=== PATIENT | female | born 1970 | race Caucasian/White ===

== ENCOUNTER 2017-02-07 06:46 | Inpatient (IN) | payer OTHER ==
[2017-02-07] MEDS ORDERED: DEXTROSE IV ONE (07:05)
[2017-02-07] MEDS ORDERED: WATER IV ONE (07:05)
[2017-02-07] MEDS ORDERED: NITROGLYCERIN IV ONE (07:05)
--- NOTE | 2017-02-07 07:10 | ED ---
SOB HPI - General Source: patient Mode of arrival: EMS Limitations: physical limitation (Severe dyspnea) - History of Present Illness MD Complaint: shortness of breath -: hour(s) Consistency: constant Improves With: nothing Worsens With: nothing Known History Of: congestive heart failure <Vinny Guy - Last Filed: 02/07/17 07:06> <Carrillo Bello - Last Filed: 02/07/17 09:51> - General Chief Complaint: Shortness of Breath Stated Complaint: ramila Time Seen by Provider: 02/07/17 07:04 - History of Present Illness Initial Comments: This patient is a 46-year-old woman brought in in severe dyspnea area history is a little bit limited as she is only able to get out one to 2 words at a time. She woke this morning short of breath and rapidly worsened. EMS was called and they brought her here. She has received oxygen and nebulized treatment en route. (Vinny Guy) - Related Data Home Medications Medication Instructions Recorded Confirmed Aspirin EC [Ecotrin] 81 mg PO DAILY 09/30/15 02/07/17 Atorvastatin [Lipitor] 40 mg PO HS 09/30/15 02/07/17 Insulin Glargine [Lantus] 72 unit SQ HS 09/30/15 02/07/17 Insulin Lispro [humaLOG Kwikpen] See Protocol SQ AC-TID 09/30/15 02/07/17 LORazepam [Ativan] 1 mg PO BID PRN 09/30/15 02/07/17 Lisinopril [Prinivil] 10 mg PO DAILY 09/30/15 02/07/17 Methimazole [Tapazole] 5 mg PO DAILY 09/30/15 02/07/17 Metoprolol Succinate [Toprol XL] 50 mg PO BID 09/30/15 02/07/17 Sertraline [Zoloft] 50 mg PO DAILY 09/30/15 02/07/17 Spironolactone [Aldactone] 25 mg PO DAILY 09/30/15 02/07/17 buPROPion HCL [Wellbutrin SR] 150 mg PO BID 09/30/15 02/07/17 Cholecalciferol [Vitamin D3] 2,000 unit PO DAILY 02/07/17 02/07/17 Escitalopram Oxalate [Lexapro] 10 mg PO DAILY 02/07/17 02/07/17 Gabapentin [Neurontin] 1,600 mg PO BID 02/07/17 02/07/17 Loperamide [Imodium] 2 - 4 mg PO DAILY PRN 02/07/17 02/07/17 Niacin 100 mg PO DAILY 02/07/17 02/07/17 QUEtiapine [SEROquel] 50 mg PO HS 02/07/17 02/07/17 metFORMIN HCL [metFORMIN HCL ER] 1,000 mg PO BID 02/07/17 02/07/17 Allergies Allergy/AdvReac Type Severity Reaction Status Date / Time bee pollen Allergy Unknown Verified 02/07/17 08:08 shellfish derived [Shellfish] Allergy Swelling Verified 02/07/17 07:58 erythromycin base AdvReac Nausea & Verified 02/07/17 07:58 Vomiting Review of Systems ROS Other: All systems not noted in ROS Statement are negative. Limitations: ROS unobtainable due to patients medical condition Respiratory: Reports: dyspnea. Denies: hemoptysis Cardiovascular: Denies: chest pain, syncope Gastrointestinal: Denies: abdominal pain, vomiting Musculoskeletal: Denies: back pain Neurological: Denies: headache <Vinny Guy - Last Filed: 02/07/17 07:06> ROS Other: All systems not noted in ROS Statement are negative. <Carrillo Bello - Last Filed: 02/07/17 09:51> ROS Statement: Those systems with pertinent positive or pertinent negative responses have been documented in the HPI. Past Medical History Past Medical History: Coronary Artery Disease (CAD), Diabetes Mellitus, Hyperlipidemia Additional Past Medical History / Comment(s): graves, fatty liver, tachycardia, chronic back pain, polycystic ovaries, rt ear deaf, left hear [place] History of Any Multi-Drug Resistant Organisms: None Reported Past Surgical History: Adenoidectomy, Section, Cholecystectomy, Orthopedic Surgery, Tonsillectomy Additional Past Surgical History / Comment(s): arterial clot removal Past Psychological History: Anxiety, Depression Smoking Status: Current every day smoker Past Alcohol Use History: None Reported Past Drug Use History: None Reported <Vinny Guy - Last Filed: 02/07/17 07:06> General Exam Limitations: no limitations General appearance: alert, in distress Head exam: Present: atraumatic, normocephalic Eye exam: Present: normal appearance. Absent: scleral icterus, conjunctival injection Neck exam: Present: normal inspection Respiratory exam: Present: respiratory distress (Tachypnea), wheezes (Bilateral) , rales (Bilateral), accessory muscle use. Absent: rhonchi, stridor, decreased breath sounds, prolonged expiratory Cardiovascular Exam: Present: tachycardia, systolic murmur, gallop. Absent: diastolic murmur, rubs GI/Abdominal exam: Present: soft. Absent: distended, tenderness, guarding, rebound, mass Extremities exam: Present: normal inspection, normal capillary refill. Absent: pedal edema, calf tenderness Back exam: Present: normal inspection. Absent: CVA tenderness (R), CVA tenderness (L) Neurological exam: Present: alert Psychiatric exam: Present: anxious Skin exam: Present: warm, intact, diaphoretic, mottled. Absent: rash <Vinny Guy - Last Filed: 02/07/17 07:06> Medical Decision Making - EKG Data -: EKG Interpreted by Me EKG shows normal: sinus rhythm, axis (Normal), intervals (Normal), QRS complexes (LDH), ST-T waves (There are lateral T inversions concerning for possible ischemia.) Rate: tachycardia (Rate 103 bpm) Interpretation: LVH <Vinny Guy - Last Filed: 02/07/17 07:06> - Lab Data Result diagrams: 02/07/17 06:57 02/07/17 06:57 <Carrillo Bello - Last Filed: 02/07/17 09:51> - Medical Decision Making CT of the chest shows no pulmonary embolism. Patient has congestive heart failure. I spoke with Dr. Tripathi he agreed to admit the patient. I started the patient on heparin. I consult cardiology I wrote admitting orders. Continue the heparin on the floor as well as the nitroglycerin and aspirin. (Carrillo Bello) - Lab Data Lab Results 02/07/17 02/07/17 02/07/17 Range/Units 06:57 06:57 06:57 WBC 17.8 H (3.8-10.6) k/uL RBC 4.69 (3.80-5.40) m/uL Hgb 15.1 (11.4-16.0) gm/dL Hct 45.5 (34.0-46.0) % MCV 97.0 (80.0-100.0) fL MCH 32.2 (25.0-35.0) pg MCHC 33.2 (31.0-37.0) g/dL RDW 12.3 (11.5-15.5) % Plt Count 355 (150-450) k/uL Neutrophils % (Manual) 58.0 % Lymphocytes % (Manual) 33.0 % Monocytes % (Manual) 7.0 % Eosinophils % (Manual) 2.0 % Neutrophils # (Manual) 10.3 H (1.3-7.7) k/uL Lymphocytes # (Manual) 5.9 H (1.0-4.8) k/uL Monocytes # (Manual) 1.2 H (0-1.0) k/uL Eosinophils # (Manual) 0.4 (0-0.7) k/uL Nucleated RBCs 0 (0-0) /100 WBC Manual Slide Review Performed PT (9.0-12.0) sec INR (<1.1) APTT (22.0-30.0) sec D-Dimer (<0.60) mg/L FEU Sodium 139 (137-145) mmol/L Potassium 4.8 (3.5-5.1) mmol/L Chloride 104 (98-107) mmol/L Carbon Dioxide 21 L (22-30) mmol/L Anion Gap 14 mmol/L BUN 16 (7-17) mg/dL Creatinine 0.71 (0.52-1.04) mg/dL Est GFR (MDRD) Af Amer >60 (>60 ml/min/1.73 sqM) Est GFR (MDRD) Non-Af >60 (>60 ml/min/1.73 sqM) Glucose 268 H (74-99) mg/dL Calcium 9.0 (8.4-10.2) mg/dL Magnesium 1.1 L (1.6-2.3) mg/dL Total Bilirubin 0.6 (0.2-1.3) mg/dL AST 53 H (14-36) U/L ALT 40 (9-52) U/L Alkaline Phosphatase 61 (38-126) U/L Total Creatine Kinase 90 (30-135) U/L CK-MB (CK-2) 1.6 (0.0-2.4) ng/mL CK-MB (CK-2) Rel Index 1.8 Troponin I 0.108 H* (0.000-0.034) ng/mL NT-Pro-B Natriuret Pep pg/mL Total Protein 7.9 (6.3-8.2) g/dL Albumin 4.3 (3.5-5.0) g/dL 02/07/17 02/07/17 Range/Units 06:57 06:57 WBC (3.8-10.6) k/uL RBC (3.80-5.40) m/uL Hgb (11.4-16.0) gm/dL Hct (34.0-46.0) % MCV (80.0-100.0) fL MCH (25.0-35.0) pg MCHC (31.0-37.0) g/dL RDW (11.5-15.5) % Plt Count (150-450) k/uL Neutrophils % (Manual) % Lymphocytes % (Manual) % Monocytes % (Manual) % Eosinophils % (Manual) % Neutrophils # (Manual) (1.3-7.7) k/uL Lymphocytes # (Manual) (1.0-4.8) k/uL Monocytes # (Manual) (0-1.0) k/uL Eosinophils # (Manual) (0-0.7) k/uL Nucleated RBCs (0-0) /100 WBC Manual Slide Review PT 10.2 (9.0-12.0) sec INR 1.0 (<1.1) APTT 22.3 (22.0-30.0) sec D-Dimer 1.08 H (<0.60) mg/L FEU Sodium (137-145) mmol/L Potassium (3.5-5.1) mmol/L Chloride (98-107) mmol/L Carbon Dioxide (22-30) mmol/L Anion Gap mmol/L BUN (7-17) mg/dL Creatinine (0.52-1.04) mg/dL Est GFR (MDRD) Af Amer (>60 ml/min/1.73 sqM) Est GFR (MDRD) Non-Af (>60 ml/min/1.73 sqM) Glucose (74-99) mg/dL Calcium (8.4-10.2) mg/dL Magnesium (1.6-2.3) mg/dL Total Bilirubin (0.2-1.3) mg/dL AST (14-36) U/L ALT (9-52) U/L Alkaline Phosphatase (38-126) U/L Total Creatine Kinase (30-135) U/L CK-MB (CK-2) (0.0-2.4) ng/mL CK-MB (CK-2) Rel Index Troponin I (0.000-0.034) ng/mL NT-Pro-B Natriuret Pep 834 pg/mL Total Protein (6.3-8.2) g/dL Albumin (3.5-5.0) g/dL Critical Care Time Critical Care Time: Yes Total Critical Care Time: 35 <Carrillo Bello - Last Filed: 02/07/17 09:51> Disposition <Vinny Gyu - Last Filed: 02/07/17 07:06> Time of Disposition: 09:44 <Carrillo Bello - Last Filed: 02/07/17 09:51> Clinical Impression: Congestive heart failure, Elevated troponin Disposition: ADMITTED IP TO THIS HOSP
[2017-02-07 07:25] LABS: ALT 40 U/L (9-52); AST 53 U/L (14-36); Alkaline Phosphatase 61 U/L (38-126); Anion Gap 14 mmol/L; Blood Urea Nitrogen 16 mg/dL (7-17); Carbon Dioxide 21 mmol/L (22-30); Chloride 104 mmol/L (98-107); Glucose 268 mg/dL (74-99); Magnesium 1.1 mg/dL (1.6-2.3); Non-African American GFR(MDRD) >60 (>60 ml/min/1.73 sqM); Potassium 4.8 mmol/L (3.5-5.1); Sodium 139 mmol/L (137-145); Total Bilirubin 0.6 mg/dL (0.2-1.3); Total Protein 7.9 g/dL (6.3-8.2)
--- NOTE | 2017-02-07 07:29 | XR ---
EXAMINATION TYPE: XR chest 1V portable DATE OF EXAM: 02/07/2017 7:20 AM COMPARISON: NONE HISTORY: Chest pain TECHNIQUE: Single frontal view of the chest is obtained. FINDINGS: There is patchy basilar infiltrate. Correlate for underlying pneumonia. The cardiac silhouette size is within normal limits. The osseous structures are intact. IMPRESSION: 1. There is patchy basilar infiltrate. Correlate for underlying pneumonia.
[2017-02-07 07:33] LABS: CH 32.3; CHCM 33.4; HCT 45.5 % (34.0-46.0); HDW 2.44; HGB 15.1 gm/dL (11.4-16.0); MCH 32.2 pg (25.0-35.0); MCHC 33.2 g/dL (31.0-37.0); Mean Platelet Volume 7.2; RBC 4.69 m/uL (3.80-5.40); RDW 12.3 % (11.5-15.5); WBC 17.8 k/uL (3.8-10.6)
[2017-02-07 07:47] LABS: Partial Thromboplastin Time 22.3 sec (22.0-30.0); Prothrombin Time 10.2 sec (9.0-12.0)
[2017-02-07 07:55] LABS: Add Differential Manual Differential
[2017-02-07 07:57] LABS: Manual Review Performed; Nucleated Red Blood Cells 0 /100 WBC (0-0); Total Cells Counted 100
[2017-02-07 08:12] LABS: Creatine Kinase MB 1.6 ng/mL (0.0-2.4)
[2017-02-07 08:13] LABS: Troponin I 0.108 ng/mL (0.000-0.034)
[2017-02-07] MEDS ORDERED: RX INFO: IV CONTRAST WAS GIVEN 1 EACH MISC MISCELLANE PRN (08:21)
[2017-02-07] MEDS ORDERED: ASPIRIN 81 MG CHEW PO STA (08:22)
[2017-02-07] MEDS ORDERED: HEPARIN SODIUM,PORCINE 5,000 UNIT/ML 1 ML VIAL IV ONE (08:22)
[2017-02-07] MEDS ORDERED: NITROGLYCERIN OINT 1 INCH/GM PACKET TOPICAL STA (08:22)
[2017-02-07] MEDS: HEPARIN SODIUM,PORCINE/D5W PMX 25,000 UNIT in DEXTROSE/WATER 1 500ML.BAG IV SCH (08:52)
--- NOTE | 2017-02-07 09:09 | CT ---
EXAMINATION TYPE: CT chest angio for PE DATE OF EXAM: 02/07/2017 8:49 AM COMPARISON: Chest x-ray same date HISTORY: Difficulty breathing CT DLP: 476.9 mGycm Automated exposure control for dose reduction was used. CONTRAST: CT Chest for pulmonary embolism performed with with IV Contrast, patient injected with 100 mL of Omni paque 350. FINDINGS: LUNGS: There are bilateral small pleural effusions. Interstitium is increased. Heart is enlarged. Mul tiple pulmonary nodules are present, subcentimeter nodule in the left upper lobe image 44 measures 3 to 4 mm. Right lower lobe nodule image 88 measures 14 mm medially. Subpleural nodule at the costophre kira angle on the right measures 19 mm image 94. Some additional scattered nodular opacities which are subcentimeter in size are noted. There is some basilar atelectasis. MEDIASTINUM: There is satisfactory enhancement of the pulmonary artery and its branches, there is no CT evidence for pulmonary embolism. There are no greater than 1 cm hilar or mediastinal lymph nodes. No pericardial effusion is seen. AORTA: No additional significant abnormality is seen. OTHER: Nodular density associated with the left adrenal gland measures approximately 17 mm and is in determinate. Patient is post cholecystectomy. The liver shows low attenuation possibly due to fatty i nfiltration. Small hiatal hernia may be present. IMPRESSION: Findings compatible with chest x-ray showing possible congestive heart failure. Small bibasilar effus ions. Indeterminate pulmonary nodules, correlate for possible metastatic disease, granulomatous disea se but infectious and noninfectious. Follow-up is recommended. Indeterminate left adrenal mass statis tically is likely to represent adenoma, MRI may be of benefit.
[2017-02-07] MEDS: FUROSEMIDE 10 MG/ML 4 ML VIAL IV SCH ×2 (10:28→20:26)
[2017-02-07 12:26] LABS: Glucose,Whole Blood 250 mg/dL (75-99)
[2017-02-07] MEDS: MAGNESIUM SULFATE-D5W PMX 1 GM in DEXTROSE/WATER 1 100ML.BAG IVPB SCH ×4 (13:37→17:52)
[2017-02-07] MEDS: ACETAMINOPHEN TAB 325 MG TAB PO PRN ×2 (14:48→20:37)
[2017-02-07 16:46] LABS: Glucose,Whole Blood 271 mg/dL (75-99)
[2017-02-07] MEDS ORDERED: INSULIN LISPRO (humaLOG) 300 UNIT/3 ML VIAL SQ SCH (17:30)
[2017-02-07] MEDS: INSULIN LISPRO (humaLOG) 300 UNIT/3 ML VIAL SQ SCH ×2 (17:53→20:40)
[2017-02-07] MEDS: ATORVASTATIN 40 MG TAB PO SCH (20:25)
[2017-02-07] MEDS: GABAPENTIN 400 MG CAP PO SCH (20:26)
[2017-02-07] MEDS: buPROPion SR 150 MG TABLET.ER PO SCH (20:26)
[2017-02-07] MEDS: METOPROLOL SUCCINATE (ER) 50 MG TAB.ER.24H PO SCH (20:26)
[2017-02-07] MEDS: QUEtiapine 50 MG TAB PO SCH (20:27)
[2017-02-07] MEDS: INSULIN GLARGINE 100 UNIT/ML 10 ML VIAL SQ SCH (20:37)
[2017-02-07 20:42] LABS: Glucose,Whole Blood 267 mg/dL (75-99)
[2017-02-08] MEDS: ACETAMINOPHEN TAB 325 MG TAB PO PRN ×4 (04:31→17:30)
[2017-02-08] MEDS: HEPARIN SODIUM,PORCINE/D5W PMX 25,000 UNIT in DEXTROSE/WATER 1 500ML.BAG IV SCH (04:36)
[2017-02-08 04:45] LABS: Basophils # (A) 0.1 k/uL (0-0.2); Basophils % (A) 1 %; CH 32.5; Eosinophils # (A) 0.2 k/uL (0-0.7); Eosinophils % (A) 2 %; HCT 36.7 % (34.0-46.0); HDW 2.36; HGB 12.5 gm/dL (11.4-16.0); Luc # (Auto) 0.28; Luc % (Auto) 3; Lymphocytes # (A) 2.4 k/uL (1.0-4.8); Lymphocytes % (A) 25 %; MCH 32.6 pg (25.0-35.0); Mean Platelet Volume 6.7; Monocytes # (A) 0.6 k/uL (0-1.0); Monocytes % (A) 6 %; Neutrophils # (A) 6.2 k/uL (1.3-7.7); Neutrophils % (A) 64 %; RBC 3.82 m/uL (3.80-5.40); RDW 12.7 % (11.5-15.5); WBC 9.7 k/uL (3.8-10.6); WBC (Perox) 9.61
[2017-02-08 04:54] LABS: ALT 41 U/L (9-52); AST 40 U/L (14-36); Alkaline Phosphatase 47 U/L (38-126); Anion Gap 10 mmol/L; Blood Urea Nitrogen 18 mg/dL (7-17); Calcium 8.9 mg/dL (8.4-10.2); Carbon Dioxide 24 mmol/L (22-30); Chloride 101 mmol/L (98-107); Glucose 143 mg/dL (74-99); Magnesium 1.9 mg/dL (1.6-2.3); Non-African American GFR(MDRD) >60 (>60 ml/min/1.73 sqM); Phosphorous 4.8 mg/dL (2.5-4.5); Potassium 4.1 mmol/L (3.5-5.1); Sodium 135 mmol/L (137-145); Total Bilirubin 0.6 mg/dL (0.2-1.3); Total Protein 6.5 g/dL (6.3-8.2)
[2017-02-08 06:16] LABS: Glucose,Whole Blood 145 mg/dL (75-99)
[2017-02-08] MEDS: FUROSEMIDE 10 MG/ML 4 ML VIAL IV SCH ×2 (08:40→20:29)
[2017-02-08] MEDS ORDERED: SERTRALINE 50 MG TAB PO SCH (09:00)
[2017-02-08] MEDS ORDERED: ESCITALOPRAM 10 MG TAB PO SCH ×2 (09:00)
[2017-02-08] MEDS ORDERED: NIACIN TR 500 MG CAPSULE.ER PO SCH (09:00)
[2017-02-08] MEDS ORDERED: ASPIRIN 325 MG TAB PO SCH (09:00)
[2017-02-08] MEDS: GABAPENTIN 400 MG CAP PO SCH ×2 (09:44→20:33)
[2017-02-08] MEDS: buPROPion SR 150 MG TABLET.ER PO SCH ×2 (09:45→20:29)
[2017-02-08] MEDS: METOPROLOL SUCCINATE (ER) 50 MG TAB.ER.24H PO SCH ×2 (09:45→20:34)
[2017-02-08] MEDS: METHIMAZOLE 5 MG TAB PO SCH (09:46)
[2017-02-08] MEDS: SERTRALINE 50 MG TAB PO SCH (09:47)
[2017-02-08] MEDS: SPIRONOLACTONE 25 MG TAB PO SCH (09:47)
[2017-02-08 09:57] LABS: Glucose,Whole Blood 161 mg/dL (75-99)
--- NOTE | 2017-02-08 10:03 | P.CRDCN ---
History of Present Illness Consult date: 02/08/17 Requesting physician: Gorge Tripathi Consult reason: shortness of breath Chief complaint: Shortness of breath History of present illness: This is a 46-year-old female with history of hypertension, hyperlipidemia, diabetes, fatty liver, nicotine dependence, family history of premature coronary artery disease, she presents to the hospital with symptoms of progressively worsening shortness of breath. According to the patient, over this past one week she has been noticing herself to be short of breath, increasing in severity, last evening she states that she woke up around 1 AM and could hardly catch her breath at all. At that time EMS was called and patient was brought in for further evaluation. Patient states she has been told by Dr. Tripathi recently to have mild COPD but no other history of any lung problems that she is aware of. She also states that she has had 2 cardiac catheterizations in the past and was not found to have any obstructive coronary artery disease but was told to have a weak heart muscle. These procedures were done in [place]. The pressure on arrival here to 26/119, heart rate 110 , 88% on room air, respirations 32. Chest x-ray revealed patchy basilar infiltrate and possible pneumonia. CTA of the chest revealed findings compatible with possible congestive heart failure. Small bibasilar effusions were noted. Intermediate pulmonary nodules also noted correlation for possible metastatic disease recommended. Indeterminate left adrenal mass is likely to represent adenoma. MRI recommended. Negative for pulmonary embolism. Pulmonary consultation has been requested. EKG on arrival showed a sinus tachycardia with an incomplete left bundle branch block pattern and lateral ST depression evidence of LVH. White blood cell count 17,000 on admission, 9.7 this morning. Hemoglobin 15.1 on admission, 12.5 this morning. Odium 135, potassium 4.1, BUN 18, creatinine 0.8. Blood sugar on arrival to 68. Hemoglobin A1c 8.0. Magnesium level I.1 on admission, 1.[address] 40 ALT 41, alk phos 47. BNP [id number]. Troponin 0.10, 0.09. At the time of my examination this morning, patient states that her breathing is significantly improved, still has mild shortness of breath. She this morning 127/80 with a heart rate of 78, 98% on 2 L. Patient was initiated on IV Lasix in the emergency room. She has been diuresing well overall. Past Medical History Past Medical History: Coronary Artery Disease (CAD), Diabetes Mellitus, Hearing Disorder / Deafness, Hyperlipidemia, Myocardial Infarction (MN) Additional Past Medical History / Comment(s): IDDM type II, neuropathy bilateral feet/lower legs, MN unknown age but before 2006, nausea and occasional vomiting, balance issues, graves, fatty liver, tachycardia, chronic back pain, polycystic ovaries, rt ear deaf, left hear [place] Last Myocardial Infarction Date:: unkn History of Any Multi-Drug Resistant Organisms: None Reported Past Surgical History: Adenoidectomy, Section, Cholecystectomy, Heart Catheterization, Orthopedic Surgery, Tonsillectomy Additional Past Surgical History / Comment(s): R groin arterial clot removal after cardiac cath, 2 cardiac caths, titanium bones in R ear. Past Anesthesia/Blood Transfusion Reactions: Postoperative Nausea & Vomiting ( PONV) Past Psychological History: Anxiety, Depression Additional Psychological History / Comment(s): Pt has an adult son who lives with her. She is independent. She does not drive very ofter-her son takes her places. She works at [employer] from 2-10:00 pm. Smoking Status: Current every day smoker Past Alcohol Use History: None Reported Additional Past Alcohol Use History / Comment(s): Pt started smoking in 1997. Past Drug Use History: None Reported - Past Family History Father Family Medical History: Myocardial Infarction (MN) Additional Family Medical History / Comment(s): Father of a MN at the age of 67 or 68yrs. Mother Family Medical History: Myocardial Infarction (MN) Additional Family Medical History / Comment(s): Mother of a MN at the age of either 61 or 62yrs. Medications and Allergies Home Medications Medication Instructions Recorded Confirmed Type Aspirin EC [Ecotrin] 81 mg PO DAILY 09/30/15 02/07/17 History Atorvastatin [Lipitor] 40 mg PO HS 09/30/15 02/07/17 History Insulin Glargine [Lantus] 72 unit SQ HS 09/30/15 02/07/17 History Insulin Lispro [humaLOG Kwikpen] See Protocol SQ AC-TID 09/30/15 02/07/17 History LORazepam [Ativan] 1 mg PO BID PRN 09/30/15 02/07/17 History Lisinopril [Prinivil] 10 mg PO DAILY 09/30/15 02/07/17 History Methimazole [Tapazole] 5 mg PO DAILY 09/30/15 02/07/17 History Metoprolol Succinate [Toprol XL] 50 mg PO BID 09/30/15 02/07/17 History Sertraline [Zoloft] 50 mg PO DAILY 09/30/15 02/07/17 History Spironolactone [Aldactone] 25 mg PO DAILY 09/30/15 02/07/17 History buPROPion HCL [Wellbutrin SR] 150 mg PO BID 09/30/15 02/07/17 History Cholecalciferol [Vitamin D3] 2,000 unit PO DAILY 02/07/17 02/07/17 History Gabapentin [Neurontin] 1,600 mg PO BID 02/07/17 02/07/17 History Loperamide [Imodium] 2 - 4 mg PO DAILY PRN 02/07/17 02/07/17 History Niacin 100 mg PO DAILY 02/07/17 02/07/17 History QUEtiapine [SEROquel] 50 mg PO HS 02/07/17 02/07/17 History metFORMIN HCL [metFORMIN HCL ER] 1,000 mg PO BID 02/07/17 02/07/17 History Allergies Allergy/AdvReac Type Severity Reaction Status Date / Time bee pollen Allergy Unknown Verified 02/07/17 08:08 shellfish derived [Shellfish] Allergy Swelling Verified 02/07/17 07:58 erythromycin base AdvReac Nausea & Verified 02/07/17 07:58 Vomiting Physical Exam Vitals: Vital Signs Temp Pulse Pulse Resp BP BP Pulse Ox 02/08/17 09:03 98 02/08/17 08:36 97 F L 79 16 127/80 98 02/08/17 04:00 97.6 F 83 17 135/73 96 02/08/17 00:00 97.9 F 88 17 111/58 94 L 02/07/17 20:00 98.4 F 98 18 170/80 98 02/07/17 16:00 97.2 F L 91 18 144/71 96 02/07/17 13:43 97 F L 90 19 145/68 96 02/07/17 12:04 98.3 F 89 18 117/69 97 02/07/17 10:03 88 18 143/72 97 Intake and Output 02/07/17 02/08/17 02/08/17 22:59 06:59 14:59 Intake Total 888.355 233.798 Output Total 2100 400 400 Balance -1211.645 -166.202 -400 Intake: IV 200 0.9 ns 100 Heparin Sodium,Porcine/ 100 D5w Pmx 25,000 unit In Dextrose/Water 1 500ml. bag @ 12 UNITS/KG/HR 19. 05 mls/hr IV .Q24H [facility] Rx #:[id number] Intake, IV Titration 688.355 233.798 Amount Heparin Sodium,Porcine/ 288.355 233.798 D5w Pmx 25,000 unit In Dextrose/Water 1 500ml. bag @ 12 UNITS/KG/HR 19. 05 mls/hr IV .Q24H [facility] Rx #:[id number] Magnesium Sulfate-D5w Pmx 400 1 gm In Dextrose/Water 1 100ml.bag @ 100 mls/hr IVPB Q1H [facility] Rx#: [id number] Output: Urine 2100 400 400 Other: # Voids 1 1 PHYSICAL EXAMINATION: HEENT: Head is atraumatic, normocephalic. Pupils equal, round. Neck is supple. There is elevated jugular venous pressure. HEART EXAMINATION: S1 and S2 systolic murmur is heard. CHEST EXAMINATION: Lungs reveal crackles bilaterally with diminished air entry to the bases. ABDOMEN: Soft, nontender. Bowel sounds are heard. positive hepatomegaly. . EXTREMITIES: 2+ peripheral pulses with no evidence of peripheral edema and no calf tenderness noted. NEUROLOGIC patient is awake, alert and oriented -3. . Results 02/08/17 04:16 02/08/17 04:16 Cardiac Enzymes 02/07/17 02/08/17 Range/Units 20:43 04:16 AST 40 H (14-36) U/L Troponin I 0.098 H* (0.000-0.034) ng/mL Coagulation 02/07/17 02/07/17 02/08/17 Range/Units 15:14 20:43 04:16 APTT 25.1 26.3 36.4 H (22.0-30.0) sec CBC 02/08/17 Range/Units 04:16 WBC 9.7 (3.8-10.6) k/uL RBC 3.82 (3.80-5.40) m/uL Hgb 12.5 (11.4-16.0) gm/dL Hct 36.7 (34.0-46.0) % Plt Count 211 (150-450) k/uL Comprehensive Metabolic Panel 02/08/17 Range/Units 04:16 Sodium 135 L (137-145) mmol/L Potassium 4.1 (3.5-5.1) mmol/L Chloride 101 (98-107) mmol/L Carbon Dioxide 24 (22-30) mmol/L BUN 18 H (7-17) mg/dL Creatinine 0.80 (0.52-1.04) mg/dL Glucose 143 H (74-99) mg/dL Calcium 8.9 (8.4-10.2) mg/dL AST 40 H (14-36) U/L ALT 41 (9-52) U/L Alkaline Phosphatase 47 (38-126) U/L Total Protein 6.5 (6.3-8.2) g/dL Albumin 3.7 (3.5-5.0) g/dL Current Medications Generic Name Dose Route Start Last Admin Trade Name Freq PRN Reason Stop Dose Admin Acetaminophen 650 mg 02/07/17 13:41 02/08/17 08:39 Tylenol Tab PO 650 mg Q4HR PRN Administration Fever and/ or MILD Pain Aspirin 325 mg 02/08/17 09:00 Aspirin PO DAILY [facility] Atorvastatin Calcium 40 mg 02/07/17 21:00 02/07/17 20:25 Lipitor PO 40 mg HS [facility] Administration Bupropion HCl 150 mg 02/07/17 21:00 02/07/17 20:26 Wellbutrin Sr PO 150 mg BID [facility] Administration Furosemide 40 mg 02/07/17 10:30 02/08/17 08:40 Lasix IV 40 mg Q12HR [facility] Administration Gabapentin 1,600 mg 02/07/17 21:00 02/07/17 20:26 Neurontin PO 1,600 mg BID [facility] Administration Heparin Sodium/Dextrose 25,000 500 mls @ 19.05 mls/hr 02/07/17 08:30 06:42 unit/ IV Solution IV 21 units/kg/hr .Q24H [facility] 33.33 mls/hr Protocol Titration 12 UNITS/KG/HR Insulin Glargine 72 unit 02/07/17 21:00 02/07/17 20:37 Lantus SQ 72 unit HS [facility] Administration Insulin Human Lispro 0 unit 02/07/17 17:30 02/07/17 20:40 Humalog SQ 4 unit ACHS [facility] Administration Protocol Insulin Human Lispro 8 unit 02/08/17 08:15 Humalog SQ AC-TID [facility] Lisinopril 10 mg 02/08/17 09:00 Zestril PO DAILY [facility] Lorazepam 1 mg 02/07/17 13:22 Ativan PO BID PRN Anxiety Methimazole 5 mg 02/08/17 09:00 Tapazole PO DAILY [facility] Metoprolol Succinate 50 mg 02/07/17 21:00 02/07/17 20:26 Toprol Xl PO 50 mg BID [facility] Administration Miscellaneous Information 1 each 02/07/17 08:21 02/07/17 08:49 Rx Info: Iv Contrast Was Given MISCELLANE 02/09/17 08:21 1 each DAILY PRN Administration Per Protocol Niacin 100 mg 02/08/17 09:00 Niacin Tr PO DAILY [facility] Quetiapine Fumarate 50 mg 02/07/17 21:00 02/07/17 20:27 Seroquel PO 50 mg HS [facility] Administration Sertraline HCl 50 mg 02/08/17 09:00 Zoloft PO DAILY [facility] Spironolactone 25 mg 02/08/17 09:00 Aldactone PO DAILY [facility] Intake and Output 02/07/17 02/08/17 02/08/17 22:59 06:59 14:59 Intake Total 888.355 233.798 Output Total 2100 400 400 Balance -1211.645 -166.202 -400 Intake: IV 200 0.9 ns 100 Heparin Sodium,Porcine/ 100 D5w Pmx 25,000 unit In Dextrose/Water 1 500ml. bag @ 12 UNITS/KG/HR 19. 05 mls/hr IV .Q24H [facility] Rx #:[id number] Intake, IV Titration 688.355 233.798 Amount Heparin Sodium,Porcine/ 288.355 233.798 D5w Pmx 25,000 unit In Dextrose/Water 1 500ml. bag @ 12 UNITS/KG/HR 19. 05 mls/hr IV .Q24H [facility] Rx #:[id number] Magnesium Sulfate-D5w Pmx 400 1 gm In Dextrose/Water 1 100ml.bag @ 100 mls/hr IVPB Q1H [facility] Rx#: [id number] Output: Urine 2100 400 400 Other: # Voids 1 1 02/08/17 04:16 02/08/17 04:16 EKG Interpretations (text) EKG shows a sinus tachycardia with incomplete left bundle branch block pattern and lateral ST depression Assessment and Plan Plan: Assessment and Plan #1 symptoms of severe, sudden onset of shortness of breath. Evidence of mild congestive cardiac failure. Unsure of LV function. BNP level 834. Patient is currently on IV Lasix. PE ruled out on CAT scan #2 accelerated hypertension #3 history of hypertension #4 diabetes #5 hyperlipidemia #6 mild COPD #7 nicotine dependence #8 family history of premature coronary artery disease #9 abnormal troponins, not consistent with acute coronary syndrome, could be secondary to oxygen supply and demand mismatch. Patient states she has had 2 cardiac catheterizations in the past both of which were reported to her to be normal. We'll attempt to obtain records of prior cardiac catheterization. EKG shows a normal sinus rhythm with incomplete left bundle branch block pattern and lateral ST depression evidence of LVH strain pattern. #10 CTA of the chest revealed indeterminate pulmonary nodules as well as left adrenal mass. Rule out CA. Plan Continue current dose of IV Lasix. We will also obtain an echocardiogram with Doppler study and repeat EKG. We will obtain records of prior cardiac catheterization as well as old EKG for comparison. Agree with a pulmonary consultation. Further recommendations to follow. DNP note has been reviewed, I agree with a documented findings and plan of care. Patient was seen and examined.
[2017-02-08] MEDS: INSULIN LISPRO (humaLOG) 300 UNIT/3 ML VIAL SQ SCH ×6 (10:33→21:23)
--- NOTE | 2017-02-08 11:27 | ECHOF ---
Referral Reason:abn trop MEASUREMENTS -------- HEIGHT: 167.6 cm WEIGHT: 79.4 kg BP: 120/80 IVSd: 1.3 cm (0.6 - 1.1) LVIDd: 4.6 cm (3.9 - 5.3) LVPWd: 1.5 cm (0.6 - 1.1) IVSs: 1.3 cm LVIDs: 4.4 cm LVPWs: 1.7 cm Ao Diam: 2.9 cm (2.0 - 3.7) AV Cusp: 1.3 cm (1.5 - 2.6) LA Diam: 3.4 cm (2.7 - 3.8) MV EXCURSION: 15.271 mm (> 18.000) MV EF SLOPE: 98 mm/s (70 - 150) EPSS: 1.7 cm MV E Lucien: 0.70 m/s MV DecT: 219 ms MV A Lucien: 0.64 m/s MV E/A Ratio: 1.09 RAP: 5.00 mmHg RVSP: 7.51 mmHg FINDINGS -------- Sinus rhythm. This was a technically difficult study with suboptimal views. There is mild concentric left ventricular hypertrophy. Overall left ventricular systolic function is mild-moderately impaired with, an EF between 40 - 45 %. Septal Hypokinesis The right ventricle is normal in size and function. The left atrium is normal in size. The right atrium is normal in size. 1.5mg of Definity was utilized for enhancement of images The aortic valve is trileaflet, and appears structurally normal. No aortic stenosis or regurgitation. The mitral valve leaflets are mildly thickened. There is trace mitral regurgitation. Trace tricuspid regurgitation present. The right ventricular systolic pressure, as measured by Doppler, is 7.51mmHg. Pulmonic valve appears structurally normal. The aortic root size is normal. The pericardium is normal. CONCLUSIONS -------- 1. Sinus rhythm. 2. The aortic valve is trileaflet, and appears structurally normal. No aortic stenosis or regurgitation. 3. The mitral valve leaflets are mildly thickened. 4. There is trace mitral regurgitation. 5. Trace tricuspid regurgitation present. 6. The right ventricular systolic pressure, as measured by Doppler, is 7.51mmHg. 7. Pulmonic valve appears structurally normal. 8. The aortic root size is normal. 9. The pericardium is normal. 10. This was a technically difficult study with suboptimal views. 11. There is mild concentric left ventricular hypertrophy. 12. Overall left ventricular systolic function is mild-moderately impaired with, an EF between 40 - 45 %. 13. Septal Hypokinesis 14. The right ventricle is normal in size and function. 15. The left atrium is normal in size. 16. The right atrium is normal in size. 17. 1.5mg of Definity was utilized for enhancement of images KETTLE WORKER: Jessica Ross RDCS
[2017-02-08 11:40] LABS: Glucose,Whole Blood 212 mg/dL (75-99)
--- NOTE | 2017-02-08 11:52 | CONS ---
DATE OF CONSULTATION: This is a 46-year-old female who I am asked to see because of an abnormal CAT scan showing pulmonary nodules. This is a very pleasant 46-year-old female who comes to the emergency room with complaints of increasing shortness of breath. She had severe conversational dyspnea. She was seen in the emergency room and admitted with a diagnosis of CHF with elevated troponins. In addition, she had chest x-ray and CAT scan, which showed pulmonary [place]. [place] a previous history of fungal infection maybe histoplasmosis or Blastomyces infection. She states that she did see a metal cut off saw tender down there and she had CAT scans every 3 or 4 months for a period of at least a couple years and was told that there was nothing more to be done that these nodules were chronic in nature and had unchanged. These probably represent fungal granulomas. She is really not having any chronic respiratory complaints other than the shortness of breath blamed on the CHF. No cough, no wheezing. No coughing up phlegm or blood. No weight loss. Reasonably good appetite. Anyway, the patient's home medications included aspirin, atorvastatin, insulin, Ativan, Prinivil, Tapazole, metoprolol, Zoloft, Aldactone, Wellbutrin, vitamin D3, Lexapro, Neurontin, Imodium, nystatin, Seroquel and metformin. Allergies are BEE POLLEN, SHELLFISH and ERYTHROMYCIN or MACROLIDE ANTIBIOTICS. Medical history includes CAD, diabetes, hyperlipidemia, Graves' disease, nonalcoholic steatohepatitis, tachycardia, chronic back pain, polycystic ovaries, deafness. Surgical history includes adenoidectomy, section, cholecystectomy, tonsillectomy and various orthopedic procedures. Social history is positive for ongoing tobacco use. Family history is noncontributory. Occupational history is noncontributory. No illicit drug use. No significant alcohol use. REVIEW OF SYSTEMS: CONSTITUTIONAL: Negative. NEUROLOGICAL: Negative. HEENT: Negative. CARDIOVASCULAR: Negative. PULMONARY: Shortness of breath. GI/: Negative. RHEUMATOLOGICAL/IMMUNOLOGIC: Negative. ENDOCRINOLOGIC: Negative. DERMATOLOGIC: Negative. Current vital signs include a temperature of 97, heart rate 79, respiratory 16, blood pressure 127/80, two liter saturation 98%. Appears in no acute distress. HEENT examination is grossly unremarkable. Mucous membranes are moist. NECK: Supple. Full range of motion. No adenopathy or thyromegaly. Cardiovascular examination reveals regular rhythm and rate. Heart sounds are distant. Lungs reveal a few scattered bibasilar crackles. No wheezes or rhonchi. ABDOMEN: Soft. Bowel sounds are heard. Extremities are intact. There is no cyanosis, clubbing or edema. Skin without rash. X-rays and CAT scans are reviewed. ASSESSMENT: 1. Abnormal CAT scan showing multiple pulmonary nodules, likely representing an old fungal infection. These nodules likely representing granulomas [place] prior exposure to either Histoplasma capsulatum or Blastomyces dermatitidis. She apparently was followed for a period of at least 2 years by metal cut off saw tender in that area and had CAT scans every 3 or 4 months x6. 2. History of congestive heart failure. 3. Multiple other medical problems and comorbidities listed above. PLAN: I am happy to see this patient in the outpatient setting. I do not believe anything more needs to be done. Her story is quite convincing. She remembers being seen by metal cut off saw tender over a course of many many months and years. She was told that no biopsies were necessary. [place] of [place] and [facility], it is likely representing a fungal infection likely Histoplasma capsulatum or Blastomyces dermatitides infections. These likely representing granulomas are likely benign. I do behavioral school counselors her about the importance of smoking cessation. Again if you would like for me to see her in the office, I would be happy to.
[2017-02-08] MEDS: LISINOPRIL 10 MG TAB PO SCH (13:27)
[2017-02-08] MEDS ORDERED: HEPARIN SODIUM,PORCINE 5,000 UNIT/ML 1 ML VIAL IV PRN (13:28)
[2017-02-08 15:28] VITALS: BMI 30.2
--- NOTE | 2017-02-08 16:05 | P.HPIM ---
History of Present Illness H&P Date: 02/08/17 Chief Complaint: Shortness of breath Patient is a 46-year-old female, patient of Dr. Gorge Tripathi in the outpatient setting, with medical history significant for asthma, coronary artery disease, silent myocardial infarction, diabetes mellitus type 2, hyperlipidemia, peripheral neuropathy, Graves' disease, chronic back pain, polycystic ovaries, right ear deafness, hard of hearing left ear, fatty liver, and pulmonary nodules. Patient presented to the emergency department with complaints of severe dyspnea fairly acute onset 1 day. Chest x-ray with evidence of patchy basilar infiltrate. CT chest angiogram with evidence of bilateral small pleural effusions and multiple pulmonary nodules with some basilar atelectasis without evidence of pulmonary embolism. In addition patient had indeterminate left adrenal mass likely to represent adenoma. Patient with evidence of leukocytosis with WBC 17.8, increased random blood sugars with glucose of 268, hypomagnesemia with magnesium of 1.1, BNP 834, and elevated troponin of 0.108, 0.098. Blood pressure on admission 226/119 with oxygen saturation of 88%. Patient was placed on BiPAP, started on IV nitroglycerin, IV heparin, and IV Lasix for elevated troponin and acute congestive heart failure. Patient was also given 1 dose of IV ceftriaxone. Patient was admitted to the selective care unit on continuous cardiac monitoring with consult to cardiology and Dr. Castellanos for pulmonology service. Upon examination, patient is feeling better. Patient complains of mild shortness of breath with exertion. Patient reports sweats but contributes that to hot flashes. Patient reports a 30 pound weight gain over the last 3 months. Denies chills, fevers, nausea, vomiting, chest pain, abdominal pain, constipation, diarrhea, urinary frequency, dysuria, or hematuria. Patient reports occasional leg swelling but states it improves with elevation. Denies current rashes or lesions. Patient is currently on 2 L nasal cannula with oxygen saturation of 98%. Blood pressure 145/70. WBC 9.7. Past Medical History Past Medical History: Coronary Artery Disease (CAD), Diabetes Mellitus, Hearing Disorder / Deafness, Hyperlipidemia, Myocardial Infarction ([place]) Additional Past Medical History / Comment(s): IDDM type II, neuropathy bilateral feet/lower legs, [place] unknown age but before 2006, nausea and occasional vomiting, balance issues, graves, fatty liver, tachycardia, chronic back pain, polycystic ovaries, rt ear deaf, left hear hoopa Last Myocardial Infarction Date:: unkn History of Any Multi-Drug Resistant Organisms: None Reported Past Surgical History: Adenoidectomy, Section, Cholecystectomy, Heart Catheterization, Orthopedic Surgery, Tonsillectomy Additional Past Surgical History / Comment(s): R groin arterial clot removal after cardiac cath, 2 cardiac caths, titanium bones in R ear. Past Anesthesia/Blood Transfusion Reactions: Postoperative Nausea & Vomiting ( PONV) Past Psychological History: Anxiety, Depression Additional Psychological History / Comment(s): Pt has an adult son who lives with her. She is independent. She does not drive very ofter-her son takes her places. She works at [employer] from 2-10:00 pm. Smoking Status: Current every day smoker Past Alcohol Use History: None Reported Additional Past Alcohol Use History / Comment(s): Pt started smoking in 1997. Past Drug Use History: None Reported - Past Family History Father Family Medical History: Myocardial Infarction ([place]) Additional Family Medical History / Comment(s): Father of a [place] at the age of 67 or 68yrs. Mother Family Medical History: Myocardial Infarction ([place]) Additional Family Medical History / Comment(s): Mother of a [place] at the age of either 61 or 62yrs. Medications and Allergies Home Medications Medication Instructions Recorded Confirmed Type Aspirin EC [Ecotrin] 81 mg PO DAILY 09/30/15 02/07/17 History Atorvastatin [Lipitor] 40 mg PO HS 09/30/15 02/07/17 History Insulin Glargine [Lantus] 72 unit SQ HS 09/30/15 02/07/17 History Insulin Lispro [humaLOG Kwikpen] See Protocol SQ AC-TID 09/30/15 02/07/17 History LORazepam [Ativan] 1 mg PO BID PRN 09/30/15 02/07/17 History Lisinopril [Prinivil] 10 mg PO DAILY 09/30/15 02/07/17 History Methimazole [Tapazole] 5 mg PO DAILY 09/30/15 02/07/17 History Metoprolol Succinate [Toprol XL] 50 mg PO BID 09/30/15 02/07/17 History Sertraline [Zoloft] 50 mg PO DAILY 09/30/15 02/07/17 History Spironolactone [Aldactone] 25 mg PO DAILY 09/30/15 02/07/17 History buPROPion HCL [Wellbutrin SR] 150 mg PO BID 09/30/15 02/07/17 History Cholecalciferol [Vitamin D3] 2,000 unit PO DAILY 02/07/17 02/07/17 History Gabapentin [Neurontin] 1,600 mg PO BID 02/07/17 02/07/17 History Loperamide [Imodium] 2 - 4 mg PO DAILY PRN 02/07/17 02/07/17 History Niacin 100 mg PO DAILY 02/07/17 02/07/17 History QUEtiapine [SEROquel] 50 mg PO HS 02/07/17 02/07/17 History metFORMIN HCL [metFORMIN HCL ER] 1,000 mg PO BID 02/07/17 02/07/17 History Allergies Allergy/AdvReac Type Severity Reaction Status Date / Time bee pollen Allergy Unknown Verified 02/07/17 08:08 shellfish derived [Shellfish] Allergy Swelling Verified 02/07/17 07:58 erythromycin base AdvReac Nausea & Verified 02/07/17 07:58 Vomiting Physical Exam Vitals: Vital Signs Temp Pulse Resp BP Pulse Ox 02/08/17 11:44 98.1 F 83 16 145/70 96 02/08/17 09:03 98 02/08/17 08:36 97 F L 79 16 127/80 98 02/08/17 04:00 97.6 F 83 17 135/73 96 02/08/17 00:00 97.9 F 88 17 111/58 94 L 02/07/17 20:00 98.4 F 98 18 170/80 98 02/07/17 16:00 97.2 F L 91 18 144/71 96 Intake and Output 02/08/17 02/08/17 02/08/17 06:59 14:59 22:59 Intake Total 233.798 197.203 Output Total 400 400 Balance -166.202 -202.797 Intake: Intake, IV Titration 233.798 197.203 Amount Heparin Sodium,Porcine/ 233.798 197.203 D5w Pmx 25,000 unit In Dextrose/Water 1 500ml. bag @ 12 UNITS/KG/HR 19. 05 mls/hr IV .Q24H [facility] Rx #:[id number] Output: Urine 400 400 Other: Voiding Method Toilet # Voids 1 Weight 84.9 kg Patient Weight 02/09/17 06:59 Weight 84.9 kg GENERAL: Pt awake and alert, well-appearing, well-nourished, and in no acute distress. HEAD: Atraumatic, normocephalic. EYES: Pupils equal, round, and reactive to light, extraocular movements intact, sclera anicteric, conjunctiva are normal. ENT: Oropharynx clear without exudates. Moist mucous membranes. Tongue smooth, pink, no lesions, protrudes in midline. NECK: Supple without lymphadenopathy or JVD. LUNGS: Breath sounds diminished to auscultation bilaterally. No wheezes, rales , or rhonchi. HEART: Heart S1, S2, no S3 or S4. Regular rate and rhythm. No murmurs, rubs or gallops. ABDOMEN: Soft, obese, nontender, nondistended, normoactive bowel sounds. No guarding, no rebound. EXTREMITIES: 2+ peripheral pulses. No edema. No calf tenderness. NEUROLOGICAL: Pt oriented x 3. No focal deficits noted. Strength and sensation grossly intact. PSYCH: Normal mood, normal affect. SKIN: Warm, dry, intact. No rashes or lesions. Results CBC & Chem 7: 02/08/17 04:16 02/08/17 04:16 Labs: Abnormal Lab Results - Last 24 Hours (Table) 02/07/17 02/07/17 02/07/17 Range/Units 15:14 16:44 20:41 APTT (22.0-30.0) sec Sodium (137-145) mmol/L BUN (7-17) mg/dL Glucose (74-99) mg/dL POC Glucose (mg/dL) 271 H 267 H (75-99) mg/dL Hemoglobin A1c 8.0 H (4.2-6.1) % Phosphorus (2.5-4.5) mg/dL AST (14-36) U/L Troponin I (0.000-0.034) ng/mL 02/07/17 02/08/17 02/08/17 Range/Units 20:43 04:16 04:16 APTT 36.4 H (22.0-30.0) sec Sodium 135 L (137-145) mmol/L BUN 18 H (7-17) mg/dL Glucose 143 H (74-99) mg/dL POC Glucose (mg/dL) (75-99) mg/dL Hemoglobin A1c (4.2-6.1) % Phosphorus 4.8 H (2.5-4.5) mg/dL AST 40 H (14-36) U/L Troponin I 0.098 H* (0.000-0.034) ng/mL 02/08/17 02/08/17 02/08/17 Range/Units 06:15 09:54 11:39 APTT (22.0-30.0) sec Sodium (137-145) mmol/L BUN (7-17) mg/dL Glucose (74-99) mg/dL POC Glucose (mg/dL) 145 H 161 H 212 H (75-99) mg/dL Hemoglobin A1c (4.2-6.1) % Phosphorus (2.5-4.5) mg/dL AST (14-36) U/L Troponin I (0.000-0.034) ng/mL 02/08/17 Range/Units 11:41 APTT 37.9 H (22.0-30.0) sec Sodium (137-145) mmol/L BUN (7-17) mg/dL Glucose (74-99) mg/dL POC Glucose (mg/dL) (75-99) mg/dL Hemoglobin A1c (4.2-6.1) % Phosphorus (2.5-4.5) mg/dL AST (14-36) U/L Troponin I (0.000-0.034) ng/mL Comments: Echocardiogram with Doppler with overall left ventricular systolic function mild to moderately impaired with an EF between 40-45%; septal hypokinesis. Chest x-ray: report reviewed CT scan - chest: report reviewed Thrombosis Risk Factor Assmnt - DVT/VTE Prophylaxis DVT/VTE Prophylaxis: Pharmacologic Prophylaxis ordered - Choose All That Apply Any of the Below Risk Factors Present?: Yes Each Factor Represents 1 point: Age 41-60 years, Heart failure (<1month), Obesity (BMI >25) Other Risk Factors: No Other congenital or acquired thrombophilia - If yes, enter type in comment: No Thrombosis Risk Factor Assessment Total Risk Factor Score: 3 Thrombosis Risk Factor Assessment Level: Moderate Risk Assessment and Plan Plan: Impression and plan: 1. Acute hypoxic respiratory failure suspect secondary to acute on chronic systolic heart failure. Cardiology consult in place, recommendations noted. Continue Lasix 40 mg twice daily twice a day. Continue supplemental oxygen to keep oxygen saturations greater than 92%. 2. Leukocytosis, present on admission, resolved. 3. Hypomagnesemia, present on admission, improved. Magnesium 1.9 from 1.1 after replacement. 4. Elevated AST, present on admission, with history of fatty liver. 5. Elevated troponins, present on admission, not consistent with acute coronary syndrome possibly secondary to oxygen supply and demand mismatch. Cardiology consult in place, recommendations noted. 5. Hypertensive urgency, present on admission, with history of hypertension, suspect secondary to acute congestive heart failure. Continue metoprolol 50 mg by mouth twice a day, lisinopril 10 mg by mouth daily, 6. Diabetes mellitus, type II, uncontrolled, with elevated random blood sugars on admission. Hemoglobin A1c 8.0. Continue Lantus 72 units at bedtime, Humalog 8 units before meals 3 times a day, and Humalog sliding scale before meals at bedtime. Continue consistent carbohydrate diet. 7. Coronary artery disease with history of silent myocardial infarction and previous heart catheterizations with no stent placements. Continue aspirin. 8. Peripheral neuropathy suspect secondary to diabetes mellitus. Continue Neurontin. 9. Graves' disease. Continue Tapazole. Will check TSH. 10. Hyperlipidemia. Continue Lipitor. 11. Depression and anxiety, continue Seroquel, Zoloft, and Wellbutrin. 12. Nicotine dependence. Smoking cessation encouraged. 13. 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 Continue to monitor patient. Home medications have been reviewed and resumed as appropriate. Continue DVT prophylaxis. Continue to follow with pulmonary and cardiology service. Repeat CBC, BMP, magnesium, phosphorus, TSH, in a.m. The above impression and plan have been discussed and directed by Dr. Tripathi. Damien BARTLETT acting as scribe for Dr. Tripathi.
[2017-02-08 16:29] LABS: Glucose,Whole Blood 235 mg/dL (75-99)
[2017-02-08] MEDS: ATORVASTATIN 40 MG TAB PO SCH (20:29)
[2017-02-08] MEDS: QUEtiapine 50 MG TAB PO SCH (20:34)
[2017-02-08] MEDS: INSULIN GLARGINE 100 UNIT/ML 10 ML VIAL SQ SCH (20:40)
[2017-02-08] MEDS: HYDROcodone/APAP 5-325MG 1 EACH TAB PO PRN (20:40)
[2017-02-08 20:50] LABS: Glucose,Whole Blood 231 mg/dL (75-99)
[2017-02-09] MEDS: HYDROcodone/APAP 5-325MG 1 EACH TAB PO PRN ×3 (04:10→21:03)
[2017-02-09] MEDS: HEPARIN SODIUM,PORCINE/D5W PMX 25,000 UNIT in DEXTROSE/WATER 1 500ML.BAG IV SCH (04:11)
[2017-02-09 06:25] LABS: Glucose,Whole Blood 169 mg/dL (75-99)
[2017-02-09 06:45] LABS: Basophils % (A) 1 %; CH 32.4; CHCM 33.3; Eosinophils # (A) 0.1 k/uL (0-0.7); Eosinophils % (A) 2 %; HCT 36.8 % (34.0-46.0); HDW 2.29; HGB 11.9 gm/dL (11.4-16.0); Luc # (Auto) 0.19; Luc % (Auto) 3; Lymphocytes # (A) 2.1 k/uL (1.0-4.8); Lymphocytes % (A) 30 %; MCH 31.6 pg (25.0-35.0); MCHC 32.4 g/dL (31.0-37.0); MCV 97.6 fL (80.0-100.0); Mean Platelet Volume 6.7; Monocytes # (A) 0.4 k/uL (0-1.0); Monocytes % (A) 5 %; Neutrophils # (A) 4.3 k/uL (1.3-7.7); Neutrophils % (A) 60 %; RBC 3.77 m/uL (3.80-5.40); RDW 12.8 % (11.5-15.5); WBC 7.2 k/uL (3.8-10.6); WBC (Perox) 7.49
[2017-02-09 07:08] LABS: Anion Gap 9 mmol/L; Blood Urea Nitrogen 22 mg/dL (7-17); Calcium 8.7 mg/dL (8.4-10.2); Carbon Dioxide 25 mmol/L (22-30); Chloride 102 mmol/L (98-107); Glucose 166 mg/dL (74-99); Magnesium 1.4 mg/dL (1.6-2.3); Non-African American GFR(MDRD) >60 (>60 ml/min/1.73 sqM); Phosphorous 4.1 mg/dL (2.5-4.5); Sodium 136 mmol/L (137-145)
[2017-02-09] MEDS: INSULIN LISPRO (humaLOG) 300 UNIT/3 ML VIAL SQ SCH ×7 (07:18→20:49)
[2017-02-09] MEDS ORDERED: Magnesium Replacement Protocol 1 EACH MISC MISCELLANE PRN (08:30)
[2017-02-09] MEDS: GABAPENTIN 400 MG CAP PO SCH ×2 (09:12→20:49)
[2017-02-09] MEDS: buPROPion SR 150 MG TABLET.ER PO SCH ×2 (09:12→20:49)
[2017-02-09] MEDS: SPIRONOLACTONE 25 MG TAB PO SCH (09:13)
[2017-02-09] MEDS: METHIMAZOLE 5 MG TAB PO SCH (09:13)
[2017-02-09] MEDS: SERTRALINE 50 MG TAB PO SCH (09:13)
[2017-02-09] MEDS: METOPROLOL SUCCINATE (ER) 50 MG TAB.ER.24H PO SCH ×2 (09:13→20:49)
[2017-02-09] MEDS: ASPIRIN 81 MG CHEW PO SCH (09:13)
[2017-02-09] MEDS: FUROSEMIDE 10 MG/ML 4 ML VIAL IV SCH (09:13)
[2017-02-09] MEDS: MAGNESIUM SULFATE-D5W PMX 1 GM in DEXTROSE/WATER 1 100ML.BAG IVPB SCH ×3 (09:31→14:35)
[2017-02-09] MEDS: ACETAMINOPHEN TAB 325 MG TAB PO PRN (10:15)
[2017-02-09 11:44] LABS: Glucose,Whole Blood 205 mg/dL (75-99)
[2017-02-09] MEDS: LISINOPRIL 10 MG TAB PO SCH (12:14)
--- NOTE | 2017-02-09 12:46 | P.PN ---
Subjective Principal diagnosis: Acute congestive heart failure Patient is a 46-year-old female, patient of Dr. Gorge Tripathi in the outpatient setting, with medical history significant for asthma, coronary artery disease, silent myocardial infarction, diabetes mellitus type 2, hyperlipidemia, peripheral neuropathy, Graves' disease, chronic back pain, polycystic ovaries, right ear deafness, hard of hearing left ear, fatty liver, and pulmonary nodules. Patient presented to the emergency department with complaints of severe dyspnea fairly acute onset 1 day. Chest x-ray with evidence of patchy basilar infiltrate. CT chest angiogram with evidence of bilateral small pleural effusions and multiple pulmonary nodules with some basilar atelectasis without evidence of pulmonary embolism. In addition patient had indeterminate left adrenal mass likely to represent adenoma. Patient with evidence of leukocytosis with WBC 17.8, increased random blood sugars with glucose of 268, hypomagnesemia with magnesium of 1.1, BNP 834, and elevated troponin of 0.108, 0.098. Blood pressure on admission 226/119 with oxygen saturation of 88%. Patient was placed on BiPAP, started on IV nitroglycerin, IV heparin, and IV Lasix for elevated troponin and acute congestive heart failure. Patient was also given 1 dose of IV ceftriaxone. Patient was admitted to the selective care unit on continuous cardiac monitoring with consult to cardiology and Dr. Castellanos for pulmonology service. Patient has been evaluated by cardiology who recommended continuing IV Lasix. Echocardiogram with Doppler was ordered showing overall mild to moderately impaired left ventricular systolic function with with an EF between 40-45% and septal hypokinesis. Patient was also evaluated by Dr. Castellanos from pulmonary service who is contributing pulmonary nodules to a possible old fungal infection with possible prior exposure to either histoplasma capsulatum or blastomycosis dermatitdis. 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 Castellanos, pulmonary nodules are likely representing benign granulomas. Patient to follow-up in outpatient setting with Dr. Castellanos. Upon exam, patient is feeling better. Patient continues to complain of mild shortness of breath with exertion but is currently on room air. Denies nausea, vomiting, chest pain, abdominal pain, constipation or diarrhea. Patient remains afebrile. Blood pressure 136/76. Morning labs with evidence of hypomagnesemia with magnesium of 1.4. BUN increased to 22 from 18 yesterday. TSH 2.920. Objective - Vital Signs Vital signs: Vital Signs Temp 97.4 F L 02/09/17 11:44 Pulse 79 02/09/17 11:44 Resp 16 02/09/17 11:44 BP 130/73 02/09/17 11:44 Pulse Ox 96 02/09/17 11:44 Intake & Output 02/08/17 02/09/17 02/09/17 18:59 06:59 18:59 Intake Total 963.203 342.8 180 Output Total 019 416 3949 Balance 563.203 42.8 -1520 Weight 84.9 kg 84.6 kg Intake: IV 424 100 0.9 ns 160 Heparin Sodium,Porcine/ 264 100 D5w Pmx 25,000 unit In Dextrose/Water 1 500ml. bag @ 12 UNITS/KG/HR 19. 05 mls/hr IV .Q24H [facility] Rx #:[id number] Intake, IV Titration 197.203 242.8 Amount Heparin Sodium,Porcine/ 197.203 242.8 D5w Pmx 25,000 unit In Dextrose/Water 1 500ml. bag @ 12 UNITS/KG/HR 19. 05 mls/hr IV .Q24H [facility] Rx #:[id number] Oral 342 180 Output: Urine 619 420 0311 Other: Voiding Method Toilet Toilet Toilet # Voids 1 # Bowel Movements 1 - Exam GENERAL: Pt awake and alert, well-appearing, well-nourished, and in no acute distress. HEAD: Atraumatic, normocephalic. EYES: Pupils equal, round, and reactive to light, sclera anicteric, conjunctiva are normal. ENT: Moist mucous membranes. NECK: Supple without lymphadenopathy or JVD. LUNGS: Breath sounds diminished to auscultation bilaterally. No wheezes, rales , or rhonchi. HEART: Heart S1, S2, no S3 or S4. Regular rate and rhythm. No murmurs, rubs or gallops. ABDOMEN: Soft, obese, nontender, nondistended, normoactive bowel sounds. No guarding, no rebound. EXTREMITIES: 2+ peripheral pulses. No edema. No calf tenderness. NEUROLOGICAL: Pt oriented x 3. No focal deficits noted. Strength and sensation grossly intact. PSYCH: Normal mood, normal affect. SKIN: Warm, dry, intact. No rashes or lesions. - Labs CBC & Chem 7: 02/09/17 06:03 02/09/17 06:03 Labs: Abnormal Lab Results - Last 24 Hours (Table) 02/08/17 02/08/17 02/08/17 Range/Units 16:27 18:15 20:46 RBC (3.80-5.40) m/uL APTT 74.1 H (22.0-30.0) sec Sodium (137-145) mmol/L BUN (7-17) mg/dL Glucose (74-99) mg/dL POC Glucose (mg/dL) 235 H 231 H (75-99) mg/dL Magnesium (1.6-2.3) mg/dL 02/09/17 02/09/17 02/09/17 Range/Units 06:03 06:03 06:23 RBC 3.77 L (3.80-5.40) m/uL APTT (22.0-30.0) sec Sodium 136 L (137-145) mmol/L BUN 22 H (7-17) mg/dL Glucose 166 H (74-99) mg/dL POC Glucose (mg/dL) 169 H (75-99) mg/dL Magnesium 1.4 L (1.6-2.3) mg/dL 02/09/17 02/09/17 Range/Units 09:19 11:43 RBC (3.80-5.40) m/uL APTT 48.3 H (22.0-30.0) sec Sodium (137-145) mmol/L BUN (7-17) mg/dL Glucose (74-99) mg/dL POC Glucose (mg/dL) 205 H (75-99) mg/dL Magnesium (1.6-2.3) mg/dL Assessment and Plan Plan: Impression and plan: 1. Acute hypoxic respiratory failure suspect secondary to acute on chronic systolic heart failure, resolved. Cardiology consult in place, recommendations noted. Continue Lasix 40 mg twice daily twice a day. Continue supplemental oxygen to keep oxygen saturations greater than 92%. 2. Leukocytosis, present on admission, resolved. 3. Hypomagnesemia. Magnesium 1.4. Replace per protocol. 4. Elevated AST, present on admission, with history of fatty liver. 5. Elevated troponins, present on admission, not consistent with acute coronary syndrome possibly secondary to oxygen supply and demand mismatch. 5. Hypertensive urgency, present on admission, with history of hypertension, suspect secondary to acute congestive heart failure, improved. Continue metoprolol 50 mg by mouth twice a day, lisinopril 10 mg by mouth daily, Aldactone 25 mg by mouth daily. 6. Diabetes mellitus, type II, uncontrolled, with elevated random blood sugars on admission. Hemoglobin A1c 8.0. Increase Lantus 75 units at bedtime, increase Humalog 11 units before meals 3 times a day, add Humalog sliding scale before meals at bedtime. Continue consistent carbohydrate diet. 7. Coronary artery disease with history of silent myocardial infarction and previous heart catheterizations with no stent placements. Continue aspirin. 8. Peripheral neuropathy suspect secondary to diabetes mellitus. Continue Neurontin. 9. Graves' disease. Continue Tapazole. TSH 2.920. 10. Hyperlipidemia. Continue Lipitor. 11. Depression and anxiety, continue Seroquel, Zoloft, and Wellbutrin. 12. Nicotine dependence. Smoking cessation encouraged. 13. Pulmonary nodules, chronic, suspect benign granulomas fungal in origin. Continue to monitor patient. Continue current medications. Continue DVT prophylaxis. Continue to follow with pulmonary and cardiology service. Repeat CBC, BMP, magnesium, a.m. The above impression and plan have been discussed and directed by Dr. Tripathi. Damien BARTLETT acting as scribe for Dr. Tripathi.
--- NOTE | 2017-02-09 15:24 | P.PN ---
Subjective This is a 46-year-old female with history of hypertension, hyperlipidemia, diabetes, fatty liver, nicotine dependence, family history of premature coronary artery disease, she presents to the hospital with symptoms of progressively worsening shortness of breath. According to the patient, over this past one week she has been noticing herself to be short of breath, increasing in severity, last evening she states that she woke up around 1 AM and could hardly catch her breath at all. At that time EMS was called and patient was brought in for further evaluation. Patient states she has been told by Dr. Tripathi recently to have mild COPD but no other history of any lung problems that she is aware of. She also states that she has had 2 cardiac catheterizations in the past and was not found to have any obstructive coronary artery disease but was told to have a weak heart muscle. These procedures were done in [place]. The pressure on arrival here to 26/119, heart rate 110 , 88% on room air, respirations 32. Chest x-ray revealed patchy basilar infiltrate and possible pneumonia. CTA of the chest revealed findings compatible with possible congestive heart failure. Small bibasilar effusions were noted. Intermediate pulmonary nodules also noted correlation for possible metastatic disease recommended. Indeterminate left adrenal mass is likely to represent adenoma. MRI recommended. Negative for pulmonary embolism. Pulmonary consultation has been requested. EKG on arrival showed a sinus tachycardia with an incomplete left bundle branch block pattern and lateral ST depression evidence of LVH. 02/09/17 Cardiac exam with Doppler study was performed which revealed an ejection fraction of 40-45%. Septal hypokinesia. All the patient is feeling significantly better today. Continues to be on IV Lasix. Order a repeat chest x-ray tomorrow. Continue IV Lasix for 24 hours. Objective - Vital Signs Vital signs: Vital Signs Temp 97.4 F L 02/09/17 11:44 Pulse 79 02/09/17 11:44 Resp 16 02/09/17 11:44 BP 130/73 02/09/17 11:44 Pulse Ox 96 02/09/17 11:44 Intake & Output 02/08/17 02/09/17 02/09/17 18:59 06:59 18:59 Intake Total 963.203 342.8 680 Output Total 806 124 9638 Balance 563.203 42.8 -1420 Weight 84.9 kg 84.6 kg Intake: IV 424 100 300 0.9 ns 160 Heparin Sodium,Porcine/ 264 100 D5w Pmx 25,000 unit In Dextrose/Water 1 500ml. bag @ 12 UNITS/KG/HR 19. 05 mls/hr IV .Q24H [facility] Rx #:[id number] Magnesium Sulfate-D5w Pmx 300 1 gm In Dextrose/Water 1 100ml.bag @ 100 mls/hr IVPB Q1H [facility] Rx#: [id number] Intake, IV Titration 197.203 242.8 Amount Heparin Sodium,Porcine/ 197.203 242.8 D5w Pmx 25,000 unit In Dextrose/Water 1 500ml. bag @ 12 UNITS/KG/HR 19. 05 mls/hr IV .Q24H [facility] Rx #:[id number] Oral 342 380 Output: Urine 645 537 9249 Other: Voiding Method Toilet Toilet Toilet # Voids 1 # Bowel Movements 1 - Exam PHYSICAL EXAMINATION: HEENT: Head is atraumatic, normocephalic. Pupils equal, round. Neck is supple. There is elevated jugular venous pressure. HEART EXAMINATION: S1 and S2 systolic murmur is heard. CHEST EXAMINATION: Lungs reveal imporvement in air entry bilaterally ABDOMEN: Soft, nontender. Bowel sounds are heard. positive hepatomegaly. . EXTREMITIES: 2+ peripheral pulses with no evidence of peripheral edema and no calf tenderness noted. NEUROLOGIC patient is awake, alert and oriented -3. . - Labs CBC & Chem 7: 02/09/17 06:03 02/09/17 06:03 Labs: Abnormal Lab Results - Last 24 Hours (Table) 02/08/17 02/08/17 02/08/17 Range/Units 16:27 18:15 20:46 RBC (3.80-5.40) m/uL APTT 74.1 H (22.0-30.0) sec Sodium (137-145) mmol/L BUN (7-17) mg/dL Glucose (74-99) mg/dL POC Glucose (mg/dL) 235 H 231 H (75-99) mg/dL Magnesium (1.6-2.3) mg/dL 02/09/17 02/09/17 02/09/17 Range/Units 06:03 06:03 06:23 RBC 3.77 L (3.80-5.40) m/uL APTT (22.0-30.0) sec Sodium 136 L (137-145) mmol/L BUN 22 H (7-17) mg/dL Glucose 166 H (74-99) mg/dL POC Glucose (mg/dL) 169 H (75-99) mg/dL Magnesium 1.4 L (1.6-2.3) mg/dL 02/09/17 02/09/17 Range/Units 09:19 11:43 RBC (3.80-5.40) m/uL APTT 48.3 H (22.0-30.0) sec Sodium (137-145) mmol/L BUN (7-17) mg/dL Glucose (74-99) mg/dL POC Glucose (mg/dL) 205 H (75-99) mg/dL Magnesium (1.6-2.3) mg/dL Assessment and Plan Plan: Assessment and Plan #1 symptoms of severe, sudden onset of shortness of breath. Evidence of mild systolic congestive cardiac failure. Patient is currently on IV Lasix. PE ruled out on CAT scan #2 accelerated hypertension #3 history of hypertension #4 diabetes #5 hyperlipidemia #6 mild COPD #7 nicotine dependence #8 family history of premature coronary artery disease #9 abnormal troponins, not consistent with acute coronary syndrome, could be secondary to oxygen supply and demand mismatch. Patient states she has had 2 cardiac catheterizations in the past both of which were reported to her to be normal. We'll attempt to obtain records of prior cardiac catheterization. EKG shows a normal sinus rhythm with incomplete left bundle branch block pattern and lateral ST depression evidence of LVH strain pattern. #10 CTA of the chest revealed indeterminate pulmonary nodules as well as left adrenal mass. This is something to the patient has been noted in the past, she has followed with pulmonology downstep Plan Continue current dose of IV Lasix. Did get the results of the patient's cardiac catheterization which was performed actually in March 2013. 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 Mild coronary artery disease without any critical stenosis. Dilated hypokinetic left ventricle compatible with nonischemic cardiomyopathy with reduced left ventricular systolic function of 30%. Continue RAGHU inhibitor, beta obed, Aldactone. Check lytes BUN and creatinine in the morning. DNP note has been reviewed, I agree with a documented findings and plan of care. Patient was seen and examined.
[2017-02-09 16:38] LABS: Glucose,Whole Blood 192 mg/dL (75-99)
--- NOTE | 2017-02-09 18:09 | PN ---
This is a 46-year-old female with a history of multiple pulmonary nodules on CAT scan. These nodules apparently had [place] had CAT scans every 3 to 4 months times 6 over at least a 2-year period of time. She was told that nodules were unchanged and were likely benign. They probably represent fungal granulomas either from a Blastomyces dermatitides infection or histoplasma capsulatum infection. Anyway she appears to be asymptomatic from that standpoint. She was actually admitted with a diagnosis of heart failure. She also has a number of other medical problems. Doing well today. Current vital signs temperature 97.4, heart rate 79, respiratory 16, blood pressure 130/73, mean 92, room air saturation 96%. Appears in no acute distress. HEENT examination is grossly unremarkable. Mucous membranes are moist. No oral lesions. Neck is supple. Full range of motion. No adenopathy or thyromegaly. Cardiovascular examination reveals regular rhythm rate. S1, S2 normal. Soft systolic murmur noted. No S3, S4. Lungs reveal some bibasilar crackles. Breath sounds are diminished. No wheezes or rhonchi. Abdomen is soft. Bowel sounds are heard. Extremities are intact. No cyanosis, clubbing or edema. Skin is without rash. Neurologic examination is nonfocal. ASSESSMENT: 1. History of congestive heart failure. 2. Multiple pulmonary nodules, likely representing old fungal granulomas from either Histoplasma capsulatum infection or Blastomyces dermatitides infection. They had been followed by an outside lead c developer over a period of 2 years and had not changed. 3. History of coronary artery disease, diabetes, hyperlipidemia, Graves' disease, nonalcoholic steatohepatitis, tachycardia, chronic back pain, polycystic ovaries and deafness. PLAN: Will continue to follow. No additional recommendations are made. Prognosis is good.
[2017-02-09 20:21] LABS: Glucose,Whole Blood 233 mg/dL (75-99)
[2017-02-09] MEDS: ATORVASTATIN 40 MG TAB PO SCH (20:49)
[2017-02-09] MEDS: QUEtiapine 50 MG TAB PO SCH (20:49)
[2017-02-09] MEDS ORDERED: INSULIN GLARGINE 100 UNIT/ML 10 ML VIAL SQ SCH (21:00)
[2017-02-09] MEDS: LORazepam 1 MG TAB PO PRN (21:03)
[2017-02-09 23:32] VITALS: RESP 18
[2017-02-10] MEDS: FUROSEMIDE 10 MG/ML 4 ML VIAL IV SCH ×2 (00:32→09:11)
[2017-02-10 05:55] LABS: Glucose,Whole Blood 166 mg/dL (75-99)
[2017-02-10 06:41] LABS: Basophils % (A) 1 %; CH 32.5; Eosinophils # (A) 0.2 k/uL (0-0.7); Eosinophils % (A) 2 %; HCT 37.8 % (34.0-46.0); HDW 2.43; HGB 12.9 gm/dL (11.4-16.0); Luc # (Auto) 0.25; Luc % (Auto) 3; Lymphocytes # (A) 1.8 k/uL (1.0-4.8); Lymphocytes % (A) 24 %; MCH 32.7 pg (25.0-35.0); MCHC 34.1 g/dL (31.0-37.0); MCV 96.1 fL (80.0-100.0); Mean Platelet Volume 6.7; Monocytes # (A) 0.5 k/uL (0-1.0); Monocytes % (A) 7 %; Neutrophils # (A) 4.6 k/uL (1.3-7.7); Neutrophils % (A) 63 %; RBC 3.94 m/uL (3.80-5.40); RDW 12.6 % (11.5-15.5); WBC 7.3 k/uL (3.8-10.6)
[2017-02-10 06:51] LABS: Anion Gap 12 mmol/L; Blood Urea Nitrogen 20 mg/dL (7-17); Calcium 9.4 mg/dL (8.4-10.2); Carbon Dioxide 22 mmol/L (22-30); Chloride 104 mmol/L (98-107); Glucose 164 mg/dL (74-99); Magnesium 1.7 mg/dL (1.6-2.3); Non-African American GFR(MDRD) >60 (>60 ml/min/1.73 sqM); Potassium 4.3 mmol/L (3.5-5.1); Sodium 138 mmol/L (137-145)
[2017-02-10] MEDS: HYDROcodone/APAP 5-325MG 1 EACH TAB PO PRN ×2 (07:04→12:38)
[2017-02-10] MEDS: INSULIN LISPRO (humaLOG) 300 UNIT/3 ML VIAL SQ SCH ×6 (07:05→16:52)
[2017-02-10] MEDS ORDERED: Magnesium Replacement Protocol 1 EACH MISC MISCELLANE PRN (08:41)
[2017-02-10] MEDS: buPROPion SR 150 MG TABLET.ER PO SCH (09:11)
[2017-02-10] MEDS: ASPIRIN 81 MG CHEW PO SCH (09:11)
[2017-02-10] MEDS: GABAPENTIN 400 MG CAP PO SCH (09:12)
[2017-02-10] MEDS: METHIMAZOLE 5 MG TAB PO SCH (09:12)
[2017-02-10] MEDS: LISINOPRIL 10 MG TAB PO SCH (09:12)
[2017-02-10] MEDS: METOPROLOL SUCCINATE (ER) 50 MG TAB.ER.24H PO SCH (09:13)
[2017-02-10] MEDS: SPIRONOLACTONE 25 MG TAB PO SCH (09:13)
[2017-02-10] MEDS: SERTRALINE 50 MG TAB PO SCH (09:13)
[2017-02-10] MEDS: MAGNESIUM SULFATE-D5W PMX 1 GM in DEXTROSE/WATER 1 100ML.BAG IVPB SCH ×2 (09:14→11:20)
[2017-02-10] MEDS: LORazepam 1 MG TAB PO PRN (09:20)
[2017-02-10 09:43] VITALS: PULSE 75
[2017-02-10 11:57] LABS: Glucose,Whole Blood 251 mg/dL (75-99)
--- NOTE | 2017-02-10 12:06 | P.DS ---
Providers Date of admission: 02/07/17 09:51 Expected date of discharge: 02/10/17 Attending physician: Gorge Tripathi Consults: 02/07/17 09:57 Consult Physician Routine Consulting Provider: [facility] Consult Reason/Comments: Elevated troponin, congestive heart failure Do you want consulting provider notified?: Yes 02/07/17 14:14 Consult Physician Urgent Consulting Provider: Arash Perez Consult Reason/Comments: pulmonary nodules Do you want consulting provider notified?: Yes Primary care physician: Gorge Tripathi Hospital Course: Patient is a 46-year-old female, patient of Dr. Gorge Tripathi in the outpatient setting, with medical history significant for asthma, coronary artery disease, silent myocardial infarction, diabetes mellitus type 2, hyperlipidemia, peripheral neuropathy, Graves' disease, chronic back pain, polycystic ovaries, right ear deafness, hard of hearing left ear, fatty liver, and pulmonary nodules. Patient presented to the emergency department with complaints of severe dyspnea fairly acute onset 1 day. Chest x-ray with evidence of patchy basilar infiltrate. CT chest angiogram with evidence of bilateral small pleural effusions and multiple pulmonary nodules with some basilar atelectasis without evidence of pulmonary embolism. In addition patient had indeterminate left adrenal mass likely to represent adenoma. Patient with evidence of leukocytosis with WBC 17.8, increased random blood sugars with glucose of 268, hypomagnesemia with magnesium of 1.1, BNP 834, and elevated troponin of 0.108, 0.098. Blood pressure on admission 226/119 with oxygen saturation of 88%. Patient was placed on BiPAP, started on IV nitroglycerin, IV heparin, and IV Lasix for elevated troponin and acute congestive heart failure. Patient was also given 1 dose of IV ceftriaxone. Patient was admitted to the selective care unit on continuous cardiac monitoring with consult to cardiology and Dr. Castellanos for pulmonology service. Patient was evaluated by cardiology service, who recommended diuresis with IV Lasix for two days and converting to oral Lasix upon discharge. Echocardiogram with Doppler was ordered showing overall mild to moderately impaired left ventricular systolic function with with an EF between 40-45% and septal hypokinesis. Patient was also evaluated by Dr. Castellanos from pulmonary service who contributed pulmonary nodules to a possible old fungal infection with possible prior exposure to either histoplasma capsulatum or blastomycosis dermatitdis. 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 Castellanos, pulmonary nodules are likely representing benign granulomas. Patient to follow-up in outpatient setting with Dr. Castellanos. Patient improved significantly during her hospital stay and was deemed stable for discharge to home with close follow-up with cardiology service, pulmonary service, and primary service. Discharge diagnoses: 1. Acute hypoxic respiratory failure suspect secondary to acute on chronic systolic heart failure, resolved. 2. Leukocytosis, present on admission, resolved. 3. Elevated AST, present on admission, suspect secondary to nonalcoholic steatohepatitis. 4. Elevated troponins, present on admission, not consistent with acute coronary syndrome possibly secondary to oxygen supply and demand mismatch. 5. Hypertensive urgency, present on admission, with history of hypertension, suspect secondary to acute congestive heart failure, resolved. 6. Diabetes mellitus, type II, uncontrolled, with elevated random blood sugars on admission. 7. Coronary artery disease with history of silent myocardial infarction and previous heart catheterizations with no stent placements. 8. Peripheral neuropathy suspect secondary to diabetes mellitus. 9. Graves' disease. 10. Hyperlipidemia. 11. Depression and anxiety, stable. 12. Nicotine dependence. 13. Pulmonary nodules, chronic, suspect benign granulomas fungal in origin. 14. Chronic back pain. 15. Deafness to left ear and hard of hearing to right ear. The above impression and plan have been discussed and directed by Dr. Tripathi. Damien BARTLETT acting as scribe for Dr. Tripathi. Pertinent Studies: Chest x-ray; EKG; chest CTA; echocardiogram with Doppler Patient Condition at Discharge: Good Plan - Discharge Summary New Discharge Prescriptions: Furosemide [Lasix] 40 mg PO BID #60 tablet Discharge Medication List Aspirin EC [Ecotrin Low Dose] 81 mg PO DAILY 09/30/15 [History] Atorvastatin [Lipitor] 40 mg PO HS 09/30/15 [History] Insulin Glargine [Lantus] 72 unit SQ HS 09/30/15 [History] Insulin Lispro [humaLOG Kwikpen] See Protocol SQ AC-TID 09/30/15 [History] LORazepam [Ativan] 1 mg PO BID PRN 09/30/15 [History] Lisinopril [Prinivil] 10 mg PO DAILY 09/30/15 [History] Methimazole [Tapazole] 5 mg PO DAILY 09/30/15 [History] Metoprolol Succinate [Toprol XL] 50 mg PO BID 09/30/15 [History] Sertraline [Zoloft] 50 mg PO DAILY 09/30/15 [History] Spironolactone [Aldactone] 25 mg PO DAILY 09/30/15 [History] buPROPion HCL [Wellbutrin SR] 150 mg PO BID 09/30/15 [History] Cholecalciferol [Vitamin D3] 2,000 unit PO DAILY 02/07/17 [History] Gabapentin [Neurontin] 1,600 mg PO BID 02/07/17 [History] Loperamide [Imodium] 2 - 4 mg PO DAILY PRN 02/07/17 [History] Niacin 100 mg PO DAILY 02/07/17 [History] QUEtiapine [SEROquel] 50 mg PO HS 02/07/17 [History] metFORMIN HCL [metFORMIN HCL ER] 1,000 mg PO BID 02/07/17 [History] Furosemide [Lasix] 40 mg PO BID #60 tablet 02/10/17 [Rx] Follow up Appointment(s)/Referral(s): Gorge Tripathi DO [Primary Care Provider] - 1-2 days Enrique Gillespie MD [STAFF PHYSICIAN] - 1 Week Patient Instructions/Handouts: How to Stop Smoking (DC), Heart Failure (DC) Discharge Disposition: HOME WITH HOME HEALTH SERVICES
--- NOTE | 2017-02-10 15:18 | P.PN ---
Subjective This is a 46-year-old female with history of hypertension, hyperlipidemia, diabetes, fatty liver, nicotine dependence, family history of premature coronary artery disease, she presents to the hospital with symptoms of progressively worsening shortness of breath. According to the patient, over this past one week she has been noticing herself to be short of breath, increasing in severity, last evening she states that she woke up around 1 AM and could hardly catch her breath at all. At that time EMS was called and patient was brought in for further evaluation. Patient states she has been told by Dr. Tripathi recently to have mild COPD but no other history of any lung problems that she is aware of. She also states that she has had 2 cardiac catheterizations in the past and was not found to have any obstructive coronary artery disease but was told to have a weak heart muscle. These procedures were done in [place]. The pressure on arrival here to 26/119, heart rate 110 , 88% on room air, respirations 32. Chest x-ray revealed patchy basilar infiltrate and possible pneumonia. CTA of the chest revealed findings compatible with possible congestive heart failure. Small bibasilar effusions were noted. Intermediate pulmonary nodules also noted correlation for possible metastatic disease recommended. Indeterminate left adrenal mass is likely to represent adenoma. MRI recommended. Negative for pulmonary embolism. Pulmonary consultation has been requested. EKG on arrival showed a sinus tachycardia with an incomplete left bundle branch block pattern and lateral ST depression evidence of LVH. 02/09/17, 02/10/2017 Cardiac exam with Doppler study was performed which revealed an ejection fraction of 40-45%. Septal hypokinesia. All the patient is feeling significantly better today. Continues to be on IV Lasix. His continue the IV Lasix today and change the patient over to oral diuretics. She may be able to be discharged from cardiology's perspective to follow-up with Dr. Thakur in the office. DNP note has been reviewed, I agree with a documented findings and plan of care. Patient was seen and examined. Objective - Vital Signs Vital signs: Vital Signs Temp 97.3 F L 02/10/17 08:00 Pulse 75 02/10/17 08:00 Resp 18 02/10/17 08:00 BP 108/53 02/10/17 08:00 Pulse Ox 93 L 02/10/17 08:00 Intake & Output 02/09/17 02/10/17 02/10/17 18:59 06:59 18:59 Intake Total 880 618 240 Output Total 2800 800 300 Balance -1920 -182 -60 Weight 84.4 kg Intake: IV 300 Magnesium Sulfate-D5w Pmx 300 1 gm In Dextrose/Water 1 100ml.bag @ 100 mls/hr IVPB Q1H CORI Rx#: [id number] Oral 580 618 240 Output: Urine 2800 800 300 Other: Voiding Method Toilet Toilet Toilet # Voids 1 # Bowel Movements 1 - Exam PHYSICAL EXAMINATION: HEENT: Head is atraumatic, normocephalic. Pupils equal, round. Neck is supple. There is elevated jugular venous pressure. HEART EXAMINATION: S1 and S2 systolic murmur is heard. CHEST EXAMINATION: Lungs reveal imporvement in air entry bilaterally ABDOMEN: Soft, nontender. Bowel sounds are heard. positive hepatomegaly. . EXTREMITIES: 2+ peripheral pulses with no evidence of peripheral edema and no calf tenderness noted. NEUROLOGIC patient is awake, alert and oriented -3. . - Labs CBC & Chem 7: 02/10/17 06:08 02/10/17 06:08 Labs: Abnormal Lab Results - Last 24 Hours (Table) 02/09/17 02/09/17 02/10/17 Range/Units 16:34 20:20 05:54 BUN (7-17) mg/dL Glucose (74-99) mg/dL POC Glucose (mg/dL) 192 H 233 H 166 H (75-99) mg/dL 02/10/17 02/10/17 Range/Units 06:08 11:53 BUN 20 H (7-17) mg/dL Glucose 164 H (74-99) mg/dL POC Glucose (mg/dL) 251 H (75-99) mg/dL Assessment and Plan Plan: Assessment and Plan #1 symptoms of severe, sudden onset of shortness of breath. Evidence of mild systolic congestive cardiac failure. Patient is currently on IV Lasix. PE ruled out on CAT scan #2 accelerated hypertension #3 history of hypertension #4 diabetes #5 hyperlipidemia #6 mild COPD #7 nicotine dependence #8 family history of premature coronary artery disease #9 abnormal troponins, not consistent with acute coronary syndrome, could be secondary to oxygen supply and demand mismatch. Patient states she has had 2 cardiac catheterizations in the past both of which were reported to her to be normal. We'll attempt to obtain records of prior cardiac catheterization. EKG shows a normal sinus rhythm with incomplete left bundle branch block pattern and lateral ST depression evidence of LVH strain pattern. #10 CTA of the chest revealed indeterminate pulmonary nodules as well as left adrenal mass. This is something to the patient has been noted in the past, she has followed with pulmonology downstep Plan Discontinue IV Lasix and change patient over to oral diuretics today. She may be able to discharge home from cardiology's perspective to follow-up in the office Dr. Thakur post discharge. DNP note has been reviewed, I agree with a documented findings and plan of care. Patient was seen and examined.
[2017-02-10] MEDS ORDERED: FUROSEMIDE 40 MG TAB PO SCH (16:00)
[2017-02-10 16:52] LABS: Glucose,Whole Blood 161 mg/dL (75-99)
[2017-02-10 17:44] VITALS: BP 113/60; TEMP 97.6
== END 2017-02-10 18:35 | disposition home health service (06) | DRG 291 ==
LOC: EC 06:46 → 6SEL 09:51
PROVIDERS: ADMIT Family Medicine; ATTEND Family Medicine
DX: I11.0 Hypertensive heart disease with heart failure (principal); J96.01 Acute respiratory failure with hypoxia; E11.65 Type 2 diabetes mellitus with hyperglycemia; I50.23 Acute on chronic systolic (congestive) heart failure; E83.42 Hypomagnesemia; J84.10 Pulmonary fibrosis, unspecified; I42.9 Cardiomyopathy, unspecified; E11.42 Type 2 diabetes mellitus with diabetic polyneuropathy; E78.5 Hyperlipidemia, unspecified; I25.10 Atherosclerotic heart disease of native coronary artery without angina pectoris; I25.2 Old myocardial infarction; I16.0 Hypertensive urgency; K75.81 Nonalcoholic steatohepatitis (NASH); E28.2 Polycystic ovarian syndrome; J45.909 Unspecified asthma, uncomplicated; I44.7 Left bundle-branch block, unspecified; J44.9 Chronic obstructive pulmonary disease, unspecified; G89.29 Other chronic pain; M54.9 Dorsalgia, unspecified; N95.1 Menopausal and female climacteric states; F41.9 Anxiety disorder, unspecified; F32.9 Major depressive disorder, single episode, unspecified; R01.1 Cardiac murmur, unspecified; R00.0 Tachycardia, unspecified; R74.8 Abnormal levels of other serum enzymes; E27.9 Disorder of adrenal gland, unspecified; R63.5 Abnormal weight gain; E05.00 Thyrotoxicosis with diffuse goiter without thyrotoxic crisis or storm; F17.200 Nicotine dependence, unspecified, uncomplicated; H91.91 Unspecified hearing loss, right ear; H91.92 Unspecified hearing loss, left ear; D72.829 Elevated white blood cell count, unspecified; Z71.3 Dietary counseling and surveillance; Z71.6 Tobacco abuse counseling; Z79.82 Long term (current) use of aspirin; Z79.4 Long term (current) use of insulin; Z79.899 Other long term (current) drug therapy; Z82.49 Family history of ischemic heart disease and other diseases of the circulatory system; Z88.1 Allergy status to other antibiotic agents; Z91.030 Bee allergy status; Z91.013 Allergy to seafood; Z90.49 Acquired absence of other specified parts of digestive tract; Z86.69 Personal history of other diseases of the nervous system and sense organs; Z86.19 Personal history of other infectious and parasitic diseases
CPT/HCPCS: 36415; 71010; 71275; 80048; 80053; 82550; 82553; 83036; 83735; 83880; 84100; 84443; 84484; 85025; 85379; 85610; 85730; 87040; 93005; 93306; 94760; 96365; 96366; 96367; 96376; 99291

== ENCOUNTER 2017-03-11 10:18 | Day surgery (SDC) | payer OTHER ==
[2017-03-10 09:58] VITALS: BMI 30.7
[~2017-03-11 10:18] MED LIST: ALPRAZolam 0.25 MG TAB PO PRN; ALPRAZolam 0.5 MG TAB PO PRN; ASPIRIN 325 MG TAB PO STA; ATORVASTATIN 80 MG TAB PO STA; NITROGLYCERIN SL TABS 0.4 MG TAB SUBLINGUAL PRN; SODIUM CHLORIDE 0.9% 1,000 ML in EMPTY BAG 1 BAG IV ONE
[2017-03-11] MEDS ORDERED: INSULIN LISPRO (humaLOG) 300 UNIT/3 ML VIAL SQ ONE (10:54)
[2017-03-11 11:03] LABS: Glucose,Whole Blood 292 mg/dL (75-99)
[2017-03-11] MEDS ORDERED: VERAPAMIL 2.5 MG/ML 2 ML AMP ONE (11:14)
[2017-03-11] MEDS ORDERED: LIDOCAINE 2% INJ 20 MG/ML (20 ML MDV) ONE (11:14)
[2017-03-11] MEDS ORDERED: HEPARIN SODIUM 1,000 UNIT/ML VIAL ONE (11:23)
[2017-03-11] MEDS ORDERED: MIDAZOLAM 2 MG/2 ML VIAL ONE ×2 (11:23→11:54)
[2017-03-11] MEDS ORDERED: MIDAZOLAM 2 MG/2 ML VIAL IVP ONE ×2 (11:40→11:53)
[2017-03-11] MEDS ORDERED: LIDOCAINE 2% INJ 20 MG/ML SQ ONE ×4 (11:46→11:52)
[2017-03-11] MEDS ORDERED: HYDROmorphone 2 MG/ML 1 ML SYRINGE ONE (12:03)
[2017-03-11] MEDS ORDERED: HYDROmorphone 2 MG/ML 1 ML SYRINGE IVP ONE (12:05)
[2017-03-11] MEDS ORDERED: NITROGLYCERIN 1000MCG/10ML SYRINGE INTRACORON ONE (12:10)
[2017-03-11] MEDS ORDERED: IOHEXOL 350 MG/ML 125ML BOTTLE INJ ONE (12:21)
[2017-03-11] MEDS ORDERED: RX INFO: IV CONTRAST WAS GIVEN 1 EACH MISC MISCELLANE PRN ×2 (12:23→12:57)
[2017-03-11] MEDS ORDERED: SODIUM CHLORIDE 0.9% 1,000 ML IV SCH ×2 (12:30→13:00)
[2017-03-11 13:00] VITALS: RESP 16
[2017-03-11] MEDS ORDERED: ACETAMINOPHEN TAB 325 MG TAB PO PRN (13:24)
[2017-03-11] MEDS ORDERED: GABAPENTIN 400 MG CAP PO SCH (13:30)
[2017-03-11 13:44] LABS: Glucose,Whole Blood 188 mg/dL (75-99)
[2017-03-11 16:25] VITALS: PULSE 80
[2017-03-11 16:26] VITALS: BP 113/60; TEMP 97.7
[2017-03-11 17:06] LABS: Glucose,Whole Blood 271 mg/dL (75-99)
--- NOTE | 2017-03-11 22:49 | CC ---
DATE OF SERVICE: 03/11/2017 PERFORMING PHYSICIAN: Enrique Gillespie M.D., ethnographer. PROCEDURES PERFORMED: 1. Selective right and left coronary angiogram. 2. Left heart catheterization. 3. Left ventriculography. INDICATION: This is a pleasant 46-year-old female patient who was admitted to the hospital recently with congestive heart failure and was diagnosed with cardiomyopathy. Heart catheterization is to rule out any severe underlying CAD. APPROACH: Right common femoral artery. COMPLICATIONS: None. LEVEL OF SEDATION: Moderate; 40 minutes. PROCEDURE DESCRIPTION: After obtaining informed consent, the patient was brought to the cardiac medical laboratory technician. Initially I tried to access the right radial artery and I placed the sheath in the right radial artery, but the patient started experiencing discomfort in the arm, and I had to pull the sheath out. After that I accessed the left common femoral artery and, using ultrasound guidance, I placed a 6 Russian sheath in the left common femoral artery. After that I did selective right and left coronary angiogram using JR4 and JL4 catheters. After that I did left heart catheterization and LV gram using a 6 Russian pigtail catheter. The procedure was completed without any complication. SELECTIVE CORONARY ANGIOGRAM: 1. Right coronary artery is a large-caliber vessel. It is a dominant vessel. It is angiographically normal. 2. The left circumflex is a large-caliber vessel. It comes from the right coronary cusp. The left circumflex is angiographically normal. 3. Left anterior descending artery. The LAD had some mild ostial disease, but there was a spasm in the ostial LAD which was resolved after injection of the nitroglycerin. The mid and distal LAD appeared to have mild disease only. The LAD gives rise to 2 small diagonal branches. The first ostial diagonal branch appeared to have a lesion in the range of 70% to 80%, but this is a small-caliber vessel only. CONCLUSION: 1. Mild non-obstructive coronary artery disease. 2. Left circumflex has an origin from the right coronary cusp. 3. Coronary vasospasm in the ostial LAD responded nicely to nitroglycerin. 4. Mildly elevated left ventricular end-diastolic pressure. 5. Overall normal left ventricular systolic function.
== END 2017-03-11 19:45 | disposition home or self-care (01) ==
LOC: CATHCVL 10:18 → 3OBS 12:30 → CATHCVL 19:45
PROVIDERS: ATTEND Internal Medicine Interventional Cardiology
DX: I25.111 Atherosclerotic heart disease of native coronary artery with angina pectoris with documented spasm (principal); E11.9 Type 2 diabetes mellitus without complications; I10 Essential (primary) hypertension; I42.9 Cardiomyopathy, unspecified; E78.5 Hyperlipidemia, unspecified; Z79.82 Long term (current) use of aspirin; Z79.899 Other long term (current) drug therapy; Z79.84 Long term (current) use of oral hypoglycemic drugs; Z79.4 Long term (current) use of insulin; Z88.1 Allergy status to other antibiotic agents; Z87.891 Personal history of nicotine dependence
CPT/HCPCS: 93458; 81025; 99152; 99153 ×2; C1894 ×2; C1769 ×2; J2001; J2250; J1170; Q9967

== ENCOUNTER 2017-06-03 13:33 | Inpatient (IN) | payer OTHER ==
[2017-06-03] MEDS ORDERED: RX INFO: IV CONTRAST WAS GIVEN 1 EACH MISC MISCELLANE PRN (13:53)
[2017-06-03] MEDS ORDERED: SODIUM CHLORIDE 0.9% 1,000 ML IV STA ×3 (13:54→15:08)
[2017-06-03] MEDS ORDERED: ACETAMINOPHEN IV (For NPO) 1,000 MG in SALINE 100 100ML.BAG IVPB STA (13:54)
[2017-06-03] MEDS ORDERED: HYDROmorphone 1 MG/ML 1 ML SYRINGE IVP STA (13:54)
[2017-06-03] MEDS ORDERED: ONDANSETRON 4 MG/2 ML VIAL IVP STA (13:54)
--- NOTE | 2017-06-03 13:58 | ED ---
General Adult HPI - General Chief complaint: Abdominal Pain Stated complaint: Abd Pain Time Seen by Provider: 06/03/17 13:48 Source: patient, RN notes reviewed Mode of arrival: ambulatory Limitations: no limitations - History of Present Illness Initial comments: Patient 47-year-old female who presents emergency room today with a chief complaint of increased abdominal pain. She states it's located in the middle of the lower abdomen and radiates to the right. Patient states that she does have a constant pain but sharp at times. Patient admits to feeling nauseated states she always has some degree of nausea. She denies associated symptoms. Patient denies any recent fever, chills, shortness of breath, chest pain, back pain, vomiting, numbness or tingling, dysuria or hematuria, constipation or diarrhea, headaches or visual changes, or any other complaints. - Related Data Home Medications Medication Instructions Recorded Confirmed Atorvastatin [Lipitor] 40 mg PO DAILY 09/30/15 06/03/17 Insulin Glargine [Lantus] 100 unit SQ HS 09/30/15 06/03/17 Insulin Lispro [humaLOG Kwikpen] See Protocol SQ AC-TID 09/30/15 06/03/17 LORazepam [Ativan] 1 mg PO BID PRN 09/30/15 06/03/17 Lisinopril [Prinivil] 10 mg PO DAILY 09/30/15 06/03/17 Methimazole [Tapazole] 5 mg PO MOWEFRSA 09/30/15 06/03/17 Metoprolol Succinate [Toprol XL] 50 mg PO BID 09/30/15 06/03/17 Sertraline [Zoloft] 50 mg PO HS 09/30/15 06/03/17 Spironolactone [Aldactone] 25 mg PO DAILY 09/30/15 06/03/17 buPROPion HCL [Wellbutrin SR] 150 mg PO BID 09/30/15 06/03/17 Gabapentin [Neurontin] 1,600 mg PO BID 02/07/17 06/03/17 Aspirin 325 mg PO DAILY 03/10/17 06/03/17 metFORMIN HCL 1,000 mg PO HS 06/03/17 06/03/17 traMADol HCl [Ultram] 50 mg PO BID PRN 06/03/17 06/03/17 Previous Rx's Medication Instructions Recorded Furosemide [Lasix] 40 mg PO BID #60 tablet 02/10/17 Allergies Allergy/AdvReac Type Severity Reaction Status Date / Time bee pollen Allergy Unknown Verified 06/03/17 13:38 shellfish derived [Shellfish] Allergy Swelling Verified 06/03/17 14:25 venom-honey bee Allergy Anaphylaxis Verified 06/03/17 14:25 acetaminophen AdvReac Nausea & Verified 06/03/17 14:25 [From Darvocet-N] Vomiting erythromycin base AdvReac Nausea & Verified 06/03/17 14:25 Vomiting propoxyphene AdvReac Nausea & Verified 06/03/17 14:25 [From Darvocet-N] Vomiting Review of Systems ROS Statement: Those systems with pertinent positive or pertinent negative responses have been documented in the HPI. ROS Other: All systems not noted in ROS Statement are negative. Past Medical History Past Medical History: Coronary Artery Disease (CAD), Chest Pain / Angina, Heart Failure, COPD, Diabetes Mellitus, Hearing Disorder / Deafness, Hyperlipidemia, Hypertension, Liver Disease, Myocardial Infarction (NH), Osteoarthritis (OA), Thyroid Disorder Additional Past Medical History / Comment(s): neuropathy bilateral feet/lower legs, balance problems-"trips" has cane, graves disease, polycystic ovaries, rt ear deaf, "one artery in my heart goes in the back of the heart instead of the front", "fast heart rate", fatty liver Last Myocardial Infarction Date:: unknown History of Any Multi-Drug Resistant Organisms: None Reported Past Surgical History: Adenoidectomy, Breast Surgery, Section, Cholecystectomy, Ear Surgery, Heart Catheterization, Tonsillectomy Additional Past Surgical History / Comment(s): Rt groin arterial clot removal after cardiac cath, titanium bones in R ear. surgery left ear, rt breast lumpectomy Past Anesthesia/Blood Transfusion Reactions: Postoperative Nausea & Vomiting ( PONV) Past Psychological History: Anxiety, Depression Smoking Status: Current every day smoker Past Alcohol Use History: None Reported Past Drug Use History: None Reported - Past Family History Father Family Medical History: Myocardial Infarction (NH) Additional Family Medical History / Comment(s): . Mother Family Medical History: Myocardial Infarction (NH) Additional Family Medical History / Comment(s): . General Exam - General Exam Comments Initial Comments: General: The patient is awake and alert, in no distress, and does not appear acutely ill. Eye: Pupils are equal, round and reactive to light, extra-ocular movements are intact. No nystagmus. There is normal conjunctiva bilaterally. No signs of icterus. Ears, nose, mouth and throat: There are moist mucous membranes and no oral lesions. Neck: The neck is supple, there is no tenderness or JVD. Cardiovascular: There is a regular rate and rhythm. No murmur, rub or gallop is appreciated. Respiratory: Lungs are clear to auscultation, respirations are non-labored, breath sounds are equal. No wheezes, stridor, rales, or rhonchi. Gastrointestinal: The present. Normal bowel sounds. Abdomen soft on palpation. Patient does have tenderness around the umbilicus and increased pain to the right lower quadrant. No rebound tenderness. No guarding. No CVA tenderness. Musculoskeletal: Normal ROM, no tenderness. Strength 5/5. Sensation intact. Pulses equal bilaterally 2+. Neurological: A&O x 3. CN II-XII intact, There are no obvious motor or sensory deficits. Coordination appears grossly intact. Speech is normal. Skin: Skin is warm and dry and no rashes or lesions are noted. Psychiatric: Cooperative, appropriate mood & affect, normal judgment. Limitations: no limitations Course Vital Signs 06/03/17 06/03/17 06/03/17 13:35 15:22 17:52 Temperature 101.2 F H 98.7 F 98.8 F Pulse Rate 103 H 102 H 96 Respiratory 18 16 18 Rate Blood Pressure 138/61 103/54 118/56 O2 Sat by Pulse 99 96 97 Oximetry Procedures - Sepsis Sepsis Focused Exam #1 Sepsis Focused Exam Date: 06/03/17 Sepsis Focused Exam Time: 15:31 Sepsis Focused Exam Complete: Yes Vital Signs & RN Notes Reviewed: Yes Capillary Refill: < 2 Seconds: Fingers Peripheral Pulses: Normal: Radial (R), Radial (L), Dorsalis Pedis (R), Dorsalis Pedis (L) Skin Color: Normal for Patient Respiratory Exam: normal lung sounds Cardiovascular Exam: regular rate, normal rhythm, normal heart sounds Medical Decision Making - Medical Decision Making 1605: Case discussed in detail with attending physician Patient reexamined at this time shows no signs of distress resting comfortably. Patient labs are been reviewed shows 17,000 white count with elevated lactic acid. Patient given IV bolus here in the emergency room started on Zosyn. Last meal was proxy 7:[address] does show 1. CT findings consistent with acute appendicitis 2. Nonspecific 1.6 cm left adrenal mass. 3. Better visualization of suspicious 98 mm right lower lobe nodule. Patient has been updated this time about appendicitis. Currently awaiting for surgeons return phone call. 1623: Dr Núñez has called back and will accept the patient. - Lab Data Result diagrams: 06/05/17 03:47 06/05/17 03:47 Lab Results 06/03/17 06/03/17 06/03/17 Range/Units 14:10 14:10 14:10 WBC 17.4 H (3.8-10.6) k/uL RBC 3.99 (3.80-5.40) m/uL Hgb 13.6 (11.4-16.0) gm/dL Hct 38.6 (34.0-46.0) % MCV 96.6 (80.0-100.0) fL MCH 34.0 (25.0-35.0) pg MCHC 35.2 (31.0-37.0) g/dL RDW 14.9 (11.5-15.5) % Plt Count 321 (150-450) k/uL Neutrophils % 83 % Lymphocytes % 10 % Monocytes % 5 % Eosinophils % 1 % Basophils % 0 % Neutrophils # 14.4 H (1.3-7.7) k/uL Lymphocytes # 1.7 (1.0-4.8) k/uL Monocytes # 0.9 (0-1.0) k/uL Eosinophils # 0.2 (0-0.7) k/uL Basophils # 0.1 (0-0.2) k/uL Sodium 137 (137-145) mmol/L Potassium 4.5 (3.5-5.1) mmol/L Chloride 94 L (98-107) mmol/L Carbon Dioxide 25 (22-30) mmol/L Anion Gap 18 mmol/L BUN 17 (7-17) mg/dL Creatinine 0.80 (0.52-1.04) mg/dL Est GFR (MDRD) Af Amer >60 (>60 ml/min/1.73 sqM) Est GFR (MDRD) Non-Af >60 (>60 ml/min/1.73 sqM) Glucose 127 H (74-99) mg/dL Estimated Ave Glu mg/dL mg/dL Hemoglobin A1c (4.2-6.1) % Lactic Ac Sepsis Rflx Plasma Lactic Acid Kiet 4.2 H* (0.7-2.0) mmol/L Calcium 10.6 H (8.4-10.2) mg/dL Total Bilirubin 0.6 (0.2-1.3) mg/dL AST 58 H (14-36) U/L ALT 55 H (9-52) U/L Alkaline Phosphatase 75 (38-126) U/L Total Protein 8.0 (6.3-8.2) g/dL Albumin 4.8 (3.5-5.0) g/dL Amylase 63 (30-110) U/L Lipase 150 (23-300) U/L Urine Color Urine Appearance (Clear) Urine pH (5.0-8.0) Ur Specific [place] (1.001-1.035) Urine Protein (Negative) Urine Glucose (UA) (Negative) Urine Ketones (Negative) Urine Blood (Negative) Urine Nitrite (Negative) Urine Bilirubin (Negative) Urine Urobilinogen (<2.0) mg/dL Ur Leukocyte Esterase (Negative) Urine RBC (0-5) /hpf Ur Squamous Epith Cells (0-4) /hpf Urine Bacteria (None) /hpf Hyaline Casts (0-2) /lpf 06/03/17 06/03/17 06/03/17 Range/Units 14:10 14:10 15:03 WBC (3.8-10.6) k/uL RBC (3.80-5.40) m/uL Hgb (11.4-16.0) gm/dL Hct (34.0-46.0) % MCV (80.0-100.0) fL MCH (25.0-35.0) pg MCHC (31.0-37.0) g/dL RDW (11.5-15.5) % Plt Count (150-450) k/uL Neutrophils % % Lymphocytes % % Monocytes % % Eosinophils % % Basophils % % Neutrophils # (1.3-7.7) k/uL Lymphocytes # (1.0-4.8) k/uL Monocytes # (0-1.0) k/uL Eosinophils # (0-0.7) k/uL Basophils # (0-0.2) k/uL Sodium (137-145) mmol/L Potassium (3.5-5.1) mmol/L Chloride (98-107) mmol/L Carbon Dioxide (22-30) mmol/L Anion Gap mmol/L BUN (7-17) mg/dL Creatinine (0.52-1.04) mg/dL Est GFR (MDRD) Af Amer (>60 ml/min/1.73 sqM) Est GFR (MDRD) Non-Af (>60 ml/min/1.73 sqM) Glucose (74-99) mg/dL Estimated Ave Glu mg/dL 186 mg/dL Hemoglobin A1c 8.1 H (4.2-6.1) % Lactic Ac Sepsis Rflx Y Plasma Lactic Acid Kiet (0.7-2.0) mmol/L Calcium (8.4-10.2) mg/dL Total Bilirubin (0.2-1.3) mg/dL AST (14-36) U/L ALT (9-52) U/L Alkaline Phosphatase (38-126) U/L Total Protein (6.3-8.2) g/dL Albumin (3.5-5.0) g/dL Amylase (30-110) U/L Lipase (23-300) U/L Urine Color Light Yellow Urine Appearance Cloudy H (Clear) Urine pH 5.0 (5.0-8.0) Ur Specific [place] 1.008 (1.001-1.035) Urine Protein Negative (Negative) Urine Glucose (UA) Negative (Negative) Urine Ketones Negative (Negative) Urine Blood Negative (Negative) Urine Nitrite Negative (Negative) Urine Bilirubin Negative (Negative) Urine Urobilinogen <2.0 (<2.0) mg/dL Ur Leukocyte Esterase Negative (Negative) Urine RBC <1 (0-5) /hpf Ur Squamous Epith Cells 2 (0-4) /hpf Urine Bacteria Few H (None) /hpf Hyaline Casts 6 H (0-2) /lpf Disposition Clinical Impression: Acute appendicitis Disposition: ADMITTED IP TO THIS HOSP Condition: Stable Time of Disposition: 16:24
[2017-06-03 14:28] LABS: Basophils # (A) 0.1 k/uL (0-0.2); Basophils % (A) 0 %; CH 34.3; CHCM 35.6; Eosinophils # (A) 0.2 k/uL (0-0.7); Eosinophils % (A) 1 %; HCT 38.6 % (34.0-46.0); HGB 13.6 gm/dL (11.4-16.0); Luc # (Auto) 0.21; Luc % (Auto) 1; Lymphocytes # (A) 1.7 k/uL (1.0-4.8); Lymphocytes % (A) 10 %; MCHC 35.2 g/dL (31.0-37.0); MCV 96.6 fL (80.0-100.0); Mean Platelet Volume 7.3; Monocytes # (A) 0.9 k/uL (0-1.0); Monocytes % (A) 5 %; Neutrophils # (A) 14.4 k/uL (1.3-7.7); Neutrophils % (A) 83 %; RBC 3.99 m/uL (3.80-5.40); RDW 14.9 % (11.5-15.5); WBC 17.4 k/uL (3.8-10.6); WBC (Perox) 16.65
[2017-06-03] MEDS ORDERED: methylPREDNISolone SOD SUCCI 125 MG/2 ML VIAL IV STA (14:32)
[2017-06-03] MEDS ORDERED: FAMOTIDINE 20 MG/2 ML VIAL IV STA (14:32)
[2017-06-03] MEDS ORDERED: diphenhydrAMINE 50 MG/ML 1 ML VIAL IVP STA (14:32)
[2017-06-03 14:35] LABS: Appearance,Urine Cloudy (Clear); Bacteria,Urine Few /hpf; Bilirubin,Urine Negative (Negative); Glucose,Urine (UA) Negative (Negative); Ketones,Urine Negative (Negative); Leukocyte Esterase,Urine Negative (Negative); Nitrite,Urine Negative (Negative); Particle Count 4733; Protein,Urine Negative (Negative); RBC,Urine <1 /hpf (0-5); Specific Gravity,Urine 1.008 (1.001-1.035); Squamous Epithelial Cell,Urine 2 /hpf (0-4); UA Billing (MACRO vs. MICRO) MICRO; Urobilinogen,Urine <2.0 mg/dL (<2.0)
[2017-06-03 14:39] LABS: ALT 55 U/L (9-52); AST 58 U/L (14-36); Alkaline Phosphatase 75 U/L (38-126); Amylase 63 U/L (30-110); Anion Gap 18 mmol/L; Blood Urea Nitrogen 17 mg/dL (7-17); Calcium 10.6 mg/dL (8.4-10.2); Carbon Dioxide 25 mmol/L (22-30); Chloride 94 mmol/L (98-107); Glucose 127 mg/dL (74-99); Non-African American GFR(MDRD) >60 (>60 ml/min/1.73 sqM); Potassium 4.5 mmol/L (3.5-5.1); Sodium 137 mmol/L (137-145); Total Bilirubin 0.6 mg/dL (0.2-1.3)
[2017-06-03] MEDS ORDERED: PIPERACILLIN-TAZOBACTAM 3.375 GM in DEXTROSE/WATER 1 50ML.BAG IVPB STA (15:04)
[2017-06-03] MEDS ORDERED: SODIUM CHLORIDE 0.9% 500 ML IV STA (15:09)
--- NOTE | 2017-06-03 15:41 | CT ---
EXAMINATION TYPE: CT abdomen pelvis w con DATE OF EXAM: 06/03/2017 HISTORY: Right lower quadrant pain. CT DLP: 1772.00mGycm Automated Exposure Control for Dose Reduction was Utilized. CONTRAST: CT scan of the abdomen and pelvis is performed without oral but with IV Contrast, patient injected wi th 100 mL of Omnipaque 300. COMPARISON: CTA chest February 07, 2017. FINDINGS: LUNG BASES: There is redemonstration of a right medial basilar nodule measuring 9 x 8 mm on current s tudy is less prominent versus prior study. On prior study there was pleural effusions and interstitia l edema noted. LIVER/GB: Liver is diffusely low dense consistent with fatty infiltration. Cholecystectomy clips are identified. PANCREAS: No significant abnormality is seen. SPLEEN: No significant abnormality is seen. ADRENALS: There is 1.6 cm enhancing left adrenal mass redemonstrated on axial image 19. KIDNEYS: No significant abnormality is seen. BOWEL: No suspicious small or large bowel dilatation is identified. There is 1 cm density suspected appendicolith at cecal appendiceal junction seen best coronal image 40 and axial image 64. Appendix is abnormally dilated up to 16 mm near base. There is mild surrounding inflammatory change. CT findin gs are consistent with acute appendicitis. Appendix slightly gradually tapers as it extends inferiorl y towards tip. No well-formed fluid collection or adjacent abscess identified. No pneumoperitoneum is noted. UTERUS/ADNEXA: A few scattered pelvic phleboliths are seen. LYMPH NODES: No greater than 1cm abdominal or pelvic lymph nodes are appreciated. OSSEOUS STRUCTURES: Fairly moderate multilevel spurring in the lower thoracic spine is present. OTHER: No significant additional abnormality is seen. IMPRESSION: 1. CT findings consistent with acute appendicitis are noted as detailed above. 2. Nonspecific 1.6 cm left adrenal mass. This can BE further characterized with dedicated adrenal pro tocol CT or MRI follow-up. 3. Better visualization of suspicious 9 x 8 mm right lower lobe nodule. Consider PET/CT follow-up bas ed on clinical correlation. Critical results of acute appendicitis communicated to ordering emergency care physician home based assistant vi a telephone at time of dictation.
[2017-06-03] MEDS ORDERED: LORazepam 2 MG/ML SYRINGE IV PRN (16:26)
[2017-06-03] MEDS ORDERED: ONDANSETRON 4 MG/2 ML VIAL IVP PRN ×2 (16:26→20:09)
[2017-06-03] MEDS ORDERED: NALOXONE 0.4 MG/ML 1 ML VIAL IV PRN ×2 (16:26→20:03)
[2017-06-03] MEDS: HYDROmorphone 1 MG/ML 1 ML SYRINGE IV PRN (17:52)
--- NOTE | 2017-06-03 18:39 | P.GSHP ---
History of Present Illness H&P Date: 06/03/17 Chief Complaint: Acute Appendicitis Patient 47-year-old female who presents emergency room today with a chief complaint of increased abdominal pain this AM. Started in her mid abdomen and has since moved to the [facility]. She has a history of CHF, LA, COPD, DM. She states she has had nothing to eat. Denies N/V. Has had subjective fever. - Review of Systems All systems: negative Past Medical History Past Medical History: Coronary Artery Disease (CAD), Chest Pain / Angina, Heart Failure, COPD, Diabetes Mellitus, Hearing Disorder / Deafness, Hyperlipidemia, Hypertension, Liver Disease, Myocardial Infarction (LA), Osteoarthritis (OA), Thyroid Disorder Additional Past Medical History / Comment(s): neuropathy bilateral feet/lower legs, balance problems-"trips" has cane, graves disease, polycystic ovaries, rt ear deaf, "one artery in my heart goes in the back of the heart instead of the front", "fast heart rate", fatty liver Last Myocardial Infarction Date:: unknown History of Any Multi-Drug Resistant Organisms: None Reported Past Surgical History: Adenoidectomy, Breast Surgery, Section, Cholecystectomy, Ear Surgery, Heart Catheterization, Tonsillectomy Additional Past Surgical History / Comment(s): Rt groin arterial clot removal after cardiac cath, titanium bones in R ear. surgery left ear, rt breast lumpectomy Past Anesthesia/Blood Transfusion Reactions: Postoperative Nausea & Vomiting ( PONV) Past Psychological History: Anxiety, Depression Smoking Status: Current every day smoker Past Alcohol Use History: None Reported Past Drug Use History: None Reported - Past Family History Father Family Medical History: Myocardial Infarction (LA) Additional Family Medical History / Comment(s): . Mother Family Medical History: Myocardial Infarction (LA) Additional Family Medical History / Comment(s): . Medications and Allergies Home Medications Medication Instructions Recorded Confirmed Type Atorvastatin [Lipitor] 40 mg PO DAILY 09/30/15 06/03/17 History Insulin Glargine [Lantus] 100 unit SQ HS 09/30/15 06/03/17 History Insulin Lispro [humaLOG Kwikpen] See Protocol SQ AC-TID 09/30/15 06/03/17 History LORazepam [Ativan] 1 mg PO BID PRN 09/30/15 06/03/17 History Lisinopril [Prinivil] 10 mg PO DAILY 09/30/15 06/03/17 History Methimazole [Tapazole] 5 mg PO MOWEFRSA 09/30/15 06/03/17 History Metoprolol Succinate [Toprol XL] 50 mg PO BID 09/30/15 06/03/17 History Sertraline [Zoloft] 50 mg PO HS 09/30/15 06/03/17 History Spironolactone [Aldactone] 25 mg PO DAILY 09/30/15 06/03/17 History buPROPion HCL [Wellbutrin SR] 150 mg PO BID 09/30/15 06/03/17 History Gabapentin [Neurontin] 1,600 mg PO BID 02/07/17 06/03/17 History Furosemide [Lasix] 40 mg PO BID #60 tablet 02/10/17 06/03/17 Rx Aspirin 325 mg PO DAILY 03/10/17 06/03/17 History metFORMIN HCL 1,000 mg PO HS 06/03/17 06/03/17 History traMADol HCl [Ultram] 50 mg PO BID PRN 06/03/17 06/03/17 History Allergies Allergy/AdvReac Type Severity Reaction Status Date / Time bee pollen Allergy Unknown Verified 06/03/17 13:38 shellfish derived [Shellfish] Allergy Swelling Verified 06/03/17 14:25 venom-honey bee Allergy Anaphylaxis Verified 06/03/17 14:25 acetaminophen AdvReac Nausea & Verified 06/03/17 14:25 [From Darvocet-N] Vomiting erythromycin base AdvReac Nausea & Verified 06/03/17 14:25 Vomiting propoxyphene AdvReac Nausea & Verified 06/03/17 14:25 [From Darvocet-N] Vomiting Surgical - Exam Osteopathic Statement: *. No significant issues noted on an osteopathic structural exam other than those noted in the History and Physical/Consult. Vital Signs Temp Pulse Resp BP Pulse Ox 101.2 F H 103 H 18 138/61 99 06/03/17 13:35 06/03/17 13:35 06/03/17 13:35 06/03/17 13:35 06/03/17 13:35 - General well developed, well nourished, no distress - Eyes PERRL, normal ocular movement - Cardiovascular Rhythm: regular - Abdomen Abdomen: soft, tender (RLQ), surgical scars (Lower midline. three port site in RUQ) - Neurologic normal coordination, normal sensation - Psychiatric oriented to time, oriented to person, oriented to place Results - Labs 06/03/17 14:10 06/03/17 14:10 Abnormal Lab Results - Last 24 Hours (Table) 06/03/17 06/03/17 06/03/17 Range/Units 14:10 14:10 14:10 WBC 17.4 H (3.8-10.6) k/uL Neutrophils # 14.4 H (1.3-7.7) k/uL Chloride 94 L (98-107) mmol/L Glucose 127 H (74-99) mg/dL Plasma Lactic Acid Kiet 4.2 H* (0.7-2.0) mmol/L Calcium 10.6 H (8.4-10.2) mg/dL AST 58 H (14-36) U/L ALT 55 H (9-52) U/L Urine Appearance (Clear) Urine Bacteria (None) /hpf Hyaline Casts (0-2) /lpf 06/03/17 Range/Units 14:10 WBC (3.8-10.6) k/uL Neutrophils # (1.3-7.7) k/uL Chloride (98-107) mmol/L Glucose (74-99) mg/dL Plasma Lactic Acid Kiet (0.7-2.0) mmol/L Calcium (8.4-10.2) mg/dL AST (14-36) U/L ALT (9-52) U/L Urine Appearance Cloudy H (Clear) Urine Bacteria Few H (None) /hpf Hyaline Casts 6 H (0-2) /lpf Diabetes panel 06/03/17 Range/Units 14:10 Sodium 137 (137-145) mmol/L Potassium 4.5 (3.5-5.1) mmol/L Chloride 94 L (98-107) mmol/L Carbon Dioxide 25 (22-30) mmol/L BUN 17 (7-17) mg/dL Creatinine 0.80 (0.52-1.04) mg/dL Glucose 127 H (74-99) mg/dL Calcium 10.6 H (8.4-10.2) mg/dL AST 58 H (14-36) U/L ALT 55 H (9-52) U/L Alkaline Phosphatase 75 (38-126) U/L Total Protein 8.0 (6.3-8.2) g/dL Albumin 4.8 (3.5-5.0) g/dL Calcium panel 06/03/17 Range/Units 14:10 Calcium 10.6 H (8.4-10.2) mg/dL Albumin 4.8 (3.5-5.0) g/dL Pituitary panel 06/03/17 Range/Units 14:10 Sodium 137 (137-145) mmol/L Potassium 4.5 (3.5-5.1) mmol/L Chloride 94 L (98-107) mmol/L Carbon Dioxide 25 (22-30) mmol/L BUN 17 (7-17) mg/dL Creatinine 0.80 (0.52-1.04) mg/dL Glucose 127 H (74-99) mg/dL Calcium 10.6 H (8.4-10.2) mg/dL Adrenal panel 06/03/17 Range/Units 14:10 Sodium 137 (137-145) mmol/L Potassium 4.5 (3.5-5.1) mmol/L Chloride 94 L (98-107) mmol/L Carbon Dioxide 25 (22-30) mmol/L BUN 17 (7-17) mg/dL Creatinine 0.80 (0.52-1.04) mg/dL Glucose 127 H (74-99) mg/dL Calcium 10.6 H (8.4-10.2) mg/dL Total Bilirubin 0.6 (0.2-1.3) mg/dL AST 58 H (14-36) U/L ALT 55 H (9-52) U/L Alkaline Phosphatase 75 (38-126) U/L Total Protein 8.0 (6.3-8.2) g/dL Albumin 4.8 (3.5-5.0) g/dL - Imaging CT scan - abdomen: report reviewed, image reviewed (Consistant with acute appendicitis) Assessment and Plan (1) Acute appendicitis Status: Acute Plan: Plan for lap possible open appendectomy. Patient has significant co-morbidities these were discussed with her at length. She is aware she is high risk but that surgery is necessary.
[2017-06-03] MEDS ORDERED: fentaNYL (PF) 50 MCG/ML 2 ML AMP ONE (18:43)
[2017-06-03] MEDS ORDERED: PROPOFOL 10 MG/ML 20 ML VIAL IV ONE (18:43)
[2017-06-03] MEDS ORDERED: SUCCINYLCHOLINE CHLORIDE 100 MG/5 ML SYR IV ONE (18:43)
[2017-06-03] MEDS ORDERED: ROCURONIUM BROMIDE 10 MG/ML 10 ML VIAL IV ONE (18:43)
[2017-06-03] MEDS ORDERED: PHENYLEPHRINE-0.9% NACL SYG 1 MG/10 ML SYRINGE ONE (18:43)
[2017-06-03] MEDS ORDERED: LIDOCAINE 1% INJ 10MG/ML (20 ML MDV) ONE (18:43)
[2017-06-03] MEDS ORDERED: NEOSTIGMINE 1 MG/ML 10 ML VIAL ONE (18:43)
[2017-06-03] MEDS ORDERED: MIDAZOLAM 2 MG/2 ML VIAL ONE (18:43)
[2017-06-03] MEDS ORDERED: IV FLUID CONTINUATION 700 ML IV ONE (18:43)
[2017-06-03] MEDS ORDERED: GLYCOPYRROLATE 0.2 MG/ML 2 ML VIAL ONE (18:43)
[2017-06-03] MEDS ORDERED: LIDOCAINE 1% INJ 10MG/ML (20 ML MDV) SQ ONE ×2 (19:16→19:47)
[2017-06-03] MEDS ORDERED: LACTATED RINGERS 1,000 ML IV ONE ×2 (19:42)
[2017-06-03 20:13] LABS: Glucose,Whole Blood 179 mg/dL (75-99)
[2017-06-03 22:21] LABS: Glucose,Whole Blood 261 mg/dL (75-99)
[2017-06-03 22:30] LABS: Hemoglobin A1C 8.1 % (4.2-6.1)
--- NOTE | 2017-06-03 22:57 | P.OP ---
Date of Procedure: 06/03/17 Preoperative Diagnosis: Acute Appendicitis Postoperative Diagnosis: Acute Appendicitis Procedure(s) Performed: Lap Appendectomy Implants: Anesthesia: GETA Surgeon: Chuy Núñez (Proctored by Dr. Ho) Pathology: other (Appendix) Condition: stable Disposition: floor Indications for Procedure: Patient presented with a one day history of abdominal pain, labs and imaging were consistent with acute appendicitis Operative Findings: Acute Appendicitis Description of Procedure: Patient was prepped and draped in the usual sterile fashion. Time out was performed and correct patient, procedure and site were verified. Abdomen was entered with an 11mm optical entry just superior to the ubilicus and insufflated. 5mm port site was placed in the LLQ and supraumbilical under direct visualization. Patient was positioned in trendelenberg and right side up. Appendix was visualized and noted to be acutely inflammed. Adhesions were taken down bluntly and the appendix was grasped with an atraumatic grasper. The base of the appendix was then stapled with a 45mm frazier load endo KESHAV stapler. There was a small appendiceal stump left so a second staple line was fired across the stump to be sure to include the entire appendix at the base of the cecum. The meso appendix was stapled in a similar fashion. Bovie was used to take down a small portion of the mesoappendix and the appendix was removed in an endocatch bag through the supraumbilical port site. The area was then irrigated and inspected for hemostasis which was noted. All ports were removed under direct visualization. Patient tolerated the procedure well. There are no apparent complications.
[2017-06-03] MEDS: INSULIN LISPRO (humaLOG) 300 UNIT/3 ML VIAL SQ SCH (23:35)
[2017-06-03] MEDS: DOCUSATE 100 MG CAP PO SCH (23:38)
[2017-06-03] MEDS: METOPROLOL SUCCINATE (ER) 50 MG TAB.ER.24H PO SCH (23:38)
[2017-06-03] MEDS: FUROSEMIDE 40 MG TAB PO SCH (23:39)
[2017-06-03] MEDS: METHIMAZOLE 5 MG TAB PO SCH (23:39)
[2017-06-03] MEDS: buPROPion SR 150 MG TABLET.ER PO SCH (23:39)
[2017-06-03] MEDS: GABAPENTIN 400 MG CAP PO SCH (23:40)
[2017-06-03] MEDS: HEPARIN SODIUM,PORCINE 5,000 UNIT/ML 1 ML VIAL SQ SCH (23:40)
[2017-06-03] MEDS: metroNIDAZOLE-NS PMX 500 MG in SALINE 1 100ML.BAG IVPB SCH (23:42)
[2017-06-04] MEDS ORDERED: INSULIN GLARGINE 100 UNIT/ML 10 ML VIAL SQ SCH (00:30)
--- NOTE | 2017-06-04 00:40 | XR ---
EXAM: XR Chest, 1 View CLINICAL HISTORY: Reason: CHF TECHNIQUE: Frontal view of the chest. COMPARISON: 02/07/2017. FINDINGS: Lungs: Bibasilar atelectasis and/or infiltrates, left greater than right. Pleural space: Unremarkable. No pneumothorax. Heart: The heart is at the upper limits of normal, likely secondary to technique. Mediastinum: Unchanged. Bones/joints: Unchanged. IMPRESSION: Bibasilar atelectasis and/or infiltrates, left greater than right. Clinical correlation recommended.
[2017-06-04] MEDS: HYDROmorphone 1 MG/ML 1 ML SYRINGE IVP PRN ×2 (00:43→13:11)
[2017-06-04 01:30] VITALS: BMI 29.1
[2017-06-04 03:31] LABS: Basophils % (A) 0 %; CH 33.8; CHCM 33.8; Eosinophils # (A) 0.1 k/uL (0-0.7); Eosinophils % (A) 1 %; HCT 34.1 % (34.0-46.0); HDW 2.61; HGB 11.6 gm/dL (11.4-16.0); Luc # (Auto) 0.14; Luc % (Auto) 1; Lymphocytes # (A) 1.2 k/uL (1.0-4.8); Lymphocytes % (A) 8 %; MCH 34.2 pg (25.0-35.0); MCHC 33.9 g/dL (31.0-37.0); MCV 100.8 fL (80.0-100.0); Macrocytosis Slight; Mean Platelet Volume 7.7; Monocytes # (A) 0.6 k/uL (0-1.0); Monocytes % (A) 4 %; Neutrophils # (A) 13.1 k/uL (1.3-7.7); Neutrophils % (A) 87 %; RBC 3.39 m/uL (3.80-5.40); RDW 14.8 % (11.5-15.5); WBC 15.2 k/uL (3.8-10.6); WBC (Perox) 16.55
[2017-06-04 03:40] LABS: Glucose,Whole Blood 276 mg/dL (75-99)
[2017-06-04 03:42] LABS: ALT 43 U/L (9-52); AST 33 U/L (14-36); Alkaline Phosphatase 49 U/L (38-126); Anion Gap 13 mmol/L; Blood Urea Nitrogen 14 mg/dL (7-17); Calcium 8.7 mg/dL (8.4-10.2); Carbon Dioxide 21 mmol/L (22-30); Chloride 102 mmol/L (98-107); Glucose 282 mg/dL (74-99); Non-African American GFR(MDRD) >60 (>60 ml/min/1.73 sqM); Sodium 136 mmol/L (137-145); Total Bilirubin 0.7 mg/dL (0.2-1.3); Total Protein 6.2 g/dL (6.3-8.2)
[2017-06-04 03:52] LABS: INR 1.1 (<1.2); Partial Thromboplastin Time 23.4 sec (22.0-30.0); Prothrombin Time 11.1 sec (9.0-12.0)
[2017-06-04] MEDS: HYDROmorphone 1 MG/ML 1 ML SYRINGE IV PRN ×3 (05:29→21:10)
[2017-06-04 05:38] LABS: Glucose,Whole Blood 277 mg/dL (75-99)
[2017-06-04] MEDS ORDERED: INSULIN LISPRO (humaLOG) 300 UNIT/3 ML VIAL SQ SCH (07:30)
[2017-06-04] MEDS: FUROSEMIDE 40 MG TAB PO SCH ×2 (08:08→21:07)
[2017-06-04] MEDS: METOPROLOL SUCCINATE (ER) 50 MG TAB.ER.24H PO SCH ×2 (08:08→22:46)
[2017-06-04] MEDS: LISINOPRIL 10 MG TAB PO SCH (08:08)
[2017-06-04] MEDS: GABAPENTIN 400 MG CAP PO SCH ×2 (08:08→21:08)
[2017-06-04] MEDS: ATORVASTATIN 40 MG TAB PO SCH (08:08)
[2017-06-04] MEDS: SPIRONOLACTONE 25 MG TAB PO SCH (08:08)
[2017-06-04] MEDS: DOCUSATE 100 MG CAP PO SCH ×2 (08:08→21:07)
[2017-06-04] MEDS: buPROPion SR 150 MG TABLET.ER PO SCH ×2 (08:08→21:07)
[2017-06-04] MEDS: INSULIN LISPRO (humaLOG) 300 UNIT/3 ML VIAL SQ SCH ×4 (08:09→21:08)
[2017-06-04] MEDS: HEPARIN SODIUM,PORCINE 5,000 UNIT/ML 1 ML VIAL SQ SCH ×3 (08:09→23:27)
[2017-06-04] MEDS: SODIUM CHLORIDE 0.9% 1,000 ML IV SCH (08:10)
[2017-06-04] MEDS: metroNIDAZOLE-NS PMX 500 MG in SALINE 1 100ML.BAG IVPB SCH ×3 (08:20→23:27)
[2017-06-04] MEDS: LORazepam 1 MG TAB PO SCH ×2 (09:41→21:09)
[2017-06-04 11:31] LABS: Glucose,Whole Blood 252 mg/dL (75-99)
--- NOTE | 2017-06-04 11:50 | CONS ---
CONSULTATION DATE OF CONSULT: 06/03/2017. I am covering for Dr. Tripathi REASON FOR CONSULT: Advice regarding diabetes and other medical issues requested by surgery. HISTORY OF PRESENT ILLNESS: This 47-year-old woman with a past medical history of multiple medical problems , COPD, diabetes, hypertension, being followed by Dr. Tripathi in the outpatient setting presented to [facility] with complaints of abdominal pain. The patient had pain mostly in the middle of the abdomen radiating to the lower part. The patient underwent abdominal pelvis CAT scan, which showed evidence of acute appendicitis and a nonspecific 1.6 cm left adrenal mass and 9 x 8 mm right lower lobe nodule also. Patient underwent laparoscopic appendectomy. The patient had features of sepsis also. WBC elevated 17.2, and the plasma lactic acid 4.2, broad-spectrum antibiotics initiated. IV fluids also have been given. There is no history of any fever, rigor or chills. No history of headache, loss of consciousness or seizures. PAST MEDICAL HISTORY: History of COPD, history of CHF, history hypertension, hyperlipidemia, history of myocardial infarction. MEDICATIONS: Prior to admission include home medications are: 1. Ultram 50 mg b.i.d. p.r.n. 2. Metformin 1000 mg q.h.s. 3. Wellbutrin SR 150 mg p.o. b.i.d. 4. Aldactone 25 mg p.o. daily. 5. Zoloft 50 mg q.h.s. 6. Toprol XL 50 mg p.o. b.i.d. 7. Tapazole 5 mg Tuesday, Tuesday, Tuesday and Tuesday. 8. Prinivil 10 mg p.o. daily. 9. Ativan 1 mg b.i.d. p.r.n. 10.Lispro a.c. t.i.d. 11.Lantus 100 mg q.h.s. 12.Neurontin 1600 mg p.o. b.i.d. 13.Lasix 40 mg p.o. b.i.d. 14.Lipitor 40 mg p.o. daily. 15.Aspirin 320 mg p.o. daily. ALLERGIES: BEE, SHELLFISH, VENOM, TYLENOL, AZITHROMYCIN BASE, PROPOXYPHENE. FAMILY HISTORY: History of myocardial infarction in the family. SOCIAL HISTORY: Social history is history of smoking. No history of alcohol intake. REVIEW OF SYMPTOMS: ENT: No diminished vision. No diminished hearing. Cardio system: As mentioned earlier. Respiratory: As mentioned earlier. GI: As mentioned earlier. : No dysuria or retention. Nervous system: No weakness or numbness. Allergy/Immunology: No asthma or hayfever. Musculoskeletal System: As mentioned earlier. Hematology: No history of anemia. Endocrine: Diabetes mellitus. Constitutional: As mentioned earlier. Dermatology: Negative. Rheumatology: Negative. Psychiatric: Negative. PHYSICAL EXAM: General: The patient is alert and oriented times one. Pulse 91, blood pressure 119/76, respirations 17 per minute, temperature normal, pulse ox 94% on room air. HEENT: Conjunctivae normal. Oral mucosa moist. Neck is no jugular venous distention, no lymph node enlargement, no carotid bruit. Cardiovascular system are S1, S2 muffled. Respiratory: Breath sounds diminished at the bases. A few scattered rhonchi and crackles. ABDOMEN: Soft, status post surgery, tender post surgery. Bowel sounds absent. LEGS: No edema. No swelling. Nervous system: Higher functions as mentioned earlier. Moves all four limbs. No motor or sensory focal deficits. Lymphatics: No lymph nodes palpable in the neck, axillae or groin. SKIN: No ulcer, rash or bleeding. LABS: WBC 17.4, glucose 127, lactic acid 4.2. ASSESSMENT: 1. Acute appendicitis with possible sepsis is status post laparoscopic appendectomy. 2. Increased plasma Lactic acid 4.2. 3. Increased AST/ALT. 4. Increased WBC. 5. Chronic obstructive pulmonary disease. 6. History of diabetes type 2. 7. Hypertension. 8. Hyperlipidemia. 9. History of myocardial infarction. 10.History of hyperthyroid. 11.History of peripheral neuropathy. 12.Anxiety and depression. 13.1.6 cm left adrenal mass and as well as 9 x 8 mm right lower lobe nodule. RECOMMENDATIONS AND DISCUSSION: In this 47-year-old woman who presented with multiple complex medical issues, 2 we will monitor the patient closely. Continue the current medications. Continue symptomatic treatment. Otherwise at this time, I would recommend broad-spectrum IV antibiotics. Recommend follow cultures. Repeat lactic acid. IV fluids. Closely follow with surgery. We will monitor blood sugars closely. Accu-Cheks a.c. and q.h.s. and scale. Resume the home medications. Prognosis guarded. Discussed with the patient and we will follow the patient closely with you. Repeat lactic acid. Follow protocol. Follow sepsis protocol. Abnormal CAT scan, to be addressed by Dr. Tripathi in the outpatient setting. [id number] / IJN: [id number] / MTDD
--- NOTE | 2017-06-04 13:08 | P.PN ---
Subjective Principal diagnosis: Acute appendicitis Postop day 1 laparoscopic appendectomy. Patient did well overnight. Pain is improved. She was sitting up in bed this morning. Using her incentive spirometer. No nausea vomiting. She states her abdominal pain is markedly improved since his surgery and complains only of incisional pain at this time. Objective - Vital Signs Vital signs: Vital Signs Temp 97.6 F 06/04/17 07:03 Pulse 88 06/04/17 07:03 Resp 16 06/04/17 08:00 BP 153/70 06/04/17 07:03 Pulse Ox 95 06/04/17 07:03 Intake & Output 06/03/17 06/04/17 06/04/17 18:59 06:59 18:59 Intake Total 700 400 Output Total 803 Balance 700 -403 Weight 79.379 kg Intake: IV 700 300 Oral 100 Output: Urine 800 Estimated Blood Loss 3 Other: Voiding Method Toilet # Voids 2 - Constitutional General appearance: Present: obese - EENT Eyes: Present: PERRLA - Respiratory Details: Nonlabored breathing Respiratory: bilateral: diminished - Cardiovascular Heart rate: 90 Rhythm: regular - Gastrointestinal Gastrointestinal Comment(s): Abdomen soft nondistended incisional tenderness no rebound rigidity or guarding incisions are clean dry and intact - Psychiatric Psychiatric: Present: A&O x's 3 - Labs CBC & Chem 7: 06/04/17 03:19 06/04/17 03:19 Labs: Abnormal Lab Results - Last 24 Hours (Table) 06/03/17 06/03/17 06/03/17 Range/Units 14:10 14:10 14:10 WBC 17.4 H (3.8-10.6) k/uL RBC (3.80-5.40) m/uL MCV (80.0-100.0) fL Neutrophils # 14.4 H (1.3-7.7) k/uL Sodium (137-145) mmol/L Chloride 94 L (98-107) mmol/L Carbon Dioxide (22-30) mmol/L Glucose 127 H (74-99) mg/dL POC Glucose (mg/dL) (75-99) mg/dL Hemoglobin A1c (4.2-6.1) % Plasma Lactic Acid Kiet 4.2 H* (0.7-2.0) mmol/L Calcium 10.6 H (8.4-10.2) mg/dL AST 58 H (14-36) U/L ALT 55 H (9-52) U/L Total Protein (6.3-8.2) g/dL Urine Appearance (Clear) Urine Bacteria (None) /hpf Hyaline Casts (0-2) /[facility] 06/03/17 06/03/17 06/03/17 Range/Units 14:10 14:10 20:10 WBC (3.8-10.6) k/uL RBC (3.80-5.40) m/uL MCV (80.0-100.0) fL Neutrophils # (1.3-7.7) k/uL Sodium (137-145) mmol/L Chloride (98-107) mmol/L Carbon Dioxide (22-30) mmol/L Glucose (74-99) mg/dL POC Glucose (mg/dL) 179 H (75-99) mg/dL Hemoglobin A1c 8.1 H (4.2-6.1) % Plasma Lactic Acid Kiet (0.7-2.0) mmol/L Calcium (8.4-10.2) mg/dL AST (14-36) U/L ALT (9-52) U/L Total Protein (6.3-8.2) g/dL Urine Appearance Cloudy H (Clear) Urine Bacteria Few H (None) /hpf Hyaline Casts 6 H (0-2) /[facility] 06/03/17 06/03/17 06/04/17 Range/Units 22:18 23:21 03:19 WBC 15.2 H (3.8-10.6) k/uL RBC 3.39 L (3.80-5.40) m/uL MCV 100.8 H (80.0-100.0) fL Neutrophils # 13.1 H (1.3-7.7) k/uL Sodium (137-145) mmol/L Chloride (98-107) mmol/L Carbon Dioxide (22-30) mmol/L Glucose (74-99) mg/dL POC Glucose (mg/dL) 261 H (75-99) mg/dL Hemoglobin A1c (4.2-6.1) % Plasma Lactic Acid Kiet 3.8 H* (0.7-2.0) mmol/L Calcium (8.4-10.2) mg/dL AST (14-36) U/L ALT (9-52) U/L Total Protein (6.3-8.2) g/dL Urine Appearance (Clear) Urine Bacteria (None) /hpf Hyaline Casts (0-2) /lpf 06/04/17 06/04/17 06/04/17 Range/Units 03:19 03:19 03:38 WBC (3.8-10.6) k/uL RBC (3.80-5.40) m/uL MCV (80.0-100.0) fL Neutrophils # (1.3-7.7) k/uL Sodium 136 L (137-145) mmol/L Chloride (98-107) mmol/L Carbon Dioxide 21 L (22-30) mmol/L Glucose 282 H (74-99) mg/dL POC Glucose (mg/dL) 276 H (75-99) mg/dL Hemoglobin A1c (4.2-6.1) % Plasma Lactic Acid Kiet 3.6 H* (0.7-2.0) mmol/L Calcium (8.4-10.2) mg/dL AST (14-36) U/L ALT (9-52) U/L Total Protein 6.2 L (6.3-8.2) g/dL Urine Appearance (Clear) Urine Bacteria (None) /hpf Hyaline Casts (0-2) /lpf 06/04/17 06/04/17 06/04/17 Range/Units 05:34 08:16 11:30 WBC (3.8-10.6) k/uL RBC (3.80-5.40) m/uL MCV (80.0-100.0) fL Neutrophils # (1.3-7.7) k/uL Sodium (137-145) mmol/L Chloride (98-107) mmol/L Carbon Dioxide (22-30) mmol/L Glucose (74-99) mg/dL POC Glucose (mg/dL) 277 H 252 H (75-99) mg/dL Hemoglobin A1c (4.2-6.1) % Plasma Lactic Acid Kiet 6.0 H* (0.7-2.0) mmol/L Calcium (8.4-10.2) mg/dL AST (14-36) U/L ALT (9-52) U/L Total Protein (6.3-8.2) g/dL Urine Appearance (Clear) Urine Bacteria (None) /hpf Hyaline Casts (0-2) /lpf 06/04/17 Range/Units 12:17 WBC (3.8-10.6) k/uL RBC (3.80-5.40) m/uL MCV (80.0-100.0) fL Neutrophils # (1.3-7.7) k/uL Sodium (137-145) mmol/L Chloride (98-107) mmol/L Carbon Dioxide (22-30) mmol/L Glucose (74-99) mg/dL POC Glucose (mg/dL) (75-99) mg/dL Hemoglobin A1c (4.2-6.1) % Plasma Lactic Acid Kiet 3.0 H* (0.7-2.0) mmol/L Calcium (8.4-10.2) mg/dL AST (14-36) U/L ALT (9-52) U/L Total Protein (6.3-8.2) g/dL Urine Appearance (Clear) Urine Bacteria (None) /hpf Hyaline Casts (0-2) /lpf Microbiology - Last 24 Hours (Table) 06/03/17 14:10 Urine Culture - Preliminary Urine,Voided Assessment and Plan (1) Acute appendicitis Status: Acute Plan: Patient can have clear liquid diet and advance as tolerated. Secondary to patient's multiple comorbidities she is likely going to need to stay in the hospital. She has an increasing lactic acid which I do not believe is from an intra-abdominal source at this time. It is likely related to her existing heart failure and diabetes. We'll continue Rocephin and Flagyl at this time. Discussed with nurse the importance of incentive spirometry and ambulation.
[2017-06-04 14:18] LABS: ABG PCO2 34 mmHg (35-45); ABG PH 7.43 (7.35-7.45)
[2017-06-04 14:19] LABS: ABG HCO3 22 mmol/L (21-25); ABG PO2 107 mmHg (83-108); ABG TCO2 23 mmol/L (19-24)
[2017-06-04] MEDS: PIPERACILLIN-TAZOBACTAM 3.375 GM in DEXTROSE/WATER 1 50ML.BAG IVPB SCH (14:20)
[2017-06-04 17:49] LABS: Glucose,Whole Blood 181 mg/dL (75-99)
[2017-06-04 21:06] LABS: Glucose,Whole Blood 208 mg/dL (75-99)
[2017-06-04] MEDS: METHIMAZOLE 5 MG TAB PO SCH (21:07)
[2017-06-04] MEDS: INSULIN GLARGINE 100 UNIT/ML 10 ML VIAL SQ SCH (21:08)
[2017-06-05] MEDS: SODIUM CHLORIDE 0.9% 1,000 ML IV SCH ×2 (00:25→12:55)
[2017-06-05] MEDS: PIPERACILLIN-TAZOBACTAM 3.375 GM in DEXTROSE/WATER 1 50ML.BAG IVPB SCH ×4 (00:32→23:05)
[2017-06-05] MEDS: HYDROmorphone 1 MG/ML 1 ML SYRINGE IV PRN ×2 (00:36→05:17)
[2017-06-05 04:06] LABS: Basophils % (A) 0 %; CH 33.7; CHCM 33.4; Eosinophils # (A) 0.1 k/uL (0-0.7); Eosinophils % (A) 1 %; HCT 31.2 % (34.0-46.0); HDW 2.68; HGB 10.2 gm/dL (11.4-16.0); Luc # (Auto) 0.11; Luc % (Auto) 1; Lymphocytes # (A) 1.8 k/uL (1.0-4.8); Lymphocytes % (A) 23 %; MCH 33.4 pg (25.0-35.0); MCHC 32.8 g/dL (31.0-37.0); MCV 101.7 fL (80.0-100.0); Macrocytosis Slight; Mean Platelet Volume 7.2; Monocytes # (A) 0.4 k/uL (0-1.0); Monocytes % (A) 6 %; Neutrophils # (A) 5.5 k/uL (1.3-7.7); Neutrophils % (A) 69 %; RBC 3.07 m/uL (3.80-5.40); RDW 14.6 % (11.5-15.5); WBC (Perox) 8.51
[2017-06-05 04:18] LABS: ALT 45 U/L (9-52); AST 52 U/L (14-36); Alkaline Phosphatase 45 U/L (38-126); Anion Gap 11 mmol/L; Blood Urea Nitrogen 12 mg/dL (7-17); Calcium 8.3 mg/dL (8.4-10.2); Carbon Dioxide 24 mmol/L (22-30); Chloride 105 mmol/L (98-107); Glucose 151 mg/dL (74-99); Non-African American GFR(MDRD) >60 (>60 ml/min/1.73 sqM); Sodium 140 mmol/L (137-145); Total Bilirubin 0.5 mg/dL (0.2-1.3); Total Protein 5.9 g/dL (6.3-8.2)
[2017-06-05 06:46] LABS: Glucose,Whole Blood 155 mg/dL (75-99)
[2017-06-05] MEDS: metroNIDAZOLE-NS PMX 500 MG in SALINE 1 100ML.BAG IVPB SCH (07:34)
[2017-06-05] MEDS: METOPROLOL SUCCINATE (ER) 50 MG TAB.ER.24H PO SCH ×2 (07:45→20:57)
[2017-06-05] MEDS: DOCUSATE 100 MG CAP PO SCH ×2 (07:45→20:55)
[2017-06-05] MEDS: ASPIRIN 325 MG TAB PO SCH (07:45)
[2017-06-05] MEDS: buPROPion SR 150 MG TABLET.ER PO SCH ×2 (07:45→20:55)
[2017-06-05] MEDS: FUROSEMIDE 40 MG TAB PO SCH ×2 (07:46→20:55)
[2017-06-05] MEDS: ATORVASTATIN 40 MG TAB PO SCH (07:46)
[2017-06-05] MEDS: LISINOPRIL 10 MG TAB PO SCH (07:46)
[2017-06-05] MEDS: GABAPENTIN 400 MG CAP PO SCH ×2 (07:46→20:55)
[2017-06-05] MEDS: LORazepam 1 MG TAB PO SCH ×2 (07:54→20:57)
[2017-06-05] MEDS: HYDROmorphone 1 MG/ML 1 ML SYRINGE IVP PRN (07:54)
[2017-06-05] MEDS: HEPARIN SODIUM,PORCINE 5,000 UNIT/ML 1 ML VIAL SQ SCH ×3 (07:56→22:58)
[2017-06-05] MEDS: INSULIN LISPRO (humaLOG) 300 UNIT/3 ML VIAL SQ SCH ×4 (08:15→20:56)
[2017-06-05] MEDS: SPIRONOLACTONE 25 MG TAB PO SCH (08:15)
--- NOTE | 2017-06-05 08:54 | CONS ---
CONSULTATION DATE OF SERVICE: 06/04/2017. REASON FOR CONSULTATION: Acute appendicitis and antibiotic recommendations. HISTORY OF PRESENT ILLNESS: The patient is a 47-year-old female who presented to the ER at [facility] yesterday afternoon with chief complaints of a lower abdominal pain radiating to the right side that apparently started in the morning. The patient has felt nauseated but no vomiting. The pain described to be dull aching to sharp, almost 8 out of 10 and no radiation. The patient has been complaining of some chills. With these symptoms the patient presented to the hospital where the patient was evaluated by the ER physician. On arrival to the ER, the patient did have fever of 101.2 degrees Fahrenheit. The patient did have an elevated white count of 17.4. A CT of abdomen and pelvis was done. That was suggestive of possible appendicitis with dilated appendix. The patient subsequently evaluated by General Surgeon and she was taken to the OR, and is status post laparoscopic appendectomy for acute appendicitis. The patient has been treated with Rocephin 1 g daily in addition to the Flagyl. I was asked to see the patient today for further recommendation regarding antibiotic therapy. At the time of my evaluation this afternoon, the patient's abdominal pain seemed to have improve, her fever has resolved and white count did show slight downward trend. REVIEW OF SYSTEMS: CONSTITUTIONAL: Positive for weakness and fever. EYES: No complaint. ENT: No complaint. RESPIRATORY: No complaint. CARDIOVASCULAR: No complaint. GENITOURINARY: No complaint. GASTROINTESTINAL: As per HPI. MUSCULOSKELETAL: No complaint. INTEGUMENTARY: No complaint. PSYCHOLOGICAL: No complaint. ENDOCRINE: No complaint. NEUROLOGIC: No complaint. PAST MEDICAL HISTORY: Significant for coronary artery disease, COPD, heart failure, diabetes mellitus, hypertension, hyperlipidemia, osteoarthritis, hypothyroidism, neuropathy. PAST SURGICAL HISTORY: Appendectomy, breast surgery, , cholecystectomy, heart catheterization, tonsillectomy. SOCIAL HISTORY: The patient is currently every day smoker. No drinking or drug use. FAMILY HISTORY: Mother was diagnosed with a history of ME. ALLERGIES: SHELL FISH TYPE PRODUCTS, TYLENOL, ERYTHROMYCIN, AND PROPOXYPHENE. MEDICATIONS: Include the patient is currently on Rocephin 1 g daily. She is on Flagyl, Tapazole, Ativan, Zestril, Humalog, Lantus, Dilaudid, heparin, Neurontin, Lasix, Colace, Wellbutrin, Lipitor and aspirin. EXAMINATION: Blood pressure 105/66 with a pulse of 88, temperature of 98, T-max 101.2. She is 99% on 2-L nasal cannula. General description is a middle aged female, lying in bed, in no distress. No tachypnea or accessory muscle of respiration use. HEENT: Shows no pallor or scleral icterus. Oral mucosa is dry. NECK: Trachea is central. No thyromegaly. LUNGS: Unlabored breathing. Clear to auscultation anteriorly. No wheeze or crackle. HEART: S1, S2. Regular rate and rhythm. ABDOMEN: Soft, mildly tender in lower quadrant area. No guarding or rigidity. EXTREMITIES: No edema of feet. SKIN: Examination no rash or mass palpable. NEUROLOGICAL: Patient is awake, alert, oriented x3. Mood and affect normal. LAB: Hemoglobin 11.6, white count 15.2, admission white count 17.4, BUN of 14, creatinine 0.70. Urine has been negative. Blood culture currently pending. IMPRESSION: The patient admitted to the hospital with sepsis and the patient did have fever to 101 degrees Fahrenheit and did have elevated white count meeting criteria for SIRS, also with acute appendicitis. The likely organism to cover is gram negative both aerobes and anaerobes and the patient has not been on any antibiotics in the recent past. Could be likely sensitive pathogen such as E. coli. The patient's fever already has normalized and the white count showing downward trend. PLAN: 1. We will give the patient Rocephin 1 g daily in addition to the Flagyl. 2. Depending upon clinical response as well as the culture, will determine her discharge antibiotic. Thank you for this consultation. Will follow this patient along with you. MMODL / IJN: [id number] /
[2017-06-05 09:07] LABS: Glucose,Whole Blood 195 mg/dL (75-99)
[2017-06-05 11:21] LABS: Glucose,Whole Blood 207 mg/dL (75-99)
--- NOTE | 2017-06-05 12:48 | P.PN ---
Subjective Principal diagnosis: Acute appendicitis Postop day 2 laparoscopic appendectomy. Patient did well overnight. Pain is improved. She was sitting up in bed this morning. Using her incentive spirometer. No nausea vomiting. No other complaints.. Objective - Vital Signs Vital signs: Vital Signs Temp 98.0 F 06/05/17 07:07 Pulse 93 06/05/17 07:07 Resp 16 06/05/17 07:07 BP 117/75 06/05/17 07:07 Pulse Ox 99 06/05/17 07:07 Intake & Output 06/04/17 06/05/17 06/05/17 18:59 06:59 18:59 Intake Total 1350 1675 Output Total 400 Balance 1350 1275 Intake: Intake, IV Titration 950 975 Amount Piperacillin-Tazobactam 3 50 .375 gm In Dextrose/Water 1 50ml.bag @ 12.5 mls/hr IVPB ONCE STA Rx#: [id number] Piperacillin-Tazobactam 3 50 50 .375 gm In Dextrose/Water 1 50ml.bag @ 12.5 mls/hr IVPB Q8HR [facility] Rx#: [id number] Sodium Chloride 0.9% 1, 600 825 000 ml @ 75 mls/hr IV . [id number] [facility] Rx#:[id number] cefTRIAXone 1,000 mg In 50 Sodium Chloride 0.9% 50 ml @ 100 mls/hr IVPB Q24HR [facility] Rx#:[id number] metroNIDAZOLE-NS PMX 500 200 100 mg In Saline 1 100ml.bag @ 100 mls/hr IVPB Q8HR [facility] Rx#:[id number] Oral 400 700 Output: Urine 400 Other: Voiding Method Toilet Toilet # Voids 3 2 - Constitutional General appearance: Present: cooperative - EENT Eyes: Present: PERRLA - Respiratory Details: Nonlabored breathing. - Cardiovascular Rhythm: regular - Gastrointestinal Gastrointestinal Comment(s): Abdomen soft nontender nondistended incisions clean dry and intact - Psychiatric Psychiatric: Present: A&O x's 3 - Labs CBC & Chem 7: 06/05/17 03:47 06/05/17 03:47 Labs: Abnormal Lab Results - Last 24 Hours (Table) 06/04/17 06/04/17 06/04/17 Range/Units 12:17 14:12 17:45 RBC (3.80-5.40) m/uL Hgb (11.4-16.0) gm/dL Hct (34.0-46.0) % MCV (80.0-100.0) fL ABG pCO2 34 L (35-45) mmHg ABG O2 Saturation 98.0 H (94-97) % Glucose (74-99) mg/dL POC Glucose (mg/dL) 181 H (75-99) mg/dL Plasma Lactic Acid Kiet 3.0 H* (0.7-2.0) mmol/L Calcium (8.4-10.2) mg/dL AST (14-36) U/L Total Protein (6.3-8.2) g/dL Albumin (3.5-5.0) g/dL 06/04/17 06/04/17 06/05/17 Range/Units 19:29 21:02 03:47 RBC 3.07 L (3.80-5.40) m/uL Hgb 10.2 L (11.4-16.0) gm/dL Hct 31.2 L (34.0-46.0) % MCV 101.7 H (80.0-100.0) fL ABG pCO2 (35-45) mmHg ABG O2 Saturation (94-97) % Glucose (74-99) mg/dL POC Glucose (mg/dL) 208 H (75-99) mg/dL Plasma Lactic Acid Kiet 2.3 H* (0.7-2.0) mmol/L Calcium (8.4-10.2) mg/dL AST (14-36) U/L Total Protein (6.3-8.2) g/dL Albumin (3.5-5.0) g/dL 06/05/17 06/05/17 06/05/17 Range/Units 03:47 06:44 09:03 RBC (3.80-5.40) m/uL Hgb (11.4-16.0) gm/dL Hct (34.0-46.0) % MCV (80.0-100.0) fL ABG pCO2 (35-45) mmHg ABG O2 Saturation (94-97) % Glucose 151 H (74-99) mg/dL POC Glucose (mg/dL) 155 H 195 H (75-99) mg/dL Plasma Lactic Acid Kiet (0.7-2.0) mmol/L Calcium 8.3 L (8.4-10.2) mg/dL AST 52 H (14-36) U/L Total Protein 5.9 L (6.3-8.2) g/dL Albumin 3.3 L (3.5-5.0) g/dL 06/05/17 Range/Units 11:19 RBC (3.80-5.40) m/uL Hgb (11.4-16.0) gm/dL Hct (34.0-46.0) % MCV (80.0-100.0) fL ABG pCO2 (35-45) mmHg ABG O2 Saturation (94-97) % Glucose (74-99) mg/dL POC Glucose (mg/dL) 207 H (75-99) mg/dL Plasma Lactic Acid Kiet (0.7-2.0) mmol/L Calcium (8.4-10.2) mg/dL AST (14-36) U/L Total Protein (6.3-8.2) g/dL Albumin (3.5-5.0) g/dL Microbiology - Last 24 Hours (Table) 06/03/17 14:10 Urine Culture - Final Urine,Voided 06/03/17 14:10 Blood Culture - Preliminary Blood No Growth after 24 hours Assessment and Plan (1) Acute appendicitis Status: Acute Plan: Lactic acidosis and leukocytosis have resolved. Patient's abdominal pain is improved and she is stable for discharge from a surgical standpoint when she is medically cleared.
--- NOTE | 2017-06-05 13:21 | PN ---
PROGRESS NOTE DATE OF SERVICE: 06/04/2017 I am covering for Dr. Tripathi. This 47-year-old woman who was admitted with acute appendicitis also had a possible sepsis present on admission. The patient is on broad-spectrum IV antibiotics. Lactic acid is elevated at 2.3, it is improving. WBCs still elevated at 15.2. The patient is on broad-spectrum IV antibiotics. Surgery is following the patient. The blood sugar is also being followed at this time. The troponins are negative. The EKG showed some ST-T changes. PAST MEDICAL HISTORY: The history is reviewed. REVIEW OF SYSTEMS: CARDIOVASCULAR: No angina. RESPIRATORY: As mentioned earlier. GI: As mentioned earlier. : No dysuria. NERVOUS SYSTEM: No numbness or weakness. CURRENT MEDICATIONS: Reviewed and include: 1. Aspirin 325 mg daily. 2. Lipitor 40 mg. 3. Wellbutrin. 4. Colace. 5. Lasix. 6. Neurontin. 7. Heparin. 8. Dilaudid. 9. Lantus. 10.Humalog. 11.Zestril. 12.Tapazole. 13.Flagyl and IV Zosyn. PHYSICAL EXAM: Patient is alert and oriented x3. Pulse 88, blood pressure 105/66, respirations 16, temperature 98 degrees, pulse ox 98% on 3 L. HEENT: Conjunctivae normal. Oral mucosa moist. NECK: No JVD. No lymph nodes palpable. CARDIOVASCULAR: S1/S2 normal. RESPIRATORY: Diminished breath sounds especially at the bases. A few scattered rhonchi. No crackles. ABDOMEN: Soft, status post surgery. LEGS: No edema. NERVOUS SYSTEM: No focal weakness. LABS: WBC 15.8, hemoglobin 11.6. ABGs noted. The pH is 7.43 and pCO2 34. Glucose noted. ASSESSMENT: 1. Acute appendicitis with possible sepsis status post laparoscopic appendectomy. 2. Increased lactic acid 4.2, multifactorial. 3. Increased AST and ALT. 4. Increased WBC. 5. History of chronic obstructive pulmonary. 6. Diabetes mellitus type 2. 7. Hypertension. 8. Hyperlipidemia. 9. History of myocardial infarction.. 10.History of hypo or hyperthyroidism. 11.History of peripheral neuropathy. 12.History of anxiety and depression. 13.History of 1.6 cm left adrenal mass as well as 8 mm right lower lobe nodule. RECOMMENDATIONS AND DISCUSSION: Recommend to continue current medication, continue to monitor, continue symptomatic treatment. Otherwise, as mentioned earlier, continue with broad-spectrum IV antibiotics. Discussed with Dr. Hyman and continue the IV hydration. Lactic acid is improving. I will repeat a white count. Further recommendation to follow. Stable. Overall prognosis guarded. Further recommendations to follow. MMODL / IJN: [id number] /
[2017-06-05] MEDS ORDERED: HYDROcodone/APAP 5-325MG 1 EACH TAB PO PRN (13:43)
[2017-06-05] MEDS: HYDROcodone/APAP 5-325MG 1 EACH TAB PO PRN ×2 (14:15→22:56)
[2017-06-05] MEDS: metroNIDAZOLE 500 MG TAB PO SCH ×2 (15:49→22:58)
--- NOTE | 2017-06-05 16:38 | PN ---
PROGRESS NOTE DATE OF SERVICE: 06/05/2017 REASON FOR FOLLOW UP: Symptoms with acute appendicitis. INTERVAL HISTORY: The patient is afebrile. She is feeling slightly better, breathing comfortably. Pain to the right abdominal area is under control. No nausea, no vomiting. Has been passing gas but did not have any bowel movement and tolerating her diet. EXAMINATION: Blood pressure 117/75 with a pulse of 93, temperature 98. She is 99% on room air. GENERAL DESCRIPTION: Middle-aged female up in a chair in no distress. RESPIRATORY SYSTEM: Unlabored breathing. Clear to auscultation anteriorly. HEART: S1, S2 regular rate. ABDOMEN: Soft, minimally tender. No guarding, no rigidity. LAB: Hemoglobin 10.1, WBC 8.2 with a BUN of 12, creatinine 0.60. DIAGNOSTIC IMPRESSION: Patient with admission to hospital with sepsis as well as acute appendicitis status post laparoscopic appendectomy. Overall improvement on Rocephin and Flagyl which will be continued with the plan of therapy to be Rocephin and Flagyl for days on discharge. Continue supportive care. MMODL / IJN: [id number] /
[2017-06-05 16:57] LABS: Glucose,Whole Blood 164 mg/dL (75-99)
[2017-06-05 20:42] LABS: Glucose,Whole Blood 233 mg/dL (75-99)
[2017-06-05] MEDS: INSULIN GLARGINE 100 UNIT/ML 10 ML VIAL SQ SCH (20:56)
[2017-06-06] MEDS: SODIUM CHLORIDE 0.9% 1,000 ML IV SCH ×2 (01:10→13:43)
--- NOTE | 2017-06-06 03:14 | P.PN ---
Subjective Principal diagnosis: Acute appendicitis Postop day 3 laparoscopic appendectomy. Patient did well overnight. Pain is improved. She was sitting up in bed this morning. Using her incentive spirometer. No nausea vomiting. No other complaints. Objective - Vital Signs Vital signs: Vital Signs Temp 97.9 F 06/05/17 23:00 Pulse 93 06/05/17 23:00 Resp 18 06/05/17 23:00 BP 126/80 06/05/17 23:00 Pulse Ox 100 06/05/17 23:00 Intake & Output 06/05/17 06/05/17 06/06/17 06:59 18:59 06:59 Intake Total 1675 1510 800 Output Total 400 900 Balance 1275 1510 -100 Intake: Intake, IV Titration 975 850 Amount Piperacillin-Tazobactam 3 50 50 .375 gm In Dextrose/Water 1 50ml.bag @ 12.5 mls/hr IVPB Q8HR [facility] Rx#: [id number] Sodium Chloride 0.9% 1, 825 600 000 ml @ 75 mls/hr IV . [id number] [facility] Rx#:[id number] cefTRIAXone 1,000 mg In 100 Sodium Chloride 0.9% 50 ml @ 100 mls/hr IVPB Q24HR [facility] Rx#:[id number] metroNIDAZOLE-NS PMX 500 100 100 mg In Saline 1 100ml.bag @ 100 mls/hr IVPB Q8HR [facility] Rx#:[id number] Oral 700 660 800 Output: Urine 400 900 Other: Voiding Method Toilet # Voids 2 2 - Constitutional General appearance: Present: cooperative - EENT Eyes: Present: PERRLA - Respiratory Respiratory: bilateral: CTA - Cardiovascular Rhythm: regular - Gastrointestinal Gastrointestinal Comment(s): s/nt/nd incisions c/d/i - Integumentary Integumentary: Absent: calor, cellulitis, cyanotic - Psychiatric Psychiatric: Present: A&O x's 3 - Labs CBC & Chem 7: 06/05/17 03:47 06/05/17 03:47 Labs: Abnormal Lab Results - Last 24 Hours (Table) 06/05/17 06/05/17 06/05/17 Range/Units 03:47 03:47 06:44 RBC 3.07 L (3.80-5.40) m/uL Hgb 10.2 L (11.4-16.0) gm/dL Hct 31.2 L (34.0-46.0) % MCV 101.7 H (80.0-100.0) fL Glucose 151 H (74-99) mg/dL POC Glucose (mg/dL) 155 H (75-99) mg/dL Calcium 8.3 L (8.4-10.2) mg/dL AST 52 H (14-36) U/L Total Protein 5.9 L (6.3-8.2) g/dL Albumin 3.3 L (3.5-5.0) g/dL 06/05/17 06/05/17 06/05/17 Range/Units 09:03 11:19 16:54 RBC (3.80-5.40) m/uL Hgb (11.4-16.0) gm/dL Hct (34.0-46.0) % MCV (80.0-100.0) fL Glucose (74-99) mg/dL POC Glucose (mg/dL) 195 H 207 H 164 H (75-99) mg/dL Calcium (8.4-10.2) mg/dL AST (14-36) U/L Total Protein (6.3-8.2) g/dL Albumin (3.5-5.0) g/dL 06/05/17 Range/Units 20:22 RBC (3.80-5.40) m/uL Hgb (11.4-16.0) gm/dL Hct (34.0-46.0) % MCV (80.0-100.0) fL Glucose (74-99) mg/dL POC Glucose (mg/dL) 233 H (75-99) mg/dL Calcium (8.4-10.2) mg/dL AST (14-36) U/L Total Protein (6.3-8.2) g/dL Albumin (3.5-5.0) g/dL Microbiology - Last 24 Hours (Table) 06/03/17 14:10 Blood Culture - Preliminary Blood No Growth after 48 hours Assessment and Plan (1) Acute appendicitis Status: Acute Plan: Patient's abdominal pain is improved and she is stable for discharge from a surgical standpoint when she is medically cleared.
[2017-06-06] MEDS: HYDROcodone/APAP 5-325MG 1 EACH TAB PO PRN ×2 (03:56→10:56)
[2017-06-06 06:48] LABS: Glucose,Whole Blood 128 mg/dL (75-99)
[2017-06-06 07:01] LABS: Basophils % (A) 0 %; CH 32.8; CHCM 33.5; Eosinophils # (A) 0.1 k/uL (0-0.7); Eosinophils % (A) 2 %; HCT 30.9 % (34.0-46.0); HDW 2.74; HGB 10.3 gm/dL (11.4-16.0); Luc % (Auto) 3; Lymphocytes # (A) 1.9 k/uL (1.0-4.8); Lymphocytes % (A) 30 %; MCH 32.9 pg (25.0-35.0); MCHC 33.4 g/dL (31.0-37.0); MCV 98.3 fL (80.0-100.0); Mean Platelet Volume 6.9; Monocytes # (A) 0.4 k/uL (0-1.0); Monocytes % (A) 6 %; Neutrophils # (A) 3.7 k/uL (1.3-7.7); Neutrophils % (A) 59 %; RBC 3.14 m/uL (3.80-5.40); RDW 13.7 % (11.5-15.5); WBC 6.3 k/uL (3.8-10.6); WBC (Perox) 6.62
[2017-06-06 07:19] LABS: ALT 40 U/L (9-52); AST 42 U/L (14-36); Alkaline Phosphatase 40 U/L (38-126); Anion Gap 10 mmol/L; Blood Urea Nitrogen 8 mg/dL (7-17); Calcium 8.8 mg/dL (8.4-10.2); Carbon Dioxide 28 mmol/L (22-30); Chloride 104 mmol/L (98-107); Glucose 115 mg/dL (74-99); Non-African American GFR(MDRD) >60 (>60 ml/min/1.73 sqM); Potassium 3.7 mmol/L (3.5-5.1); Sodium 142 mmol/L (137-145); Total Bilirubin 0.4 mg/dL (0.2-1.3)
[2017-06-06] MEDS: INSULIN LISPRO (humaLOG) 300 UNIT/3 ML VIAL SQ SCH ×2 (08:37→13:01)
[2017-06-06 08:43] VITALS: BP 143/65; PULSE 93; RESP 12; TEMP 97.3
[2017-06-06] MEDS: HEPARIN SODIUM,PORCINE 5,000 UNIT/ML 1 ML VIAL SQ SCH (08:43)
[2017-06-06] MEDS: FUROSEMIDE 40 MG TAB PO SCH (08:44)
[2017-06-06] MEDS: LISINOPRIL 10 MG TAB PO SCH (08:44)
[2017-06-06] MEDS: SPIRONOLACTONE 25 MG TAB PO SCH (08:44)
[2017-06-06] MEDS: METOPROLOL SUCCINATE (ER) 50 MG TAB.ER.24H PO SCH (08:44)
[2017-06-06] MEDS: DOCUSATE 100 MG CAP PO SCH (08:44)
[2017-06-06] MEDS: buPROPion SR 150 MG TABLET.ER PO SCH (08:45)
[2017-06-06] MEDS: metroNIDAZOLE 500 MG TAB PO SCH (08:45)
[2017-06-06] MEDS: GABAPENTIN 400 MG CAP PO SCH (08:45)
[2017-06-06] MEDS: ASPIRIN 325 MG TAB PO SCH (08:45)
[2017-06-06] MEDS: ATORVASTATIN 40 MG TAB PO SCH (08:45)
[2017-06-06] MEDS: LORazepam 1 MG TAB PO SCH (08:45)
[2017-06-06] MEDS: PIPERACILLIN-TAZOBACTAM 3.375 GM in DEXTROSE/WATER 1 50ML.BAG IVPB SCH (08:46)
--- NOTE | 2017-06-06 11:40 | PN ---
PROGRESS NOTE DATE OF SERVICE: 06/05/2017. This is a progress note. I am covering for Dr. Tripathi. INTERVAL HISTORY: This 47-year-old woman who was admitted with acute appendicitis and sepsis is improving significantly. Patient is on IV antibiotics. No chest pain. No palpitations. No fever. Infectious disease, Dr. Barrera is also following the patient closely. PHYSICAL EXAM: Alert and oriented times three. Pulse is 93, blood pressure 117/75, respiratory rate 16, temperature 98 degrees, pulse ox 99% room air. HEENT: Conjunctivae normal. Neck no jugular venous distention. Cardiovascular: S1, S2. Respiratory: Breath sounds diminished at the bases. Bilateral scattered rhonchi and crackles. ABDOMEN: Soft, nontender, status post surgery. Legs: No edema. No swelling. Central nervous system: No focal deficits. LABORATORY DATA: Accu-Cheks 154, 195. ASSESSMENT: 1. Acute appendicitis with possible sepsis status post laparoscopic appendectomy. 2. Increased lactic acid 4.2, improving. 3. Increased AST/ALT. 4. Increased WBC. 5. History of chronic obstructive pulmonary disease. 6. Diabetes Type 2. 7. Hypertension. 8. Hyperlipidemia. 9. History of myocardial infarction. 10.History of hyperthyroidism. 11.History of peripheral neuropathy. 12.History of anxiety and depression. 13.1.6 cm left adrenal mass with a mm right lower lobe nodule. RECOMMENDATIONS AND DISCUSSION: Continue current medications. Continue to monitor. Symptomatic treatment. Otherwise at this time I would recommend continue the antibiotics. Follow up closely in the outpatient setting. Otherwise closely follow with surgery and multiple other consultants. The patient improving significantly. Guarded prognosis. Further recommendations to follow. MMODL / IJN: [id number] / MTDD
[2017-06-06 12:39] LABS: Glucose,Whole Blood 219 mg/dL (75-99)
--- NOTE | 2017-06-07 00:50 | P.DS ---
Providers Date of admission: 06/03/17 18:05 Attending physician: Gorge Tripathi Consults: 06/03/17 17:30 Consult Physician Stat Consulting Provider: Gorge Tripathi Consult Reason/Comments: Appendicitis Do you want consulting provider notified?: Yes 06/04/17 12:33 Consult Physician Routine Consulting Provider: Mesha Barrera Consult Reason/Comments: sepsis Do you want consulting provider notified?: Yes Primary care physician: Gorge Tripathi [facility] Course: This 47-year-old woman who was admitted with acute appendicitis with possible sepsis and had a laparoscopic appendectomy by surgery. Patient had features of possible sepsis with elevated increased lactic acid. Treated with IV fluids and as well as broad-spectrum antibiotics. Seen by infectious diseases Dr. Barrera. Improved significantly. On exam vitals stable. Cardio S1-S2 normal. chest clear to aspiration. Abdomen soft status post surgery. Patient is able to tolerate a diet. Able to ambulate.. for discharge per surgery. Patient be discharged in a stable condition with guarded prognosis for further plans to follow-up with Dr. Tripathi in the outpatient setting as per surgery as recommended. Surgical recommendations to be followed at the time of discharge. Final diagnosis 1. Acute appendicitis with possible sepsis status post laparoscopic appendectomy. 2. Increased lactic acid 4.2 improved 3. Increased AST ALT 4. Increased WBC 5. History of COPD 6. Diabetes was type II 7. Hypertension 8. Hyperlipidemia 9. History of microinfarction 10. History of hypothyroidism 11. History of peripheral neuropathy 12. History of anxiety depression 13. 1.6 cm left adrenal mass and as well as 8mm right lower lobe nodule. To be followed up in the outpatient setting. Patient Condition at Discharge: Stable Plan - Discharge Summary New Discharge Prescriptions: New Amoxic-Pot Clav 875-125Mg [Augmentin 875-125] 1 tab PO Q12HR #14 tablet HYDROcodone/APAP 5-325MG [Warren 5-325] 1 each PO Q6HR PRN #30 tab PRN Reason: Mild To Moderate Pain metroNIDAZOLE [Flagyl] 500 mg PO Q8HR #21 tab Continue Insulin Lispro [humaLOG Kwikpen] See Protocol SQ AC-TID Insulin Glargine [Lantus] 100 unit SQ HS Sertraline [Zoloft] 50 mg PO HS Metoprolol Succinate [Toprol XL] 50 mg PO BID LORazepam [Ativan] 1 mg PO BID PRN PRN Reason: Anxiety buPROPion HCL [Wellbutrin SR] 150 mg PO BID Lisinopril [Prinivil] 10 mg PO DAILY Atorvastatin [Lipitor] 40 mg PO DAILY Spironolactone [Aldactone] 25 mg PO DAILY Methimazole [Tapazole] 5 mg PO MOWEFRSA Gabapentin [Neurontin] 1,600 mg PO BID Furosemide [Lasix] 40 mg PO BID #60 tablet Aspirin 325 mg PO DAILY traMADol HCl [Ultram] 50 mg PO BID PRN PRN Reason: Pain metFORMIN HCL 1,000 mg PO HS Discharge Medication List Atorvastatin [Lipitor] 40 mg PO DAILY 09/30/15 [History] Insulin Glargine [Lantus] 100 unit SQ HS 09/30/15 [History] Insulin Lispro [humaLOG Kwikpen] See Protocol SQ AC-TID 09/30/15 [History] LORazepam [Ativan] 1 mg PO BID PRN 09/30/15 [History] Lisinopril [Prinivil] 10 mg PO DAILY 09/30/15 [History] Methimazole [Tapazole] 5 mg PO MOWEFRSA 09/30/15 [History] Metoprolol Succinate [Toprol XL] 50 mg PO BID 09/30/15 [History] Sertraline [Zoloft] 50 mg PO HS 09/30/15 [History] Spironolactone [Aldactone] 25 mg PO DAILY 09/30/15 [History] buPROPion HCL [Wellbutrin SR] 150 mg PO BID 09/30/15 [History] Gabapentin [Neurontin] 1,600 mg PO BID 02/07/17 [History] Furosemide [Lasix] 40 mg PO BID #60 tablet 02/10/17 [Rx] Aspirin 325 mg PO DAILY 03/10/17 [History] metFORMIN HCL 1,000 mg PO HS 06/03/17 [History] traMADol HCl [Ultram] 50 mg PO BID PRN 06/03/17 [History] Amoxic-Pot Clav 875-125Mg [Augmentin 875-125] 1 tab PO Q12HR #14 tablet [Rx] HYDROcodone/APAP 5-325MG [Warren 5-325] 1 each PO Q6HR PRN #30 tab 06/06/17 [Rx] metroNIDAZOLE [Flagyl] 500 mg PO Q8HR #21 tab 06/06/17 [Rx] Follow up Appointment(s)/Referral(s): Gorge Tripathi DO [Primary Care Provider] - 1-2 days Ambulatory/Diagnostic Orders: Complete Blood Count w/diff [LAB.AMB] Location: Determined By Patient Patient Instructions/Handouts: Laparoscopic Appendectomy (DC) Activity/Diet/Wound Care/Special Instructions: diet per surgery act limited till f/u f/u with surgery as advised rest of recommendtions per surgery Discharge Disposition: HOME SELF-CARE
--- NOTE | 2017-06-07 09:35 | PN ---
PROGRESS NOTE DATE OF SERVICE: 06/06/2017 REASON FOR FOLLOW UP: Acute ascites in patient admitted to hospital with sepsis. INTERVAL HISTORY: The patient is afebrile. She was seen on rounds this afternoon when the patient had been breathing comfortably. Abdominal pain is currently controlled. Has been tolerating a regular diet with no nausea or vomiting. EXAMINATION: Blood pressure is 143/65 with a pulse of 93, temperature 97.3. She is 98% 2 L nasal cannula. General description is a middle aged female, lying in bed, in no distress. RESPIRATORY SYSTEM: Unlabored breathing. Clear to auscultation anteriorly. HEART: S1, S2. Regular rate and rhythm. ABDOMEN: Soft, no tenderness. LABS: Hemoglobin 10, white count 6.2 with a BUN of 8, creatinine 0.59. Blood culture has been negative. DIAGNOSTIC IMPRESSION AND PLAN: Patient with acute appendicitis status post laparoscopic appendectomy. No evidence of any perforation. Overall improvement also on Flagyl. Antibiotic switched to Augmentin for about a week for discharge with outpatient follow up. MMODL / IJN: [id number] /
== END 2017-06-06 15:18 | disposition home or self-care (01) | DRG 854 ==
LOC: EC 13:33 → 3SUR 18:05
PROVIDERS: ADMIT Family Medicine; ATTEND Family Medicine
PROC: 0DTJ4ZZ Resection of Appendix, Percutaneous Endoscopic Approach (ICD-10-PCS; principal; 2017-06-03 17:55)
DX: A41.9 Sepsis, unspecified organism (principal); K35.80 Unspecified acute appendicitis; E27.8 Other specified disorders of adrenal gland; I11.0 Hypertensive heart disease with heart failure; I50.9 Heart failure, unspecified; D64.9 Anemia, unspecified; E11.9 Type 2 diabetes mellitus without complications; F32.9 Major depressive disorder, single episode, unspecified; E03.9 Hypothyroidism, unspecified; E28.2 Polycystic ovarian syndrome; E78.5 Hyperlipidemia, unspecified; F17.200 Nicotine dependence, unspecified, uncomplicated; F41.9 Anxiety disorder, unspecified; H91.91 Unspecified hearing loss, right ear; I25.10 Atherosclerotic heart disease of native coronary artery without angina pectoris; I25.2 Old myocardial infarction; J44.9 Chronic obstructive pulmonary disease, unspecified; K76.0 Fatty (change of) liver, not elsewhere classified; Z79.4 Long term (current) use of insulin; Z79.82 Long term (current) use of aspirin; Z79.899 Other long term (current) drug therapy; Z82.49 Family history of ischemic heart disease and other diseases of the circulatory system; Z88.1 Allergy status to other antibiotic agents
CPT/HCPCS: 36415; 36600; 71010; 74177; 80053; 81001; 82150; 82805; 83036; 83605; 83690; 84484; 85025; 85610; 85730; 87040; 87086; 88304; 93005; 96361; 96365; 96366; 96375; 96376; 99285

== ENCOUNTER 2017-07-07 08:38 | Emergency (ER) | payer OTHER ==
[2017-07-07 08:51] VITALS: BP 104/60; PULSE 91; RESP 18; TEMP 98.8
--- NOTE | 2017-07-07 09:10 | ED ---
Skin/Abscess/FB HPI - General Chief complaint: Skin/Abscess/Foreign Body Stated complaint: rash, itching all over Time Seen by Provider: 07/07/17 08:58 Source: patient, RN notes reviewed Mode of arrival: ambulatory Limitations: no limitations - History of Present Illness Initial comments: 47-year-old female presents emergency she complaint rash. Patient states has been present for over a week. Patient was seen at [facility] was told shingles though she states rashes all over. She states starts as a small red ethel it appears to be a bite and states then she itches it and it causes swelling until blisterlike. Patient states she took antivirals with no relief of her symptoms. Patient denies any new soaps or lotions or detergents. She states she did move to a new place though she states her some does not have any symptoms. Patient denies any difficulty swallowing difficulty breathing. Patient states that she takes Benadryl at does help the itching. She states up and also seems to help or make it worse. - Related Data Home Medications Medication Instructions Recorded Confirmed Atorvastatin [Lipitor] 40 mg PO DAILY 09/30/15 07/07/17 Insulin Glargine [Lantus] 100 unit SQ HS 09/30/15 07/07/17 Insulin Lispro [humaLOG Kwikpen] See Protocol SQ AC-TID 09/30/15 07/07/17 LORazepam [Ativan] 1 mg PO BID PRN 09/30/15 07/07/17 Lisinopril [Prinivil] 10 mg PO DAILY 09/30/15 07/07/17 Methimazole [Tapazole] 5 mg PO MOWEFRSA 09/30/15 07/07/17 Metoprolol Succinate [Toprol XL] 50 mg PO BID 09/30/15 07/07/17 Sertraline [Zoloft] 50 mg PO HS 09/30/15 07/07/17 Spironolactone [Aldactone] 25 mg PO DAILY 09/30/15 07/07/17 buPROPion HCL [Wellbutrin SR] 150 mg PO BID 09/30/15 07/07/17 Gabapentin [Neurontin] 1,600 mg PO BID 02/07/17 07/07/17 Aspirin 325 mg PO DAILY 03/10/17 07/07/17 metFORMIN HCL 1,000 mg PO HS 06/03/17 07/07/17 traMADol HCl [Ultram] 50 mg PO BID PRN 06/03/17 07/07/17 Acyclovir [Zovirax] 800 mg PO 5XD 07/07/17 07/07/17 Doxycycline Hyclate 100 mg PO BID 07/07/17 07/07/17 Previous Rx's Medication Instructions Recorded Furosemide [Lasix] 40 mg PO BID #60 tablet 02/10/17 HYDROcodone/APAP 5-325MG [Brooks 1 each PO Q6HR PRN #30 tab 06/06/17 5-325] metroNIDAZOLE [Flagyl] 500 mg PO Q8HR #21 tab 06/06/17 Cephalexin [Keflex] 500 mg PO Q6HR #40 cap 07/07/17 Permethrin 5% Cream [Elimite] 1 applic TOPICAL ONCE #60 gram 07/07/17 hydrOXYzine HCL [Atarax] 25 mg PO TID PRN #15 tab 07/07/17 methylPREDNISolone [Medrol Dose 4 mg PO DIRECTED #1 pack 07/07/17 Pack] Allergies Allergy/AdvReac Type Severity Reaction Status Date / Time bee pollen Allergy Unknown Verified 07/07/17 08:58 shellfish derived [Shellfish] Allergy Swelling Verified 07/07/17 08:58 venom-honey bee Allergy Anaphylaxis Verified 07/07/17 08:58 acetaminophen AdvReac Nausea & Verified 07/07/17 08:58 [From Darvocet-N] Vomiting amoxicillin [From Augmentin] AdvReac Nausea & Verified 07/07/17 08:58 Vomiting clavulanic acid AdvReac Nausea & Verified 07/07/17 08:58 [From Augmentin] Vomiting erythromycin base AdvReac Nausea & Verified 07/07/17 08:58 Vomiting propoxyphene AdvReac Nausea & Verified 07/07/17 08:58 [From Darvocet-N] Vomiting Review of Systems ROS Statement: Those systems with pertinent positive or pertinent negative responses have been documented in the HPI. ROS Other: All systems not noted in ROS Statement are negative. Past Medical History Past Medical History: Coronary Artery Disease (CAD), Chest Pain / Angina, Heart Failure, COPD, Diabetes Mellitus, Hearing Disorder / Deafness, Hyperlipidemia, Hypertension, Liver Disease, Myocardial Infarction ([place]), Osteoarthritis (OA), Thyroid Disorder Additional Past Medical History / Comment(s): neuropathy bilateral feet/lower legs, balance problems-"trips" has cane, graves disease, polycystic ovaries, rt ear deaf, "one artery in my heart goes in the back of the heart instead of the front", "fast heart rate", fatty liver Last Myocardial Infarction Date:: unknown History of Any Multi-Drug Resistant Organisms: None Reported Past Surgical History: Adenoidectomy, Breast Surgery, Section, Cholecystectomy, Ear Surgery, Heart Catheterization, Tonsillectomy Additional Past Surgical History / Comment(s): Rt groin arterial clot removal after cardiac cath, titanium bones in R ear. surgery left ear, rt breast lumpectomy Past Anesthesia/Blood Transfusion Reactions: Postoperative Nausea & Vomiting ( PONV) Past Psychological History: Anxiety, Depression Smoking Status: Current every day smoker Past Alcohol Use History: None Reported Past Drug Use History: None Reported - Past Family History Father Family Medical History: Myocardial Infarction ([place]) Additional Family Medical History / Comment(s): . Mother Family Medical History: Myocardial Infarction ([place]) Additional Family Medical History / Comment(s): . General Exam Limitations: no limitations General appearance: alert, in no apparent distress Head exam: Present: atraumatic, normocephalic, normal inspection Eye exam: Present: normal appearance, PERRL, EOMI. Absent: scleral icterus, conjunctival injection, periorbital swelling ENT exam: Present: normal exam, normal oropharynx, mucous membranes moist, TM's normal bilaterally Neck exam: Present: normal inspection, full ROM. Absent: tenderness, meningismus, lymphadenopathy Respiratory exam: Present: normal lung sounds bilaterally. Absent: respiratory distress, wheezes, rales, rhonchi, stridor Cardiovascular Exam: Present: regular rate, normal rhythm, normal heart sounds. Absent: systolic murmur, diastolic murmur, rubs, gallop, clicks Skin exam: Present: warm, dry, rash (Diffuse erythematous small macular papular rash along with excoriations noted there is some secondary erythematous changes around the wounds.) Course Vital Signs 07/07/17 08:48 Temperature 98.8 F Pulse Rate 91 Respiratory 18 Rate Blood Pressure 104/60 O2 Sat by Pulse 97 Oximetry Medical Decision Making - Medical Decision Making 47-year-old female presented for rash. This rash is very and and very excoriated. Patient concerned about possible ALLERGIC or possible scabies. Patient does not believe this is what is though she'll be given Elimite, Keflex and steroids at this time. Disposition Clinical Impression: Acute maculopapular rash, Pruritus Disposition: HOME SELF-CARE Condition: Stable Instructions: Acute Rash (ED) Additional Instructions: Please return to the Emergency Department if symptoms worsen or any other concerns. Prescriptions: Cephalexin [Keflex] 500 mg PO Q6HR #40 cap hydrOXYzine HCL [Atarax] 25 mg PO TID PRN #15 tab PRN Reason: Itching methylPREDNISolone [Medrol Dose Pack] 4 mg PO DIRECTED #1 pack Permethrin 5% Cream [Elimite] 1 applic TOPICAL ONCE #60 gram Referrals: Gorge Tripathi DO [Primary Care Provider] - 1-2 days Time of Disposition: 09:10
== END 2017-07-07 09:17 | disposition home or self-care (01) ==
LOC: EC 08:38
DX: L29.9 Pruritus, unspecified (principal); E78.5 Hyperlipidemia, unspecified; I11.0 Hypertensive heart disease with heart failure; I50.9 Heart failure, unspecified; I25.10 Atherosclerotic heart disease of native coronary artery without angina pectoris; E11.40 Type 2 diabetes mellitus with diabetic neuropathy, unspecified; E07.9 Disorder of thyroid, unspecified; M19.90 Unspecified osteoarthritis, unspecified site; H91.91 Unspecified hearing loss, right ear; F32.9 Major depressive disorder, single episode, unspecified; F41.9 Anxiety disorder, unspecified; I25.2 Old myocardial infarction; F17.200 Nicotine dependence, unspecified, uncomplicated; Z79.4 Long term (current) use of insulin; Z79.82 Long term (current) use of aspirin; Z79.899 Other long term (current) drug therapy; Z88.0 Allergy status to penicillin; Z88.1 Allergy status to other antibiotic agents; Z88.5 Allergy status to narcotic agent; Z91.013 Allergy to seafood; Z91.030 Bee allergy status; Z86.79 Personal history of other diseases of the circulatory system
CPT/HCPCS: 99282

== ENCOUNTER → 2018-05-03 | Outpatient (CLI) | payer OTHER ==
[2018-05-03 21:38] LABS: Hemoglobin A1C 6.2 % (4.0-6.0)
== END | disposition home or self-care (01) ==
LOC: LABWHC1 07:47
PROVIDERS: ATTEND Family Medicine
DX: E11.9 Type 2 diabetes mellitus without complications (principal); E87.5 Hyperkalemia
CPT/HCPCS: 36415; 83036; 84132

== ENCOUNTER 2018-06-10 09:36 | Observation (INO) | payer OTHER ==
[2018-06-10] MEDS ORDERED: NITROGLYCERIN SL TABS 0.4 MG TAB SUBLINGUAL STA (09:53)
--- NOTE | 2018-06-10 09:55 | ED ---
Chest Pain HPI - General Chief Complaint: Chest Pain Stated Complaint: chest pain Time Seen by Provider: 06/10/18 09:47 Source: patient, RN notes reviewed Mode of arrival: ambulatory Limitations: no limitations - History of Present Illness Initial Comments: This a 48-year-old female presents emergency Department chief complaint of chest pain. Patient states started a few hours prior arrival. Patient states that pain is in a centralized region does radiate down her right arm. Patient has extensive cardiac history including prior [place] with no stents, hyperlipidemia , hypertension, diabetes, CHF him a smoker. Patient states that the pain is causing her feel short of breath. Patient denies any back pain, headache, nausea, vomiting, diaphoretic episodes. Patient states that her registered travel nurse is Dr. Gillespie - Related Data Home Medications Medication Instructions Recorded Confirmed Insulin Glargine [Lantus] 120 unit SQ HS 09/30/15 06/10/18 Insulin Lispro [humaLOG Kwikpen] See Protocol SQ AC-TID 09/30/15 06/10/18 LORazepam [Ativan] 1 mg PO BID 09/30/15 06/10/18 Methimazole [Tapazole] 5 mg PO MOWEFRSA@2100 09/30/15 06/10/18 Metoprolol Succinate [Toprol XL] 50 mg PO BID 09/30/15 06/10/18 buPROPion HCL [Wellbutrin SR] 150 mg PO BID 09/30/15 06/10/18 Gabapentin [Neurontin] 800 mg PO QID PRN 02/07/17 06/10/18 Aspirin 325 mg PO DAILY 03/10/17 06/10/18 metFORMIN HCL 1,000 mg PO HS 06/03/17 06/10/18 Albuterol Sulfate [Proair Hfa] 1 - 2 puff INHALATION RT-QID PRN 06/10/18 Atorvastatin [Lipitor] 80 mg PO HS 06/10/18 06/10/18 Cetirizine HCl [Zyrtec] 10 mg PO HS 06/10/18 06/10/18 Cholecalciferol (Vitamin D3) 2,000 unit PO DAILY 06/10/18 06/10/18 [Vitamin D3] Isosorbide Mononitrate ER [Imdur] 30 mg PO DAILY 06/10/18 06/10/18 Lisinopril [Zestril] 5 mg PO DAILY 06/10/18 06/10/18 Promethazine 6.25MG/5Ml [Phenergan 6.25 mg PO Q6H PRN 06/10/18 06/10/18 Syrup] Sertraline [Zoloft] 100 mg PO HS 06/10/18 06/10/18 hydrOXYzine HCL [Atarax] 25 mg PO HS 06/10/18 06/10/18 Previous Rx's Medication Instructions Recorded Furosemide [Lasix] 40 mg PO BID #60 tablet 02/10/17 Allergies Allergy/AdvReac Type Severity Reaction Status Date / Time bee pollen Allergy Unknown Verified 06/10/18 11:10 shellfish derived [Shellfish] Allergy Swelling Verified 06/10/18 11:10 venom-honey bee Allergy Anaphylaxis Verified 06/10/18 11:10 acetaminophen AdvReac Nausea & Verified 06/10/18 11:10 [From Darvocet-N] Vomiting amoxicillin [From Augmentin] AdvReac Nausea & Verified 06/10/18 11:10 Vomiting clavulanic acid AdvReac Nausea & Verified 06/10/18 11:10 [From Augmentin] Vomiting erythromycin base AdvReac Nausea & Verified 06/10/18 11:10 Vomiting propoxyphene AdvReac Nausea & Verified 06/10/18 11:10 [From Darvocet-N] Vomiting Review of Systems ROS Statement: Those systems with pertinent positive or pertinent negative responses have been documented in the HPI. ROS Other: All systems not noted in ROS Statement are negative. EKG Findings - EKG Comments: EKG Findings:: EKG performed at 10:12 normal sinus rhythm with a left bundle rate of 73 NE 176 QRS 124 QT/QTC 444/489 Past Medical History Past Medical History: Coronary Artery Disease (CAD), Chest Pain / Angina, Heart Failure, COPD, Diabetes Mellitus, Hearing Disorder / Deafness, Hyperlipidemia, Hypertension, Liver Disease, Myocardial Infarction ([place]), Osteoarthritis ([place]), Thyroid Disorder Additional Past Medical History / Comment(s): neuropathy bilateral feet/lower legs, balance problems-"trips" has cane, graves disease, polycystic ovaries, rt ear deaf, "one artery in my heart goes in the back of the heart instead of the front", "fast heart rate", fatty liver Last Myocardial Infarction Date:: unknown History of Any Multi-Drug Resistant Organisms: None Reported Past Surgical History: Adenoidectomy, Breast Surgery, Section, Cholecystectomy, Ear Surgery, Heart Catheterization, Tonsillectomy Additional Past Surgical History / Comment(s): Rt groin arterial clot removal after cardiac cath, titanium bones in R ear. surgery left ear, rt breast lumpectomy Past Anesthesia/Blood Transfusion Reactions: Postoperative Nausea & Vomiting ( PONV) Past Psychological History: Anxiety, Depression Smoking Status: Current some day smoker Past Alcohol Use History: None Reported Past Drug Use History: None Reported - Past Family History Father Family Medical History: Myocardial Infarction ([place]) Additional Family Medical History / Comment(s): . Mother Family Medical History: Myocardial Infarction ([place]) Additional Family Medical History / Comment(s): . General Exam Limitations: no limitations General appearance: alert, in no apparent distress Head exam: Present: atraumatic, normocephalic, normal inspection Respiratory exam: Present: normal lung sounds bilaterally. Absent: respiratory distress, wheezes, rales, rhonchi, stridor Cardiovascular Exam: Present: regular rate, normal rhythm, normal heart sounds. Absent: systolic murmur, diastolic murmur, rubs, gallop, clicks GI/Abdominal exam: Present: soft, normal bowel sounds. Absent: distended, tenderness, guarding, rebound, rigid Neurological exam: Present: alert, oriented X3, CN II-XII intact Skin exam: Present: warm, dry, intact, normal color. Absent: rash Course Vital Signs 06/10/18 06/10/18 06/10/18 09:42 10:25 10:40 Temperature 98.3 F Pulse Rate 72 65 68 Respiratory 18 20 18 Rate Blood Pressure 101/67 72/48 83/54 O2 Sat by Pulse 99 98 Oximetry 06/10/18 06/10/18 11:00 11:30 Temperature Pulse Rate 68 67 Respiratory 18 18 Rate Blood Pressure 100/58 102/59 O2 Sat by Pulse 99 98 Oximetry Disposition Clinical Impression: Chest pain Disposition: ADMITTED IP TO THIS HOSP Condition: Stable Referrals: Gorge Tripathi DO [Primary Care Provider] - 1-2 days
[2018-06-10] MEDS ORDERED: SODIUM CHLORIDE 0.9% 500 ML IV ONE (10:33)
[2018-06-10 10:59] LABS: Basophils # (A) 0.1 k/uL (0-0.2); Basophils % (A) 1 %; Eosinophils # (A) 0.2 k/uL (0-0.7); Eosinophils % (A) 3 %; HCT 34.1 % (34.0-46.0); HGB 11.4 gm/dL (11.4-16.0); Lymphocytes # (A) 2.9 k/uL (1.0-4.8); Lymphocytes % (A) 39 %; MCH 31.1 pg (25.0-35.0); MCHC 33.4 g/dL (31.0-37.0); MCV 93.3 fL (80.0-100.0); Mean Platelet Volume 6.5; Monocytes # (A) 0.3 k/uL (0-1.0); Monocytes % (A) 5 %; Neutrophils # (A) 3.7 k/uL (1.3-7.7); Neutrophils % (A) 50 %; Platelet Count 278 k/uL (150-450); RBC 3.65 m/uL (3.80-5.40); RDW 12.8 % (11.5-15.5); WBC 7.3 k/uL (3.8-10.6)
[2018-06-10 11:11] LABS: Albumin 4.3 g/dL (3.5-5.0); Calcium 9.8 mg/dL (8.4-10.2); Magnesium 1.7 mg/dL (1.6-2.3); Potassium 4.7 mmol/L (3.5-5.1); Total Bilirubin 0.3 mg/dL (0.2-1.3); Total Protein 7.2 g/dL (6.3-8.2)
[2018-06-10 11:21] LABS: Partial Thromboplastin Time 21.9 sec (22.0-30.0); Prothrombin Time 9.9 sec (9.0-12.0)
[2018-06-10 11:22] LABS: Creatine Kinase 50 U/L (30-135)
[2018-06-10 11:35] LABS: Creatine Kinase MB 0.7 ng/mL (0.0-2.4); Troponin I <0.012 ng/mL (0.000-0.034)
--- NOTE | 2018-06-10 11:45 | XR ---
EXAMINATION TYPE: XR chest 2V DATE OF EXAM: 06/10/2018 HISTORY: Chest Pain. REFERENCE: Previous study dated 06/03/2017. FINDINGS: Heart size is upper limits of normal. The lungs are clear. Pleural spaces are clear. IMPRESSION: BORDERLINE CARDIOMEGALY.
[2018-06-10] MEDS ORDERED: NITROGLYCERIN SL TABS 0.4 MG TAB SUBLINGUAL PRN (11:48)
[2018-06-10] MEDS ORDERED: HEPARIN SODIUM,PORCINE 5,000 UNIT/ML 1 ML VIAL IV ONE (11:48)
[2018-06-10] MEDS ORDERED: HEPARIN SOD,PORK IN 0.45% NACL 25,000 UNIT in 0.45% NACL 1 500ML.BAG IV SCH (12:00)
[2018-06-10 12:56] LABS: Glucose,Whole Blood 78 mg/dL (75-99)
[2018-06-10] MEDS ORDERED: ALBUTEROL NEBULIZED 2.5 MG/3 ML INHALATION PRN (13:29)
[2018-06-10] MEDS ORDERED: PROMETHAZINE HCL 6.25 MG/5 ML CUP PO PRN (13:29)
[2018-06-10] MEDS: GABAPENTIN 400 MG CAP PO PRN ×2 (15:11→20:08)
[2018-06-10 16:58] LABS: Glucose,Whole Blood 106 mg/dL (75-99)
[2018-06-10 17:33] LABS: Appearance,Urine Clear (Clear); Bilirubin,Urine Negative (Negative); Blood,Urine Negative (Negative); Color,Urine Light Yellow; Glucose,Urine (UA) Negative (Negative); Ketones,Urine Negative (Negative); Leukocyte Esterase,Urine Negative (Negative); Nitrite,Urine Negative (Negative); Protein,Urine Negative (Negative); Urobilinogen,Urine <2.0 mg/dL (<2.0)
[2018-06-10 18:15] LABS: Creatine Kinase 48 U/L (30-135)
[2018-06-10 18:27] LABS: Creatine Kinase MB 0.8 ng/mL (0.0-2.4); Troponin I <0.012 ng/mL (0.000-0.034)
[2018-06-10] MEDS: PANTOPRAZOLE 40 MG TABLET PO SCH (18:48)
[2018-06-10 19:58] LABS: Glucose,Whole Blood 122 mg/dL (75-99)
[2018-06-10] MEDS: METOPROLOL SUCCINATE (ER) 50 MG TAB.ER.24H PO SCH (20:07)
[2018-06-10] MEDS: buPROPion SR 150 MG TABLET.ER PO SCH (20:07)
[2018-06-10] MEDS: LORazepam 1 MG TAB PO SCH (20:08)
[2018-06-10] MEDS: FUROSEMIDE 40 MG TAB PO SCH (20:08)
[2018-06-10] MEDS ORDERED: traMADol 50 MG TAB PO PRN (20:17)
[2018-06-10] MEDS ORDERED: INSULIN DETEMIR 100 UNIT/ML 10 ML VIAL SQ SCH (21:00)
[2018-06-10] MEDS ORDERED: LORATADINE 10 MG TAB PO SCH (21:00)
[2018-06-10] MEDS ORDERED: hydrOXYzine HCL 25 MG TAB PO SCH (21:00)
[2018-06-10] MEDS ORDERED: ATORVASTATIN 80 MG TAB PO SCH (21:00)
[2018-06-10] MEDS ORDERED: METHIMAZOLE 5 MG TAB PO SCH (21:00)
[2018-06-10] MEDS ORDERED: metFORMIN 500 MG TAB PO SCH (21:00)
[2018-06-10] MEDS ORDERED: SERTRALINE 100 MG TAB PO SCH (21:00)
--- NOTE | 2018-06-10 21:29 | HP ---
HISTORY AND PHYSICAL CHIEF COMPLAINT: Chest pain. I am covering for Dr. Tripathi. HISTORY OF PRESENT ILLNESS: This 48-year-old woman with a past history of CAD, CHF, COPD, diabetes mellitus type 2, hypertension being followed by Dr. Tripathi and Dr. Gillespie in the outpatient setting , was complaining of chest pain which is felt in the anterior part of the chest in the retrosternal area radiating to the right arm. The patient also had history of myocardial infarction with no stents. Because of increasing pain, the patient came to [facility] and admitted for further evaluation and treatment. Patient was given nitroglycerin hypotension. Creatinine is 1.29. The troponins were negative. The EKG on admission showed wide-complex QRS complex and ST changes. There is no history of any fevers, rigors. No headache, loss of consciousness or seizures at this time. PAST MEDICAL HISTORY: History of CAD, history of CHF, COPD, diabetes mellitus type 2, hypertension, hyperlipidemia, myocardial infarction, DJD, history of adenoidectomy, breast surgery. MEDICATIONS: Home medications are: 1. Metformin 1000 mg p.o. q.h.s. 2. Atarax 25 mg q.h.s. 3. Wellbutrin XR 150 mg p.o. b.i.d. 4. Zoloft 200 mg q.h.s. 5. Phenergan 6.5 q.6 p.r.n. 6. Toprol-XL 50 mg daily. 7. Tapazole 5 mg p.o. Tuesday, Tuesday, Tuesday, Tuesday. 8. Zestril 5 mg b.i.d. 9. Ativan 1 mg b.i.d. 12.Lantus 120 units subcu q.h.s. 13.Neurontin 800 mg p.o. q.i.d. p.r.n. 14.Lasix 40 mg b.i.d. 15.Vitamin D3 2000 daily. 16.Zyrtec 10 mg. 17.Lipitor 80 mg q.h.s. 18.Aspirin 320 mg. 19.ProAir HFA 1 puff q.i.d. p.r.n. ALLERGIES: BEE POLLEN, SHELLFISH, HONEY BEE VENOM, DARVOCET-N 100, AUGMENTIN, ERYTHROMYCIN AND PROPOXYPHENE. FAMILY HISTORY: History of myocardial infarction in the family. SOCIAL HISTORY: History of smoking. No history of alcohol intake. REVIEW OF SYSTEMS: ENT: No diminished hearing or vision. CARDIOVASCULAR: As mentioned. RESPIRATORY: As mentioned earlier. GI: No nausea. : No dysuria. NERVOUS SYSTEM: No numbness or weakness. ALLERGY/IMMUNOLOGY: No asthma or hayfever. MUSCULOSKELETAL: As mentioned. HEMATOLOGY: No history of anemia. ENDOCRINE: Diabetes. CONSTITUTIONAL: As mentioned earlier. DERMATOLOGY: Negative. RHEUMATOLOGY: Negative. PSYCHIATRY: As mentioned earlier. PHYSICAL EXAMINATION: Alert and oriented x3. Pulse 73, blood pressure 106/69, respiration 18, temperature 97.2, pulse ox 99% on room air. HEENT: Conjunctivae normal. Oral mucosa moist. Neck is no jugular venous distention. No carotid bruit. No lymph node enlargement. CARDIOVASCULAR: S1, S2. RESPIRATORY: Breath sounds diminished in the bases. No rhonchi, no crackles. ABDOMEN: Soft, nontender. No mass palpable. LEGS: No edema, no swelling. NERVOUS SYSTEM: Higher functions as mentioned earlier. Moves all four limbs. No focal deficits LYMPHATICS: No lymphadenopathy in the neck, axillae, groin. SKIN: No ulcer, rash, bleeding. ASSESSMENT: 1. Chest pain, possible unstable angina. 2. Increased creatinine with possible chronic kidney disease stage 3. 3. Coronary artery disease. 4. Congestive heart failure. 5. Chronic obstructive pulmonary disease. 6. Diabetes mellitus type 2. 7. Hypertension. 8. Hyperlipidemia. 9. History of chronic liver disease. 10.Hypothyroidism. 11.History of peripheral neuropathy. 12.History of cholecystectomy. 13.Anxiety, depression. 14.History of nicotine dependence. RECOMMENDATIONS AND DISCUSSION: In this 48-year-old woman who presented with multiple complex medical issues, we will monitor the patient closely. Continue the current medications, symptomatic treatment. Otherwise rule out myocardial infarction. IV heparin. Otherwise, I would also recommend proton pump inhibitors. Continue the rest of medications. Rule out myocardial infarction. Further recommendations to follow. See orders for details. Copy of dictation forwarded to Dr. Tripathi who is the primary physician. MMDALILA / ANDRESN: [id number] / MTDD
[2018-06-10 23:41] LABS: Creatine Kinase 51 U/L (30-135)
[2018-06-10 23:55] LABS: Creatine Kinase MB 0.7 ng/mL (0.0-2.4); Troponin I <0.012 ng/mL (0.000-0.034)
[2018-06-11 06:22] LABS: Glucose,Whole Blood 62 mg/dL (75-99)
[2018-06-11 06:49] LABS: Glucose,Whole Blood 68 mg/dL (75-99)
[2018-06-11 07:04] LABS: Glucose,Whole Blood 101 mg/dL (75-99)
[2018-06-11 07:31] LABS: Basophils # (A) 0.1 k/uL (0-0.2); Basophils % (A) 1 %; Eosinophils # (A) 0.2 k/uL (0-0.7); Eosinophils % (A) 2 %; HGB 11.1 gm/dL (11.4-16.0); Lymphocytes # (A) 3.5 k/uL (1.0-4.8); Lymphocytes % (A) 41 %; MCH 30.5 pg (25.0-35.0); MCHC 32.5 g/dL (31.0-37.0); MCV 93.8 fL (80.0-100.0); Mean Platelet Volume 6.7; Monocytes # (A) 0.4 k/uL (0-1.0); Monocytes % (A) 5 %; Neutrophils # (A) 4.3 k/uL (1.3-7.7); Neutrophils % (A) 50 %; Platelet Count 255 k/uL (150-450); RBC 3.63 m/uL (3.80-5.40); RDW 12.9 % (11.5-15.5); WBC 8.5 k/uL (3.8-10.6)
[2018-06-11 07:52] LABS: Calcium 9.7 mg/dL (8.4-10.2); Potassium 4.9 mmol/L (3.5-5.1)
[2018-06-11] MEDS ORDERED: ASPIRIN 325 MG TAB PO SCH (09:00)
[2018-06-11] MEDS ORDERED: ISOSORBIDE MONONITRATE ER 30 MG TAB.ER.24H PO SCH (09:00)
[2018-06-11] MEDS ORDERED: CHOLECALCIFEROL 1,000 UNIT TAB PO SCH (09:00)
[2018-06-11] MEDS ORDERED: LISINOPRIL 5 MG TAB PO SCH (09:00)
[2018-06-11] MEDS: GABAPENTIN 400 MG CAP PO PRN (09:21)
[2018-06-11] MEDS: PANTOPRAZOLE 40 MG TABLET PO SCH (09:22)
[2018-06-11] MEDS: NICOTINE 14MG/24HR PATCH TRANSDERM SCH ×2 (09:22→09:53)
[2018-06-11] MEDS: METOPROLOL SUCCINATE (ER) 50 MG TAB.ER.24H PO SCH (09:22)
[2018-06-11] MEDS: FUROSEMIDE 40 MG TAB PO SCH (09:22)
[2018-06-11] MEDS: LORazepam 1 MG TAB PO SCH (09:22)
[2018-06-11] MEDS: buPROPion SR 150 MG TABLET.ER PO SCH (09:23)
--- NOTE | 2018-06-11 09:58 | CONS ---
CONSULTATION This is a 48-year-old lady who is somewhat hard of hearing. She has a history of type 2 diabetes, hypertension, hyperlipidemia, and has an underlying left bundle type IVCD. In March of last year, 2016, she had a cardiac cath performed because of abnormal looking echocardiogram. Cardiac cath revealed that she did not have any significant obstructive CAD. There was some spasm of the ostial LAD that resolved with nitroglycerin. There was a first diagonal branch which was small, had about a 70% lesion. There was slight increase in the left ventricle end-diastolic pressure with a normal systolic function on left ventriculogram. She follows with Dr. Gillespie and Dr. Tripathi. She came into the hospital yesterday with complaints of having some chest pressure. The quality of her pain seems somewhat atypical, it is in the midsternal area. There is some radiation to the right arm. It made her short of breath, took her breath away and then the pain resolved. She had this on and off a couple of times. Quality of the pain is very atypical. Has not had any recurrence. She is resting comfortably without symptoms. She has significant risk factors in the form of diabetes, hypertension, hyperlipidemia. PAST MEDICAL HISTORY: 1. No significant CAD by catheterization in March 2017. She has a small first diagonal stenosis. 2. Type 2 diabetes. 3. Hypertension. 4. Hyperlipidemia. 5. History of some neuropathy of unclear etiology. MEDICATIONS: At home include aspirin, metformin, atorvastatin, Imdur, lisinopril. She takes Phenergan syrup. Hydroxyzine. ALLERGIES: She is allergic to AMOXICILLIN, ERYTHROMYCIN, PROPOXYPHENE. EXAMINATION: Blood pressure is 110/70, pulse rate 70 per minute regular HEENT: Unremarkable. Fundus was not examined by me. Neck is supple. No JVD. I do not hear a carotid bruit. There is no thyromegaly. Heart exam reveals S1, S2 heard normally without a rub, murmur or gallop. Lungs are clear. Abdomen is soft, nontender. Lower extremities reveal normal pulses. No edema. Central nervous system is normal. EKG revealed sinus mechanism with IVCD of LBBB type. IMPRESSION: 1. Chest pain episode, seems atypical in a patient who had cardiac cath about 14 months ago and was unremarkable. 2. Type 2 diabetes mellitus. 3. Hypertension. 4. Hyperlipidemia. 5. History of smoking. RECOMMENDATION: I have counseled the patient regarding the need to quit smoking. Her pain seems atypical. No further intervention necessary. Advised that she can be discharged. I will give her some Prilosec 20 mg daily and she will follow up with Dr. Tripathi and Dr. Gillespie in 2 weeks. Discussed my thoughts in detail with the patient. Thank you very much for the consult. JUD / ANDRESN: [id number] /
[2018-06-11 12:00] LABS: Glucose,Whole Blood 174 mg/dL (75-99)
[2018-06-11 12:22] VITALS: BP 112/74; PULSE 74; RESP 16; TEMP 98.1
--- NOTE | 2018-06-11 17:55 | DS ---
DISCHARGE SUMMARY DATE OF SERVICE: 06/11/2018 FINAL DIAGNOSES: 1. Chest pain, myocardial infarction ruled out. 2. Increased creatinine with possible chronic kidney stage 3. 3. Coronary artery disease. 4. History of congestive heart failure. 5. Chronic obstructive pulmonary disease. 6. Diabetes mellitus type 2. 7. Hypertension. 8. Hyperlipidemia. 9. History of chronic liver disease. 10.Hypothyroidism. 11.History of peripheral neuropathy. 12.History of cholecystectomy. 13.History of anxiety, depression. 14.Remote history of nicotine dependence. DISCHARGE DISPOSITION: The patient is being discharged in stable condition with guarded prognosis. HISTORY OF PRESENT ILLNESS: This 48-year-old woman with a past medical history of multiple medical problems being followed by Dr. Tripathi in the outpatient setting, had chest pain. Myocardial infarction ruled out. Cardiology saw the patient and recommended outpatient followup. On exam, vitals are stable. Cardiovascular: S1, S2 Abdomen: Soft. Nervous System: No focal deficits. DISCHARGE ADVICE: 1. Diet is cardiac. 2. Activity limited until followup. 3. Follow up with Dr. Tripathi in 2-3 days. 4. Follow with Dr. Gillespie as recommended for outpatient stress test. MEDICATIONS: 1. Albuterol 1-2 puffs q.6h p.r.n. 2. Aspirin 325 mg p.o. daily. 3. Lipitor 80 mg p.o. q.h.s. 4. Wellbutrin XR 150 mg p.o. b.i.d. 5. Zyrtec 10 mg p.o. q.h.s. 6. Vitamin D3 2000 daily. 7. Neurontin 800 mg p.o. q.i.d. p.r.n. 8. Atarax 25 mg q.h.s. 9. Lantus 120 units subcu q.h.s. 10.Lispro scale. 11.Imdur ER 30 mg p.o. daily. 12.Zestril 5 mg. 13.Ativan 1 mg p.o. b.i.d. 14.Metformin 1000 mg p.o. q.h.s. 15.Tapazole 5 mg Tuesday, Tuesday, Tuesday, Tuesday. 16.Metoprol-XL 50 mg p.o. b.i.d. 17.Omeprazole 20 mg b.i.d. 18.Promethazine p.r.n. 19.Zoloft 100 mg p.o. q.h.s. 20.Ultram 50 mg q.6h. 21.Lasix 40 mg p.o. b.i.d. 22.Nitrostat 0.4 mg p.r.n. Once again the patient was discharged in stable condition with guarded prognosis. MMODL / IJN: [id number] /
== END 2018-06-11 14:30 | disposition home or self-care (01) ==
LOC: EC 09:36 → 3OBS 11:58
PROVIDERS: ADMIT Family Medicine; ATTEND Family Medicine
DX: R07.89 Other chest pain (principal); R79.89 Other specified abnormal findings of blood chemistry; I25.10 Atherosclerotic heart disease of native coronary artery without angina pectoris; I50.9 Heart failure, unspecified; J44.9 Chronic obstructive pulmonary disease, unspecified; I11.0 Hypertensive heart disease with heart failure; E78.5 Hyperlipidemia, unspecified; E03.9 Hypothyroidism, unspecified; K76.9 Liver disease, unspecified; G62.9 Polyneuropathy, unspecified; Z90.49 Acquired absence of other specified parts of digestive tract; F41.9 Anxiety disorder, unspecified; F32.9 Major depressive disorder, single episode, unspecified; I25.2 Old myocardial infarction; E11.42 Type 2 diabetes mellitus with diabetic polyneuropathy; R06.02 Shortness of breath; Z79.4 Long term (current) use of insulin; Z79.82 Long term (current) use of aspirin; Z79.84 Long term (current) use of oral hypoglycemic drugs; Z88.1 Allergy status to other antibiotic agents; Z91.030 Bee allergy status; Z88.5 Allergy status to narcotic agent; Z88.0 Allergy status to penicillin; Z91.013 Allergy to seafood; M19.90 Unspecified osteoarthritis, unspecified site; E05.00 Thyrotoxicosis with diffuse goiter without thyrotoxic crisis or storm; E28.2 Polycystic ovarian syndrome; H91.91 Unspecified hearing loss, right ear; K76.0 Fatty (change of) liver, not elsewhere classified; F17.200 Nicotine dependence, unspecified, uncomplicated
CPT/HCPCS: 99285 ×2; 96365; 96366 ×2; 96376; 36415; 93005; 83880; 80061; 80053; 80048; 82550; 82553; 83735; 84484; 85025 ×2; 85610; 85730 ×2; 81003; 71046; G0378 ×2; J1644 ×2; S0106 ×2

== ENCOUNTER → 2019-01-20 | Outpatient (CLI) | payer OTHER ==
[2019-01-20 11:04] LABS: HCT 37.3 % (34.0-46.0); HGB 12.3 gm/dL (11.4-16.0); MCHC 32.9 g/dL (31.0-37.0); MCV 94.1 fL (80.0-100.0); Mean Platelet Volume 6.5; Platelet Count 310 k/uL (150-450); RBC 3.97 m/uL (3.80-5.40); RDW 12.9 % (11.5-15.5); WBC 8.4 k/uL (3.8-10.6)
[2019-01-20 11:14] LABS: Potassium 5.3 mmol/L (3.5-5.1)
== END | disposition home or self-care (01) ==
LOC: LABPAT 10:46
PROVIDERS: ATTEND Internal Medicine Interventional Cardiology
DX: Z01.812 Encounter for preprocedural laboratory examination (principal); I70.213 Atherosclerosis of native arteries of extremities with intermittent claudication, bilateral legs; I25.5 Ischemic cardiomyopathy
CPT/HCPCS: 36415; 80051; 82565; 84520; 85027

== ENCOUNTER 2019-02-06 07:41 | Day surgery (SDC) | payer OTHER ==
[2019-02-02 11:07] VITALS: BMI 29.1
[~2019-02-06 07:41] MED LIST changes: -ATORVASTATIN 80 MG TAB PO STA
[2019-02-06 08:08] VITALS: TEMP 97
[2019-02-06 08:15] LABS: Glucose,Whole Blood 192 mg/dL (75-99)
[2019-02-06] MEDS ORDERED: LIDOCAINE 1% INJ 10MG/ML (20 ML MDV) ONE (09:25)
[2019-02-06] MEDS ORDERED: HEPARIN SODIUM 1,000 UN/ML (10ML VL) ONE (09:25)
[2019-02-06] MEDS ORDERED: VERAPAMIL 2.5 MG/ML 2 ML AMP ONE (09:25)
[2019-02-06] MEDS ORDERED: MIDAZOLAM (PF) 2 MG/2 ML VIAL IVP ONE (09:54)
[2019-02-06] MEDS ORDERED: LIDOCAINE 1% INJ 10MG/ML (20 ML MDV) SQ ONE (09:58)
[2019-02-06] MEDS ORDERED: IOPAMIDOL-370 125ML BTL INJ ONE (10:25)
[2019-02-06] MEDS ORDERED: RX INFO: IV CONTRAST WAS GIVEN 1 EACH MISC MISCELLANE PRN (10:29)
[2019-02-06] MEDS ORDERED: SODIUM CHLORIDE 0.9% 1,000 ML IV SCH (10:30)
--- NOTE | 2019-02-06 10:48 | CC ---
CARDIAC CATHETERIZATION REPORT DATE OF SERVICE: 02/06/2019 PERFORMING PHYSICIAN: Enrique Gillespie MD, Visual Specialist. PROCEDURE PERFORMED: Selective right and left coronary angiogram. INDICATION: This is a pleasant 48-year-old female patient with a past medical history significant for hypertension, dyslipidemia, and diabetes, was experiencing chest discomfort concerning for angina. Heart catheterization was advised. APPROACH: Left common femoral artery. COMPLICATION: None. LEVEL OF SEDATION: Moderate with sedation length of 26 minutes. PROCEDURE DESCRIPTION: After obtaining an informed consent, the patient was brought to the cardiac labview programmer. The left common femoral artery was cannulated using micropuncture technique, the micropuncture wire passed easily, then I placed a 6-Divehi sheath in the left common femoral artery. After that, I did selective right and left coronary angiogram. That was performed using JR4 and JL4 catheters. Left heart catheterization was performed using the JR4 catheter which flipped into the LV then and pullback across aortic valve. The procedure was completed without any complication. SELECTIVE CORONARY ANGIOGRAM: 1. The right coronary artery is a large caliber vessel and it is a dominant vessel and appeared to be angiographically normal. 2. The left main does not exist. 3. The left circumflex is originating from the right coronary cusp. The left circumflex appeared to have mild disease only in the proximal portion. 4. The LAD appeared to have mild disease only in the proximal portion as well. The LAD gives rise into multiple diagonal branches appeared to be angiographically normal. HEMODYNAMICS: The left ventricular end-diastolic pressure was about 10 mmHg without significant gradient across the aortic valve. CONCLUSION: 1. Mild nonobstructive coronary artery disease. 2. 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 POSTPROCEDURE MANAGEMENT: 1. Medical treatment. 2. Follow up with the patient. MMODL / IJN: [id number] /
--- NOTE | 2019-02-06 10:54 | LTR ---
DATE OF SERVICE: 02/06/2019 RE: Dacia Combs Dear Dr. Tripathi, Ms. Dacia Combs underwent a heart catheterization today and that revealed mild nonobstructive coronary artery disease. I want to thank you for allowing us to participate in her care and please do not hesitate to call us for any question or concern.. Sincerely, Enrique Gillespie MD. MMDALILA / DELORIS: [phone] /
[2019-02-06 12:35] VITALS: BP 130/59; PULSE 81; RESP 18
== END 2019-02-06 15:15 | disposition home or self-care (01) ==
LOC: CATHCVL 07:41
PROVIDERS: ATTEND Internal Medicine Interventional Cardiology
DX: I25.110 Atherosclerotic heart disease of native coronary artery with unstable angina pectoris (principal); Q24.5 Malformation of coronary vessels; I10 Essential (primary) hypertension; I42.8 Other cardiomyopathies; F17.210 Nicotine dependence, cigarettes, uncomplicated; E78.5 Hyperlipidemia, unspecified; E11.9 Type 2 diabetes mellitus without complications; I77.89 Other specified disorders of arteries and arterioles; Z79.82 Long term (current) use of aspirin; Z79.4 Long term (current) use of insulin; Z79.899 Other long term (current) drug therapy; Z88.5 Allergy status to narcotic agent; Z88.0 Allergy status to penicillin; Z88.1 Allergy status to other antibiotic agents; Z91.030 Bee allergy status
CPT/HCPCS: 93458; 84132; C1760; C1894; C1769 ×2; J2001; Q9967; J2250

== ENCOUNTER → 2019-08-10 | Outpatient (CLI) | payer OTHER ==
[2019-08-10 15:10] LABS: Basophils # (A) 0.1 k/uL (0-0.2); Basophils % (A) 1 %; Eosinophils # (A) 0.2 k/uL (0-0.7); Eosinophils % (A) 2 %; HCT 40.5 % (34.0-46.0); HGB 14.3 gm/dL (11.4-16.0); Lymphocytes # (A) 2.9 k/uL (1.0-4.8); Lymphocytes % (A) 27 %; MCH 31.5 pg (25.0-35.0); MCHC 35.3 g/dL (31.0-37.0); MCV 89.1 fL (80.0-100.0); Mean Platelet Volume 5.9; Monocytes # (A) 0.5 k/uL (0-1.0); Monocytes % (A) 5 %; Neutrophils # (A) 6.9 k/uL (1.3-7.7); Neutrophils % (A) 64 %; Platelet Count 274 k/uL (150-450); RBC 4.55 m/uL (3.80-5.40); RDW 12.7 % (11.5-15.5); WBC 10.8 k/uL (3.8-10.6)
[2019-08-10 19:08] LABS: T4, Free (Free Thyroxine) 1.4 ng/dL (0.80-1.80)
[2019-08-10 19:16] LABS: % Iron Saturation 23.42 (12.00-45.00); African American GFR (CKD) 75.5 (60.0-200.0); Albumin/Globulin Ratio 2.27 (1.60-3.17); Anion Gap 10.9 mmol/L (4.00-12.00); Calcium 10.1 mg/dL (8.7-10.3); Carbon Dioxide 30.1 mmol/L (21.6-31.8); Chol/HDL Ratio 4.64; Globulin 2.2 g/dL (1.6-3.3); LDL Cholesterol,Calculated 55.4 mg/dL (0.0-131.0); Potassium 3.7 mmol/L (3.5-5.5); Total Bilirubin 0.5 mg/dL (0.3-1.2); Total Protein 7.2 g/dL (6.2-8.2); VLDL Calculation 46.6 mg/dL (5.00-40.00)
[2019-08-10 21:33] LABS: Hemoglobin A1C 7.9 % (4.0-6.0)
== END ==
LOC: LABWHC1 12:51
PROVIDERS: ATTEND Family Medicine
DX: E11.22 Type 2 diabetes mellitus with diabetic chronic kidney disease (principal); N18.9 Chronic kidney disease, unspecified; I25.10 Atherosclerotic heart disease of native coronary artery without angina pectoris; E05.00 Thyrotoxicosis with diffuse goiter without thyrotoxic crisis or storm; E55.9 Vitamin D deficiency, unspecified
CPT/HCPCS: 36415; 80053; 80061; 82306; 82607; 82728; 83036; 83540; 83550; 84439; 84443; 85025

== ENCOUNTER → 2019-12-13 | Outpatient (CLI) | payer OTHER ==
[2019-12-13 17:18] LABS: Basophils % (A) 0 %; Eosinophils # (A) 0.1 k/uL (0-0.7); Eosinophils % (A) 1 %; HGB 13.7 gm/dL (11.4-16.0); Lymphocytes # (A) 2.7 k/uL (1.0-4.8); Lymphocytes % (A) 30 %; MCH 30.1 pg (25.0-35.0); MCHC 33.5 g/dL (31.0-37.0); MCV 89.8 fL (80.0-100.0); Mean Platelet Volume 6.9; Monocytes # (A) 0.4 k/uL (0-1.0); Monocytes % (A) 5 %; Neutrophils # (A) 5.6 k/uL (1.3-7.7); Neutrophils % (A) 62 %; Platelet Count 278 k/uL (150-450); RBC 4.56 m/uL (3.80-5.40); RDW 12.9 % (11.5-15.5); WBC 9.1 k/uL (3.8-10.6)
[2019-12-13 23:56] LABS: African American GFR (CKD) 98.9 (60.0-200.0); Albumin 4.5 g/dL (3.80-4.90); Albumin/Globulin Ratio 1.96 (1.60-3.17); Anion Gap 10.2 mmol/L (4.00-12.00); BUN/Creat Ratio 18.75 Ratio (12.00-20.00); Calcium 9.7 mg/dL (8.7-10.3); Carbon Dioxide 30.8 mmol/L (21.6-31.8); Globulin 2.3 g/dL (1.6-3.3); Non-African American GFR(CKD) 85.4 (60.0-200.0); Potassium 3.6 mmol/L (3.5-5.5); Total Bilirubin 0.2 mg/dL (0.2-1.2); Total Protein 6.8 g/dL (6.2-8.2)
[2019-12-14 00:03] LABS: T4, Free (Free Thyroxine) 1.4 ng/dL (0.80-1.80)
[2019-12-14 01:46] LABS: Hemoglobin A1C 7.3 % (4.0-6.0)
== END | disposition home or self-care (01) ==
LOC: LABWHC1 16:31
PROVIDERS: ATTEND Family Medicine
DX: E11.22 Type 2 diabetes mellitus with diabetic chronic kidney disease (principal); E55.9 Vitamin D deficiency, unspecified; I12.9 Hypertensive chronic kidney disease with stage 1 through stage 4 chronic kidney disease, or unspecified chronic kidney disease; N18.9 Chronic kidney disease, unspecified
CPT/HCPCS: 36415; 80053; 82306; 83036; 84439; 84443; 85025

== ENCOUNTER 2023-05-13 18:17 | Emergency (ER) | payer MEDICARE, OTHER ==
[2023-05-13 18:38] VITALS: TEMP 98.3
[2023-05-13] MEDS ORDERED: ACETAMINOPHEN TAB 325 MG TAB PO STA (19:26)
[2023-05-13] MEDS ORDERED: ONDANSETRON 4 MG/2 ML VIAL IVP STA (19:26)
[2023-05-13] MEDS ORDERED: SODIUM CHLORIDE 0.9% 1,000 ML IV STA (19:26)
[2023-05-13 19:28] LABS: Basophils % (A) 0 %; Eosinophils # (A) 0.2 k/uL (0-0.7); Eosinophils % (A) 2 %; HCT 32.8 % (34.0-46.0); HGB 11.3 gm/dL (11.4-16.0); Lymphocytes # (A) 1.9 k/uL (1.0-4.8); Lymphocytes % (A) 28 %; MCH 31.8 pg (25.0-35.0); MCHC 34.5 g/dL (31.0-37.0); MCV 92.1 fL (80.0-100.0); Monocytes # (A) 0.4 k/uL (0-1.0); Monocytes % (A) 5 %; Neutrophils # (A) 4.3 k/uL (1.3-7.7); Neutrophils % (A) 64 %; Platelet Count 262 k/uL (150-450); RBC 3.56 m/uL (3.80-5.40); RDW 12.6 % (11.5-15.5); WBC 6.8 k/uL (3.8-10.6)
[2023-05-13 19:38] LABS: ALT 21 U/L (4-34); AST 25 U/L (14-36); African American GFR (CKD) 63 (>60 ml/min/1.73 sqM); Albumin 4.9 g/dL (3.5-5.0); Alkaline Phosphatase 70 U/L (38-126); Anion Gap 21 mmol/L; Blood Urea Nitrogen 22 mg/dL (7-17); Calcium 10.2 mg/dL (8.4-10.2); Carbon Dioxide 12 mmol/L (22-30); Chloride 102 mmol/L (98-107); Glucose 78 mg/dL (74-99); Non-African American GFR(CKD) 55 (>60 ml/min/1.73 sqM); Potassium 4.8 mmol/L (3.5-5.1); Sodium 135 mmol/L (137-145); Total Bilirubin 0.5 mg/dL (0.2-1.3)
[2023-05-13] MEDS ORDERED: CEPHALEXIN 500 MG CAP PO STA (19:47)
[2023-05-13] MEDS ORDERED: SULFAMETHOX-TMP 800-160MG 1 EACH TAB PO STA (19:49)
[2023-05-13 20:07] VITALS: BP 138/65; PULSE 102; RESP 18
--- NOTE | 2023-05-13 20:21 | ED ---
Extremity Problem HPI - General Chief complaint: Extremity Problem,Nontraumatic Stated complaint: Wounds on R and L Feet Time Seen by Provider: 05/13/23 19:01 Source: patient Mode of arrival: ambulatory Limitations: no limitations - History of Present Illness Initial comments: Patient is a 53-year-old female who presents the emergency department for ulcers on feet. Patient moved last week after she noticed small ulcer on the side of her left and right foot. Patient states the ulcers are worsening today she noticed redness around them. She denies fever, chills. Patient feels nauseous she has had some vomiting today. She is diabetic. Denies history of MRSA. - Related Data Home Medications Medication Instructions Recorded Confirmed Insulin Glargine [Lantus Vial] 80 unit SQ HS 09/30/15 02/06/19 Insulin Lispro [humaLOG Kwikpen] See Protocol SQ AC-TID 09/30/15 02/06/19 LORazepam [Ativan] 1 mg PO BID 09/30/15 02/06/19 Metoprolol Succinate [Toprol XL] 50 mg PO BID 09/30/15 02/06/19 buPROPion HCL [Wellbutrin SR] 150 mg PO BID 09/30/15 02/06/19 methIMAzole [Tapazole] 5 mg PO [id number]@2100 09/30/15 02/06/19 Gabapentin [Neurontin] 800 mg PO QID 02/07/17 02/06/19 Aspirin 325 mg PO DAILY 03/10/17 02/06/19 Albuterol Sulfate [Proair Hfa] 1 - 2 puff INHALATION RT-QID PRN 06/10/18 02/06/19 Atorvastatin [Lipitor] 80 mg PO HS 06/10/18 02/06/19 Cetirizine HCl [Zyrtec] 10 mg PO HS 06/10/18 02/06/19 Isosorbide Mononitrate ER [Imdur] 30 mg PO DAILY 06/10/18 02/06/19 Sertraline [Zoloft] 100 mg PO BID 06/10/18 02/06/19 hydrOXYzine HCL [Atarax] 25 mg PO HS 06/10/18 02/06/19 lisinopriL [Zestril] 5 mg PO DAILY 06/10/18 02/06/19 traMADol HCL [Ultram] 50 mg PO BID 06/10/18 02/06/19 Pioglitazone [Actos] 15 mg PO DAILY 02/02/19 02/06/19 Spironolactone [Aldactone] 25 mg PO DAILY 02/02/19 02/06/19 Terbinafine [LamISIL] 250 mg PO DAILY 02/02/19 02/06/19 Previous Rx's Medication Instructions Recorded Furosemide [Lasix] 40 mg PO BID #60 tablet 02/10/17 Nitroglycerin Sl Tabs [Nitrostat] 0.4 mg SUBLINGUAL Q5M PRN #20 tab 06/11/18 Acetaminophen Tab [Tylenol Tab] 500 mg PO Q4H PRN #30 tablet 05/13/23 Cephalexin [Keflex] 500 mg PO Q6HR #28 cap 05/13/23 Ondansetron Odt [Zofran Odt] 4 mg PO Q8HR PRN #10 tab 05/13/23 Sulfamethox-Tmp 800-160Mg [Bactrim 1 each PO Q12HR #14 tab 05/13/23 Ds] Allergies Allergy/AdvReac Type Severity Reaction Status Date / Time adhesive Allergy Rash/Hives Verified 05/13/23 18:38 bee pollen Allergy Unknown Verified 05/13/23 18:38 shellfish derived [Shellfish] Allergy Swelling Verified 05/13/23 18:38 venom-honey bee Allergy Anaphylaxis Verified 05/13/23 18:38 amoxicillin [From Augmentin] AdvReac Nausea & Verified 05/13/23 18:38 Vomiting clavulanic acid AdvReac Nausea & Verified 05/13/23 18:38 [From Augmentin] Vomiting erythromycin base AdvReac Nausea & Verified 05/13/23 18:38 Vomiting propoxyphene AdvReac Nausea & Verified 05/13/23 18:38 [From Darvocet-N] Vomiting BANDAIDS Allergy Rash/Hives Uncoded 05/13/23 18:38 Review of Systems ROS Statement: Those systems with pertinent positive or pertinent negative responses have been documented in the HPI. ROS Other: All systems not noted in ROS Statement are negative. 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 surgery left ear, rt breast lumpectomy Past Anesthesia/Blood Transfusion Reactions: Postoperative Nausea & Vomiting (PONV) Past Psychological History: Anxiety, Depression Smoking Status: Current every day smoker Past Alcohol Use History: None Reported Past Drug Use History: None Reported - Past Family History Father Family Medical History: CVA/TIA, Myocardial Infarction ([place]) Additional Family Medical History / Comment(s): . Mother Family Medical History: Cancer, Myocardial Infarction ([place]) Additional Family Medical History / Comment(s): THYROID CA. General Exam Limitations: no limitations General appearance: alert Respiratory exam: Present: normal lung sounds bilaterally. Absent: respiratory distress, wheezes, rales, rhonchi, stridor Cardiovascular Exam: Present: regular rate, normal rhythm, normal heart sounds. Absent: systolic murmur, diastolic murmur, rubs, gallop, clicks Extremities exam: Present: other (2 cm ulcer lateral region of bilateral feet. minimal surrounding erythema. Tender and warm to palpation. No fluctuance or drainable abscess) Neurological exam: Present: alert Psychiatric exam: Present: normal affect, normal mood Skin exam: Present: warm, dry, intact, normal color. Absent: rash Course Vital Signs 05/13/23 05/13/23 18:36 20:06 Temperature 98.3 F Pulse Rate 106 H 102 H Respiratory 20 18 Rate Blood Pressure 94/59 138/65 O2 Sat by Pulse 99 100 Oximetry Medical Decision Making - Medical Decision Making Was pt. sent in by a medical professional or institution (, PA, [employer]GER, urgent care, hospital, or [facility]...) When possible be specific @ -No Did you speak to anyone other than the patient for history (EMS, parent, family, police, friend...)? What history was obtained from this source @ -No Did you review nursing and triage notes (agree or disagree)? Why? @ -I reviewed and agree with nursing and triage notes Were old charts reviewed (outside hosp., previous admission, EMS record, old EKG, old radiological studies, urgent care reports/EKG's, [facility] records)? Report findings @ -No old charts were reviewed Differential Diagnosis (chest pain, altered mental status, abdominal pain women, abdominal pain men, vaginal bleeding, weakness, fever, dyspnea, syncope, headache, dizziness, GI bleed, back pain, seizure, CVA, palpatations, mental health)? @ -Diabetic foot ulcer, cellulitis, abscess, sepsis. This list is not meant to be all-inclusive EKG interpreted by me (3pts min.). @ -As above X-rays interpreted by me (1pt min.). @ -None done CT interpreted by me (1pt min.). @ -None done U/S interpreted by me (1pt. min.). @ -None done What testing was considered but not performed or refused? (CT, X-rays, U/S, labs)? Why? @ -None What meds were considered but not given or refused? Why? @ -None Did you discuss the management of the patient with other professionals (professionals i.e. , PA, [employer] MANAGER, lab, RT, psych nurse, social professionals, advertising specialist, teacher, engineering officer, casework supervisor)? Give summary @ -No Was smoking cessation discussed for >3mins.? @ -No Was critical care preformed (if so, how long)? @ -No Were there social determinants of health that impacted care today? How? (Homelessness, low income, unemployed, alcoholism, drug addiction, transportation, low edu. Level, literacy, decrease access to med. care, snf, rehab)? @ -No Was there de-escalation of care discussed even if they declined (Discuss DNR or withdrawal of care, Hospice)? DNR status @ -No What co-morbidities impacted this encounter? (DM, HTN, Smoking, COPD, CAD, Cancer, CVA, ARF, Chemo, Hep., AIDS, mental health diagnosis, sleep apnea, morbid obesity)? @ -None Was patient admitted / discharged? Hospital course, mention meds given and route, prescriptions, significant lab abnormalities, going to OR and other pertinent info. @ -Patient has small ulcers on her feet she is diabetic. No leukocytosis or fever. Patient has had some vomiting. Patient in stable medical condition for discharge. She will be placed on Keflex and Bactrim. We discussed strict return parameters. Patient follow-up with primary care provider. Undiagnosed new problem with uncertain prognosis? @ -No Drug Therapy requiring intensive monitoring for toxicity (Heparin, Nitro, Insulin, Cardizem)? @ -No Were any procedures done? @ -No Diagnosis/symptom? @ -diabetic foot ulcer Acute, or Chronic, or Acute on Chronic? @ -acute Uncomplicated (without systemic symptoms) or Complicated (systemic symptoms)? @ -uncomplicated Side effects of treatment? @ -No Exacerbation, Progression, or Severe Exacerbation? @ -No Poses a threat to life or bodily function? How? (Chest pain, [place], [place], pneumonia, PE, COPD, DKA, ARF, appy, cholecystitis, CVA, Diverticulitis, Homicidal, Suicidal, threat to staff... and all critical care pts) @ -No Dr. Cleveland is my attending - Lab Data Result diagrams: 05/13/23 19:10 05/13/23 19:10 Lab Results 05/13/23 05/13/23 Range/Units 19:10 19:10 WBC 6.8 (3.8-10.6) k/uL RBC 3.56 L (3.80-5.40) m/uL Hgb 11.3 L (11.4-16.0) gm/dL Hct 32.8 L (34.0-46.0) % MCV 92.1 (80.0-100.0) fL MCH 31.8 (25.0-35.0) pg MCHC 34.5 (31.0-37.0) g/dL RDW 12.6 (11.5-15.5) % Plt Count 262 (150-450) k/uL MPV 7.0 Neutrophils % 64 % Lymphocytes % 28 % Monocytes % 5 % Eosinophils % 2 % Basophils % 0 % Neutrophils # 4.3 (1.3-7.7) k/uL Lymphocytes # 1.9 (1.0-4.8) k/uL Monocytes # 0.4 (0-1.0) k/uL Eosinophils # 0.2 (0-0.7) k/uL Basophils # 0.0 (0-0.2) k/uL Sodium 135 L (137-145) mmol/L Potassium 4.8 (3.5-5.1) mmol/L Chloride 102 (98-107) mmol/L Carbon Dioxide 12 L (22-30) mmol/L Anion Gap 21 mmol/L BUN 22 H (7-17) mg/dL Creatinine 1.14 H (0.52-1.04) mg/dL Est GFR (CKD-EPI)AfAm 63 (>60 ml/min/1.73 sqM) Est GFR (CKD-EPI)NonAf 55 (>60 ml/min/1.73 sqM) Glucose 78 (74-99) mg/dL Calcium 10.2 (8.4-10.2) mg/dL Total Bilirubin 0.5 (0.2-1.3) mg/dL AST 25 (14-36) U/L ALT 21 (4-34) U/L Alkaline Phosphatase 70 (38-126) U/L Total Protein 8.0 (6.3-8.2) g/dL Albumin 4.9 (3.5-5.0) g/dL Disposition Clinical Impression: Diabetic foot ulcer Disposition: HOME SELF-CARE Condition: Good Instructions (If sedation given, give patient instructions): Diabetic Foot Ulcers (ED) Additional Instructions: Take medication as directed. It is important to wear loose shoes. Follow-up with primary care provider in one to 2 days. Return to the emergency department if you experience new, concerning, or worsening symptoms Prescriptions: Sulfamethox-Tmp 800-160Mg [Bactrim Ds] 1 each PO Q12HR #14 tab Cephalexin [Keflex] 500 mg PO Q6HR #28 cap Acetaminophen Tab [Tylenol Tab] 500 mg PO Q4H PRN #30 tablet PRN Reason: Pain Ondansetron Odt [Zofran Odt] 4 mg PO Q8HR PRN #10 tab PRN Reason: Nausea Is patient prescribed a controlled substance at d/c from ED?: No Referrals: Gorge Tripathi DO [Primary Care Provider] - 1-2 days
== END 2023-05-13 20:40 | disposition home or self-care (01) ==
LOC: EC 18:17
DX: E11.621 Type 2 diabetes mellitus with foot ulcer (principal); I11.0 Hypertensive heart disease with heart failure; I50.9 Heart failure, unspecified; I25.10 Atherosclerotic heart disease of native coronary artery without angina pectoris; I25.2 Old myocardial infarction; J44.9 Chronic obstructive pulmonary disease, unspecified; E05.00 Thyrotoxicosis with diffuse goiter without thyrotoxic crisis or storm; E78.5 Hyperlipidemia, unspecified; E11.40 Type 2 diabetes mellitus with diabetic neuropathy, unspecified; M19.90 Unspecified osteoarthritis, unspecified site; F41.9 Anxiety disorder, unspecified; F32.A Depression, unspecified; F17.200 Nicotine dependence, unspecified, uncomplicated; Z79.82 Long term (current) use of aspirin; Z79.899 Other long term (current) drug therapy; Z79.84 Long term (current) use of oral hypoglycemic drugs; Z79.4 Long term (current) use of insulin; Z88.0 Allergy status to penicillin; Z88.1 Allergy status to other antibiotic agents; Z91.030 Bee allergy status; Z91.013 Allergy to seafood; Z91.018 Allergy to other foods
CPT/HCPCS: 36415; 80053; 85025; 99283; 96374; J2405

== ENCOUNTER 2023-05-24 11:55 | Inpatient (IN) | payer MEDICARE, OTHER ==
[2023-05-24] MEDS ORDERED: SODIUM CHLORIDE 0.9% 1,000 ML IV STA (12:02)
[2023-05-24 12:29] LABS: INR 0.9 (<1.2); Prothrombin Time 9.4 sec (9.0-12.0)
[2023-05-24 12:35] LABS: Basophils % (A) 0 %; Eosinophils # (A) 0.2 k/uL (0-0.7); Eosinophils % (A) 2 %; HCT 33.6 % (34.0-46.0); HGB 11.1 gm/dL (11.4-16.0); Lymphocytes # (A) 2.4 k/uL (1.0-4.8); Lymphocytes % (A) 24 %; MCH 31.4 pg (25.0-35.0); MCHC 32.9 g/dL (31.0-37.0); MCV 95.5 fL (80.0-100.0); Mean Platelet Volume 7.6; Monocytes # (A) 0.5 k/uL (0-1.0); Monocytes % (A) 5 %; Neutrophils # (A) 6.8 k/uL (1.3-7.7); Neutrophils % (A) 68 %; Platelet Count 306 k/uL (150-450); RBC 3.52 m/uL (3.80-5.40); RDW 12.8 % (11.5-15.5); WBC 10.1 k/uL (3.8-10.6)
--- NOTE | 2023-05-24 12:35 | ED ---
General Adult HPI - General Chief complaint: Shortness of Breath Stated complaint: SOB Time Seen by Provider: 05/24/23 12:02 Source: patient, EMS, RN notes reviewed, old records reviewed Mode of arrival: EMS Limitations: no limitations - History of Present Illness Initial comments: Patient is a 53-year-old female who presents emergency Department complaining of dyspnea. States she has a chest pressure sensation over the left side of her chest as well which she currently does not have. States this was some noncyanotic a few hours prior to arrival. Received aspirin and nitro prior to arrival. Patient had blood pressure drop with the nitro which caused her to get diaphoretic and slightly nauseous. That is since past as well. She is alert and oriented. Hard of hearing. His no acute complaints at this time. States she has no chest pain and no chest pressure. Mild dyspnea with no recent cough. Patient does have a history of poorly controlled diabetes and blood sugar is over 500. Denies any fevers, chills, cough. Denies any nausea or vomiting. Does follow up with cardiology. Presents for further evaluation at this time. - Related Data Home Medications Medication Instructions Recorded Confirmed Insulin Glargine [Lantus Vial] 40 unit SQ HS 09/30/15 05/24/23 buPROPion HCL [Wellbutrin SR] 150 mg PO BID 09/30/15 05/24/23 Gabapentin [Neurontin] 800 mg PO QID 02/07/17 05/24/23 Atorvastatin [Lipitor] 80 mg PO HS 06/10/18 05/24/23 Sertraline [Zoloft] 100 mg PO BID 06/10/18 05/24/23 hydrOXYzine HCL [Atarax] 25 mg PO HS 06/10/18 05/24/23 Spironolactone [Aldactone] 25 mg PO DAILY 02/02/19 05/24/23 Furosemide [Lasix] 20 mg PO BID 05/24/23 05/24/23 INSULIN ASPART (NovoLOG) [NovoLOG See Protocol SQ AC-TID 05/24/23 05/24/23 (formulary)] lisinopriL [Zestril] 10 mg PO DAILY 05/24/23 05/24/23 metFORMIN HCL [Glucophage] 1,000 mg PO BID 05/24/23 05/24/23 Previous Rx's Medication Instructions Recorded Acetaminophen Tab [Tylenol Tab] 500 mg PO Q4H PRN #30 tablet 05/13/23 Ondansetron Odt [Zofran Odt] 4 mg PO Q8HR PRN #10 tab 05/13/23 Allergies Allergy/AdvReac Type Severity Reaction Status Date / Time adhesive Allergy Rash/Hives Verified 05/24/23 12:26 bee pollen Allergy Unknown Verified 05/24/23 12:26 shellfish derived [Shellfish] Allergy Swelling Verified 05/24/23 12:26 venom-honey bee Allergy Anaphylaxis Verified 05/24/23 12:26 amoxicillin [From Augmentin] AdvReac Nausea & Verified 05/24/23 12:26 Vomiting clavulanic acid AdvReac Nausea & Verified 05/24/23 12:26 [From Augmentin] Vomiting erythromycin base AdvReac Nausea & Verified 05/24/23 12:26 Vomiting propoxyphene AdvReac Nausea & Verified 05/24/23 12:26 [From Darvocet-N] Vomiting BANDAIDS Allergy Rash/Hives Uncoded 05/24/23 12:26 Review of Systems ROS Statement: Those systems with pertinent positive or pertinent negative responses have been documented in the HPI. Review of Systems: CONST: Denies fever EYES: Denies blurry vision ENT: Denies nasal congestion C/V: Denies Chest pain RESP: Endorses mild dyspnea. GI: Denies abdominal pain : Denies dysuria SKIN: Denies rash. MSK: Denies joint pain. NEURO: Denies headache ROS Other: All systems not noted in ROS Statement are negative. 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 surgery left ear, rt breast lumpectomy Past Anesthesia/Blood Transfusion Reactions: Postoperative Nausea & Vomiting (PONV) Past Psychological History: Anxiety, Depression Smoking Status: Current every day smoker Past Alcohol Use History: None Reported Past Drug Use History: None Reported - Past Family History Father Family Medical History: CVA/TIA, Myocardial Infarction ([place]) Additional Family Medical History / Comment(s): . Mother Family Medical History: Cancer, Myocardial Infarction ([place]) Additional Family Medical History / Comment(s): THYROID CA. General Exam - General Exam Comments Initial Comments: General: Appears anxious. HEAD: Normal with no signs of head trauma. EYES: PERRLA, EOMI, conjunctiva normal, no discharge. ENT: Hearing grossly intact, normal oropharynx. RESPIRATORY: Clear breath sounds bilaterally. No wheezes, rales, or rhonchi. C/V: Regular rate and rhythm. S1 and S2 auscultated, no edema, peripheral pulses 2+ and intact throughout ABD: Abd is soft, nontender, nondistended EXT: Normal range of motion, no obvious deformity SKIN: No rashes or lesions observed on exposed skin. NEURO: Alert and oriented 4. Limitations: no limitations Course Vital Signs 05/24/23 05/24/23 05/24/23 11:56 13:00 13:42 Temperature 97.9 F Pulse Rate 115 H 101 H 101 H Respiratory 24 18 18 Rate Blood Pressure 125/84 117/73 138/71 O2 Sat by Pulse 93 L 100 97 Oximetry 05/24/23 14:00 Temperature Pulse Rate 100 Respiratory 18 Rate Blood Pressure 138/71 O2 Sat by Pulse 97 Oximetry Medical Decision Making - Medical Decision Making Was pt. sent in by a medical professional or institution (, PA, WHEEL WORKER, urgent care, hospital, or long-term...) When possible be specific @ -No Did you speak to anyone other than the patient for history (EMS, parent, family, police, friend...)? What history was obtained from this source @ -No Did you review nursing and triage notes (agree or disagree)? Why? @ -I reviewed and agree with nursing and triage notes Were old charts reviewed (outside hosp., previous admission, EMS record, old EKG, old radiological studies, urgent care reports/EKG's, long-term records)? Report findings @ -Old EKG is reviewed from 2018. Differential Diagnosis (chest pain, altered mental status, abdominal pain women, abdominal pain men, vaginal bleeding, weakness, fever, dyspnea, syncope, headache, dizziness, GI bleed, back pain, seizure, CVA, palpatations, mental health, musculoskeletal)? @ -Differential Dyspnea: Coronary syndrome, arrhythmia, tamponade, asthma, COPD, pulmonary embolism, pneumonia, pneumothorax, pulmonary effusion, anaphylaxis, diabetic ketoacidosis, flailed chest, pulmonary contusion, diaphragmatic rupture, anemia, neuromuscular, this is not meant to be an all-inclusive list. EKG interpreted by me (3pts min.). @ -As above X-rays interpreted by me (1pt min.). @ -Chest x-ray shows Possible mild pulmonary vascular congestion. CT interpreted by me (1pt min.). @ -None done U/S interpreted by me (1pt. min.). @ -None done What testing was considered but not performed or refused? (CT, X-rays, U/S, labs)? Why? @ -None What meds were considered but not given or refused? Why? @ -None Did you discuss the management of the patient with other professionals (professionals i.e. , PA, WHEEL WORKER, lab, RT, psych nurse, criminal justice social worker, dog food shredder operator, teacher, seismology technical officer, therapeutic case manager)? Give summary @ -Discussed with the admitting physician, Dr. Tripathi who accepted the admission and was in agreement with the plan. Was smoking cessation discussed for >3mins.? @ -No Was critical care preformed (if so, how long)? @ -No Were there social determinants of health that impacted care today? How? (Homelessness, low income, unemployed, alcoholism, drug addiction, transportation, low edu. Level, literacy, decrease access to med. care, custodial, rehab)? @ -No Was there de-escalation of care discussed even if they declined (Discuss DNR or withdrawal of care, Hospice)? DNR status @ -No What co-morbidities impacted this encounter? (DM, HTN, Smoking, COPD, CAD, Cancer, CVA, ARF, Chemo, Hep., AIDS, mental health diagnosis, sleep apnea, morbid obesity)? @ -None Was patient admitted / discharged? Hospital course, mention meds given and route, prescriptions, significant lab abnormalities, going to OR and other pertinent info. @ -Based on the patient's presentation and physical exam, I'm concerned for acute cardiopulmonary etiology for current symptoms. We will obtain a card iopulmonary workup, chest x-ray. She is resting comfortable at this time. She was in agreement with this plan. She already received 324 mg of aspirin. She has no chest pain at this time. Vital signs within acceptable limits. Chest x-ray shows possible mild pulmonary vascular congestion. Initial EKG showed may be subtle ST segment depressions in the inferior leads however on repeat EKG this is resolved. Diffuse T-wave inversions which are chronic for the patient. Patient's labs show a chronic anemia with a hemoglobin of 11.1 which is stable. Patient is hypoxemic to 418. Patient is hypomagnesemic to 1.2 which is replenished. Troponin is undetectable. BNP is elevated. Lipase is al so mildly elevated to 934 without any symptoms. Acetone negative. On reevaluation, patient is feeling improved. Remains asymptomatic at this time and declined having any chest pain or shortness of breath at this time. Due to the patient's story, as well as her reiterating that she has partial blockages despite no recent cardiac cath the prior cardiac cath showing mild disease, I will empirically start the patient on heparin for possible ACS as we monitor the patient on a defensive line coach and repeat troponin. She was in agreement with this plan. She'll receive 324 mg of aspirin she will also receive a dose of Lasix for possible mild CHF. Echo will be ordered. Magnesium will be replenis hed. She was in agreement this plan. Cardiology consulted. I spoke with the admitting physician, Gorge Tripathi who accepted the admission. Undiagnosed new problem with uncertain prognosis? @ -No Drug Therapy requiring intensive monitoring for toxicity (Heparin, Nitro, Insulin, Cardizem)? @ -No Were any procedures done? @ -No Diagnosis/symptom? @ -Chest pain, possible CHF Acute, or Chronic, or Acute on Chronic? @ -Acute Uncomplicated (without systemic symptoms) or Complicated (systemic symptoms)? @ -Complicated Side effects of treatment? @ -none Exacerbation, Progression, or Severe Exacerbation] @ -no Poses a threat to life or bodily function? @ -Yes Diagnosis/symptom? @ -Hypomagnesemia Acute, or Chronic, or Acute on Chronic? @ -Acute Uncomplicated (without systemic symptoms) or Complicated (systemic symptoms)? @ -Uncomplicated Side effects of treatment? @ -none Exacerbation, Progression, or Severe Exacerbation] @ -no Poses a threat to life or bodily function? @ -no - Lab Data Result diagrams: 05/24/23 12:04 05/24/23 12:04 Lab Results 05/24/23 05/24/23 05/24/23 Range/Units 12:04 12:04 12:04 WBC 10.1 (3.8-10.6) k/uL RBC 3.52 L (3.80-5.40) m/uL Hgb 11.1 L (11.4-16.0) gm/dL Hct 33.6 L (34.0-46.0) % MCV 95.5 (80.0-100.0) fL MCH 31.4 (25.0-35.0) pg MCHC 32.9 (31.0-37.0) g/dL RDW 12.8 (11.5-15.5) % Plt Count 306 (150-450) k/uL MPV 7.6 Neutrophils % 68 % Lymphocytes % 24 % Monocytes % 5 % Eosinophils % 2 % Basophils % 0 % Neutrophils # 6.8 (1.3-7.7) k/uL Lymphocytes # 2.4 (1.0-4.8) k/uL Monocytes # 0.5 (0-1.0) k/uL Eosinophils # 0.2 (0-0.7) k/uL Basophils # 0.0 (0-0.2) k/uL PT 9.4 (9.0-12.0) sec INR 0.9 (<1.2) APTT 20.7 L (22.0-30.0) sec Sodium 133 L (137-145) mmol/L Potassium 4.4 (3.5-5.1) mmol/L Chloride 102 (98-107) mmol/L Carbon Dioxide 16 L (22-30) mmol/L Anion Gap 15 mmol/L BUN 15 (7-17) mg/dL Creatinine 0.92 (0.52-1.04) mg/dL Est GFR (CKD-EPI)AfAm 81 (>60 ml/min/1.73 sqM) Est GFR (CKD-EPI)NonAf 71 (>60 ml/min/1.73 sqM) Glucose 418 H (74-99) mg/dL Calcium 9.4 (8.4-10.2) mg/dL Magnesium 1.2 L (1.6-2.3) mg/dL Total Bilirubin 0.4 (0.2-1.3) mg/dL AST 28 (14-36) U/L ALT 27 (4-34) U/L Alkaline Phosphatase 84 (38-126) U/L Troponin I (0.000-0.034) ng/mL NT-Pro-B Natriuret Pep pg/mL Total Protein 7.0 (6.3-8.2) g/dL Albumin 4.0 (3.5-5.0) g/dL Lipase 934 H (23-300) U/L Acetone, Qual Negative (Negative) 05/24/23 05/24/23 Range/Units 12:04 12:04 WBC (3.8-10.6) k/uL RBC (3.80-5.40) m/uL Hgb (11.4-16.0) gm/dL Hct (34.0-46.0) % MCV (80.0-100.0) fL MCH (25.0-35.0) pg MCHC (31.0-37.0) g/dL RDW (11.5-15.5) % Plt Count (150-450) k/uL MPV Neutrophils % % Lymphocytes % % Monocytes % % Eosinophils % % Basophils % % Neutrophils # (1.3-7.7) k/uL Lymphocytes # (1.0-4.8) k/uL Monocytes # (0-1.0) k/uL Eosinophils # (0-0.7) k/uL Basophils # (0-0.2) k/uL PT (9.0-12.0) sec INR (<1.2) APTT (22.0-30.0) sec Sodium (137-145) mmol/L Potassium (3.5-5.1) mmol/L Chloride (98-107) mmol/L Carbon Dioxide (22-30) mmol/L Anion Gap mmol/L BUN (7-17) mg/dL Creatinine (0.52-1.04) mg/dL Est GFR (CKD-EPI)AfAm (>60 ml/min/1.73 sqM) Est GFR (CKD-EPI)NonAf (>60 ml/min/1.73 sqM) Glucose (74-99) mg/dL Calcium (8.4-10.2) mg/dL Magnesium (1.6-2.3) mg/dL Total Bilirubin (0.2-1.3) mg/dL AST (14-36) U/L ALT (4-34) U/L Alkaline Phosphatase (38-126) U/L Troponin I <0.012 (0.000-0.034) ng/mL NT-Pro-B Natriuret Pep 4560 pg/mL Total Protein (6.3-8.2) g/dL Albumin (3.5-5.0) g/dL Lipase (23-300) U/L Acetone, Qual (Negative) - EKG Data -: EKG Interpreted by Me EKG Comments: 12-lead Electrocardiogram Interpretation Note EKG was reviewed and interpreted by myself. 12-lead ECG performed at 1203 is interpreted by me as revealing sinus tachycardia at a rate of 112 beats per minute. [place] is normal. OR interval is 132 ms, QRS duration is 116 ms, QTc is 380 ms. Patient has T-wave inversions in the inferior leads II, III, aVF with slight ST depressions. Patient also has chronic T-wave inversions in the lateral precordial leads. V4- V6. No obvious acute elevations in any other leads.. . R wave progression across the precordium was satisfactory. By my interpretation this EKG is non-diagnostic for acute ischemia. Compared with EKG from June 2018, patient does have a history of some biphasic/inverted T waves in the lateral precordial leads, as well as T-wave inversions in II, III, aVF. 12-lead Electrocardiogram Interpretation Note EKG was reviewed and interpreted by myself. 12-lead ECG performed at 1243 is interpreted by me as revealing sinus tachycardia at a rate of 103 beats per minute. [place] is normal. OR interval is 124 ms. QR jain is 121 ms. QTC is 452 ms.. Patient once again demonstrates the chronic T-wave inversions in the lateral precordial leads as well as inferior leads. There is slight ST segment depression seems to be improved in the inferior leads. No other obvious acute process. No dynamic changes from earlier EKG.. R wave progression across the precordium was satisfactory. . Disposition Clinical Impression: Chest pain, CHF (congestive heart failure), Hypomagnesemia Disposition: ADMITTED IP TO THIS HOSP Condition: Stable Time of Disposition: 13:50
[2023-05-24 12:42] LABS: ALT 27 U/L (4-34); AST 28 U/L (14-36); African American GFR (CKD) 81 (>60 ml/min/1.73 sqM); Alkaline Phosphatase 84 U/L (38-126); Anion Gap 15 mmol/L; Blood Urea Nitrogen 15 mg/dL (7-17); Calcium 9.4 mg/dL (8.4-10.2); Carbon Dioxide 16 mmol/L (22-30); Chloride 102 mmol/L (98-107); Glucose 418 mg/dL (74-99); Lipase 934 U/L (23-300); Magnesium 1.2 mg/dL (1.6-2.3); Non-African American GFR(CKD) 71 (>60 ml/min/1.73 sqM); Potassium 4.4 mmol/L (3.5-5.1); Sodium 133 mmol/L (137-145); Total Bilirubin 0.4 mg/dL (0.2-1.3)
--- NOTE | 2023-05-24 12:44 | XR ---
EXAMINATION TYPE: XR chest 2V DATE OF EXAM: 05/24/2023 COMPARISON: 06/10/2018 TECHNIQUE: PA and lateral views submitted. HISTORY: Chest pain and shortness of breath FINDINGS: The lungs are clear and there is no pneumothorax, pleural effusion, or focal pneumonia. Heart size normal and no overt failure. Osseous structures demonstrate hypertrophic and degenerative changes of the spine. Wrist pain coarsened interstitium. Bilateral AC joint arthropathy greater on the right. IMPRESSION: 1. Correlate for mild pneumonitis\bronchitis or less likely mild venous congestion.
[2023-05-24 12:49] LABS: Partial Thromboplastin Time 20.7 sec (22.0-30.0)
[2023-05-24] MEDS ORDERED: HEPARIN SODIUM 1,000 UN/ML (10ML VL) IV PRN (13:27)
[2023-05-24] MEDS ORDERED: HEPARIN SODIUM 1,000 UN/ML (10ML VL) IV ONE (13:27)
[2023-05-24] MEDS ORDERED: HEPARIN SOD,PORK IN 0.45% NACL 25,000 UNIT in 0.45% NACL 1 250ML.BAG IV SCH (13:30)
[2023-05-24] MEDS ORDERED: NALOXONE 0.4 MG/ML 1 ML VIAL IV PRN (14:00)
[2023-05-24] MEDS ORDERED: FUROSEMIDE 10 MG/ML 4 ML VIAL IV STA (14:00)
[2023-05-24] MEDS: SODIUM CHLORIDE 0.9% 1,000 ML IV SCH ×2 (14:51→22:27)
[2023-05-24] MEDS ORDERED: MAGNESIUM SULFATE-D5W PMX 1 GM in DEXTROSE/WATER 1 100ML.BAG IVPB ONE (15:13)
[2023-05-24] MEDS ORDERED: DEXTROSE 50% SYRINGE 50 ML IVP PRN ×2 (15:19)
[2023-05-24 17:16] LABS: Glucose,Whole Blood 315 mg/dL (70-110)
[2023-05-24] MEDS: INSULIN ASPART (NovoLOG) 100 UNIT/ML VIAL SQ SCH (17:28)
[2023-05-24 19:00] LABS: Glucose,Whole Blood 325 mg/dL (70-110)
[2023-05-24] MEDS: buPROPion SR 150 MG TABLET.ER PO SCH (22:28)
[2023-05-24] MEDS: ATORVASTATIN 80 MG TAB PO SCH (22:28)
[2023-05-24] MEDS: GABAPENTIN 400 MG CAP PO SCH (22:28)
[2023-05-25] MEDS: hydrOXYzine HCL 25 MG TAB PO SCH (00:27)
[2023-05-25] MEDS: ACETAMINOPHEN TAB 500 MG TAB PO PRN ×3 (00:31→20:36)
[2023-05-25 04:13] LABS: Basophils % (A) 0 %; Eosinophils # (A) 0.2 k/uL (0-0.7); Eosinophils % (A) 3 %; HCT 26.3 % (34.0-46.0); Lymphocytes # (A) 1.6 k/uL (1.0-4.8); Lymphocytes % (A) 22 %; MCHC 32.5 g/dL (31.0-37.0); MCV 95.2 fL (80.0-100.0); Mean Platelet Volume 7.5; Monocytes # (A) 0.4 k/uL (0-1.0); Monocytes % (A) 5 %; Neutrophils % (A) 68 %; Platelet Count 234 k/uL (150-450); RBC 2.77 m/uL (3.80-5.40); RDW 12.9 % (11.5-15.5); WBC 7.3 k/uL (3.8-10.6)
[2023-05-25 04:14] LABS: Prothrombin Time 10.2 sec (9.0-12.0)
[2023-05-25 04:16] LABS: African American GFR (CKD) 70 (>60 ml/min/1.73 sqM); Anion Gap 9 mmol/L; Blood Urea Nitrogen 14 mg/dL (7-17); Calcium 8.7 mg/dL (8.4-10.2); Carbon Dioxide 22 mmol/L (22-30); Chloride 104 mmol/L (98-107); Glucose 203 mg/dL (74-99); Non-African American GFR(CKD) 61 (>60 ml/min/1.73 sqM); Potassium 3.8 mmol/L (3.5-5.1); Sodium 135 mmol/L (137-145)
[2023-05-25 04:35] LABS: HGB 8.6 gm/dL (11.4-16.0)
[2023-05-25] MEDS: SODIUM CHLORIDE 0.9% 1,000 ML IV SCH ×2 (08:39→09:39)
[2023-05-25] MEDS: SPIRONOLACTONE 25 MG TAB PO SCH (08:49)
[2023-05-25] MEDS: INSULIN ASPART (NovoLOG) 100 UNIT/ML VIAL SQ SCH ×3 (08:49→17:17)
[2023-05-25] MEDS: GABAPENTIN 400 MG CAP PO SCH ×4 (08:49→20:36)
[2023-05-25] MEDS ORDERED: lisinopriL 10 MG TAB PO SCH (09:00)
[2023-05-25 09:01] LABS: Glucose,Whole Blood 241 mg/dL (70-110)
[2023-05-25] MEDS: INSULIN DETEMIR (LEVEMIR) 100 UNIT/ML SYR SQ SCH ×2 (09:39→20:36)
[2023-05-25] MEDS: PANTOPRAZOLE 40 MG/10 ML VIAL IVP SCH (09:39)
[2023-05-25] MEDS: buPROPion SR 150 MG TABLET.ER PO SCH ×2 (09:39→20:36)
[2023-05-25 12:09] LABS: Glucose,Whole Blood 286 mg/dL (70-110)
[2023-05-25 12:16] LABS: HCT 27.1 % (34.0-46.0); HGB 8.6 gm/dL (11.4-16.0); MCH 30.6 pg (25.0-35.0); MCHC 31.8 g/dL (31.0-37.0); Mean Platelet Volume 7.7; Platelet Count 235 k/uL (150-450); RBC 2.83 m/uL (3.80-5.40); RDW 13.3 % (11.5-15.5); WBC 6.2 k/uL (3.8-10.6)
[2023-05-25] MEDS ORDERED: FUROSEMIDE 20 MG TAB PO SCH (13:15)
--- NOTE | 2023-05-25 13:35 | P.CRDCN ---
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 Patient follows in the office with Dr. Gillespie but has not been seen in the office since April 2022. We have been asked to see the patient in consultation for chest pain. Patient examined at the bedside. Patient came to the hospital with a chief complaint of shortness of breath. She states this lasted for 20 minutes and then resolved on its own. She reports chronic shoulder pain. She denies chest pain or pressure. Telemetry reveals sinus tachycardia with heart rate 100-100. Patient states she was not taking her medications for the past month due to a move and having nausea and vomiting. * EKG reveals sinus tachycardia with nonspecific ST-T wave changes, seen on previous EKGs * Chest xray late for mild pneumonitis/bronchitis or less likely mild venous congestion * Laboratory data: WBC 7.3. Hemoglobin 8.6. Platelet count 234. Sodium 135. Potassium 3.8. BUN 14. Creatinine 1.04. Troponin 0.012. 0.014. 0.016. 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 Normal coronary arteries. REVIEW OF SYSTEMS: At the time of my exam: CONSTITUTIONAL: Denies fever or chills. HEENT: Denies blurred vision, vision changes, or eye pain. Denies hemoptysis CARDIOVASCULAR: Denies chest pain. Denies orthopnea. Denies PND. Denies palpitations RESPIRATORY: Denies shortness of breath. GASTROINTESTINAL: Denies abdominal pain. Denies nausea or vomiting. HEMATOLOGIC: Denies bleeding disorders. GENITOURINARY: Denies any blood in urine. SKIN: Denies pruitis. Denies rash. PHYSICAL EXAM: VITAL SIGNS: Reviewed. GENERAL: Well-developed in no acute distress. HEENT: Head is normocephalic. Pupils are equal, round. Sclerae anicteric. Mucous membranes of the mouth are moist. Neck supple. No JVD or thyromegaly LUNGS: Respirations even and unlabored. Lungs essentially clear to auscultation bilaterally. HEART: Regular rate and rhythm. S1 and S2 heard. ABDOMEN: Soft. Nondistended. Nontender. EXTREMITIES: Normal range of motion. No clubbing or cyanosis. Peripheral pulses intact. No lower extremity edema NEUROLOGIC: Awake and alert. Oriented x 3. ASSESSMENT: Shortness of breath Chest pain, troponins negative 3 Anemia, hemoglobin 8.6, etiology unclear Nonischemic cardiomyopathy, EF 45% Normal coronary arteries, per cardiac catheterization 2019 Bicuspid aortic valve Hypertension Hyperlipidemia Diabetes Nicotine dependence, patient quit smoking one month ago Medication noncompliance PLAN: An acute coronary event has been ruled out Resume home cardiac medications Obtain 2D echo to assess cardiac structure and function Discontinue IV heparin Discontinue oral Lasix. Begin Demadex 20mg daily Add metoprolol succinate 25mg daily Further recommendations pending patient course Nurse practitioner note has been reviewed by physician. Signing provider agrees with the documented findings, assessment, and plan of care. Past Medical History Past Medical History: Coronary Artery Disease (CAD), Chest Pain / Angina, Heart Failure, COPD, Diabetes Mellitus, Hearing Disorder / Deafness, Hyperlipidemia, Hypertension, Liver Disease, Myocardial Infarction ([place]), Osteoarthritis (OA), Thyroid Disorder Additional Past Medical History / Comment(s): Neuropathy bilateral feet/lower legs, balance problems-"trips" has cane, graves disease, polycystic ovaries, rt ear deaf, "one artery in my heart goes in the back of the heart instead of the front", "fast heart rate", fatty liver, diabetes type 2 Last Myocardial Infarction Date:: Unknown History of Any Multi-Drug Resistant Organisms: None Reported Past Surgical History: Adenoidectomy, Breast Surgery, Section, Cholecystectomy, Ear Surgery, Heart Catheterization, Tonsillectomy Additional Past Surgical History / Comment(s): Rt groin arterial clot removal after cardiac cath, titanium bones in R ear. surgery left ear, rt breast lumpectomy Past Anesthesia/Blood Transfusion Reactions: Postoperative Nausea & Vomiting (PONV) Past Psychological History: Anxiety, Depression Smoking Status: Former smoker Past Alcohol Use History: None Reported Additional Past Alcohol Use History / Comment(s): Quit smoking 1 month ago Past Drug Use History: None Reported - Past Family History Father Family Medical History: CVA/TIA, Myocardial Infarction ([place]) Additional Family Medical History / Comment(s): . Mother Family Medical History: Cancer, Myocardial Infarction ([place]) Additional Family Medical History / Comment(s): THYROID CA. Medications and Allergies Home Medications Medication Instructions Recorded Confirmed Type Insulin Glargine [Lantus Vial] 40 unit SQ HS 09/30/15 05/24/23 History buPROPion HCL [Wellbutrin SR] 150 mg PO BID 09/30/15 05/24/23 History Gabapentin [Neurontin] 800 mg PO QID 02/07/17 05/24/23 History Atorvastatin [Lipitor] 80 mg PO HS 06/10/18 05/24/23 History Sertraline [Zoloft] 100 mg PO BID 06/10/18 05/24/23 History hydrOXYzine HCL [Atarax] 25 mg PO HS 06/10/18 05/24/23 History Spironolactone [Aldactone] 25 mg PO DAILY 02/02/19 05/24/23 History Acetaminophen Tab [Tylenol Tab] 500 mg PO Q4H PRN #30 tablet 05/13/23 05/24/23 Rx Ondansetron Odt [Zofran Odt] 4 mg PO Q8HR PRN #10 tab 05/13/23 05/24/23 Rx Furosemide [Lasix] 20 mg PO BID 05/24/23 05/24/23 History INSULIN ASPART (NovoLOG) [NovoLOG See Protocol SQ AC-TID 05/24/23 05/24/23 History (formulary)] lisinopriL [Zestril] 10 mg PO DAILY 05/24/23 05/24/23 History metFORMIN HCL [Glucophage] 1,000 mg PO BID 05/24/23 05/24/23 History Allergies Allergy/AdvReac Type Severity Reaction Status Date / Time adhesive Allergy Rash/Hives Verified 05/24/23 12:26 bee pollen Allergy Unknown Verified 05/24/23 12:26 shellfish derived [Shellfish] Allergy Swelling Verified 05/24/23 12:26 venom-honey bee Allergy Anaphylaxis Verified 05/24/23 12:26 amoxicillin [From Augmentin] AdvReac Nausea & Verified 05/24/23 12:26 Vomiting clavulanic acid AdvReac Nausea & Verified 05/24/23 12:26 [From Augmentin] Vomiting erythromycin base AdvReac Nausea & Verified 05/24/23 12:26 Vomiting propoxyphene AdvReac Nausea & Verified 05/24/23 12:26 [From Darvocet-N] Vomiting BANDAIDS Allergy Rash/Hives Uncoded 05/24/23 12:26 Physical Exam Vitals: Vital Signs Temp Pulse Pulse Resp BP BP Pulse Ox 05/25/23 11:21 105 H 20 130/78 99 05/25/23 08:52 98.1 F 108 H 20 133/84 99 05/25/23 08:39 108 H 05/25/23 06:49 101 H 18 118/62 96 05/25/23 03:26 95 18 118/62 96 05/24/23 19:32 98.2 F 102 H 20 132/76 97 05/24/23 18:00 98 18 135/108 98 05/24/23 16:00 98 18 122/82 98 05/24/23 14:00 100 18 138/71 97 05/24/23 13:42 101 H 18 138/71 97 05/24/23 13:00 101 H 18 117/73 100 05/24/23 11:56 97.9 F 115 H 24 125/84 93 L Intake and Output 05/24/23 05/25/23 05/25/23 22:59 06:59 14:59 Intake Total 422.454 Balance 422.454 Intake: Intake, IV Titration 182.454 Amount Heparin Sod,Pork in 0.45% 182.454 NaCl 25,000 unit In 0.45 % NaCl 1 250ml.bag @ 12 UNITS/KG/HR 8.709 mls/hr IV .Q24H [facility] Rx#: [id number] Oral 240 Other: Voiding Method Toilet Weight 72.575 kg Results 05/25/23 11:42 05/25/23 03:50 Cardiac Enzymes 05/24/23 05/24/23 05/24/23 Range/Units 12:04 12:04 16:31 AST 28 (14-36) U/L Troponin I <0.012 0.014 (0.000-0.034) ng/mL 05/24/23 Range/Units 19:51 AST (14-36) U/L Troponin I 0.016 (0.000-0.034) ng/mL Coagulation 05/24/23 05/24/23 05/25/23 Range/Units 12:04 19:51 03:50 PT 9.4 10.2 (9.0-12.0) sec APTT 20.7 L 24.6 (22.0-30.0) sec 05/25/23 Range/Units 09:12 PT (9.0-12.0) sec APTT 20.0 L (22.0-30.0) sec CBC 05/24/23 05/25/23 Range/Units 12:04 03:50 WBC 10.1 7.3 (3.8-10.6) k/uL RBC 3.52 L 2.77 L (3.80-5.40) m/uL Hgb 11.1 L 8.6 L D (11.4-16.0) gm/dL Hct 33.6 L 26.3 L (34.0-46.0) % Plt Count 306 234 (150-450) k/uL Comprehensive Metabolic Panel 05/24/23 05/25/23 Range/Units 12:04 03:50 Sodium 133 L 135 L (137-145) mmol/L Potassium 4.4 3.8 (3.5-5.1) mmol/L Chloride 102 104 (98-107) mmol/L Carbon Dioxide 16 L 22 (22-30) mmol/L BUN 15 14 (7-17) mg/dL Creatinine 0.92 1.04 (0.52-1.04) mg/dL Glucose 418 H 203 H (74-99) mg/dL Calcium 9.4 8.7 (8.4-10.2) mg/dL AST 28 (14-36) U/L ALT 27 (4-34) U/L Alkaline Phosphatase 84 (38-126) U/L Total Protein 7.0 (6.3-8.2) g/dL Albumin 4.0 (3.5-5.0) g/dL Current Medications Generic Name Dose Route Start Last Admin Trade Name Freq PRN Reason Stop Dose Admin Acetaminophen 500 mg 05/25/23 00:23 05/25/23 00:31 Acetaminophen Tab 500 Mg Tab PO 500 mg Q4HR PRN Administration Fever and/ or Pain Atorvastatin Calcium 80 mg 05/24/23 21:00 05/24/23 22:28 Atorvastatin 80 Mg Tab PO 80 mg HS CORI Administration Bupropion HCl 150 mg 05/24/23 21:00 05/25/23 09:39 Bupropion Sr 150 Mg Tablet.Er PO 150 mg BID CORI Administration Dextrose/Water 25 ml 05/24/23 15:19 Dextrose 50% Syringe 50 Ml IVP PER PROTOCOL PRN Hypoglycemia Protocol Dextrose/Water 50 ml 05/24/23 15:19 Dextrose 50% Syringe 50 Ml IVP PER PROTOCOL PRN Hypoglycemia Protocol Gabapentin 800 mg 05/24/23 22:00 05/25/23 08:49 Gabapentin 400 Mg Cap PO 800 mg QID CORI Administration Heparin Sodium (Porcine) 0 unit 05/24/23 13:27 05/25/23 10:43 Heparin Sodium 1,000 Un/Ml (10ml Vl) IV 3,500 unit PER PROTOCOL PRN Administration Low PTT Protocol Hydroxyzine HCl 25 mg 05/24/23 21:00 05/25/23 00:27 Hydroxyzine Hcl 25 Mg Tab PO 25 mg HS CORI Administration Heparin Sodium/Sodium Chloride 250 mls @ 8.709 mls/hr 05/24/23 13:30 05/25/23 10:44 25,000 unit/ Sodium Chloride IV 15 units/kg/hr .Q24H [facility]I 10.886 mls/hr Titration Protocol 12 UNITS/KG/HR Sodium Chloride 1,000 mls @ 130 mls/hr 05/24/23 14:00 05/25/23 09:39 Saline 0.9% IV 130 mls/hr .Q7H42M CORI Administration Insulin Aspart 0 unit 05/24/23 17:30 05/25/23 08:49 Insulin Aspart (Novolog) 100 Unit/Ml Vial SQ 4 unit AC-TID CORI Administration Protocol Insulin Detemir 20 unit 05/25/23 09:30 05/25/23 09:39 Insulin Detemir (Levemir) 100 Unit/Ml Syr SQ 20 unit BID@0700,2100 [facility]I Administration Lisinopril 10 mg 05/25/23 09:00 05/25/23 08:49 Lisinopril 10 Mg Tab PO 10 mg DAILY CORI Administration Naloxone HCl 0.2 mg 05/24/23 14:00 Naloxone 0.4 Mg/Ml 1 Ml Vial IV Q2M PRN Opioid Reversal Pantoprazole Sodium 40 mg 05/25/23 09:00 05/25/23 09:39 Pantoprazole 40 Mg/10 Ml Vial IVP 40 mg DAILY CORI Administration Sertraline HCl 100 mg 05/25/23 21:00 Sertraline 100 Mg Tab PO BID CORI Spironolactone 25 mg 05/25/23 09:00 05/25/23 08:49 Spironolactone 25 Mg Tab PO 25 mg DAILY CORI Administration Intake and Output 05/24/23 05/25/23 05/25/23 22:59 06:59 14:59 Intake Total 422.454 Balance 422.454 Intake: Intake, IV Titration 182.454 Amount Heparin Sod,Pork in 0.45% 182.454 NaCl 25,000 unit In 0.45 % NaCl 1 250ml.bag @ 12 UNITS/KG/HR 8.709 mls/hr IV .Q24H [facility] Rx#: [id number] Oral 240 Other: Voiding Method Toilet Weight 72.575 kg Patient Weight 05/26/23 06:59 Weight 72.575 kg 05/25/23 03:50 05/25/23 03:50
[2023-05-25] MEDS: TORSEMIDE 20 MG TAB PO SCH (13:55)
[2023-05-25] MEDS: METOPROLOL SUCCINATE (ER) 25 MG TAB.ER.24H PO SCH (13:55)
--- NOTE | 2023-05-25 15:56 | P.GSCN ---
History of Present Illness Consult date: 05/25/23 History of present illness: CHIEF COMPLAINT: Shortness of breath Reason for consult anemia HISTORY OF PRESENT ILLNESS: This is a 53-year-old female presented to the hosp [facility] with complaints of shortness of breath that started yesterday. Patient apparently was started on IV heparin for chest pain in the ER. She also did receive a dose of IV Lasix in the ER. Patient reports shortness of breath started yesterday. Patient had normal troponins. It then evaluated by cardiology service acute coronary syndrome has been ruled out. Her hemoglobin did drop from 11-8.6. The IV heparin was discontinued. No reports of active bleeding. Patient denies any bloody stools or black stools. Denies any abdominal pain. Denies any nausea vomiting. She's never had an EGD. Denies any history of NSAID use. Her last colonoscopy was 8 years ago and she doesn't remember the exact results. She does have a known history of gastroparesis and diabetes mellitus. Patient does have a history of cardiomyopathy with EF of 45%. Patient has been mildly tachycardic. Currently on the telemetry floor. Patient denies being on any blood thinners at home. PAST MEDICAL HISTORY: See list. PAST SURGICAL HISTORY: See list. MEDICATIONS: See list. ALLERGIES: See list. SOCIAL HISTORY: No illicit drug use. REVIEW OF SYSTEMS: CONSTITUTIONAL: Denies fever or chills. HEENT: Denies blurred vision, vision changes, or eye pain. Denies hemoptysis ENDOCRINE: Denies heat or cold intolerance. CARDIOVASCULAR: Denies chest pain or pressure. RESPIRATORY: No shortness of breath. GASTROINTESTINAL: Denies abdominal pain. Denies nausea or vomiting. NEURO: Denies history of seizures. PSYCH: No depression or suicidal ideation HEMATOLOGIC: Denies bleeding disorders. LYMPHATIC: The patient denies any lumps and bumps around the neck. GENITOURINARY: Denies any blood in urine or increased urinary frequency. MUSCULOSKELETAL: Denies myalgias. Denies joint swelling. Denies decreased range of motion beyond patients baseline. SKIN: Denies pruitis. Denies rash. PHYSICAL EXAM: VITAL SIGNS: Reviewed GENERAL: Well-developed in no acute distress. HEENT: No sclera icterus. Extraocular movements grossly intact. Moist buccal mucosa. Head is atraumatic, normocephalic. Hears conversational speech. No nasal drainage. NECK: Supple without lymphadenopathy. CHEST: Non-labored respirations and equal bilateral excursions. CARDIOVASCULAR: Palpable 2+ radial pulses. ABDOMEN: Soft. Nondistended. Nontender MUSCULOSKELETAL: No clubbing or cyanosis. NEUROLOGIC: No focal or lateralizing signs. Cranial nerves II through XII grossly intact. PSYCH: Appropriate affect. Alert and oriented to person, place and time. SKIN: Well perfused. Good skin turgor. LABORATORY DATA: WBC 6.2 Hgb 8.6 platelets 235 Sodium 135 potassium is 3.8 creatinine 1.04 INR 1.0 IMAGING: Chest x-ray correlate for mild pneumonitis/bronchitis or less likely mild venous congestion ASSESSMENT: 1. Anemia with drop in hemoglobin from 11-8.6 after IV heparin drip 2. Shortness of breath 3. Cardiac history 4. Hypomagnesemia PLAN: -Patient scheduled for EGD tomorrow with Dr. Ho -Nothing by mouth after midnight -Okay for regular diet tonight -Replace magnesium -Repeat magnesium level in a.m. -Hold all blood thinners -Continue IV Protonix -Continue IV fluids -Continue to monitor hemoglobin -Continue monitor for any signs or symptoms of bleeding Thank you for this consultation Physician Smelter Charger note has been reviewed by physician. Signing provider agrees with the documented findings, assessment, and plan of care. Past Medical History Past Medical History: Coronary Artery Disease (CAD), Chest Pain / Angina, Heart Failure, COPD, Diabetes Mellitus, Hearing Disorder / Deafness, Hyperlipidemia, Hypertension, Liver Disease, Myocardial Infarction ([place]), Osteoarthritis (OA), Thyroid Disorder Additional Past Medical History / Comment(s): Neuropathy bilateral feet/lower legs, balance problems-"trips" has cane, graves disease, polycystic ovaries, rt ear deaf, "one artery in my heart goes in the back of the heart instead of the front", "fast heart rate", fatty liver, diabetes type 2 Last Myocardial Infarction Date:: Unknown History of Any Multi-Drug Resistant Organisms: None Reported Past Surgical History: Adenoidectomy, Breast Surgery, Section, Cholecystectomy, Ear Surgery, Heart Catheterization, Tonsillectomy Additional Past Surgical History / Comment(s): Rt groin arterial clot removal after cardiac cath, titanium bones in R ear. surgery left ear, rt breast lumpectomy Past Anesthesia/Blood Transfusion Reactions: Postoperative Nausea & Vomiting (PONV) Past Psychological History: Anxiety, Depression Smoking Status: Former smoker Past Alcohol Use History: None Reported Additional Past Alcohol Use History / Comment(s): Quit smoking 1 month ago Past Drug Use History: None Reported - Past Family History Father Family Medical History: CVA/TIA, Myocardial Infarction ([place]) Additional Family Medical History / Comment(s): . Mother Family Medical History: Cancer, Myocardial Infarction ([place]) Additional Family Medical History / Comment(s): THYROID CA. Medications and Allergies Home Medications Medication Instructions Recorded Confirmed Type Insulin Glargine [Lantus Vial] 40 unit SQ HS 09/30/15 05/24/23 History buPROPion HCL [Wellbutrin SR] 150 mg PO BID 09/30/15 05/24/23 History Gabapentin [Neurontin] 800 mg PO QID 02/07/17 05/24/23 History Atorvastatin [Lipitor] 80 mg PO HS 06/10/18 05/24/23 History Sertraline [Zoloft] 100 mg PO BID 06/10/18 05/24/23 History hydrOXYzine HCL [Atarax] 25 mg PO HS 06/10/18 05/24/23 History Spironolactone [Aldactone] 25 mg PO DAILY 02/02/19 05/24/23 History Acetaminophen Tab [Tylenol Tab] 500 mg PO Q4H PRN #30 tablet 05/13/23 05/24/23 Rx Ondansetron Odt [Zofran Odt] 4 mg PO Q8HR PRN #10 tab 05/13/23 05/24/23 Rx Furosemide [Lasix] 20 mg PO BID 05/24/23 05/24/23 History INSULIN ASPART (NovoLOG) [NovoLOG See Protocol SQ AC-TID 05/24/23 05/24/23 History (formulary)] lisinopriL [Zestril] 10 mg PO DAILY 05/24/23 05/24/23 History metFORMIN HCL [Glucophage] 1,000 mg PO BID 05/24/23 05/24/23 History Allergies Allergy/AdvReac Type Severity Reaction Status Date / Time adhesive Allergy Rash/Hives Verified 05/24/23 12:26 bee pollen Allergy Unknown Verified 05/24/23 12:26 shellfish derived [Shellfish] Allergy Swelling Verified 05/24/23 12:26 venom-honey bee Allergy Anaphylaxis Verified 05/24/23 12:26 amoxicillin [From Augmentin] AdvReac Nausea & Verified 05/24/23 12:26 Vomiting clavulanic acid AdvReac Nausea & Verified 05/24/23 12:26 [From Augmentin] Vomiting erythromycin base AdvReac Nausea & Verified 05/24/23 12:26 Vomiting propoxyphene AdvReac Nausea & Verified 05/24/23 12:26 [From Darvocet-N] Vomiting BANDAIDS Allergy Rash/Hives Uncoded 05/24/23 12:26 Surgical - Exam Vital Signs Temp Pulse Resp BP Pulse Ox 97.9 F 115 H 24 125/84 93 L 05/24/23 11:56 05/24/23 11:56 05/24/23 11:56 05/24/23 11:56 05/24/23 11:56 Results - Labs 05/25/23 11:42 05/25/23 03:50 Abnormal Lab Results - Last 24 Hours (Table) 05/24/23 05/24/23 05/25/23 Range/Units 17:14 18:58 03:50 RBC (3.80-5.40) m/uL Hgb (11.4-16.0) gm/dL Hct (34.0-46.0) % APTT (22.0-30.0) sec Sodium (137-145) mmol/L Glucose (74-99) mg/dL POC Glucose (mg/dL) 315 H 325 H (70-110) mg/dL Hemoglobin A1c 6.6 H (<=6.0) % 05/25/23 05/25/23 05/25/23 Range/Units 03:50 03:50 08:44 RBC 2.77 L (3.80-5.40) m/uL Hgb 8.6 L D (11.4-16.0) gm/dL Hct 26.3 L (34.0-46.0) % APTT (22.0-30.0) sec Sodium 135 L (137-145) mmol/L Glucose 203 H (74-99) mg/dL POC Glucose (mg/dL) 241 H (70-110) mg/dL Hemoglobin A1c (<=6.0) % 05/25/23 05/25/23 05/25/23 Range/Units 09:12 11:42 11:52 RBC 2.83 L (3.80-5.40) m/uL Hgb 8.6 L (11.4-16.0) gm/dL Hct 27.1 L (34.0-46.0) % APTT 20.0 L (22.0-30.0) sec Sodium (137-145) mmol/L Glucose (74-99) mg/dL POC Glucose (mg/dL) 286 H (70-110) mg/dL Hemoglobin A1c (<=6.0) % Diabetes panel 05/25/23 05/25/23 Range/Units 03:50 03:50 Sodium 135 L (137-145) mmol/L Potassium 3.8 (3.5-5.1) mmol/L Chloride 104 (98-107) mmol/L Carbon Dioxide 22 (22-30) mmol/L BUN 14 (7-17) mg/dL Creatinine 1.04 (0.52-1.04) mg/dL Glucose 203 H (74-99) mg/dL Hemoglobin A1c 6.6 H (<=6.0) % Calcium 8.7 (8.4-10.2) mg/dL Calcium panel 05/25/23 Range/Units 03:50 Calcium 8.7 (8.4-10.2) mg/dL Pituitary panel 05/25/23 Range/Units 03:50 Sodium 135 L (137-145) mmol/L Potassium 3.8 (3.5-5.1) mmol/L Chloride 104 (98-107) mmol/L Carbon Dioxide 22 (22-30) mmol/L BUN 14 (7-17) mg/dL Creatinine 1.04 (0.52-1.04) mg/dL Glucose 203 H (74-99) mg/dL Calcium 8.7 (8.4-10.2) mg/dL Adrenal panel 05/25/23 Range/Units 03:50 Sodium 135 L (137-145) mmol/L Potassium 3.8 (3.5-5.1) mmol/L Chloride 104 (98-107) mmol/L Carbon Dioxide 22 (22-30) mmol/L BUN 14 (7-17) mg/dL Creatinine 1.04 (0.52-1.04) mg/dL Glucose 203 H (74-99) mg/dL Calcium 8.7 (8.4-10.2) mg/dL
[2023-05-25] MEDS ORDERED: MAGNESIUM SULFATE-D5W PMX 1 GM in DEXTROSE/WATER 1 100ML.BAG IVPB ONE (16:00)
[2023-05-25 17:03] LABS: Glucose,Whole Blood 265 mg/dL (70-110)
--- NOTE | 2023-05-25 17:48 | P.HPIM ---
History of Present Illness H&P Date: 05/25/23 This is a 53-year-old female, past medical history significant for cardiomyopathy, CAD with history of [place] , diabetes mellitus type 2, hypertension, hyperlipidemia, nicotine dependence, recently quit 1 month ago, degenerative disc disease and multiple other medical issues presented to the ER with nonr adiating left chest pressure lasting approximately 20 minutes, spontaneously resolved, accompanied by shortness of breath. Reports chronic unchanged neck and jaw pain. Stated 2 weeks ago she had nausea and vomiting-resolved-, but during this time she had not been able to take her medications. Denies hematochezia, hemoptysis. Denies melenotic stools. Denies abdominal tenderness Chronic diarrhea associated with eating. Significant stress, had been homeless for 3 months, moved 3 times and is now currently in a senior high rise. Denies cough, congestion. Patient is a vague historian. Maintaining O2 sats in the 90s on room air. Chest x-ray reporting lungs are clear, no pneumothorax pleural effusion or focal pneumonia, correlate for mild pneumonitis/bronchitis or mild venous congestion. Telemetry sinus tachycardia. Afebrile, normal WBC. Magnesium 1.2 on admission, supplemented, repeat level pending. Sodium 135, bicarb 22, BUN 14, creatinine 1.04. Hyperglycemic on admission with glucose of 418, acetone negative. Lipase 934.Hemoglobin on admission 11, decreased to 8.6 today. Platelets 306 decreased to 235. Denies signs or symptoms of bleeding. Denies abdominal tenderness. Denies NSAID use. Past Medical History Past Medical History: Coronary Artery Disease (CAD), Chest Pain / Angina, Heart Failure, COPD, Diabetes Mellitus, Hearing Disorder / Deafness, Hyperlipidemia, Hypertension, Liver Disease, Myocardial Infarction ([place]), Osteoarthritis (OA), Thyroid Disorder Additional Past Medical History / Comment(s): Neuropathy bilateral feet/lower legs, balance problems-"trips" has cane, graves disease, polycystic ovaries, rt ear deaf, "one artery in my heart goes in the back of the heart instead of the front", "fast heart rate", fatty liver, diabetes type 2 Last Myocardial Infarction Date:: Unknown History of Any Multi-Drug Resistant Organisms: None Reported Past Surgical History: Adenoidectomy, Breast Surgery, Section, Cholecystectomy, Ear Surgery, Heart Catheterization, Tonsillectomy Additional Past Surgical History / Comment(s): Rt groin arterial clot removal after cardiac cath, titanium bones in R ear. surgery left ear, rt breast lumpectomy Past Anesthesia/Blood Transfusion Reactions: Postoperative Nausea & Vomiting (PONV) Past Psychological History: Anxiety, Depression Smoking Status: Former smoker Past Alcohol Use History: None Reported Additional Past Alcohol Use History / Comment(s): Quit smoking 1 month ago Past Drug Use History: None Reported - Past Family History Father Family Medical History: CVA/TIA, Myocardial Infarction ([place]) Additional Family Medical History / Comment(s): . Mother Family Medical History: Cancer, Myocardial Infarction ([place]) Additional Family Medical History / Comment(s): THYROID CA. Medications and Allergies Home Medications Medication Instructions Recorded Confirmed Type Insulin Glargine [Lantus Vial] 40 unit SQ HS 09/30/15 05/24/23 History buPROPion HCL [Wellbutrin SR] 150 mg PO BID 09/30/15 05/24/23 History Gabapentin [Neurontin] 800 mg PO QID 02/07/17 05/24/23 History Atorvastatin [Lipitor] 80 mg PO HS 06/10/18 05/24/23 History Sertraline [Zoloft] 100 mg PO BID 06/10/18 05/24/23 History hydrOXYzine HCL [Atarax] 25 mg PO HS 06/10/18 05/24/23 History Spironolactone [Aldactone] 25 mg PO DAILY 02/02/19 05/24/23 History Acetaminophen Tab [Tylenol Tab] 500 mg PO Q4H PRN #30 tablet 05/13/23 05/24/23 Rx Ondansetron Odt [Zofran Odt] 4 mg PO Q8HR PRN #10 tab 05/13/23 05/24/23 Rx Furosemide [Lasix] 20 mg PO BID 05/24/23 05/24/23 History INSULIN ASPART (NovoLOG) [NovoLOG See Protocol SQ AC-TID 05/24/23 05/24/23 History (formulary)] lisinopriL [Zestril] 10 mg PO DAILY 05/24/23 05/24/23 History metFORMIN HCL [Glucophage] 1,000 mg PO BID 05/24/23 05/24/23 History Allergies Allergy/AdvReac Type Severity Reaction Status Date / Time adhesive Allergy Rash/Hives Verified 05/24/23 12:26 bee pollen Allergy Unknown Verified 05/24/23 12:26 shellfish derived [Shellfish] Allergy Swelling Verified 05/24/23 12:26 venom-honey bee Allergy Anaphylaxis Verified 05/24/23 12:26 amoxicillin [From Augmentin] AdvReac Nausea & Verified 05/24/23 12:26 Vomiting clavulanic acid AdvReac Nausea & Verified 05/24/23 12:26 [From Augmentin] Vomiting erythromycin base AdvReac Nausea & Verified 05/24/23 12:26 Vomiting propoxyphene AdvReac Nausea & Verified 05/24/23 12:26 [From Darvocet-N] Vomiting BANDAIDS Allergy Rash/Hives Uncoded 05/24/23 12:26 Physical Exam Vitals: Vital Signs Temp Pulse Pulse Resp BP BP Pulse Ox 05/25/23 13:26 105 H 05/25/23 11:21 105 H 20 130/78 99 05/25/23 08:52 98.1 F 108 H 20 133/84 99 05/25/23 08:39 108 H 05/25/23 06:49 101 H 18 118/62 96 05/25/23 03:26 95 18 118/62 96 05/24/23 19:32 98.2 F 102 H 20 132/76 97 05/24/23 18:00 98 18 135/108 98 05/24/23 16:00 98 18 122/82 98 Intake and Output 05/24/23 05/25/23 05/25/23 22:59 06:59 14:59 Intake Total 422.454 Balance 422.454 Intake: Intake, IV Titration 182.454 Amount Heparin Sod,Pork in 0.45% 182.454 NaCl 25,000 unit In 0.45 % NaCl 1 250ml.bag @ 12 UNITS/KG/HR 8.709 mls/hr IV .Q24H [facility] Rx#: [id number] Oral 240 Other: Voiding Method Toilet Weight 72.575 kg PHYSICAL EXAM: VITAL SIGNS: [As as above] GENERAL: Lying in bed, no acute distress HEENT: Normocephalic, Conjunctivae normal. eyes normal. NECK: Supple, No JVD. No thyroid enlargement. No LNs CARDIOVASCULAR: S1, S2 regular, systolic murmur RESPIRATION: Unlabored, equal air entry Breath sounds diminished in the bases. No rhonchi or crackles. No bronchial breathing. ABDOMEN: Soft, nondistended, nontender . No guarding. No rigidity. no masses appreciated. Bowel sounds heard. LEGS: No edema. no swelling. No calf Tenderness. Positive DP pulses. PSYCHIATRY: Alert and oriented X3, mood and affect normal. NERVOUS SYSTEM: Cranial N 2-12 grossly normal. No focal deficits. Strength and sensation grossly intact. Skin: Warm and dry, no rash Results CBC & Chem 7: 05/25/23 11:42 05/25/23 03:50 Labs: Abnormal Lab Results - Last 24 Hours (Table) 05/24/23 05/24/23 05/25/23 Range/Units 17:14 18:58 03:50 RBC (3.80-5.40) m/uL Hgb (11.4-16.0) gm/dL Hct (34.0-46.0) % APTT (22.0-30.0) sec Sodium (137-145) mmol/L Glucose (74-99) mg/dL POC Glucose (mg/dL) 315 H 325 H (70-110) mg/dL Hemoglobin A1c 6.6 H (<=6.0) % 05/25/23 05/25/23 05/25/23 Range/Units 03:50 03:50 08:44 RBC 2.77 L (3.80-5.40) m/uL Hgb 8.6 L D (11.4-16.0) gm/dL Hct 26.3 L (34.0-46.0) % APTT (22.0-30.0) sec Sodium 135 L (137-145) mmol/L Glucose 203 H (74-99) mg/dL POC Glucose (mg/dL) 241 H (70-110) mg/dL Hemoglobin A1c (<=6.0) % 05/25/23 05/25/23 05/25/23 Range/Units 09:12 11:42 11:52 RBC 2.83 L (3.80-5.40) m/uL Hgb 8.6 L (11.4-16.0) gm/dL Hct 27.1 L (34.0-46.0) % APTT 20.0 L (22.0-30.0) sec Sodium (137-145) mmol/L Glucose (74-99) mg/dL POC Glucose (mg/dL) 286 H (70-110) mg/dL Hemoglobin A1c (<=6.0) % Thrombosis Risk Factor Assmnt - Choose All That Apply Any of the Below Risk Factors Present?: Yes Each Factor Represents 1 point: Abnormal pulmonary function (COPD), Age 41-60 years, Obesity (BMI >25) Other Risk Factors: No Other congenital or acquired thrombophilia - If yes, enter type in comment: No Thrombosis Risk Factor Assessment Total Risk Factor Score: 3 Thrombosis Risk Factor Assessment Level: Moderate Risk Assessment and Plan Assessment: Left-sided nonradiating chest pressure accompanied by shortness of breath, troponins negative 3, in a patient with family history of premature CAD,cardiology following. Anemia, possibly acute blood loss anemia, etiology unclear. Acute hypoxic respiratory failure secondary to the above Cardiomyopathy, nonischemic, EF 45% COPD Diabetes mellitus, type II, uncontrolled, hyperglycemic on admission Peripheral neuropathy suspect secondary to diabetes mellitus. Graves' disease. Hypertension Hyperlipidemia. Anxiety, Depression Nicotine dependence, quit 1 month ago. Chronic back pain. Hard of hearing hearing Homelessness 3 months recently Plan: Continue on current medication regime ,monitoring and symptomatic treatment. Evaluated by cardiology, heparin drip discontinued. Echo pending. PPI ordered.Repeat hemoglobin with general surgery consult to be initiated if if hemoglobin remains unchanged or lower. Long acting insulin and NovoLog sliding scale ordered. Close monitoring of blood sugars. The impression and plan of care has been dictated as split her dose to be able to initiate this morning close monitoring of Accu-Cheks directed. : I performed a history and examination of this patient, discussed the same with the dictator. I agree with the dictator's note ,documented as a scribe. Any additional findings or plans will be noted.
[2023-05-25 20:24] LABS: Glucose,Whole Blood 276 mg/dL (70-110)
[2023-05-25] MEDS: ATORVASTATIN 80 MG TAB PO SCH (20:36)
[2023-05-25] MEDS: SERTRALINE 100 MG TAB PO SCH (20:36)
[2023-05-25] MEDS ORDERED: INSULIN DETEMIR (LEVEMIR) 100 UNIT/ML SYR SQ SCH (21:00)
[2023-05-26] MEDS: SODIUM CHLORIDE 0.9% 1,000 ML IV SCH ×3 (00:37→11:13)
[2023-05-26] MEDS: hydrOXYzine HCL 25 MG TAB PO SCH ×2 (00:37→20:29)
[2023-05-26] MEDS: ACETAMINOPHEN TAB 500 MG TAB PO PRN ×2 (06:10→20:32)
[2023-05-26] MEDS: INSULIN ASPART (NovoLOG) 100 UNIT/ML VIAL SQ SCH ×5 (06:18→17:24)
[2023-05-26] MEDS: INSULIN DETEMIR (LEVEMIR) 100 UNIT/ML SYR SQ SCH ×2 (06:18→20:30)
[2023-05-26 06:48] LABS: Glucose,Whole Blood 263 mg/dL (70-110)
[2023-05-26 07:32] LABS: HCT 26.4 % (34.0-46.0); HGB 8.6 gm/dL (11.4-16.0); MCH 31.4 pg (25.0-35.0); MCHC 32.5 g/dL (31.0-37.0); MCV 96.4 fL (80.0-100.0); Mean Platelet Volume 7.6; Platelet Count 237 k/uL (150-450); RBC 2.74 m/uL (3.80-5.40); RDW 13.3 % (11.5-15.5); WBC 6.1 k/uL (3.8-10.6)
[2023-05-26 07:43] LABS: African American GFR (CKD) 69 (>60 ml/min/1.73 sqM); Anion Gap 8 mmol/L; Blood Urea Nitrogen 12 mg/dL (7-17); Calcium 8.7 mg/dL (8.4-10.2); Carbon Dioxide 23 mmol/L (22-30); Chloride 106 mmol/L (98-107); Glucose 227 mg/dL (74-99); Magnesium 1.5 mg/dL (1.6-2.3); Non-African American GFR(CKD) 60 (>60 ml/min/1.73 sqM); Potassium 4.3 mmol/L (3.5-5.1); Sodium 137 mmol/L (137-145)
[2023-05-26] MEDS ORDERED: Magnesium Replacement Protocol 1 EACH MISC MISCELLANE PRN (08:00)
[2023-05-26] MEDS: MAGNESIUM SULFATE-D5W PMX 1 GM in DEXTROSE/WATER 1 100ML.BAG IVPB SCH ×2 (08:14→09:12)
[2023-05-26] MEDS: PANTOPRAZOLE 40 MG/10 ML VIAL IVP SCH (08:14)
[2023-05-26] MEDS ORDERED: PROPOFOL 10 MG/ML 20 ML VIAL IV ONE (10:22)
[2023-05-26] MEDS ORDERED: LIDOCAINE 2% INJ 20 MG/ML (2 ML VIAL) ONE (10:22)
[2023-05-26] MEDS ORDERED: IV FLUID CONTINUATION 900 ML IV ONE (10:27)
[2023-05-26] MEDS ORDERED: PEG 3350 (236 GM/BTL) + LYTES 4,000 ML BOTTLE PO ONE (10:35)
--- NOTE | 2023-05-26 10:38 | P.PCN ---
Date of Procedure: 05/26/23 Description of Procedure: PREOPERATIVE DIAGNOSIS: Acute anemia Acute gastrointestinal bleed POSTOPERATIVE DIAGNOSIS: Acute anemia Acute gastrointestinal bleed OPERATION: Esophagogastroduodenoscopy SURGEON: Alyssa Ho MD ANESTHESIA: MAC. INDICATIONS: The patient is a 53-year-old female who presents with anemia and gastrointestinal bleeding. Benefits and risks of the procedure were described. Informed consent was obtained. DESCRIPTION: The patient was brought into the endoscopy suite and laid in the left lateral decubitus position. An Olympus gastroscope was passed along the posterior oropharynx down to the distal esophagus where the squamocolumnar junction was encountered at 38 cm from the incisors. The stomach was entered and no bile reflux was found. Additional findings are listed below. The first through third portion of the duodenum was examined and unremarkable. Retroflexion of the scope confirmed Hill grade 2 lower esophageal valve. The squamocolumnar junction demonstrated LA grade B erosive esophagitis. The stomach was desufflated. The patient tolerated the procedure well. FINDINGS: Squamocolumnar junction 38 cm from the incisors. Diaphragmatic hiatus at 38 cm. Hill grade 2 lower esophageal valve. LA grade B erosive esophagitis. No active duodenitis. No stigmata of bleeding RECOMMENDATIONS: 1. Proceed with colonoscopy after GI prep 2. Upper endoscopy as needed
[2023-05-26] MEDS: GABAPENTIN 400 MG CAP PO SCH ×4 (10:49→20:29)
[2023-05-26] MEDS: SPIRONOLACTONE 25 MG TAB PO SCH (10:49)
[2023-05-26] MEDS: buPROPion SR 150 MG TABLET.ER PO SCH ×2 (10:49→20:29)
[2023-05-26] MEDS: SERTRALINE 100 MG TAB PO SCH ×2 (10:49→20:29)
[2023-05-26] MEDS: TORSEMIDE 20 MG TAB PO SCH (10:49)
[2023-05-26] MEDS: METOPROLOL SUCCINATE (ER) 25 MG TAB.ER.24H PO SCH (10:49)
[2023-05-26] MEDS: lisinopriL 5 MG TAB PO SCH (11:12)
[2023-05-26 11:39] LABS: Glucose,Whole Blood 234 mg/dL (70-110)
[2023-05-26] MEDS ORDERED: IPRATROPIUM-ALBUTEROL 3 ML NEB INHALATION PRN (11:43)
[2023-05-26] MEDS ORDERED: DEXTROSE 50% SYRINGE 50 ML IVP PRN ×2 (11:50)
--- NOTE | 2023-05-26 11:54 | P.PN ---
Subjective Progress Note Date: 05/26/23 H&P Date: 05/25/23 This is a 53-year-old female, past medical history significant for cardiomyopathy, CAD with history of [place] , diabetes mellitus type 2, hypertension, hyperlipidemia, nicotine dependence, recently quit 1 month ago, degenerative disc disease and multiple other medical issues presented to the ER with nonradiating left chest pressure lasting approximately 20 minutes, spontaneously resolved, accompanied by shortness of breath. Reports chronic unchanged neck and jaw pain. Stated 2 weeks ago she had nausea and vomiting-resolved-, but during this time she had not been able to take her medications. Denies hematochezia, hemoptysis. Denies melenotic stools. Denies abdominal tenderness Chronic diarrhea associated with eating. Significant stress, had been homeless for 3 months, moved 3 times and is now currently in a [employer]. Denies cough, congestion. Patient is a vague historian. Maintaining O2 sats in the 90s on room air. Chest x-ray reporting lungs are clear, no pneumothorax pleural effusion or focal pneumonia, correlate for mild pneumonitis/bronchitis or mild venous congestion. Telemetry sinus tachycardia. Afebrile, normal WBC. Magnes ium 1.2 on admission, supplemented, repeat level pending. Sodium 135, bicarb 22, BUN 14, creatinine 1.04. Hyperglycemic on admission with glucose of 418, acetone negative. Lipase 934.Hemoglobin on admission 11, decreased to 8.6 today. Platelets 306 decreased to 235. Denies signs or symptoms of bleeding. Denies abdominal tenderness. Denies NSAID use. 05/26/23 echo pending. Denies any further chest pain, chest pressure, palpitations or shortness of breath. Hemoglobin remains stable at 8.6, platelets 237. Tachycardia resolved. No bleeding reported. Denies abdominal pain. Magnesium 1.5, receiving supplementation. Blood sugars improving. NPO, scheduled for EGD. Objective - Vital Signs Vital signs: Vital Signs Temp 98.2 F 05/26/23 08:08 Pulse 96 05/26/23 08:08 Resp 20 05/26/23 08:08 BP 138/79 05/26/23 08:08 Pulse Ox 94 L 05/26/23 08:08 FiO2 21 05/26/23 01:27 Intake & Output 05/25/23 05/26/23 05/26/23 18:59 06:59 18:59 Intake Total 782.454 200 Balance 782.454 200 Weight 72.575 kg 67.1 kg Intake: IV 200 Intake, IV Titration 182.454 Amount Heparin Sod,Pork in 0.45% 182.454 NaCl 25,000 unit In 0.45 % NaCl 1 250ml.bag @ 12 UNITS/KG/HR 8.709 mls/hr IV .Q24H [facility] Rx#: [id number] Oral 600 Other: Voiding Method Toilet Toilet Toilet # Voids 2 1 - Exam PHYSICAL EXAM: VITAL SIGNS: [As as above] GENERAL: Lying in bed, no acute distress. HEENT: Normocephalic, Conjunctivae normal. eyes normal. NECK: Supple, No JVD. CARDIOVASCULAR: S1, S2 regular, systolic murmur RESPIRATION: Unlabored, equal air entry with bilateral bases diminished. ABDOMEN: Soft, nondistended, nontender . No guarding. Positive Bowel sounds. LEGS: No edema. no swelling. No calf Tenderness. Positive DP pulses. PSYCHIATRY: Alert and oriented X3, mood and affect normal. NERVOUS SYSTEM: Cranial N 2-12 grossly normal. No focal deficits. Strength and sensation grossly intact. Skin: Warm and dry, no rash - Labs CBC & Chem 7: 05/26/23 07:01 05/26/23 07:01 Labs: Abnormal Lab Results - Last 24 Hours (Table) 05/25/23 05/25/23 05/25/23 Range/Units 11:42 11:52 16:50 RBC 2.83 L (3.80-5.40) m/uL Hgb 8.6 L (11.4-16.0) gm/dL Hct 27.1 L (34.0-46.0) % Creatinine (0.52-1.04) mg/dL Glucose (74-99) mg/dL POC Glucose (mg/dL) 286 H 265 H (70-110) mg/dL Magnesium (1.6-2.3) mg/dL 05/25/23 05/26/23 05/26/23 Range/Units 20:23 06:25 07:01 RBC (3.80-5.40) m/uL Hgb (11.4-16.0) gm/dL Hct (34.0-46.0) % Creatinine 1.05 H (0.52-1.04) mg/dL Glucose 227 H (74-99) mg/dL POC Glucose (mg/dL) 276 H 263 H (70-110) mg/dL Magnesium 1.5 L (1.6-2.3) mg/dL 05/26/23 Range/Units 07:01 RBC 2.74 L (3.80-5.40) m/uL Hgb 8.6 L (11.4-16.0) gm/dL Hct 26.4 L (34.0-46.0) % Creatinine (0.52-1.04) mg/dL Glucose (74-99) mg/dL POC Glucose (mg/dL) (70-110) mg/dL Magnesium (1.6-2.3) mg/dL Assessment and Plan Assessment: Left-sided nonradiating chest pressure accompanied by shortness of breath, troponins negative 3, in a patient with family history of premature CAD,cardiology following. Anemia, possibly acute blood loss anemia, etiology unclear. Acute hypoxic respiratory failure secondary to the above Cardiomyopathy, nonischemic, EF 45% COPD Diabetes mellitus, type II, uncontrolled, hyperglycemic on admission Peripheral neuropathy suspect secondary to diabetes mellitus. Graves' disease. Hypertension Hyperlipidemia. Anxiety, Depression Nicotine dependence, quit 1 month ago. Chronic back pain. Hard of hearing hearing Homelessness 3 months recently Plan: Continue on current medication regime ,monitoring and symptomatic treatment. Maintain PPI .NPO, EGD pending. Pre-meal insulin ordered in a ddition to Long acting insulin and NovoLog sliding scale ordered. Close monitoring of blood sugars.Nebulized bronchodilators and LABA ordered for COPD maintenance. The impression and plan of care has been dictated as split her dose to be able to initiate this morning close monitoring of Accu-Cheks directed. : I performed a history and examination of this patient, discussed the same with the dictator. I agree with the dictator's note ,documented as a scribe. Any additional findings or plans will be noted.
--- NOTE | 2023-05-26 11:56 | P.PN ---
Objective - Vital Signs Vital signs: Vital Signs Temp 98.2 F 05/26/23 08:08 Pulse 96 05/26/23 08:08 Resp 20 05/26/23 08:08 BP 138/79 05/26/23 08:08 Pulse Ox 94 L 05/26/23 08:08 FiO2 21 05/26/23 01:27 Intake & Output 05/25/23 05/26/23 05/26/23 18:59 06:59 18:59 Intake Total 782.454 Balance 782.454 Weight 72.575 kg 67.1 kg Intake: Intake, IV Titration 182.454 Amount Heparin Sod,Pork in 0.45% 182.454 NaCl 25,000 unit In 0.45 % NaCl 1 250ml.bag @ 12 UNITS/KG/HR 8.709 mls/hr IV .Q24H [facility] Rx#: [id number] Oral 600 Other: Voiding Method Toilet Toilet # Voids 2 1 - Labs CBC & Chem 7: 05/26/23 07:01 05/26/23 07:01 Labs: Abnormal Lab Results - Last 24 Hours (Table) 05/25/23 05/25/23 05/25/23 Range/Units 08:44 09:12 11:42 RBC 2.83 L (3.80-5.40) m/uL Hgb 8.6 L (11.4-16.0) gm/dL Hct 27.1 L (34.0-46.0) % APTT 20.0 L (22.0-30.0) sec Creatinine (0.52-1.04) mg/dL Glucose (74-99) mg/dL POC Glucose (mg/dL) 241 H (70-110) mg/dL Magnesium (1.6-2.3) mg/dL 05/25/23 05/25/23 05/25/23 Range/Units 11:52 16:50 20:23 RBC (3.80-5.40) m/uL Hgb (11.4-16.0) gm/dL Hct (34.0-46.0) % APTT (22.0-30.0) sec Creatinine (0.52-1.04) mg/dL Glucose (74-99) mg/dL POC Glucose (mg/dL) 286 H 265 H 276 H (70-110) mg/dL Magnesium (1.6-2.3) mg/dL 05/26/23 05/26/23 05/26/23 Range/Units 06:25 07:01 07:01 RBC 2.74 L (3.80-5.40) m/uL Hgb 8.6 L (11.4-16.0) gm/dL Hct 26.4 L (34.0-46.0) % APTT (22.0-30.0) sec Creatinine 1.05 H (0.52-1.04) mg/dL Glucose 227 H (74-99) mg/dL POC Glucose (mg/dL) 263 H (70-110) mg/dL Magnesium 1.5 L (1.6-2.3) mg/dL
[2023-05-26] MEDS: IPRATROPIUM-ALBUTEROL 3 ML NEB INHALATION SCH ×3 (12:00→21:59)
[2023-05-26] MEDS ORDERED: FUROSEMIDE 10 MG/ML 4 ML VIAL IV STA ×2 (12:18→20:36)
[2023-05-26] MEDS ORDERED: FUROSEMIDE 10 MG/ML 4 ML VIAL ONE (12:22)
[2023-05-26] MEDS ORDERED: ONDANSETRON 4 MG/2 ML VIAL IVP PRN (12:30)
--- NOTE | 2023-05-26 13:28 | XR ---
EXAMINATION TYPE: XR chest 2V DATE OF EXAM: 05/26/2023 COMPARISON: 05/24/2023 TECHNIQUE: PA and lateral views submitted. HISTORY: Shortness of breath FINDINGS: There is diffuse interstitial pattern within the left basilar consolidation and tiny bilateral effusi on. Heart size normal. Hypertrophic degenerative changes of the spine. Arthropathy of the shoulders. No pneumothorax. IMPRESSION: 1. Persistent diffuse interstitial pattern. Correlate for interstitial infiltrates and pneumonitis. C ould not exclude mild CHF correlate clinically.
--- NOTE | 2023-05-26 13:52 | P.PN ---
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 Patient follows in the office with Dr. Gillespie but has not been seen in the office since April 2022. We have been asked to see the patient in consultation for chest pain. Patient examined at the bedside. Patient came to the hospital with a chief complaint of shortness of breath. She states this lasted for 20 minutes and then resolved on its own. She reports chronic shoulder pain. She denies chest pain or pressure. Telemetry reveals sinus tachycardia with heart rate 100-100. Patient states she was not taking her medications for the past month due to a move and having nausea and vomiting. * EKG reveals sinus tachycardia with nonspecific ST-T wave changes, seen on previous EKGs * Chest xray late for mild pneumonitis/bronchitis or less likely mild venous congestion * Laboratory data: WBC 7.3. Hemoglobin 8.6. Platelet count 234. Sodium 135. Potassium 3.8. BUN 14. Creatinine 1.04. Troponin 0.012. 0.014. 0.016. 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 Normal coronary arteries. 05/26/2023 Patient is status post EGD revealing esophagitis and duodenitis. She is jimy eduled to undergo colonoscopy tomorrow. She denies any chest pain or pressure. She reports mild shortness of breath. She received her Demadex about 10 minutes prior to examination. She has been receiving IV fluids overnight and also received IV fluids in endoscopy. PHYSICAL EXAM: VITAL SIGNS: Reviewed. GENERAL: Well-developed in no acute distress. HEENT: Head is normocephalic. Pupils are equal, round. Sclerae anicteric. Mucous membranes of the mouth are moist. Neck supple. No JVD or thyromegaly LUNGS: Respirations even and unlabored. Lungs diminished with a few crackles bilaterally. HEART: Regular rate and rhythm. S1 and S2 heard. ABDOMEN: Soft. Nondistended. Nontender. EXTREMITIES: Normal range of motion. No clubbing or cyanosis. Peripheral pulses intact. No lower extremity edema NEUROLOGIC: Awake and alert. Oriented x 3. ASSESSMENT: Shortness of breath Chest pain, troponins negative 3 Anemia, hemoglobin 8.6, etiology unclear Nonischemic cardiomyopathy, EF 45% Normal coronary arteries, per cardiac catheterization 2019 Bicuspid aortic valve Hypertension Hyperlipidemia Diabetes Nicotine dependence, patient quit smoking one month ago Medication noncompliance PLAN: Continue current cardiac medications Continue Demadex Add lisinopril 5 mg daily Patient scheduled for colonoscopy tomorrow Further recommendations pending patient course Nurse practitioner note has been reviewed by physician. Signing provider agrees with the documented findings, assessment, and plan of care. Objective - Vital Signs Vital signs: Vital Signs Temp 98.2 F 05/26/23 08:08 Pulse 104 H 05/26/23 13:43 Resp 20 05/26/23 13:27 BP 141/83 05/26/23 12:50 Pulse Ox 96 05/26/23 13:27 FiO2 21 05/26/23 01:27 Intake & Output 05/25/23 05/26/23 05/26/23 18:59 06:59 18:59 Intake Total 782.454 200 Output Total 1550 Balance 782.454 -1350 Weight 72.575 kg 67.1 kg Intake: IV 200 Intake, IV Titration 182.454 Amount Heparin Sod,Pork in 0.45% 182.454 NaCl 25,000 unit In 0.45 % NaCl 1 250ml.bag @ 12 UNITS/KG/HR 8.709 mls/hr IV .Q24H [facility] Rx#: [id number] Oral 600 Output: Urine 1550 Other: Voiding Method Toilet Toilet External Catheter # Voids 2 1 - Labs CBC & Chem 7: 05/26/23 07:01 05/26/23 07:01 Labs: Abnormal Lab Results - Last 24 Hours (Table) 05/25/23 05/25/23 05/26/23 Range/Units 16:50 20: 06:25 RBC (3.80-5.40) m/uL Hgb (11.4-16.0) gm/dL Hct (34.0-46.0) % Creatinine (0.52-1.04) mg/dL Glucose (74-99) mg/dL POC Glucose (mg/dL) 265 H 276 H 263 H (70-110) mg/dL Magnesium (1.6-2.3) mg/dL 05/26/23 05/26/23 05/26/23 Range/Units 07:01 07:01 11:37 RBC 2.74 L (3.80-5.40) m/uL Hgb 8.6 L (11.4-16.0) gm/dL Hct 26.4 L (34.0-46.0) % Creatinine 1.05 H (0.52-1.04) mg/dL Glucose 227 H (74-99) mg/dL POC Glucose (mg/dL) 234 H (70-110) mg/dL Magnesium 1.5 L (1.6-2.3) mg/dL
[2023-05-26] MEDS: SYMBICORT 80-4.5 MCG INHALER INHALATION SCH ×2 (14:50→21:59)
[2023-05-26 16:25] LABS: Glucose,Whole Blood 278 mg/dL (70-110)
--- NOTE | 2023-05-26 19:09 | CA ---
Transthoracic Echo Report Name: Dacia Combs Age: 53 Gender: F : 1970 Exam Date: 05/25/2023 12:49 Exam Location: [facility] Ht (in): 65 Wt (lb): 160 Ordering Physician: Olivia Levy Attending/Referring Phys: Group Manager Mecca Real RDCS Procedure CPT: Indications: LV function, SOB Cardiac Hx: Technical Quality: Technically difficult study Contrast 1: Total Dose (mL): Contrast 2: Total Dose (mL): MEASUREMENTS (Male / Female) Normal Values 2D ECHO LV Diastolic Diameter PLAX 5.5 cm 4.2 - 5.9 / 3.9 - 5.3 cm LV Systolic Diameter PLAX 4.8 cm IVS Diastolic Thickness 1.1 cm 0.6 - 1.0 / 0.6 - 0.9 cm LVPW Diastolic Thickness 1.1 cm 0.6 - 1.0 / 0.6 - 0.9 cm LV Relative Wall Thickness 0.4 RV Internal Dim ED PLAX 3.4 cm LA Systolic Diameter LX 3.5 cm 3.0 - 4.0 / 2.7 - 3.8 cm LV Diastolic Volume MOD BP 78.5 cm??? 67 - 155 / 56 - 104 cm??? LV Systolic Volume MOD BP 37.9 cm??? 22 - 58 / 19 - 49 cm??? LV Ejection Fraction MOD BP 51.7 % >= 55 % LV Cardiac Index MOD BP 2295.8 cm???/min???m??? LV Diastolic Volume MOD 4C 115.5 cm??? LV Systolic Volume MOD 4C 68.9 cm??? LV Ejection Fraction MOD 4C 40.3 % LV Cardiac Index MOD 4C 2629.9 cm???/min???m??? LV Diastolic Length 4C 8.3 cm LV Systolic Length 4C 7.0 cm LV Diastolic Volume MOD 2C 45.9 cm??? LV Systolic Volume MOD 2C 16.8 cm??? LV Ejection Fraction MOD 2C 63.3 % LV Cardiac Index MOD 2C 1641.5 cm???/min???m??? LV Diastolic Length 2C 7.0 cm LV Systolic Length 2C 5.5 cm LA Volume 63.5 cm??? 18 - 58 / 22 - 52 cm??? M-MODE Aortic Root Diameter MM 2.8 cm MV E Point Septal Separation 1.6 cm AV Cusp Separation MM 1.9 cm DOPPLER AV Peak Velocity 168.4 cm/s AV Peak Gradient 11.3 mmHg AV Mean Velocity 117.5 cm/s AV Mean Gradient 6.1 mmHg AV Velocity Time Integral 29.3 cm MV Area PHT 3.1 cm??? Mitral E Point Velocity 119.8 cm/s Mitral A Point Velocity 116.0 cm/s Mitral E to A Ratio 1.0 MV Deceleration Time 242.5 ms MV E' Velocity 5.8 cm/s Mitral E to MV E' Ratio 20.5 TR Peak Velocity 285.4 cm/s TR Peak Gradient 32.6 mmHg Right Ventricular Systolic Press 35.2 mmHg FINDINGS Left Ventricle Left ventricular ejection fraction is estimated at 55 %. Mildly increased septal wall thickness. Mildly increased posterior wall thickness. Mildly increased left ventricular diastolic diameter. Mildly decreased left ventricular ejection fraction. Right Ventricle Mild right ventricular dilatation. Mild pulmonary hypertension. Right Atrium Normal right atrial size. Left Atrium Moderately increased left atrial volume. Mitral Valve Structurally normal mitral valve. Mitral annular calcification. Aortic Valve Trileaflet aortic valve. No aortic valve stenosis or regurgitation. Tricuspid Valve Structurally normal tricuspid valve. Mild tricuspid regurgitation. Pulmonic Valve Structurally normal pulmonic valve. Trace pulmonic regurgitation. Pericardium No pericardial effusion. Aorta Normal size aortic root and proximal ascending aorta. CONCLUSIONS Dilated left ventricle with severely reduced LV systolic function ejection fraction 35% Severe septal hypokinesis Previewed by: Dr. Andreas Walker MD (Electronically Signed) Final Date: 26 May 2023 19:08
[2023-05-26 20:02] LABS: Glucose,Whole Blood 307 mg/dL (70-110)
[2023-05-26] MEDS: ATORVASTATIN 80 MG TAB PO SCH (20:30)
--- NOTE | 2023-05-26 20:36 | P.CNPUL ---
History of Present Illness Consult date: 05/26/23 Reason for consult: dyspnea History of present illness: 53-year-old female patient is being seen for hypoxemic respiratory failure. 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 The patient presented with shortness of breath. Denies having any chest pain. She was tachycardic. EKG was showing nonspecific changes. Chest x-ray showed no acute abnormalities and there was some increased interstitial markings bilaterally with cephalization, suspicious for CHF. During the current hospitalization, the patient had a progressive drop in hemoglobin from 11.1 down to 8.6. The patient underwent EGD and he was found to have erosive gastritis. Renal function is stable. Electrodes are all within normal limits. White cell count at 6.1. ProBNP level was 4560 and lipase level was 934. She is currently on 2 L of oxygen by nasal cannula. She was started on Lasix and she was given a dose 40 mg IV today. At the same time, the patient on Aldactone 25 mg by mouth daily and Demadex 20 mg by mouth daily. She is on IV Protonix for now. Review of Systems CONSTITUTIONAL: Denies fever or chills. HEENT: Denies blurred vision, vision changes, or eye pain. Denies hemoptysis CARDIOVASCULAR: Denies chest pain. Denies orthopnea. Denies PND. Denies palpitations RESPIRATORY: Denies shortness of breath. GASTROINTESTINAL: Denies abdominal pain. Denies nausea or vomiting. HEMATOLOGIC: Denies bleeding disorders. GENITOURINARY: Denies any blood in urine. SKIN: Denies pruitis. Denies rash. Constitutional: Reports as per HPI Eyes: denies as per HPI, denies blurred vision, denies bulging eye, denies decreased vision, denies diplopia, denies discharge, denies dry eye, denies irritation, denies itching, denies pain, denies photophobia, denies loss of peripheral vision, denies loss of vision, denies tunnel vision/blind spots Ears: deny: decreased hearing, ear discharge, earache, tinnitus Ears, nose, mouth and throat: Reports as per HPI Breasts: absent: as per HPI, change in shape, gynecomastia, masses, nipple discharge, pain, skin changes, swelling Cardiovascular: Reports decreased exercise tolerance, Reports dyspnea on exertion Respiratory: Reports dyspnea Past Medical History Past Medical History: Coronary Artery Disease (CAD), Chest Pain / Angina, Heart Failure, COPD, Diabetes Mellitus, Hearing Disorder / Deafness, Hyperlipidemia, Hypertension, Liver Disease, Myocardial Infarction (NV), Osteoarthritis (OA), Thyroid Disorder Additional Past Medical History / Comment(s): Neuropathy bilateral feet/lower legs, balance problems-"trips" has cane, graves disease, polycystic ovaries, rt ear deaf, "one artery in my heart goes in the back of the heart instead of the front", "fast heart rate", fatty liver, diabetes type 2 Last Myocardial Infarction Date:: Unknown History of Any Multi-Drug Resistant Organisms: None Reported Past Surgical History: Adenoidectomy, Breast Surgery, Section, Cholecystectomy, Ear Surgery, Heart Catheterization, Tonsillectomy Additional Past Surgical History / Comment(s): Rt groin arterial clot removal after cardiac cath, titanium bones in R ear. surgery left ear, rt breast lumpectomy Past Anesthesia/Blood Transfusion Reactions: Postoperative Nausea & Vomiting (PONV) Past Psychological History: Anxiety, Depression Smoking Status: Former smoker Past Alcohol Use History: None Reported Additional Past Alcohol Use History / Comment(s): Quit smoking 1 month ago Past Drug Use History: None Reported - Past Family History Father Family Medical History: CVA/TIA, Myocardial Infarction (NV) Additional Family Medical History / Comment(s): . Mother Family Medical History: Cancer, Myocardial Infarction (NV) Additional Family Medical History / Comment(s): THYROID CA. Medications and Allergies Home Medications Medication Instructions Recorded Confirmed Type Insulin Glargine [Lantus Vial] 40 unit SQ 09/30/15 05/24/23 History buPROPion HCL [Wellbutrin SR] 150 mg PO BID 09/30/15 05/24/23 History Gabapentin [Neurontin] 800 mg PO QID 02/07/17 05/24/23 History Atorvastatin [Lipitor] 80 mg PO HS 06/10/18 05/24/23 History Sertraline [Zoloft] 100 mg PO BID 06/10/18 05/24/23 History hydrOXYzine HCL [Atarax] 25 mg PO HS 06/10/18 05/24/23 History Spironolactone [Aldactone] 25 mg PO DAILY 02/02/19 05/24/23 History Acetaminophen Tab [Tylenol Tab] 500 mg PO Q4H PRN #30 tablet 05/13/23 05/24/23 Rx Ondansetron Odt [Zofran Odt] 4 mg PO Q8HR PRN #10 tab 05/13/23 05/24/23 Rx Furosemide [Lasix] 20 mg PO BID 05/24/23 05/24/23 History INSULIN ASPART (NovoLOG) [NovoLOG See Protocol SQ AC-TID 05/24/23 05/24/23 History (formulary)] lisinopriL [Zestril] 10 mg PO DAILY 05/24/23 05/24/23 History metFORMIN HCL [Glucophage] 1,000 mg PO BID 05/24/23 05/24/23 History Allergies Allergy/AdvReac Type Severity Reaction Status Date / Time adhesive Allergy Rash/Hives Verified 05/24/23 12:26 bee pollen Allergy Unknown Verified 05/24/23 12:26 shellfish derived [Shellfish] Allergy Swelling Verified 05/24/23 12:26 venom-honey bee Allergy Anaphylaxis Verified 05/24/23 12:26 amoxicillin [From Augmentin] AdvReac Nausea & Verified 05/24/23 12:26 Vomiting clavulanic acid AdvReac Nausea & Verified 05/24/23 12:26 [From Augmentin] Vomiting erythromycin base AdvReac Nausea & Verified 05/24/23 12:26 Vomiting propoxyphene AdvReac Nausea & Verified 05/24/23 12:26 [From Darvocet-N] Vomiting BANDAIDS Allergy Rash/Hives Uncoded 05/24/23 12:26 Physical Exam Vitals: Vital Signs Temp Pulse Pulse Resp BP Pulse Ox FiO2 05/26/23 15:22 97.9 F 110 H 20 120/71 96 05/26/23 15:03 92 18 05/26/23 14:52 90 18 05/26/23 13:43 104 H 05/26/23 13:27 20 96 05/26/23 12:50 104 H 22 141/83 92 L 05/26/23 12:30 24 90 L 05/26/23 12:19 26 H 88 L 05/26/23 12:15 113 H 26 H 171/84 83 L 05/26/23 12:03 95 21 05/26/23 11:55 93 22 05/26/23 11:45 24 92 L 05/26/23 11:25 20 98 05/26/23 11:23 97 20 124/76 94 L 05/26/23 08:08 98.2 F 96 20 138/79 94 L 05/26/23 04:00 87 18 115/57 96 05/26/23 01:27 97 21 05/26/23 01:23 89 18 05/26/23 00:00 89 18 93/54 97 05/25/23 20:00 88 18 112/55 99 Intake and Output 05/26/23 05/26/23 05/26/23 06:59 14:59 22:59 Intake Total 200 Output Total 1550 450 Balance -1350 -450 Intake: IV 200 Output: Urine 1550 450 Other: Voiding Method Toilet External Catheter # Voids 1 Weight 67.1 kg GENERAL: Well-developed in no acute distress. , The patient is currently on 2 L of oxygen by nasal cannula with a pulse ox of 99% Head exam was generally normal. There was no scleral icterus or corneal arcus. Mucous membranes were moist. HEENT: Head is normocephalic. Pupils are equal, round. Sclerae anicteric. Mucous membranes of the mouth are moist. Neck supple. No JVD or thyromegaly LUNGS: Respirations even and unlabored. Lungs essentially clear to auscultation bilaterally. HEART: Regular rate and rhythm. S1 and S2 heard. ABDOMEN: Soft. Abdominal exam revealed normal bowel sounds. The abdomen was soft, non-tender, and without masses, organomegaly, or appreciable enlargement of the abdominal aorta. EXTREMITIES: Normal range of motion. No clubbing or cyanosis. Peripheral pulses intact. No lower extremity edema NEUROLOGIC: Awake and alert. Oriented x 3. Examination of the skin revealed no evidence of significant rashes, suspicious appearing nevi or other concerning lesions. Results - Laboratory Findings CBC and BMP: 05/26/23 07:01 05/26/23 07:01 PT/INR, D-dimer PT 10.2 sec (9.0-12.0) 05/25/23 03:50 INR 1.0 (<1.2) 05/25/23 03:50 Abnormal lab findings: Abnormal Labs 05/24/23 05/24/2323 12:04 12:04 12:04 RBC 3.52 L Hgb 11.1 L Hct 33.6 L APTT 20.7 L Sodium 133 L Carbon Dioxide 16 L Creatinine Glucose 418 H POC Glucose (mg/dL) Hemoglobin A1c Magnesium 1.2 L Lipase 934 H 05/24/23 05/24/23 05/25/23 17:14 18:58 03:50 RBC Hgb Hct APTT Sodium Carbon Dioxide Creatinine Glucose POC Glucose (mg/dL) 315 H 325 H Hemoglobin A1c 6.6 H Magnesium Lipase 05/25/23 05/25/23 05/25/23 03:50 03:50 08:44 RBC 2.77 L Hgb 8.6 L D Hct 26.3 L APTT Sodium 135 L Carbon Dioxide Creatinine Glucose 203 H POC Glucose (mg/dL) 241 H Hemoglobin A1c Magnesium Lipase 05/25/23 05/25/23 05/25/23 09:12 11:42 11:52 RBC 2.83 L Hgb 8.6 L Hct 27.1 L APTT 20.0 L Sodium Carbon Dioxide Creatinine Glucose POC Glucose (mg/dL) 286 H Hemoglobin A1c Magnesium Lipase 05/25/23 05/25/23 05/26/23 16:50 20:23 06:25 RBC Hgb Hct APTT Sodium Carbon Dioxide Creatinine Glucose POC Glucose (mg/dL) 265 H 276 H 263 H Hemoglobin A1c Magnesium Lipase 05/26/23 05/26/23 05/26/23 07:01 07:01 11:37 RBC 2.74 L Hgb 8.6 L Hct 26.4 L APTT Sodium Carbon Dioxide Creatinine 1.05 H Glucose 227 H POC Glucose (mg/dL) 234 H Hemoglobin A1c Magnesium 1.5 L Lipase 05/26/23 16:23 RBC Hgb Hct APTT Sodium Carbon Dioxide Creatinine Glucose POC Glucose (mg/dL) 278 H Hemoglobin A1c Magnesium Lipase - Diagnostic Findings Chest x-ray: image reviewed Assessment and Plan Plan: CHF with a preserved LV function and EF of around 55-60%. Chest x-ray showing cephalization and interstitial edema. 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 Polycystic ovaries Fatty liver disease Impaired hearing History of smoking quit approximately a month ago Degenerative arthritis History of Graves' disease Chronic anxiety/depression Impaired hearing Plan Continue bronchodilators Continue Symbicort Agree on diuresis Monitor oxygenation, currently on 2 L of oxygen by nasal cannula Would benefit from another CAT scan of the chest once the patient is adequately diuresed to evaluate previous discomfort pulmonary nodules Public Relations Senior Associate is on the case Home medications have been resumed We'll continue to follow The patient responded nicely to diuretics. We'll give an additional dose of Lasix 40 mg IV. Repeat chest x-ray in the morning. We'll continue to follow.
[2023-05-27] MEDS: ACETAMINOPHEN TAB 500 MG TAB PO PRN (05:08)
[2023-05-27 06:11] LABS: Glucose,Whole Blood 190 mg/dL (70-110)
[2023-05-27] MEDS: SYMBICORT 80-4.5 MCG INHALER INHALATION SCH ×2 (10:15→21:23)
[2023-05-27] MEDS: IPRATROPIUM-ALBUTEROL 3 ML NEB INHALATION SCH ×4 (10:15→21:23)
[2023-05-27] MEDS: INSULIN DETEMIR (LEVEMIR) 100 UNIT/ML SYR SQ SCH ×2 (10:45→21:36)
[2023-05-27] MEDS: INSULIN ASPART (NovoLOG) 100 UNIT/ML VIAL SQ SCH ×6 (10:45→17:02)
[2023-05-27] MEDS: buPROPion SR 150 MG TABLET.ER PO SCH ×2 (10:46→21:36)
[2023-05-27] MEDS: METOPROLOL SUCCINATE (ER) 25 MG TAB.ER.24H PO SCH (10:46)
[2023-05-27] MEDS: GABAPENTIN 400 MG CAP PO SCH ×4 (10:46→21:36)
[2023-05-27] MEDS: lisinopriL 5 MG TAB PO SCH (10:46)
[2023-05-27] MEDS: SPIRONOLACTONE 25 MG TAB PO SCH (10:47)
[2023-05-27] MEDS: TORSEMIDE 20 MG TAB PO SCH (10:47)
[2023-05-27] MEDS: PANTOPRAZOLE 40 MG/10 ML VIAL IVP SCH (10:47)
[2023-05-27] MEDS: SERTRALINE 100 MG TAB PO SCH ×2 (10:47→21:36)
[2023-05-27 11:51] LABS: Glucose,Whole Blood 188 mg/dL (70-110)
[2023-05-27 12:07] LABS: HCT 25.7 % (34.0-46.0); HGB 8.4 gm/dL (11.4-16.0); MCH 31.5 pg (25.0-35.0); MCHC 32.6 g/dL (31.0-37.0); MCV 96.7 fL (80.0-100.0); Mean Platelet Volume 7.8; Platelet Count 243 k/uL (150-450); RBC 2.66 m/uL (3.80-5.40); RDW 13.3 % (11.5-15.5); WBC 6.1 k/uL (3.8-10.6)
--- NOTE | 2023-05-27 12:32 | P.PN ---
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 Patient follows in the office with Dr. Gillespie but has not been seen in the office since April 2022. We have been asked to see the patient in consultation for chest pain. Patient examined at the bedside. Patient came to the hospital with a chief complaint of shortness of breath. She states this lasted for 20 minutes and then resolved on its own. She reports chronic shoulder pain. She denies chest pain or pressure. Telemetry reveals sinus tachycardia with heart rate 100-100. Patient states she was not taking her medications for the past month due to a move and having nausea and vomiting. * EKG reveals sinus tachycardia with nonspecific ST-T wave changes, seen on previous EKGs * Chest xray late for mild pneumonitis/bronchitis or less likely mild venous congestion * Laboratory data: WBC 7.3. Hemoglobin 8.6. Platelet count 234. Sodium 135. Potassium 3.8. BUN 14. Creatinine 1.04. Troponin 0.012. 0.014. 0.016. 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 Normal coronary arteries. 05/26/2023 Patient is status post EGD revealing esophagitis and duodenitis. She is scheduled to undergo colonoscopy tomorrow. She denies any chest pain or pressure. She reports mild shortness of breath. She received her Demadex about 10 minutes prior to examination. She has been receiving IV fluids overnight and also received IV fluids in endoscopy. Addendum entered and electronically signed by Olivia Levy NP-C 05/26/23 13:52: Patient went into respiratory distress this afternoon. She had received oral Demadex earlier but continued to report shortness of breath. She has received a breathing treatment without improvement. The patient's oxygen requirements increased and she was requiring 6 L of oxygen with oxygen saturations in the 80s. Obtain CXR. Patient to receive IV Lasix x 1. Per nursing, patient has voided over 1L of urine since IVP Lasix and is feeling significantly improved. O2 weaned down to 4L 05/27/2023 Patient examined this morning at the bedside. Patient received a dose of IV Lasix yesterday per cardiology and also a dose of IV Lasix per pulmonary. She states her breathing is significantly improved this morning. She still reports some mild shortness of breath when ambulating to the bathroom. Her colonoscopy was canceled for today and is rescheduled for Tuesday. PHYSICAL EXAM: VITAL SIGNS: Reviewed. GENERAL: Well-developed in no acute distress. HEENT: Head is normocephalic. Pupils are equal, round. Sclerae anicteric. Mucous membranes of the mouth are moist. Neck supple. No JVD or thyromegaly LUNGS: Respirations even and unlabored. Lungs diminished with a few crackles bilaterally. HEART: Regular rate and rhythm. S1 and S2 heard. ABDOMEN: Soft. Nondistended. Nontender. EXTREMITIES: Normal range of motion. No clubbing or cyanosis. Peripheral pulses intact. No lower extremity edema NEUROLOGIC: Awake and alert. Oriented x 3. ASSESSMENT: Shortness of breath Chest pain, troponins negative 3 Anemia, hemoglobin 8.6, etiology unclear Acute on chronic heart failure with reduced EF Nonischemic cardiomyopathy, EF 45% Normal coronary arteries, per cardiac catheterization 2018 Bicuspid aortic valve Hypertension Hyperlipidemia Diabetes Nicotine dependence, patient quit smoking one month ago Medication noncompliance PLAN: Continue current cardiac medications Continue Demadex Patient scheduled for colonoscopy on Tuesday with general surgery Recommend Farxiga to be started after colonoscopy Further recommendations pending patient course Nurse practitioner note has been reviewed by physician. Signing provider agrees with the documented findings, assessment, and plan of care. Objective - Vital Signs Vital signs: Vital Signs Temp 99 F 05/27/23 08:20 Pulse 85 05/27/23 08:20 Resp 18 05/27/23 08:20 BP 122/70 05/27/23 08:20 Pulse Ox 94 L 05/27/23 08:20 FiO2 21 05/26/23 01:27 Intake & Output 05/26/23 05/27/23 05/27/23 18:59 06:59 18:59 Intake Total 440 450 Output Total 2500 400 Balance -2060 -400 450 Intake: IV 200 Oral 240 450 Output: Urine 2500 400 Other: Voiding Method External Catheter Bedside Commode Bedside Commode - Labs CBC & Chem 7: 05/27/23 10:16 05/26/23 07:01 Labs: Abnormal Lab Results - Last 24 Hours (Table) 05/26/23 05/26/23 05/27/23 Range/Units 16:23 19:59 06:10 RBC (3.80-5.40) m/uL Hgb (11.4-16.0) gm/dL Hct (34.0-46.0) % POC Glucose (mg/dL) 278 H 307 H 190 H (70-110) mg/dL Magnesium (1.6-2.3) mg/dL 05/27/23 05/27/23 05/27/23 Range/Units 10:16 10:16 11:49 RBC 2.66 L (3.80-5.40) m/uL Hgb 8.4 L (11.4-16.0) gm/dL Hct 25.7 L (34.0-46.0) % POC Glucose (mg/dL) 188 H (70-110) mg/dL Magnesium 1.4 L (1.6-2.3) mg/dL
--- NOTE | 2023-05-27 14:02 | P.PN ---
Subjective Progress Note Date: 05/27/23 53-year-old female patient is being seen for hypoxemic respiratory failure. 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 The patient presented with shortness of breath. Denies having any chest pain. She was tachycardic. EKG was showing nonspecific changes. Chest x-ray showed no acute abnormalities and there was some increased interstitial markings bilaterally with cephalization, suspicious for CHF. During the current hospitalization, the patient had a progressive drop in hemoglobin from 11.1 down to 8.6. The patient underwent EGD and he was found to have erosive gastritis. Renal function is stable. Electrodes are all within normal limits. White cell count at 6.1. ProBNP level was 4560 and lipase level was 934. She is currently on 2 L of oxygen by nasal cannula. She was started on Lasix and she was given a dose 40 mg IV today. At the same time, the patient on Aldactone 25 mg by mouth daily and Demadex 20 mg by mouth daily. She is on IV Protonix for now. On today's evaluation of 05/27/2023, the patient is doing better compared to yesterday. She has been diuresed adequately and she is currently on Demadex 20 mg by mouth daily. She is on room air oxygen. She is ambulating. Blood work is showing a white cell count of 6.1, hemoglobin of 8.4. No other significant events overnight. The patient remains on a combination of Demadex and torsemide. No angina. No palpitations. No syncope. No other complaints otherwise. Objective - Vital Signs Vital signs: Vital Signs Temp 99 F 05/27/23 08:20 Pulse 85 05/27/23 08:20 Resp 18 05/27/23 08:20 BP 122/70 05/27/23 08:20 Pulse Ox 94 L 05/27/23 08:20 FiO2 21 05/26/23 01:27 Intake & Output 05/26/23 05/27/23 05/27/23 18:59 06:59 18:59 Intake Total 440 100 Output Total 2500 400 Balance -2059 100 Intake: IV 200 Oral 240 100 Output: Urine 2500 400 Other: Voiding Method External Catheter Bedside Commode Bedside Commode - Exam GENERAL: Well-developed in no acute distress. , The patient is currently on room air oxygen Head exam was generally normal. There was no scleral icterus or corneal arcus. Mucous membranes were moist. HEENT: Head is normocephalic. Pupils are equal, round. Sclerae anicteric. Mucous membranes of the mouth are moist. Neck supple. No JVD or thyromegaly LUNGS: Respirations even and unlabored. Lungs essentially clear to auscultation bilaterally. HEART: Regular rate and rhythm. S1 and S2 heard. ABDOMEN: Soft. Abdominal exam revealed normal bowel sounds. The abdomen was soft, non-tender, and without masses, organomegaly, or appreciable enlargement of the abdominal aorta. EXTREMITIES: Normal range of motion. No clubbing or cyanosis. Peripheral pulses intact. No lower extremity edema NEUROLOGIC: Awake and alert. Oriented x 3. Examination of the skin revealed no evidence of significant rashes, suspicious appearing nevi or other concerning lesions. - Labs CBC & Chem 7: 05/27/23 10:16 05/26/23 07:01 Labs: Abnormal Lab Results - Last 24 Hours (Table) 05/26/23 05/26/23 05/26/23 Range/Units 11:37 16:23 19:59 POC Glucose (mg/dL) 234 H 278 H 307 H (70-110) mg/dL 05/27/23 Range/Units 06:10 POC Glucose (mg/dL) 190 H (70-110) mg/dL Assessment and Plan Plan: CHF with a preserved LV function and EF of around 55-60%. Chest x-ray showing cephalization and interstitial edema. 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 Polycystic ovaries Fatty liver disease Impaired hearing History of smoking quit approximately a month ago Degenerative arthritis History of Graves' disease Chronic anxiety/depression Impaired hearing Plan Continue bronchodilators Continue Symbicort Agree on diuresis and continue the combination of Demadex and Aldactone Monitor oxygenation, currently on room air oxygen Would benefit from another CAT scan of the chest once the patient is adequately diuresed to evaluate previous discomfort pulmonary nodules, this will be ordered Architectural Manager is on the case Home medications have been resumed We'll continue to follow The patient responded nicely to diuretics. We'll give an additional dose of Lasix 40 mg IV yesterday, none for today We'll obtain a follow-up CAT scan of the chest regarding the previous discomfort pulmonary nodules We'll continue to follow
--- NOTE | 2023-05-27 15:23 | P.PN ---
Subjective Progress Note Date: 05/27/23 CHIEF COMPLAINT: Anemia HISTORY OF PRESENT ILLNESS: Patient status post EGD had revealed a hiatal hernia and erosive esophagitis. Colonoscopy recommended. However, patient did have congestive heart failure exacerbation and required IV Lasix. Therefore colonoscopy for today was canceled and has been rescheduled for Tuesday. Patient denies any abdominal pain. Denies any blood in her stools. She reports improvement of her shortness of breath. She does note shortness of breath with ambulating. Hemoglobin stable at 8.4 PHYSICAL EXAM: VITAL SIGNS: Reviewed GENERAL: Well-developed in no acute distress. HEENT: No sclera icterus. Extraocular movements grossly intact. Moist buccal mucosa. Head is atraumatic, normocephalic. Hears conversational speech. No nasal drainage. NECK: Supple without lymphadenopathy. CHEST: Non-labored respirations and equal bilateral excursions. CARDIOVASCULAR: Palpable 2+ radial pulses. ABDOMEN: Soft. Nondistended. Nontender. MUSCULOSKELETAL: No clubbing or cyanosis. NEUROLOGIC: No focal or lateralizing signs. Cranial nerves II through XII grossly intact. PSYCH: Appropriate affect. Alert and oriented to person, place and time. SKIN: Well perfused. Good skin turgor. ASSESSMENT: 1. Anemia with drop in hemoglobin from 11-8.6 after IV heparin drip 2. CHF exacerbation 3. Hypomagnesemia PLAN: -Patient was scheduled for colonoscopy on 05/30/[address] 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 Signing provider agrees with the documented findings, assessment, and plan of care. Objective - Vital Signs Vital signs: Vital Signs Temp 98.2 F 05/27/23 12:40 Pulse 83 05/27/23 12:40 Resp 16 05/27/23 12:40 BP 107/68 05/27/23 12:40 Pulse Ox 97 05/27/23 12:40 FiO2 21 05/26/23 01:27 Intake & Output 05/26/23 05/27/23 05/27/23 18:59 06:59 18:59 Intake Total 440 690 Output Total 2500 400 Balance -2059 -400 690 Intake: IV 200 Oral 240 690 Output: Urine 2500 400 Other: Voiding Method External Catheter Bedside Commode Bedside Commode - Labs CBC & Chem 7: 05/27/23 10:16 05/26/23 07:01 Labs: Abnormal Lab Results - Last 24 Hours (Table) 05/26/23 05/26/23 05/27/23 Range/Units 16:23 19:59 06:10 RBC (3.80-5.40) m/uL Hgb (11.4-16.0) gm/dL Hct (34.0-46.0) % POC Glucose (mg/dL) 278 H 307 H 190 H (70-110) mg/dL Magnesium (1.6-2.3) mg/dL 05/27/23 05/27/23 05/27/23 Range/Units 10:16 10:16 11:49 RBC 2.66 L (3.80-5.40) m/uL Hgb 8.4 L (11.4-16.0) gm/dL Hct 25.7 L (34.0-46.0) % POC Glucose (mg/dL) 188 H (70-110) mg/dL Magnesium 1.4 L (1.6-2.3) mg/dL
[2023-05-27 16:47] LABS: Glucose,Whole Blood 149 mg/dL (70-110)
[2023-05-27] MEDS: MAGNESIUM SULFATE-D5W PMX 1 GM in DEXTROSE/WATER 1 100ML.BAG IVPB SCH ×2 (17:02→21:35)
[2023-05-27 20:15] LABS: Glucose,Whole Blood 177 mg/dL (70-110)
[2023-05-27] MEDS: hydrOXYzine HCL 25 MG TAB PO SCH (21:36)
[2023-05-27] MEDS: ATORVASTATIN 80 MG TAB PO SCH (21:36)
[2023-05-28] MEDS: ACETAMINOPHEN TAB 500 MG TAB PO PRN (06:10)
[2023-05-28 06:17] LABS: Glucose,Whole Blood 225 mg/dL (70-110)
[2023-05-28] MEDS: INSULIN DETEMIR (LEVEMIR) 100 UNIT/ML SYR SQ SCH ×2 (06:52→21:10)
[2023-05-28] MEDS: INSULIN ASPART (NovoLOG) 100 UNIT/ML VIAL SQ SCH ×6 (06:52→18:00)
[2023-05-28] MEDS: lisinopriL 5 MG TAB PO SCH (09:06)
[2023-05-28] MEDS: PANTOPRAZOLE 40 MG/10 ML VIAL IVP SCH (09:06)
[2023-05-28] MEDS: SPIRONOLACTONE 25 MG TAB PO SCH (09:06)
[2023-05-28] MEDS: METOPROLOL SUCCINATE (ER) 25 MG TAB.ER.24H PO SCH (09:06)
[2023-05-28] MEDS: SERTRALINE 100 MG TAB PO SCH ×2 (09:06→21:11)
[2023-05-28] MEDS: GABAPENTIN 400 MG CAP PO SCH ×4 (09:06→21:10)
[2023-05-28] MEDS: TORSEMIDE 20 MG TAB PO SCH (09:09)
[2023-05-28] MEDS: buPROPion SR 150 MG TABLET.ER PO SCH ×2 (09:09→21:11)
[2023-05-28] MEDS: IPRATROPIUM-ALBUTEROL 3 ML NEB INHALATION SCH ×4 (09:42→21:21)
[2023-05-28] MEDS: SYMBICORT 80-4.5 MCG INHALER INHALATION SCH ×2 (09:42→21:21)
[2023-05-28 09:46] LABS: HCT 27.5 % (34.0-46.0); HGB 8.7 gm/dL (11.4-16.0); Hypochromasia Slight; MCHC 31.8 g/dL (31.0-37.0); MCV 97.5 fL (80.0-100.0); Platelet Count 275 k/uL (150-450); RBC 2.82 m/uL (3.80-5.40)
[2023-05-28 09:56] LABS: African American GFR (CKD) 55 (>60 ml/min/1.73 sqM); Anion Gap 9 mmol/L; Blood Urea Nitrogen 31 mg/dL (7-17); Calcium 9.1 mg/dL (8.4-10.2); Carbon Dioxide 24 mmol/L (22-30); Chloride 100 mmol/L (98-107); Glucose 305 mg/dL (74-99); Non-African American GFR(CKD) 47 (>60 ml/min/1.73 sqM); Potassium 4.8 mmol/L (3.5-5.1); Sodium 133 mmol/L (137-145)
--- NOTE | 2023-05-28 10:02 | P.PN ---
Subjective Progress Note Date: 05/28/23 Principal diagnosis: GI bleed Patient doing well today. Denies abdominal pain. No bleeding. Hemoglobin today 8.7. Less short of breath. Objective - Vital Signs Vital signs: Vital Signs Temp 98.3 F 05/28/23 09:04 Pulse 92 05/28/23 09:04 Resp 16 05/28/23 09:04 BP 103/60 05/28/23 09:04 Pulse Ox 95 05/28/23 09:42 FiO2 21 05/26/23 01:27 Intake & Output 05/27/23 05/28/23 05/28/23 18:59 06:59 18:59 Intake Total 690 Output Total 2600 Balance 690 -2600 Intake: Oral 690 Output: Urine 2600 Other: Voiding Method Bedside Commode Bedside Commode # Voids 3 - Exam Abdomen: Soft, nontender, nondistended - Labs CBC & Chem 7: 05/28/23 08:52 05/28/23 08:52 Labs: Abnormal Lab Results - Last 24 Hours (Table) 05/27/23 05/27/23 05/27/23 Range/Units 10:16 10:16 11:49 RBC 2.66 L (3.80-5.40) m/uL Hgb 8.4 L (11.4-16.0) gm/dL Hct 25.7 L (34.0-46.0) % Sodium (137-145) mmol/L BUN (7-17) mg/dL Creatinine (0.52-1.04) mg/dL Glucose (74-99) mg/dL POC Glucose (mg/dL) 188 H (70-110) mg/dL Magnesium 1.4 L (1.6-2.3) mg/dL 05/27/23 05/27/23 05/28/23 Range/Units 16:45 20:13 06:15 RBC (3.80-5.40) m/uL Hgb (11.4-16.0) gm/dL Hct (34.0-46.0) % Sodium (137-145) mmol/L BUN (7-17) mg/dL Creatinine (0.52-1.04) mg/dL Glucose (74-99) mg/dL POC Glucose (mg/dL) 149 H 177 H 225 H (70-110) mg/dL Magnesium (1.6-2.3) mg/dL 05/28/23 05/28/23 Range/Units 08:52 08:52 RBC 2.82 L (3.80-5.40) m/uL Hgb 8.7 L (11.4-16.0) gm/dL Hct 27.5 L (34.0-46.0) % Sodium 133 L (137-145) mmol/L BUN 31 H (7-17) mg/dL Creatinine 1.28 H (0.52-1.04) mg/dL Glucose 305 H (74-99) mg/dL POC Glucose (mg/dL) (70-110) mg/dL Magnesium (1.6-2.3) mg/dL Assessment and Plan (1) Anemia Narrative/Plan: Patient doing well today. CHF is improved. Hemoglobin stable. Plan colonoscopy Tuesday. Current Visit: Yes Status: Acute Code(s): D64.9 - ANEMIA, UNSPECIFIED SNOMED Code(s): 367151411
--- NOTE | 2023-05-28 10:21 | CT ---
EXAMINATION TYPE: CT chest wo con DATE OF EXAM: 05/28/2023 COMPARISON: 02/07/2017 HISTORY: 53-year-old female Lung nodule TECHNIQUE: Contiguous axial scanning of the chest without IV contrast. Coronal/sagittal reconstructio ns performed. CT DLP: 389.3mGycm. Automatic exposure control utilized for a dose reduction. FINDINGS: Heart is normal size without pericardial effusion. Aorta normal caliber with a bovine configuration to the aortic arch. There is a 2.8 cm nodule in the left lobe of the thyroid gland which was present previously as well. No thoracic lymphadenopathy by CT size criteria. Mild circumferential wall thickening mid thoracic esophagus is nonspecific. There are small bilateral pleural effusions with prominent adjacent atelectasis. Septal lines in the upper lungs. Vague groundglass change in the right upper lobe. * 5 mm anterior left upper lobe pulmonary nodule not clearly seen previously can be reassessed on fo llow-up, axial image 10. * 3 mm right middle lobe pulmonary nodule. * 5 mm left midlung pulmonary nodule is unchanged. * A few 4 mm pulmonary nodules left upper lobe may have been present previously. Upper abdomen shows an indeterminate nodule of the left adrenal gland measuring 2 cm minimally larger from 1.8 cm in 2017. Indolent behavior suggests a benign etiology such as a adrenal adenoma. Cholecy stectomy clips. Bones: Anterior endplate spondylosis lower thoracic spine. IMPRESSION: 1. Small bilateral pleural effusions with adjacent atelectasis and/or consolidation. 2. Septal lines in the upper lungs and vague early groundglass changes in the right upper lobe. Corre late for early cardiac decompensation with pulmonary vascular congestion. 3. A few pulmonary nodules on the left measuring up to and 5 mm appear to have been present in 2017. However, a 5 mm anterior left upper lobe pulmonary nodule and a 3 mm right middle lobe pulmonary nodu le not clearly seen previously. Reassess at a 3 month follow-up CT. 4. A 2 cm left adrenal nodule measured 1.8 cm in 2017. Suspect an adrenal adenoma. Also, stable 2.8 c m nodule of the left thyroid lobe.
[2023-05-28 11:16] LABS: Glucose,Whole Blood 302 mg/dL (70-110)
--- NOTE | 2023-05-28 13:57 | P.PN ---
Subjective Progress Note Date: 05/28/23 53-year-old female patient is being seen for hypoxemic respiratory failure. 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 The patient presented with shortness of breath. Denies having any chest pain. She was tachycardic. EKG was showing nonspecific changes. Chest x-ray showed no acute abnormalities and there was some increased interstitial markings bilaterally with cephalization, suspicious for CHF. During the current hospitalization, the patient had a progressive drop in hemoglobin from 11.1 down to 8.6. The patient underwent EGD and he was found to have erosive gastritis. Renal function is stable. Electrodes are all within normal limits. White cell count at 6.1. ProBNP level was 4560 and lipase level was 934. She is currently on 2 L of oxygen by nasal cannula. She was started on Lasix and she was given a dose 40 mg IV today. At the same time, the patient on Aldactone 25 mg by mouth daily and Demadex 20 mg by mouth daily. She is on IV Protonix for now. On today's evaluation of 05/27/2023, the patient is doing better compared to yesterday. She has been diuresed adequately and she is currently on Demadex 20 mg by mouth daily. She is on room air oxygen. She is ambulating. Blood work is showing a white cell count of 6.1, hemoglobin of 8.4. No other significant events overnight. The patient remains on a combination of Demadex and torsemide. No angina. No palpitations. No syncope. No other complaints otherwise. 05/28/2023, the patient is doing well. She is on room air oxygen. A CAT scan of the chest was done yesterday and the patient was found to have nonspecific stable pulmonary nodules that one and no further follow-up. The patient remains on Demadex 20 mg by mouth daily. Note that the CAT scan of the chest also showed some CHF changes with small effusions, atelectatic changes in lung bases and interstitial edema. The patient's hemoglobin is 8.7 and the patient is going to undergo colonoscopy by Tuesday. echoes at 7. Sodium is 133. The blood sugars elevated and the patient is on Levemir 20 units twice a day. He does need to be modified and this will be left up to medical team. Objective - Vital Signs Vital signs: Vital Signs Temp 98.3 F 05/28/23 09:04 Pulse 83 05/28/23 11:17 Resp 16 05/28/23 11:17 BP 112/63 05/28/23 11:17 Pulse Ox 95 05/28/23 11:17 FiO2 21 05/26/23 01:27 Intake & Output 05/27/23 05/28/23 05/28/23 18:59 06:59 18:59 Intake Total 690 Output Total 2600 Balance 690 -2600 Intake: Oral 690 Output: Urine 2600 Other: Voiding Method Bedside Commode Bedside Commode # Voids 3 - Exam GENERAL: Well-developed in no acute distress. , The patient is currently on room air oxygen Head exam was generally normal. There was no scleral icterus or corneal arcus. Mucous membranes were moist. HEENT: Head is normocephalic. Pupils are equal, round. Sclerae anicteric. Mucous membranes of the mouth are moist. Neck supple. No JVD or thyromegaly LUNGS: Respirations even and unlabored. Lungs essentially clear to auscultation bilaterally. HEART: Regular rate and rhythm. S1 and S2 heard. ABDOMEN: Soft. Abdominal exam revealed normal bowel sounds. The abdomen was soft, non-tender, and without masses, organomegaly, or appreciable enlargement of the abdominal aorta. EXTREMITIES: Normal range of motion. No clubbing or cyanosis. Peripheral pulses intact. No lower extremity edema NEUROLOGIC: Awake and alert. Oriented x 3. Examination of the skin revealed no evidence of significant rashes, suspicious appearing nevi or other concerning lesions. - Labs CBC & Chem 7: 05/28/23 08:52 05/28/23 08:52 Labs: Abnormal Lab Results - Last 24 Hours (Table) 05/27/23 05/27/23 05/27/23 Range/Units 10:16 16:45 20:13 RBC (3.80-5.40) m/uL Hgb (11.4-16.0) gm/dL Hct (34.0-46.0) % Sodium (137-145) mmol/L BUN (7-17) mg/dL Creatinine (0.52-1.04) mg/dL Glucose (74-99) mg/dL POC Glucose (mg/dL) 149 H 177 H (70-110) mg/dL Magnesium 1.4 L (1.6-2.3) mg/dL 05/28/23 05/28/23 05/28/23 Range/Units 06:15 08:52 08:52 RBC 2.82 L (3.80-5.40) m/uL Hgb 8.7 L (11.4-16.0) gm/dL Hct 27.5 L (34.0-46.0) % Sodium 133 L (137-145) mmol/L BUN 31 H (7-17) mg/dL Creatinine 1.28 H (0.52-1.04) mg/dL Glucose 305 H (74-99) mg/dL POC Glucose (mg/dL) 225 H (70-110) mg/dL Magnesium (1.6-2.3) mg/dL 05/28/23 Range/Units 11:14 RBC (3.80-5.40) m/uL Hgb (11.4-16.0) gm/dL Hct (34.0-46.0) % Sodium (137-145) mmol/L BUN (7-17) mg/dL Creatinine (0.52-1.04) mg/dL Glucose (74-99) mg/dL POC Glucose (mg/dL) 302 H (70-110) mg/dL Magnesium (1.6-2.3) mg/dL Assessment and Plan Plan: CHF with a preserved LV function and EF of around 55-60%. Chest x-ray showing cephalization and interstitial edema. 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 Polycystic ovaries Fatty liver disease Impaired hearing History of smoking quit approximately a month ago Degenerative arthritis History of Graves' disease Chronic anxiety/depression Impaired hearing Plan Reviewed the CAT scan of the chest and the pulmonary nodules are essentially stable. There is some residual changes consistent with CHF Continue bronchodilators Continue Symbicort Continue diuresis and continue the combination of Demadex and Aldactone Monitor oxygenation, currently on room air oxygen Home medications have been resumed We'll continue to follow The patient being worked up for anemia and she has a colonoscopy by Tuesday We'll continue to follow
--- NOTE | 2023-05-28 15:10 | P.PN ---
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 Patient follows in the office with Dr. Gillespie but has not been seen in the office since April 2022. We have been asked to see the patient in consultation for chest pain. Patient examined at the bedside. Patient came to the hospital with a chief complaint of shortness of breath. She states this lasted for 20 minutes and then resolved on its own. She reports chronic shoulder pain. She denies chest pain or pressure. Telemetry reveals sinus tachycardia with heart rate 100-100. Patient states she was not taking her medications for the past month due to a move and having nausea and vomiting. * EKG reveals sinus tachycardia with nonspecific ST-T wave changes, seen on previous EKGs * Chest xray late for mild pneumonitis/bronchitis or less likely mild venous congestion * Laboratory data: WBC 7.3. Hemoglobin 8.6. Platelet count 234. Sodium 135. Potassium 3.8. BUN 14. Creatinine 1.04. Troponin 0.012. 0.014. 0.016. 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 Normal coronary arteries. 05/27/2023 Patient examined this morning at the bedside. Patient received a dose of IV Lasix yesterday per cardiology and also a dose of IV Lasix per pulmonary. She states her breathing is significantly improved this morning. She still reports some mild shortness of breath when ambulating to the bathroom. Her colonoscopy was canceled for today and is rescheduled for Tuesday. 05/28/2023 She was seen and examined METS of the same. This morning her creatinine has increased from 1.08-1.2. She is hemodynamically stable blood pressure and heart rate within normal ranges. Other labs are within normal ranges PHYSICAL EXAM: VITAL SIGNS: Reviewed. GENERAL: Well-developed in no acute distress. HEENT: Head is normocephalic. Pupils are equal, round. Sclerae anicteric. Mucous membranes of the mouth are moist. Neck supple. No JVD or thyromegaly LUNGS: Respirations even and unlabored. Lungs diminished with a few crackles bilaterally. HEART: Regular rate and rhythm. S1 and S2 heard. ABDOMEN: Soft. Nondistended. Nontender. EXTREMITIES: Normal range of motion. No clubbing or cyanosis. Peripheral pulses intact. No lower extremity edema NEUROLOGIC: Awake and alert. Oriented x 3. ASSESSMENT: Shortness of breath Chest pain, troponins negative 3 Anemia, hemoglobin 8.6, etiology unclear Acute on chronic heart failure with reduced EF Nonischemic cardiomyopathy, EF 45% Normal coronary arteries, per cardiac catheterization 2019 Bicuspid aortic valve Hypertension Hyperlipidemia Diabetes Nicotine dependence, patient quit smoking one month ago Medication noncompliance PLAN: Reduce her torsemide to 10 mg. Reduce her spironolactone to 12.5 mg She is not on Anil arb at this time. We will add and eventually once her renal function and blood pressure stable Patient scheduled for colonoscopy on Tuesday with general surgery Recommend Farxiga to be started after colonoscopy Objective - Vital Signs Vital signs: Vital Signs Temp 98.3 F 05/28/23 09:04 Pulse 83 05/28/23 11:17 Resp 16 05/28/23 11:17 BP 112/63 05/28/23 11:17 Pulse Ox 95 05/28/23 11:17 FiO2 21 05/26/23 01:27 Intake & Output 05/27/23 05/28/23 05/28/23 18:59 06:59 18:59 Intake Total 690 Output Total 2600 Balance 690 -2600 Intake: Oral 690 Output: Urine 2600 Other: Voiding Method Bedside Commode Bedside Commode # Voids 3 - Labs CBC & Chem 7: 05/28/23 08:52 05/28/23 08:52 Labs: Abnormal Lab Results - Last 24 Hours (Table) 05/27/23 05/27/23 05/28/23 Range/Units 16:45 20:13 06:15 RBC (3.80-5.40) m/uL Hgb (11.4-16.0) gm/dL Hct (34.0-46.0) % Sodium (137-145) mmol/L BUN (7-17) mg/dL Creatinine (0.52-1.04) mg/dL Glucose (74-99) mg/dL POC Glucose (mg/dL) 149 H 177 H 225 H (70-110) mg/dL 05/28/23 05/28/23 05/28/23 Range/Units 08:52 08:52 11:14 RBC 2.82 L (3.80-5.40) m/uL Hgb 8.7 L (11.4-16.0) gm/dL Hct 27.5 L (34.0-46.0) % Sodium 133 L (137-145) mmol/L BUN 31 H (7-17) mg/dL Creatinine 1.28 H (0.52-1.04) mg/dL Glucose 305 H (74-99) mg/dL POC Glucose (mg/dL) 302 H (70-110) mg/dL
[2023-05-28] MEDS: HYDROcodone/APAP 5-325MG 1 EACH TAB PO PRN (16:05)
--- NOTE | 2023-05-28 16:30 | P.PN ---
Subjective Progress Note Date: 05/28/23 This is a 53-year-old female, past medical history significant for cardiomyopathy, CAD with history of [place] , diabetes mellitus type 2, hypertension, hyperlipidemia, nicotine dependence, recently quit 1 month ago, degenerative disc disease and multiple other medical issues presented to the ER with nonradiating left chest pressure lasting approximately 20 minutes, spontaneously resolved, accompanied by shortness of breath. Reports chronic unchanged neck and jaw pain. Stated 2 weeks ago she had nausea and vomiting-resolved-, but during this time she had not been able to take her medications. Denies hematochezia, hemoptysis. Denies melenotic stools. Denies abdominal tenderness Chronic diarrhea associated with eating. Significant stress, had been homeless for 3 months, moved 3 times and is now currently in a senior high rise. Denies cough, congestion. Patient is a vague historian. Maintaining O2 sats in the 90s on room air. Chest x-ray reporting lungs are clear, no pneumothorax pleural effusion or focal pneumonia, correlate for mild pneumonitis/bronchitis or mild venous congestion. Telemetry sinus tachycardia. Afebrile, normal WBC. Magnesium 1.2 on admission, supplemented, repeat level pending. Sodium 135, bicarb 22, BUN 14, creatinine 1.04. Hyperglycemic on admission with glucose of 418, acetone negative. Lipase 934.Hemoglobin on admission 11, decreased to 8.6 today. Platelets 306 decreased to 235. Denies signs or symptoms of bleeding. Denies abdominal tenderness. Denies NSAID use. 05/26/23 echo pending. Denies any further chest pain, chest pressure, palpitations or shortness of breath. Hemoglobin remains stable at 8.6, platelets 237. Tachycardia resolved. No bleeding reported. Denies abdominal pain. Magnesium 1.5, receiving supplementation. Blood sugars improving. NPO, scheduled for EGD. 05/28/2023 This is a patient of Dr. Tripathi who is being monitored for an acute GI bleed as well as shortness of breath and chest discomfort. Currently patient is symptom free she is being treated for ischemic cardiomyopathy. She is on oral diuretics and Demadex was decreased to 10 mg daily and aldactone has been decreased to 12.5 mg daily. He should've a chest CT completed yesterday which shows small bilateral pleural effusions with adjacent atelectasis and/or consolidation. There are early groundglass changes in the right upper lobe to correlate for early cardiac decompensation with pulmonary vascular congestion. There are a few pulmonary nodules in the left measuring up to 5 mm that were present in 2017 however there is a 5 mm anterior left upper lobe pulmonary nodule and a 3 mm right middle lobe pulmonary nodule that was not clearly seen previously. There is also a stable left thyroid lobe nodule and a left adrenal nodule. Pulmonary is following the patient as well as cardiology. Creatinine of 1.28 today. Blood glucose in the 300s and will increase insulin coverage. Review of Systems Constitutional: Denied any fatigue denied any fever. Cardio vascular: denied any chest pain, palpitations Gastrointestinal: denied any nausea, vomiting, diarrhea Pulmonary: Denied any shortness of breath cough Neurologic denied any new focal deficits All inpatient medications were reviewed and appropriate changes in these medications as dictated in the interval history and assessment and plan. PHYSICAL EXAMINATION: GENERAL: The patient is alert and oriented x3, not in any acute distress. Well developed, well nourished. HEENT: Pupils are round and equally reacting to light. EOMI. No scleral icterus. No conjunctival pallor. Normocephalic, atraumatic. No pharyngeal erythema. No thyromegaly. CARDIOVASCULAR: S1 and S2 present. No murmurs, rubs, or gallops. PULMONARY: Chest is clear to auscultation, no wheezing or crackles. ABDOMEN: Soft, nontender, nondistended, normoactive bowel sounds. No palpable organomegaly. MUSCULOSKELETAL: No joint swelling or deformity. EXTREMITIES: No cyanosis, clubbing, or pedal edema. NEUROLOGICAL: Gross neurological examination did not reveal any focal deficits. SKIN: No rashes. Assessment Left-sided nonradiating chest pressure accompanied by shortness of breath, troponins negative 3 Anemia, possibly acute blood loss anemia with EGD showing duodenitis and esophagitis. Acute hypoxic respiratory failure secondary to the above Cardiomyopathy, nonischemic, EF 45% COPD Diabetes mellitus, type II, uncontrolled, hyperglycemic on admission Peripheral neuropathy suspect secondary to diabetes mellitus. Graves' disease. Hypertension Hyperlipidemia. Anxiety, Depression Nicotine dependence, quit 1 month ago. Chronic back pain. Hard of hearing hearing Homelessness 3 months recently Plan Cardiology has decreased Demadex and Aldactone. Creatinine was up to 1.28 today and would recommend to follow up these levels tomorrow. Blood glucose in the 300s and we will recommend to increase insulin coverage. Patient is scheduled to undergo colonoscopy on Tuesday. Continue to work with PT OT and foster care social worker following. The impression and plan of care has been dictated by Bonita Gutierrez, Nurse Practitioner as directed. Dr. Ruddy MD I have performed a history and physical examination and medical decision making of this patient, discussed the same with the dictator, and agree with the dictators assessment and plan as written, documented as a scribe. Based on total visit time, I have performed more than 50% of this visit. Objective - Vital Signs Vital signs: Vital Signs Temp 98.2 F 05/28/23 05:00 Pulse 85 05/28/23 05:00 Resp 16 05/28/23 05:00 BP 112/70 05/28/23 05:00 Pulse Ox 94 L 05/28/23 05:00 FiO2 21 05/26/23 01:27 Intake & Output 05/27/23 05/28/23 05/28/23 18:59 06:59 18:59 Intake Total 690 Output Total 2600 Balance 690 -2600 Intake: Oral 690 Output: Urine 2600 Other: Voiding Method Bedside Commode Bedside Commode # Voids 3 - Labs CBC & Chem 7: 05/28/23 08:52 05/28/23 08:52 Labs: Abnormal Lab Results - Last 24 Hours (Table) 05/27/23 05/27/23 05/27/23 Range/Units 10:16 10:16 11:49 RBC 2.66 L (3.80-5.40) m/uL Hgb 8.4 L (11.4-16.0) gm/dL Hct 25.7 L (34.0-46.0) % POC Glucose (mg/dL) 188 H (70-110) mg/dL Magnesium 1.4 L (1.6-2.3) mg/dL 05/27/23 05/27/23 05/28/23 Range/Units 16:45 20:13 06:15 RBC (3.80-5.40) m/uL Hgb (11.4-16.0) gm/dL Hct (34.0-46.0) % POC Glucose (mg/dL) 149 H 177 H 225 H (70-110) mg/dL Magnesium (1.6-2.3) mg/dL Assessment and Plan Time with Patient: Less than 30
[2023-05-28 16:52] LABS: Glucose,Whole Blood 179 mg/dL (70-110)
[2023-05-28 20:34] LABS: Glucose,Whole Blood 177 mg/dL (70-110)
[2023-05-28] MEDS: hydrOXYzine HCL 25 MG TAB PO SCH (21:11)
[2023-05-28] MEDS: ATORVASTATIN 80 MG TAB PO SCH (21:11)
[2023-05-29 06:07] LABS: Glucose,Whole Blood 181 mg/dL (70-110)
[2023-05-29] MEDS: INSULIN ASPART (NovoLOG) 100 UNIT/ML VIAL SQ SCH ×6 (06:31→17:12)
[2023-05-29] MEDS: ACETAMINOPHEN TAB 500 MG TAB PO PRN ×2 (06:33→23:34)
[2023-05-29] MEDS: INSULIN DETEMIR (LEVEMIR) 100 UNIT/ML SYR SQ SCH ×2 (06:50→20:30)
[2023-05-29] MEDS: SYMBICORT 80-4.5 MCG INHALER INHALATION SCH ×2 (07:46→21:16)
[2023-05-29] MEDS: IPRATROPIUM-ALBUTEROL 3 ML NEB INHALATION SCH ×4 (07:46→21:16)
[2023-05-29] MEDS: METOPROLOL SUCCINATE (ER) 25 MG TAB.ER.24H PO SCH (08:18)
[2023-05-29] MEDS: SPIRONOLACTONE 25 MG TAB PO SCH (08:19)
[2023-05-29] MEDS: SERTRALINE 100 MG TAB PO SCH ×2 (08:19→20:30)
[2023-05-29] MEDS: buPROPion SR 150 MG TABLET.ER PO SCH ×2 (08:19→20:29)
[2023-05-29] MEDS: GABAPENTIN 400 MG CAP PO SCH (08:19)
[2023-05-29] MEDS: PANTOPRAZOLE 40 MG/10 ML VIAL IVP SCH (08:19)
[2023-05-29] MEDS: TORSEMIDE 20 MG TAB PO SCH (08:20)
[2023-05-29 08:47] LABS: Basophils % (A) 0 %; Eosinophils # (A) 0.2 k/uL (0-0.7); Eosinophils % (A) 3 %; HCT 27.5 % (34.0-46.0); Lymphocytes # (A) 1.4 k/uL (1.0-4.8); Lymphocytes % (A) 22 %; MCHC 32.8 g/dL (31.0-37.0); MCV 94.5 fL (80.0-100.0); Mean Platelet Volume 7.7; Monocytes # (A) 0.4 k/uL (0-1.0); Monocytes % (A) 7 %; Neutrophils # (A) 4.4 k/uL (1.3-7.7); Neutrophils % (A) 67 %; Platelet Count 303 k/uL (150-450); RBC 2.92 m/uL (3.80-5.40); RDW 12.8 % (11.5-15.5); WBC 6.5 k/uL (3.8-10.6)
[2023-05-29] MEDS ORDERED: SPIRONOLACTONE 25 MG TAB PO SCH (09:00)
[2023-05-29] MEDS ORDERED: PEG 3350 (236 GM/BTL) + LYTES 4,000 ML BOTTLE PO ONE (09:00)
[2023-05-29 09:18] LABS: African American GFR (CKD) 50 (>60 ml/min/1.73 sqM); Anion Gap 10 mmol/L; Blood Urea Nitrogen 32 mg/dL (7-17); Calcium 9.5 mg/dL (8.4-10.2); Carbon Dioxide 25 mmol/L (22-30); Chloride 103 mmol/L (98-107); Glucose 89 mg/dL (74-99); Non-African American GFR(CKD) 44 (>60 ml/min/1.73 sqM); Potassium 4.9 mmol/L (3.5-5.1); Sodium 138 mmol/L (137-145)
--- NOTE | 2023-05-29 09:34 | P.PN ---
Subjective Progress Note Date: 05/29/23 Principal diagnosis: GI bleed Excision doing well today. No rectal bleeding. She started her bowel prep earlier. Hemoglobin stable at 9.0. Objective - Vital Signs Vital signs: Vital Signs Temp 97.7 F 05/29/23 08:18 Pulse 77 05/29/23 08:18 Resp 16 05/29/23 08:18 BP 108/59 05/29/23 08:18 Pulse Ox 95 05/29/23 08:18 FiO2 21 05/26/23 01:27 Intake & Output 05/28/23 05/29/23 05/29/23 18:59 06:59 18:59 Intake Total 300 Output Total 3000 Balance 300 -3000 Weight 65.2 kg Intake: Oral 300 Output: Urine 3000 Other: Voiding Method Bedside Commode - Exam Abdomen: Soft, nontender, nondistended - Labs CBC & Chem 7: 05/29/23 07:50 05/29/23 07:50 Labs: Abnormal Lab Results - Last 24 Hours (Table) 05/28/23 05/28/23 05/28/23 Range/Units 08:52 08:52 11:14 RBC 2.82 L (3.80-5.40) m/uL Hgb 8.7 L (11.4-16.0) gm/dL Hct 27.5 L (34.0-46.0) % Sodium 133 L (137-145) mmol/L BUN 31 H (7-17) mg/dL Creatinine 1.28 H (0.52-1.04) mg/dL Glucose 305 H (74-99) mg/dL POC Glucose (mg/dL) 302 H (70-110) mg/dL 05/28/23 05/28/23 05/29/23 Range/Units 16:48 20:33 06:06 RBC (3.80-5.40) m/uL Hgb (11.4-16.0) gm/dL Hct (34.0-46.0) % Sodium (137-145) mmol/L BUN (7-17) mg/dL Creatinine (0.52-1.04) mg/dL Glucose (74-99) mg/dL POC Glucose (mg/dL) 179 H 177 H 181 H (70-110) mg/dL 05/29/23 05/29/23 Range/Units 07:50 07:50 RBC 2.92 L (3.80-5.40) m/uL Hgb 9.0 L (11.4-16.0) gm/dL Hct 27.5 L (34.0-46.0) % Sodium (137-145) mmol/L BUN 32 H (7-17) mg/dL Creatinine 1.37 H (0.52-1.04) mg/dL Glucose (74-99) mg/dL POC Glucose (mg/dL) (70-110) mg/dL Assessment and Plan (1) Anemia Narrative/Plan: Patient doing well today. No active bleeding. Begin bowel prep for colonoscopy tomorrow. Current Visit: Yes Status: Acute Code(s): D64.9 - ANEMIA, UNSPECIFIED SNOMED Code(s): 425939621
[2023-05-29 11:31] LABS: Glucose,Whole Blood 142 mg/dL (70-110)
--- NOTE | 2023-05-29 12:00 | P.PN ---
Subjective Progress Note Date: 05/29/23 53-year-old female patient is being seen for hypoxemic respiratory failure. 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 The patient presented with shortness of breath. Denies having any chest pain. She was tachycardic. EKG was showing nonspecific changes. Chest x-ray showed no acute abnormalities and there was some increased interstitial markings bilaterally with cephalization, suspicious for CHF. During the current hospitalization, the patient had a progressive drop in hemoglobin from 11.1 down to 8.6. The patient underwent EGD and he was found to have erosive gastritis. Renal function is stable. Electrodes are all within normal limits. White cell count at 6.1. ProBNP level was 4560 and lipase level was 934. She is currently on 2 L of oxygen by nasal cannula. She was started on Lasix and she was given a dose 40 mg IV today. At the same time, the patient on Aldactone 25 mg by mouth daily and Demadex 20 mg by mouth daily. She is on IV Protonix for now. On today's evaluation of 05/27/2023, the patient is doing better compared to yesterday. She has been diuresed adequately and she is currently on Demadex 20 mg by mouth daily. She is on room air oxygen. She is ambulating. Blood work is showing a white cell count of 6.1, hemoglobin of 8.4. No other significant events overnight. The patient remains on a combination of Demadex and torsemide. No angina. No palpitations. No syncope. No other complaints otherwise. 05/28/2023, the patient is doing well. She is on room air oxygen. A CAT scan of the chest was done yesterday and the patient was found to have nonspecific stable pulmonary nodules that one and no further follow-up. The patient remains on Demadex 20 mg by mouth daily. Note that the CAT scan of the chest also showed some CHF changes with small effusions, atelectatic changes in lung bases and interstitial edema. The patient's hemoglobin is 8.7 and the patient is going to undergo colonoscopy by Tuesday. echoes at 7. Sodium is 133. The blood sugars elevated and the patient is on Levemir 20 units twice a day. He does need to be modified and this will be left up to medical team. 05/29/2023, no new complaints and the patient is currently on room air oxygen. Awaiting colonoscopy and she is undergoing a colonoscopy Today. The hemoglobin remained stable at 9.0. Creatinine is at 1.3 with a BUN of 32 and a sodium level is at 138. The patient is currently on Aldactone. The patient's is also on Demadex. Objective - Vital Signs Vital signs: Vital Signs Temp 97.7 F 05/29/23 08:18 Pulse 77 05/29/23 08:18 Resp 16 05/29/23 08:18 BP 108/59 05/29/23 08:18 Pulse Ox 95 05/29/23 08:18 FiO2 21 05/26/23 01:27 Intake & Output 05/28/23 05/29/23 05/29/23 18:59 06:59 18:59 Intake Total 300 Output Total 3000 0 Balance 300 -3000 0 Weight 65.2 kg Intake: Oral 300 Output: Gastric Drainage 0 Urine 3000 0 Stool 0 Urine/Stool Mix 0 Emesis 0 Oral Regurgitation 0 Other 0 Other: Voiding Method Bedside Commode # Voids 0 # Bowel Movements 0 - Exam GENERAL: Well-developed in no acute distress. , The patient is currently on room air oxygen Head exam was generally normal. There was no scleral icterus or corneal arcus. Mucous membranes were moist. HEENT: Head is normocephalic. Pupils are equal, round. Sclerae anicteric. Mucous membranes of the mouth are moist. Neck supple. No JVD or thyromegaly LUNGS: Respirations even and unlabored. Lungs essentially clear to auscultation bilaterally. HEART: Regular rate and rhythm. S1 and S2 heard. ABDOMEN: Soft. Abdominal exam revealed normal bowel sounds. The abdomen was soft, non-tender, and without masses, organomegaly, or appreciable enlargement of the abdominal aorta. EXTREMITIES: Normal range of motion. No clubbing or cyanosis. Peripheral pulses intact. No lower extremity edema NEUROLOGIC: Awake and alert. Oriented x 3. Examination of the skin revealed no evidence of significant rashes, suspicious appearing nevi or other concerning lesions. - Labs CBC & Chem 7: 05/29/23 07:50 05/29/23 07:50 Labs: Abnormal Lab Results - Last 24 Hours (Table) 05/28/23 05/28/23 05/28/23 Range/Units 11:14 16:48 20:33 RBC (3.80-5.40) m/uL Hgb (11.4-16.0) gm/dL Hct (34.0-46.0) % BUN (7-17) mg/dL Creatinine (0.52-1.04) mg/dL POC Glucose (mg/dL) 302 H 179 H 177 H (70-110) mg/dL 05/29/23 05/29/23 05/29/23 Range/Units 06:06 07:50 07:50 RBC 2.92 L (3.80-5.40) m/uL Hgb 9.0 L (11.4-16.0) gm/dL Hct 27.5 L (34.0-46.0) % BUN 32 H (7-17) mg/dL Creatinine 1.37 H (0.52-1.04) mg/dL POC Glucose (mg/dL) 181 H (70-110) mg/dL Assessment and Plan Plan: CHF with a preserved LV function and EF of around 55-60%. Chest x-ray showing cephalization and interstitial edema. 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 Polycystic ovaries Fatty liver disease Impaired hearing History of smoking quit approximately a month ago Degenerative arthritis History of Graves' disease Chronic anxiety/depression Impaired hearing Plan Reviewed the CAT scan of the chest and the pulmonary nodules are essentially stable. There is some residual changes consistent with CHF Continue bronchodilators Continue Symbicort Continue diuresis and continue the combination of Demadex and Aldactone Monitor oxygenation, currently on room air oxygen Home medications have been resumed We'll continue to follow The patient being worked up for anemia and she has a colonoscopy by Tuesday Undergoing colonic prep today No pulmonary issues
--- NOTE | 2023-05-29 12:21 | P.PN ---
Subjective Progress Note Date: 05/29/23 This is a 53-year-old female, past medical history significant for cardiomyopathy, CAD with history of [place] , diabetes mellitus type 2, hypertension, hyperlipidemia, nicotine dependence, recently quit 1 month ago, degenerative disc disease and multiple other medical issues presented to the ER with nonradiating left chest pressure lasting approximately 20 minutes, spontaneously resolved, accompanied by shortness of breath. Reports chronic unchanged neck and jaw pain. Stated 2 weeks ago she had nausea and vomiting-resolved-, but during this time she had not been able to take her medications. Denies hematochezia, hemoptysis. Denies melenotic stools. Denies abdominal tenderness Chronic diarrhea associated with eating. Significant stress, had been homeless for 3 months, moved 3 times and is now currently in a senior high rise. Denies cough, congestion. Patient is a vague historian. Maintaining O2 sats in the 90s on room air. Chest x-ray reporting lungs are clear, no pneumothorax pleural effusion or focal pneumonia, correlate for mild pneumonitis/bronchitis or mild venous congestion. Telemetry sinus tachycardia. Afebrile, normal WBC. Magnesium 1.2 on admission, supplemented, repeat level pending. Sodium 135, bicarb 22, BUN 14, creatinine 1.04. Hyperglycemic on admission with glucose of 418, acetone negative. Lipase 934.Hemoglobin on admission 11, decreased to 8.6 today. Platelets 306 decreased to 235. Denies signs or symptoms of bleeding. Denies abdominal tenderness. Denies NSAID use. 05/26/23 echo pending. Denies any further chest pain, chest pressure, palpitations or shortness of breath. Hemoglobin remains stable at 8.6, platelets 237. Tachycardia resolved. No bleeding reported. Denies abdominal pain. Magnesium 1.5, receiving supplementation. Blood sugars improving. NPO, scheduled for EGD. 05/28/2023 This is a patient of Dr. Tripathi who is being monitored for an acute GI bleed as well as shortness of breath and chest discomfort. Currently patient is symptom free she is being treated for ischemic cardiomyopathy. She is on oral diuretics and Demadex was decreased to 10 mg daily and aldactone has been decreased to 12.5 mg daily. He should've a chest CT completed yesterday which shows small bilateral pleural effusions with adjacent atelectasis and/or consolidation. There are early groundglass changes in the right upper lobe to correlate for early cardiac decompensation with pulmonary vascular congestion. There are a few pulmonary nodules in the left measuring up to 5 mm that were present in 2017 however there is a 5 mm anterior left upper lobe pulmonary nodule and a 3 mm right middle lobe pulmonary nodule that was not clearly seen previously. There is also a stable left thyroid lobe nodule and a left adrenal nodule. Pulmonary is following the patient as well as cardiology. Creatinine of 1.28 today. Blood glucose in the 300s and will increase insulin coverage. 05/29/2023 Patient is evaluated today resting in bed. She is currently completing a bowel prep for colonoscopy scheduled for tomorrow morning. She has no acute com plaints states that she slept well last night. Patient was on lortab in the past at home and was complaining of some generalized pain and discomfort was started on low dose [place] and has had improved pain management. Blood glucose is improved down to the 170s to 140s with adjustment of her insulin coverage. Hemodynamically she is stable. Dr. Tripathi will resume care tomorrow. Review of Systems Constitutional: Denied any fatigue denied any fever. Cardio vascular: denied any chest pain, palpitations Gastrointestinal: denied any nausea, vomiting, diarrhea Pulmonary: Denied any shortness of breath cough Neurologic denied any new focal deficits All inpatient medications were reviewed and appropriate changes in these medications as dictated in the interval history and assessment and plan. PHYSICAL EXAMINATION: GENERAL: The patient is alert and oriented x3, not in any acute distress. Well developed, well nourished. HEENT: Pupils are round and equally reacting to light. EOMI. No scleral icterus. No conjunctival pallor. Normocephalic, atraumatic. No pharyngeal erythema. No thyromegaly. CARDIOVASCULAR: S1 and S2 present. No murmurs, rubs, or gallops. PULMONARY: Chest is clear to auscultation, no wheezing or crackles. ABDOMEN: Soft, nontender, nondistended, normoactive bowel sounds. No palpable organomegaly. MUSCULOSKELETAL: No joint swelling or deformity. EXTREMITIES: No cyanosis, clubbing, or pedal edema. NEUROLOGICAL: Gross neurological examination did not reveal any focal deficits. SKIN: No rashes. Assessment Left-sided nonradiating chest pressure accompanied by shortness of breath, troponins negative 3 Anemia, possibly acute blood loss anemia with EGD showing duodenitis and esophagitis. Acute hypoxic respiratory failure secondary to the above resolved and patient is now on room air Acute kidney injury likely prerenal with low blood pressures Cardiomyopathy, nonischemic, EF 45% COPD no acute exacerbation Diabetes mellitus, type II, uncontrolled, hyperglycemic on admission Peripheral neuropathy suspect secondary to diabetes mellitus. Graves' disease. Hypertension Hyperlipidemia. Anxiety, Depression Nicotine dependence, quit 1 month ago. Chronic back pain. Hard of hearing hearing Homelessness 3 months recently Plan Cardiology has decreased Demadex. Aldactone and lisinopril have been discontinued. Additionally would recommend to decrease gabapentin down to 60o mg 3 times a day as this is nephrotoxic and patient's creatinine has further increased today up to 1.37. Patient is completing a bowel prep for colonoscopy scheduled for tomorrow. She has no acute complaints and reports that her pain has been improved since the addition of [place]. Blood glucose is also improved. Recommending to repeat labs in a.m. She'll be nothing by mouth after midnight for colonoscopy. Dr. Tripathi will resume care of this patient in the morning. The impression and plan of care has been dictated by Bonita Gutierrez, Nurse Practitioner as directed. Dr. Ruddy MD I have performed a history and physical examination and medical decision making of this patient, discussed the same with the dictator, and agree with the dictators assessment and plan as written, documented as a scribe. Based on total visit time, I have performed more than 50% of this visit. Objective - Vital Signs Vital signs: Vital Signs Temp 97.7 F 05/29/23 08:18 Pulse 77 05/29/23 08:18 Resp 16 05/29/23 08:18 BP 108/59 05/29/23 08:18 Pulse Ox 95 05/29/23 08:18 FiO2 21 05/26/23 01:27 Intake & Output 05/28/23 05/29/23 05/29/23 18:59 06:59 18:59 Intake Total 300 Output Total 3000 Balance 300 -3000 Weight 65.2 kg Intake: Oral 300 Output: Urine 3000 Other: Voiding Method Bedside Commode - Labs CBC & Chem 7: 05/29/23 07:50 05/29/23 07:50 Labs: Abnormal Lab Results - Last 24 Hours (Table) 05/28/23 05/28/23 05/28/23 Range/Units 08:52 08:52 11:14 RBC 2.82 L (3.80-5.40) m/uL Hgb 8.7 L (11.4-16.0) gm/dL Hct 27.5 L (34.0-46.0) % Sodium 133 L (137-145) mmol/L BUN 31 H (7-17) mg/dL Creatinine 1.28 H (0.52-1.04) mg/dL Glucose 305 H (74-99) mg/dL POC Glucose (mg/dL) 302 H (70-110) mg/dL 05/28/23 05/28/23 05/29/23 Range/Units 16:48 20:33 06:06 RBC (3.80-5.40) m/uL Hgb (11.4-16.0) gm/dL Hct (34.0-46.0) % Sodium (137-145) mmol/L BUN (7-17) mg/dL Creatinine (0.52-1.04) mg/dL Glucose (74-99) mg/dL POC Glucose (mg/dL) 179 H 177 H 181 H (70-110) mg/dL 05/29/23 Range/Units 07:50 RBC 2.92 L (3.80-5.40) m/uL Hgb 9.0 L (11.4-16.0) gm/dL Hct 27.5 L (34.0-46.0) % Sodium (137-145) mmol/L BUN (7-17) mg/dL Creatinine (0.52-1.04) mg/dL Glucose (74-99) mg/dL POC Glucose (mg/dL) (70-110) mg/dL Assessment and Plan Time with Patient: Less than 30
--- NOTE | 2023-05-29 12:40 | P.PN ---
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 Patient follows in the office with Dr. Gillespie but has not been seen in the office since April 2022. We have been asked to see the patient in consultation for chest pain. Patient examined at the bedside. Patient came to the hospital with a chief complaint of shortness of breath. She states this lasted for 20 minutes and then resolved on its own. She reports chronic shoulder pain. She denies chest pain or pressure. Telemetry reveals sinus tachycardia with heart rate 100-100. Patient states she was not taking her medications for the past month due to a move and having nausea and vomiting. * EKG reveals sinus tachycardia with nonspecific ST-T wave changes, seen on previous EKGs * Chest xray late for mild pneumonitis/bronchitis or less likely mild venous congestion * Laboratory data: WBC 7.3. Hemoglobin 8.6. Platelet count 234. Sodium 135. Potassium 3.8. BUN 14. Creatinine 1.04. Troponin 0.012. 0.014. 0.016. 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 Normal coronary arteries. 05/27/2023 Patient examined this morning at the bedside. Patient received a dose of IV Lasix yesterday per cardiology and also a dose of IV Lasix per pulmonary. She states her breathing is significantly improved this morning. She still reports some mild shortness of breath when ambulating to the bathroom. Her colonoscopy was canceled for today and is rescheduled for Tuesday. 05/28/2023 This morning her creatinine has increased from 1.08-1.2. She is hemodynamically stable blood pressure and heart rate within normal ranges. Other labs are within normal ranges 05/29/2023 Patient's creatinine is trending up. We have reduced her diuretic dose and continued her reduced Aldactone. PHYSICAL EXAM: VITAL SIGNS: Reviewed. GENERAL: Well-developed in no acute distress. HEENT: Head is normocephalic. Pupils are equal, round. Sclerae anicteric. Mucous membranes of the mouth are moist. Neck supple. No JVD or thyromegaly LUNGS: Respirations even and unlabored. Lungs diminished with a few crackles bilaterally. HEART: Regular rate and rhythm. S1 and S2 heard. ABDOMEN: Soft. Nondistended. Nontender. EXTREMITIES: Normal range of motion. No clubbing or cyanosis. Peripheral pulses intact. No lower extremity edema NEUROLOGIC: Awake and alert. Oriented x 3. ASSESSMENT: Shortness of breath Chest pain, troponins negative 3 Anemia, hemoglobin 8.6, etiology unclear Acute on chronic heart failure with reduced EF Nonischemic cardiomyopathy, EF 45% Normal coronary arteries, per cardiac catheterization 2019 Bicuspid aortic valve Hypertension Hyperlipidemia Diabetes Nicotine dependence, patient quit smoking one month ago Medication noncompliance PLAN: Reduce her torsemide to 10 mg. Reduce her spironolactone to 12.5 mg She is not on Anil arb at this time. We will add and eventually once her renal function and blood pressure stable Patient scheduled for colonoscopy on Tuesday with general surgery Recommend Farxiga to be started after colonoscopy Objective - Vital Signs Vital signs: Vital Signs Temp 97.7 F 05/29/23 08:18 Pulse 77 05/29/23 11:42 Resp 16 05/29/23 11:42 BP 105/61 05/29/23 11:42 Pulse Ox 97 05/29/23 11:42 FiO2 21 05/26/23 01:27 Intake & Output 05/28/23 05/29/23 05/29/23 18:59 06:59 18:59 Intake Total 300 Output Total 3000 0 Balance 300 -3000 0 Weight 65.2 kg Intake: Oral 300 Output: Gastric Drainage 0 Urine 3000 0 Stool 0 Urine/Stool Mix 0 Emesis 0 Oral Regurgitation 0 Other 0 Other: Voiding Method Bedside Commode # Voids 0 # Bowel Movements 0 - Labs CBC & Chem 7: 05/29/23 07:50 05/29/23 07:50 Labs: Abnormal Lab Results - Last 24 Hours (Table) 05/28/23 05/28/23 05/29/23 Range/Units 16:48 20:33 06:06 RBC (3.80-5.40) m/uL Hgb (11.4-16.0) gm/dL Hct (34.0-46.0) % BUN (7-17) mg/dL Creatinine (0.52-1.04) mg/dL POC Glucose (mg/dL) 179 H 177 H 181 H (70-110) mg/dL 05/29/23 05/29/23 05/29/23 Range/Units 07:50 07:50 11:29 RBC 2.92 L (3.80-5.40) m/uL Hgb 9.0 L (11.4-16.0) gm/dL Hct 27.5 L (34.0-46.0) % BUN 32 H (7-17) mg/dL Creatinine 1.37 H (0.52-1.04) mg/dL POC Glucose (mg/dL) 142 H (70-110) mg/dL
[2023-05-29] MEDS: GABAPENTIN 300 MG CAP PO SCH ×2 (15:34→20:30)
[2023-05-29 16:21] LABS: Glucose,Whole Blood 181 mg/dL (70-110)
[2023-05-29 20:16] LABS: Glucose,Whole Blood 98 mg/dL (70-110)
[2023-05-29] MEDS: ATORVASTATIN 80 MG TAB PO SCH (20:30)
[2023-05-29] MEDS: hydrOXYzine HCL 25 MG TAB PO SCH (20:30)
[2023-05-30 05:54] LABS: Glucose,Whole Blood 114 mg/dL (70-110)
[2023-05-30] MEDS: INSULIN ASPART (NovoLOG) 100 UNIT/ML VIAL SQ SCH ×6 (06:20→17:27)
[2023-05-30 06:23] VITALS: RESP 16
[2023-05-30] MEDS ORDERED: LACTATED RINGERS 1,000 ML IV ONE ×2 (08:38)
[2023-05-30] MEDS ORDERED: PROPOFOL 10 MG/ML 20 ML VIAL IV ONE (08:41)
[2023-05-30] MEDS: SYMBICORT 80-4.5 MCG INHALER INHALATION SCH ×2 (09:17→21:17)
[2023-05-30] MEDS: IPRATROPIUM-ALBUTEROL 3 ML NEB INHALATION SCH ×4 (09:17→21:17)
--- NOTE | 2023-05-30 09:22 | P.PCN ---
Date of Procedure: 05/30/23 Description of Procedure: PREOPERATIVE DIAGNOSIS: Acute blood loss anemia Gastrointestinal bleeding POSTOPERATIVE DIAGNOSIS: Acute blood loss anemia Gastrointestinal bleeding OPERATION: Colonoscopy to the cecum, ileocecal valve and appendiceal orifice SURGEON: Alyssa Ho MD. ANESTHESIA: MAC. INDICATIONS: The patient is a 53-year-old female who presents with acute blood loss anemia. Benefits and risks were described and informed consent was obtained. DESCRIPTION OF PROCEDURE: The patient had undergone attempted Golytely prep 4 L. The patient had been brought into the operating room and laid in the left lateral decubitus position. After adequate intravenous sedation, the rectum was examined with 2% lidocaine jelly. No internal or external prolapse hemorrhoids were identified. The rectal tone was within normal limits. An Olympus colonoscope was gently advanced to the cecum with clear visualization of the ileocecal valve including appendiceal orifice. The prep was good. No sigmoid diverticulosis was encountered without active bleeding. No active colonic bleeding was found. No intraluminal masses were identified within the colon. No colonic polyps were found. No evidence of focal colitis was found. Retroflexion of the scope demonstrated grade 1 internal hemorrhoids with recent inflammation. The colon was desufflated. The patient had tolerated the procedure well. Withdrawal time was over 6 minutes. FINDINGS: Aronchick preparation quality scale 2 (1-5) Internal hemorrhoids, grade 1. No thrombosed hemorrhoid identified. No arteriovenous malformations. No adenomatous polyps. No focal colitis. RECOMMENDATIONS: 1. Diet as tolerated 2. Repeat colonoscopy in 10 years, 2032 Plan - Discharge Summary Discharge Rx Participant: Yes New Discharge Prescriptions: No Action Insulin Glargine [Lantus Vial] 40 unit SQ HS buPROPion HCL [Wellbutrin SR] 150 mg PO BID Gabapentin [Neurontin] 800 mg PO QID Sertraline [Zoloft] 100 mg PO BID Atorvastatin [Lipitor] 80 mg PO HS hydrOXYzine HCL [Atarax] 25 mg PO HS Spironolactone [Aldactone] 25 mg PO DAILY Ondansetron Odt [Zofran Odt] 4 mg PO Q8HR PRN #10 tab PRN Reason: Nausea INSULIN ASPART (NovoLOG) [NovoLOG (formulary)] See Protocol SQ AC-TID Acetaminophen Tab [Tylenol Tab] 500 mg PO Q4H PRN #30 tablet PRN Reason: Pain lisinopriL [Zestril] 10 mg PO DAILY Furosemide [Lasix] 20 mg PO BID metFORMIN HCL [Glucophage] 1,000 mg PO BID Discharge Medication List Insulin Glargine [Lantus Vial] 40 unit SQ HS 09/30/15 [History] buPROPion HCL [Wellbutrin SR] 150 mg PO BID 09/30/15 [History] Gabapentin [Neurontin] 800 mg PO QID 02/07/17 [History] Atorvastatin [Lipitor] 80 mg PO HS 06/10/18 [History] Sertraline [Zoloft] 100 mg PO BID 06/10/18 [History] hydrOXYzine HCL [Atarax] 25 mg PO HS 06/10/18 [History] Spironolactone [Aldactone] 25 mg PO DAILY 02/02/19 [History] Acetaminophen Tab [Tylenol Tab] 500 mg PO Q4H PRN #30 tablet 05/13/23 [Rx] Ondansetron Odt [Zofran Odt] 4 mg PO Q8HR PRN #10 tab 05/13/23 [Rx] Furosemide [Lasix] 20 mg PO BID 05/24/23 [History] INSULIN ASPART (NovoLOG) [NovoLOG (formulary)] See Protocol SQ AC-TID 05/24/23 [History] lisinopriL [Zestril] 10 mg PO DAILY 05/24/23 [History] metFORMIN HCL [Glucophage] 1,000 mg PO BID 05/24/23 [History] Follow up Appointment(s)/Referral(s): Gorge Tripathi, DO [Primary Care Provider] - 1-2 days Discharge/Stand Alone Forms: Who Do I Call?, Community Resources, Personal Concrete Carpenter
[2023-05-30 10:01] LABS: African American GFR (CKD) 63 (>60 ml/min/1.73 sqM); Anion Gap 8 mmol/L; Blood Urea Nitrogen 19 mg/dL (7-17); Calcium 9.3 mg/dL (8.4-10.2); Carbon Dioxide 25 mmol/L (22-30); Chloride 105 mmol/L (98-107); Glucose 110 mg/dL (74-99); Non-African American GFR(CKD) 55 (>60 ml/min/1.73 sqM); Potassium 4.5 mmol/L (3.5-5.1); Sodium 138 mmol/L (137-145)
[2023-05-30] MEDS: PANTOPRAZOLE 40 MG/10 ML VIAL IVP SCH (10:06)
[2023-05-30] MEDS: SPIRONOLACTONE 25 MG TAB PO SCH (10:07)
[2023-05-30] MEDS: METOPROLOL SUCCINATE (ER) 25 MG TAB.ER.24H PO SCH (10:07)
[2023-05-30] MEDS: INSULIN DETEMIR (LEVEMIR) 100 UNIT/ML SYR SQ SCH ×2 (10:07→23:08)
[2023-05-30] MEDS: GABAPENTIN 300 MG CAP PO SCH ×3 (10:07→23:07)
[2023-05-30] MEDS: buPROPion SR 150 MG TABLET.ER PO SCH ×2 (10:07→23:07)
[2023-05-30] MEDS: SERTRALINE 100 MG TAB PO SCH ×2 (10:07→23:07)
[2023-05-30] MEDS: TORSEMIDE 20 MG TAB PO SCH (10:08)
[2023-05-30] MEDS: ACETAMINOPHEN TAB 500 MG TAB PO PRN (10:10)
--- NOTE | 2023-05-30 10:55 | P.PN ---
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 She was noted to be anemic and underwent colonoscopy today that showed no evidence of significant pathology. She is doing well, denying any jadon st discomfort, dizziness or palpitations. She denies any nausea or vomiting. Medications: Lipitor 80 mg daily, Wellbutrin, gabapentin, insulin, metoprolol succinate 25 mg daily, spironolactone 12.5 mg daily, Zoloft, Demadex 10 mg daily PHYSICAL EXAMINATION: Blood pressure 129/60 heart rate 80 LUNGS: Clear to auscultation HEART: Regular rate and rhythm, S1, S2. No S3. Systolic ejection murmur ABDOMEN: Soft, nontender, no organomegaly EXTREMETIES: No edema LAB: BUN 19, creatinine 1.14 IMPRESSION: 1. Anemia, colonoscopy showed no gross anomaly 2. Bicuspid aortic valve, stable 3. Chest discomfort with no evidence of myocardial infarction 4. Cardiomyopathy with no evidence of CHF 5. Acute renal injury, improving PLAN: 1. Continue present therapy 2. Probable discharge home today 3. And follow-up as an outpatient with Dr. Gillespie 4. Depending on her renal function and blood pressure as an outpatient add RAGHU inhibitor and Farxiga Objective - Vital Signs Vital signs: Vital Signs Temp 97.7 F 05/29/23 08:18 Pulse 86 05/30/23 10:00 Resp 16 05/30/23 10:00 BP 129/61 05/30/23 10:00 Pulse Ox 96 05/30/23 10:00 FiO2 21 05/26/23 01:27 Intake & Output 05/29/23 05/30/23 05/30/23 18:59 06:59 18:59 Intake Total 100 Output Total 0 1800 Balance 0 -1800 100 Weight 63.8 kg Intake: IV 100 Output: Gastric Drainage 0 Urine 0 500 Stool 0 0 Urine/Stool Mix 0 1300 Emesis 0 Oral Regurgitation 0 Other 0 Other: Voiding Method Bedside Commode # Voids 0 # Bowel Movements 0 - Labs CBC & Chem 7: 05/29/23 07:50 05/30/23 09:18 Labs: Abnormal Lab Results - Last 24 Hours (Table) 05/29/23 05/29/23 05/30/23 Range/Units 11:29 16:16 05:52 BUN (7-17) mg/dL Creatinine (0.52-1.04) mg/dL Glucose (74-99) mg/dL POC Glucose (mg/dL) 142 H 181 H 114 H (70-110) mg/dL 05/30/23 Range/Units 09:18 BUN 19 H (7-17) mg/dL Creatinine 1.14 H (0.52-1.04) mg/dL Glucose 110 H (74-99) mg/dL POC Glucose (mg/dL) (70-110) mg/dL
[2023-05-30 11:43] LABS: Glucose,Whole Blood 190 mg/dL (70-110)
[2023-05-30 14:46] VITALS: BMI 23.3
[2023-05-30 16:33] LABS: Glucose,Whole Blood 299 mg/dL (70-110)
[2023-05-30 20:08] LABS: Glucose,Whole Blood 97 mg/dL (70-110)
[2023-05-30] MEDS: ATORVASTATIN 80 MG TAB PO SCH (23:07)
[2023-05-30] MEDS: hydrOXYzine HCL 25 MG TAB PO SCH (23:08)
[2023-05-30] MEDS: HYDROcodone/APAP 5-325MG 1 EACH TAB PO PRN (23:41)
[2023-05-31 06:21] LABS: Glucose,Whole Blood 142 mg/dL (70-110)
[2023-05-31] MEDS: INSULIN ASPART (NovoLOG) 100 UNIT/ML VIAL SQ SCH ×4 (07:02→12:42)
[2023-05-31] MEDS: INSULIN DETEMIR (LEVEMIR) 100 UNIT/ML SYR SQ SCH (07:06)
[2023-05-31] MEDS: SPIRONOLACTONE 25 MG TAB PO SCH (09:09)
[2023-05-31] MEDS: SYMBICORT 80-4.5 MCG INHALER INHALATION SCH (09:09)
[2023-05-31] MEDS: IPRATROPIUM-ALBUTEROL 3 ML NEB INHALATION SCH ×3 (09:09→15:30)
[2023-05-31] MEDS: PANTOPRAZOLE 40 MG/10 ML VIAL IVP SCH (09:09)
[2023-05-31] MEDS: HYDROcodone/APAP 5-325MG 1 EACH TAB PO PRN (09:10)
[2023-05-31] MEDS: SERTRALINE 100 MG TAB PO SCH (09:10)
[2023-05-31] MEDS: METOPROLOL SUCCINATE (ER) 25 MG TAB.ER.24H PO SCH (09:10)
[2023-05-31] MEDS: GABAPENTIN 300 MG CAP PO SCH (09:10)
[2023-05-31] MEDS: TORSEMIDE 20 MG TAB PO SCH (09:11)
[2023-05-31] MEDS: buPROPion SR 150 MG TABLET.ER PO SCH (09:11)
[2023-05-31 09:20] VITALS: TEMP 98.5
--- NOTE | 2023-05-31 11:33 | P.PN ---
Subjective Progress Note Date: 05/31/23 CHIEF COMPLAINT: Anemia HISTORY OF PRESENT ILLNESS: Patient is status post colonoscopy that did show internal hemorrhoids grade 1 with recent inflammation. Patient status post EGD had revealed a hiatal hernia and erosive esophagitis. Patient tolerating diet. Hemoglobin stable at 9.0 last checked 05/29. Patient denies abdominal pain. Tolerating diet. PHYSICAL EXAM: VITAL SIGNS: Reviewed GENERAL: Well-developed in no acute distress. HEENT: No sclera icterus. Extraocular movements grossly intact. Moist buccal mucosa. Head is atraumatic, normocephalic. Hears conversational speech. No nasal dr ainage. NECK: Supple without lymphadenopathy. CHEST: Non-labored respirations and equal bilateral excursions. CARDIOVASCULAR: Palpable 2+ radial pulses. ABDOMEN: Soft. Nondistended. Nontender. MUSCULOSKELETAL: No clubbing or cyanosis. NEUROLOGIC: No focal or lateralizing signs. Cranial nerves II through XII grossly intact. PSYCH: Appropriate affect. Alert and oriented to person, place and time. SKIN: Well perfused. Good skin turgor. ASSESSMENT: 1. Anemia with EGD revealing erosive esophagitis and hiatal hernia and colonoscopy showing internal hemorrhoids 2. CHF exacerbation PLAN: -Patient can be discharge from surgical standpoint -Continue Protonix for erosive esophagitis Physician Churn Drill Operator note has been reviewed by physician. Signing provider agrees with the documented findings, assessment, and plan of care. Objective - Vital Signs Vital signs: Vital Signs Temp 98.5 F 05/31/23 09:18 Pulse 86 05/31/23 09:18 Resp 16 05/31/23 09:18 BP 112/68 05/31/23 09:18 Pulse Ox 95 05/31/23 09:18 FiO2 21 05/26/23 01:27 Intake & Output 05/30/23 05/31/23 05/31/23 18:59 06:59 18:59 Intake Total 336 Balance 336 Weight 63.8 kg Intake: IV 100 Oral 236 Other: Voiding Method Toilet Toilet # Voids 4 - Labs CBC & Chem 7: 05/29/23 07:50 05/30/23 09:18 Labs: Abnormal Lab Results - Last 24 Hours (Table) 05/30/23 05/30/23 05/31/23 Range/Units 11:41 16:31 06:19 POC Glucose (mg/dL) 190 H 299 H 142 H (70-110) mg/dL
[2023-05-31 11:45] LABS: Glucose,Whole Blood 143 mg/dL (70-110)
[2023-05-31 11:57] VITALS: BP 106/62
[2023-05-31 15:34] VITALS: PULSE 86
--- NOTE | 2023-06-02 16:38 | P.DS ---
Providers Date of admission: 05/24/23 14:02 Expected date of discharge: 05/31/23 Attending physician: Gorge Tripathi Consults: 05/24/23 14:00 Consult Physician Routine Consulting Provider: [facility] Consult Reason/Comments: dyspnea, chest pain Do you want consulting provider notified?: Yes 05/25/23 14:20 Consult Physician Routine Consulting Provider: Alyssa Ho Consult Reason/Comments: anemia Do you want consulting provider notified?: Yes 05/26/23 12:33 Consult Physician Stat Consulting Provider: Arash Perez Consult Reason/Comments: Acute hypoxic respiratory failure Do you want consulting provider notified?: Yes Primary care physician: Gorge Tripathi [facility] Course: Final Diagnoses: Left-sided nonradiating chest pressure accompanied by shortness of breath, troponins negative 3, in a patient with family history of premature CAD, cardiology following Acute CHF exacerbation, systolic dysfunction.Cardiomyopathy, EF 35%, Bicuspid aortic valve,anomalous left circumflex from RCA. ProBNP 4560 Anemia, EGD showing duodenitis and esophagitis, hiatal hernia. Colonoscopy reporting internal hemorrhoids Acute hypoxic respiratory failure, secondary to the above. Pulmonary nodules, reassess outpatient, 3 month follow-up CT Left adrenal nodule increased to 2 cm, stable 2.8 cm nodule left thyroid lobe reported per CT, further monitoring outpatient. COPD Diabetes mellitus, type II, uncontrolled, hyperglycemic on admission Peripheral neuropathy suspect secondary to diabetes mellitus. Graves' disease. Hypertension Hyperlipidemia. Anxiety, Depression Nicotine dependence, quit 1 month ago. Chronic back pain. Hard of hearing hearing Homelessness 3 months recently Hospital course:This is a 53-year-old female, past medical history significant for cardiomyopathy, CAD with history of NV , diabetes mellitus type 2, hypertension, hyperlipidemia, nicotine dependence, recently quit 1 month ago, degenerative disc disease and multiple other medical issues presented to the ER with nonradiating left chest pressure lasting approximately 20 minutes, spontaneously resolved, accompanied by shortness of breath. Reports chronic unchanged neck and jaw pain. Stated 2 weeks ago she had nausea and vomiting-resolved-, but during this time she had not been able to take her medications. Denies hematochezia, hemoptysis. Denies melenotic stools. Denies abdominal tenderness Chronic diarrhea associated with eating. Significant stress, had been homeless for 3 months, moved 3 times and is now currently in a senior high rise. Denies cough, congestion. Patient is a vague historian. Maintaining O2 sats in the 90s on room air. Chest x-ray reporting lungs are clear, no pneumothorax pleural effusion or focal pneumonia, correlate for mild pneumonitis/bronchitis or mild venous congestion. Telemetry sinus tachycardia. Afebrile, normal WBC. Magnesium 1.2 on admission, supplemented, repeat level pending. Sodium 135, bicarb 22, BUN 14, creatinine 1.04. Hyperglycemic on admission with glucose of 418, acetone negative. Lipase 934.Hemoglobin on admission 11, decreased to 8.6 today. Platelets 306 decreased to 235. Denies signs or symptoms of bleeding. Denies abdominal tenderness. Denies NSAID use. 05/26/23 echo pending. Denies any further chest pain, chest pressure, palpitations or shortness of breath. Hemoglobin remains stable at 8.6, platelets 237. Tachycardia resolved. No bleeding reported. Denies abdominal pain. Magnesium 1.5, receiving supplementation. Blood sugars improving. NPO, scheduled for EGD. The patient underwent EGD and found to have erosive gastritis. Colonoscopy reported internal hemorrhoids, grade 1. Hemoglobin A1c 6.6. Echo reported dilated left ventricle with severely reduced LV systolic function EF 35%, severe septal hypokinesis. Diuresed , weaned off of oxygen, maintaining O2 sats in the 90s on room air. currently on Demadex and Aldactone.on diuretic and Aldactone dose decreased as per cardiology secondary to creatinine trending up. No jenelle or ARB at this time secondary to renal function-to be further evaluated outpatient in clinic. Hemoglobin remained stable .Denies chest pain, palpitations or shortness of breath. Denies lightheadedness dizziness or focal deficits. Denies any nausea ,vomiting or diarrhea. Denies abdominal pain. Significant clinical improvem ent. Cleared by all consults for discharge. Patient will be discharged home today in a stable condition with guarded prognosis. The impression and plan of care has been dictated as directed. : I performed a history and examination of this patient, discussed the same with the dictator. I agree with the dictator's note ,documented as a scribe. Any additional findings or plans will be noted. Patient Condition at Discharge: Stable Plan - Discharge Summary Discharge Rx Participant: Yes New Discharge Prescriptions: New Torsemide [Demadex] 10 mg PO DAILY #30 tab Gabapentin [Neurontin] 600 mg PO TID #18 cap Metoprolol Succinate (ER) [Toprol XL] 25 mg PO DAILY #30 tab Spironolactone [Aldactone] 12.5 mg PO DAILY #30 tab Omeprazole 40 mg PO DAILY #30 cap Continue Insulin Glargine [Lantus Vial] 40 unit SQ HS buPROPion HCL [Wellbutrin SR] 150 mg PO BID Sertraline [Zoloft] 100 mg PO BID Atorvastatin [Lipitor] 80 mg PO HS hydrOXYzine HCL [Atarax] 25 mg PO HS Ondansetron Odt [Zofran ODT] 4 mg PO Q8HR PRN #10 tab PRN Reason: Nausea INSULIN ASPART (NovoLOG) [NovoLOG (formulary)] See Protocol SQ AC-TID Acetaminophen Tab [Tylenol] 500 mg PO Q4H PRN #30 tablet PRN Reason: Pain metFORMIN HCL [Glucophage] 1,000 mg PO BID Discontinued Gabapentin [Neurontin] 800 mg PO QID Spironolactone [Aldactone] 25 mg PO DAILY lisinopriL [Zestril] 10 mg PO DAILY Furosemide [Lasix] 20 mg PO BID Discharge Medication List Insulin Glargine [Lantus Vial] 40 unit SQ HS 09/30/15 [History] buPROPion HCL [Wellbutrin SR] 150 mg PO BID 09/30/15 [History] Atorvastatin [Lipitor] 80 mg PO HS 06/10/18 [History] Sertraline [Zoloft] 100 mg PO BID 06/10/18 [History] hydrOXYzine HCL [Atarax] 25 mg PO HS 06/10/18 [History] Acetaminophen Tab [Tylenol] 500 mg PO Q4H PRN #30 tablet 05/13/23 [Rx] Ondansetron Odt [Zofran ODT] 4 mg PO Q8HR PRN #10 tab 05/13/23 [Rx] INSULIN ASPART (NovoLOG) [NovoLOG (formulary)] See Protocol SQ AC-TID 05/24/23 [History] metFORMIN HCL [Glucophage] 1,000 mg PO BID 05/24/23 [History] Gabapentin [Neurontin] 600 mg PO TID #18 cap 05/31/23 [Rx] Metoprolol Succinate (ER) [Toprol XL] 25 mg PO DAILY #30 tab 05/31/23 [Rx] Omeprazole 40 mg PO DAILY #30 cap 05/31/23 [Rx] Spironolactone [Aldactone] 12.5 mg PO DAILY #30 tab 05/31/23 [Rx] Torsemide [Demadex] 10 mg PO DAILY #30 tab 05/31/23 [Rx] Follow up Appointment(s)/Referral(s): Enrique Gillespie MD [STAFF PHYSICIAN] - 06/13/23 2:00 pm Gorge Tripathi DO [Primary Care Provider] - 06/02/23 10:00 am Patient Instructions/Handouts: Chest Pain (DC) Activity/Diet/Wound Care/Special Instructions: Confirm cardiology follow-up appointment prior to discharge. Discharge/Stand Alone Forms: Who Do I Call?, Community Resources, Personal Doctor Of Podiatric Medicine Discharge Disposition: HOME WITH HOME HEALTH SERVICES
== END 2023-05-31 16:13 | disposition home health service (06) | DRG 291 ==
LOC: EC 11:55 → 3SCARD 14:02
PROVIDERS: ADMIT Family Medicine; ATTEND Family Medicine
PROC: 0DJ08ZZ Inspection of Upper Intestinal Tract, Via Natural or Artificial Opening Endoscopic (ICD-10-PCS; principal; 2023-05-26 07:30)
PROC: 0DJD8ZZ Inspection of Lower Intestinal Tract, Via Natural or Artificial Opening Endoscopic (ICD-10-PCS; 2023-05-30)
DX: I11.0 Hypertensive heart disease with heart failure (principal); I50.23 Acute on chronic systolic (congestive) heart failure; K22.11 Ulcer of esophagus with bleeding; J96.01 Acute respiratory failure with hypoxia; Q23.1 Congenital insufficiency of aortic valve; N17.9 Acute kidney failure, unspecified; D62 Acute posthemorrhagic anemia; E83.42 Hypomagnesemia; K44.9 Diaphragmatic hernia without obstruction or gangrene; I42.8 Other cardiomyopathies; E78.5 Hyperlipidemia, unspecified; E11.65 Type 2 diabetes mellitus with hyperglycemia; H91.91 Unspecified hearing loss, right ear; K76.0 Fatty (change of) liver, not elsewhere classified; K64.0 First degree hemorrhoids; E11.43 Type 2 diabetes mellitus with diabetic autonomic (poly)neuropathy; K31.84 Gastroparesis; J44.9 Chronic obstructive pulmonary disease, unspecified; T45.515A Adverse effect of anticoagulants, initial encounter; E11.42 Type 2 diabetes mellitus with diabetic polyneuropathy; E05.00 Thyrotoxicosis with diffuse goiter without thyrotoxic crisis or storm; F41.9 Anxiety disorder, unspecified; F32.A Depression, unspecified; M25.519 Pain in unspecified shoulder; K52.9 Noninfective gastroenteritis and colitis, unspecified; E28.2 Polycystic ovarian syndrome; G89.29 Other chronic pain; M54.9 Dorsalgia, unspecified; R91.8 Other nonspecific abnormal finding of lung field; I25.10 Atherosclerotic heart disease of native coronary artery without angina pectoris; M19.90 Unspecified osteoarthritis, unspecified site; E27.8 Other specified disorders of adrenal gland; I25.2 Old myocardial infarction; Z79.899 Other long term (current) drug therapy; Z79.84 Long term (current) use of oral hypoglycemic drugs; Z79.4 Long term (current) use of insulin; Z59.00 Homelessness unspecified; Z87.891 Personal history of nicotine dependence; Z91.148 Patient's other noncompliance with medication regimen for other reason; Z71.3 Dietary counseling and surveillance; Z28.310 Unvaccinated for COVID-19; Z88.0 Allergy status to penicillin; Z88.5 Allergy status to narcotic agent
CPT/HCPCS: 36415; 43235; 45378; 71046; 71250; 80048; 80053; 82009; 83036; 83690; 83735; 83880; 84484; 85025; 85027; 85610; 85730; 93005; 93306; 94640; 94760; 96361; 96365; 96375; 99285

== ENCOUNTER 2023-11-10 13:20 | Emergency (ER) | payer MEDICARE, OTHER ==
[2023-11-10 13:35] VITALS: RESP 18
--- NOTE | 2023-11-10 14:47 | XR ---
EXAMINATION TYPE: XR chest 2V DATE OF EXAM: 11/10/2023 COMPARISON: Cough TECHNIQUE: PA and lateral views submitted. HISTORY: 05/26/2023 FINDINGS: The lungs are clear and there is no pneumothorax, pleural effusion, or focal pneumonia. Heart size normal and no overt failure. Osseous structures demonstrate hypertrophic and degenerative changes of the spine. IMPRESSION: 1. No acute process.
--- NOTE | 2023-11-10 15:02 | ED ---
ENT HPI - General Chief complaint: ENT Stated complaint: Cough/Fever Time Seen by Provider: 11/10/23 13:35 Source: patient, RN notes reviewed Mode of arrival: ambulatory Limitations: no limitations - History of Present Illness Initial comments: 53-year-old female presents emergency department chief complaint of fever chills cough congestion. Patient states she was sick last week started to get better but has returned again. Patient denies any abdominal pain denies any current nausea vomit diarrhea constipation denies any known sick contacts. Denies any leg pain leg swelling. - Related Data Home Medications Medication Instructions Recorded Confirmed Insulin Glargine [Lantus Vial] 40 unit SQ HS 09/30/15 05/24/23 buPROPion HCL [Wellbutrin SR] 150 mg PO BID 09/30/15 05/24/23 Atorvastatin [Lipitor] 80 mg PO HS 06/10/18 05/24/23 Sertraline [Zoloft] 100 mg PO BID 06/10/18 05/24/23 hydrOXYzine HCL [Atarax] 25 mg PO HS 06/10/18 05/24/23 INSULIN ASPART (NovoLOG) [NovoLOG See Protocol SQ AC-TID 05/24/23 05/24/23 (formulary)] metFORMIN HCL [Glucophage] 1,000 mg PO BID 05/24/23 05/24/23 Previous Rx's Medication Instructions Recorded Acetaminophen Tab [Tylenol] 500 mg PO Q4H PRN #30 tablet 05/13/23 Ondansetron Odt [Zofran ODT] 4 mg PO Q8HR PRN #10 tab 05/13/23 Gabapentin [Neurontin] 600 mg PO TID #18 cap 05/31/23 Metoprolol Succinate (ER) [Toprol 25 mg PO DAILY #30 tab 05/31/23 XL] Omeprazole 40 mg PO DAILY #30 cap 05/31/23 Spironolactone [Aldactone] 12.5 mg PO DAILY #30 tab 05/31/23 Torsemide [Demadex] 10 mg PO DAILY #30 tab 05/31/23 Allergies Allergy/AdvReac Type Severity Reaction Status Date / Time adhesive Allergy Rash/Hives Verified 11/10/23 13:34 bee pollen Allergy Unknown Verified 11/10/23 13:34 shellfish derived [Shellfish] Allergy Swelling Verified 11/10/23 13:34 venom-honey bee Allergy Anaphylaxis Verified 11/10/23 13:34 amoxicillin [From Augmentin] AdvReac Nausea & Verified 11/10/23 13:34 Vomiting clavulanic acid AdvReac Nausea & Verified 11/10/23 13:34 [From Augmentin] Vomiting erythromycin base AdvReac Nausea & Verified 11/10/23 13:34 Vomiting propoxyphene AdvReac Nausea & Verified 11/10/23 13:34 [From Darvocet-N] Vomiting BANDAIDS Allergy Rash/Hives Uncoded 11/10/23 13:34 Review of Systems ROS Statement: Those systems with pertinent positive or pertinent negative responses have been documented in the HPI. ROS Other: All systems not noted in ROS Statement are negative. 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 surgery left ear, rt breast lumpectomy Past Anesthesia/Blood Transfusion Reactions: Postoperative Nausea & Vomiting (PONV) Past Psychological History: Anxiety, Depression Smoking Status: Former smoker Past Alcohol Use History: None Reported Past Drug Use History: None Reported - Past Family History Father Family Medical History: CVA/TIA, Myocardial Infarction ([place]) Additional Family Medical History / Comment(s): . Mother Family Medical History: Cancer, Myocardial Infarction ([place]) Additional Family Medical History / Comment(s): THYROID CA. General Exam Limitations: no limitations General appearance: alert, in no apparent distress Head exam: Present: atraumatic, normocephalic, normal inspection Eye exam: Present: normal appearance, PERRL, EOMI. Absent: scleral icterus, conjunctival injection, periorbital swelling ENT exam: Present: normal exam, mucous membranes moist Neck exam: Present: normal inspection, full ROM. Absent: tenderness, meningismus, lymphadenopathy Respiratory exam: Present: normal lung sounds bilaterally. Absent: respiratory distress, wheezes, rales, rhonchi, stridor Cardiovascular Exam: Present: regular rate, normal rhythm, normal heart sounds. Absent: systolic murmur, diastolic murmur, rubs, gallop, clicks GI/Abdominal exam: Present: soft, normal bowel sounds. Absent: distended, tenderness, guarding, rebound, rigid Course Vital Signs 11/10/23 11/10/23 13:31 15:41 Temperature 98.8 F 98.2 F Pulse Rate 82 80 Respiratory 18 18 Rate Blood Pressure 114/70 118/62 O2 Sat by Pulse 99 96 Oximetry Medical Decision Making - Medical Decision Making Was pt. sent in by a medical professional or institution (, PA, DATA RECOVERY PLANNER, urgent care, hospital, or skilled nursing...) When possible be specific @ -No Did you speak to anyone other than the patient for history (EMS, parent, family, police, friend...)? What history was obtained from this source @ -No Did you review nursing and triage notes (agree or disagree)? Why? @ -I reviewed and agree with nursing and triage notes Were old charts reviewed (outside hosp., previous admission, EMS record, old EKG, old radiological studies, urgent care reports/EKG's, skilled nursing records)? Report findings @ -No old charts were reviewed Differential Diagnosis (chest pain, altered mental status, abdominal pain women, abdominal pain men, vaginal bleeding, weakness, fever, dyspnea, syncope, heada jadon, dizziness, GI bleed, back pain, seizure, CVA, palpatations, mental health, musculoskeletal)? @ -COVID 19, RSV, influenza, pneumonia, acute bronchitis, URI, this list is not all inclusive EKG interpreted by me (3pts min.). @ -[None X-rays interpreted by me (1pt min.). @ -Chest x-ray shows no acute cardiopulmonary process no pneumonia CT interpreted by me (1pt min.). @ -[None done U/S interpreted by me (1pt. min.). @ -None done What testing was considered but not performed or refused? (CT, X-rays, U/S, labs)? Why? @ -None What meds were considered but not given or refused? Why? @ -None Did you discuss the management of the patient with other professionals (professionals i.e. , PA, DATA RECOVERY PLANNER, lab, RT, psych nurse, psychiatric social worker supervisor, catering assistant, teacher, county records management officer, watch case polisher)? Give summary @ -No Was smoking cessation discussed for >3mins.? @ -No Was critical care preformed (if so, how long)? @ -No Were there social determinants of health that impacted care today? How? (Homelessness, low income, unemployed, alcoholism, drug addiction, transportation, low edu. Level, literacy, decrease access to med. care, assisted, rehab)? @ -No Was there de-escalation of care discussed even if they declined (Discuss DNR or withdrawal of care, Hospice)? DNR status @ -No What co-morbidities impacted this encounter? (DM, HTN, Smoking, COPD, CAD, Cancer, CVA, ARF, Chemo, Hep., AIDS, mental health diagnosis, sleep apnea, morbid obesity)? @ -None Was patient admitted / discharged? Hospital course, mention meds given and route, prescriptions, significant lab abnormalities, going to OR and other pertinent info. @ -[Discharge patient is RSV positive supportive treatment was started, patient is no signs distress no hypoxia. Undiagnosed new problem with uncertain prognosis? @ -No Drug Therapy requiring intensive monitoring for toxicity (Heparin, Nitro, Insulin, Cardizem)? @ -No Were any procedures done? @ -No Diagnosis/symptom? @ -[RSV Acute, or Chronic, or Acute on Chronic? @ -Acute Uncomplicated (without systemic symptoms) or Complicated (systemic symptoms)? @ -Uncomplicated Side effects of treatment? @ -[No Exacerbation, Progression, or Severe Exacerbation? @ -No Poses a threat to life or bodily function? How? (Chest pain, [place], [place], pneumonia, PE, COPD, DKA, ARF, appy, cholecystitis, CVA, Diverticulitis, Homicidal, Suicidal, threat to staff... and all critical care pts) @ -No - Lab Data Lab Results 11/10/23 Range/Units 14:26 Influenza Type A (PCR) Not Detected (Not Detectd) Influenza Type B (PCR) Not Detected (Not Detectd) RSV (PCR) Detected A (Not Detectd) SARS-CoV-2 (PCR) Not Detected (Not Detectd) Disposition Clinical Impression: RSV infection Disposition: HOME SELF-CARE Condition: Stable Instructions (If sedation given, give patient instructions): Respiratory Syncytial Virus (ED) Additional Instructions: Please return to the Emergency Department if symptoms worsen or any other concerns. Is patient prescribed a controlled substance at d/c from ED?: No Referrals: Gorge Tripathi DO [Primary Care Provider] - 1-2 days Time of Disposition: 15:21
[2023-11-10 16:07] VITALS: BP 118/62; PULSE 80; TEMP 98.2
== END 2023-11-10 15:41 | disposition home or self-care (01) ==
LOC: EC 13:20
DX: R05.9 Cough, unspecified (principal); R50.9 Fever, unspecified; R09.81 Nasal congestion; B97.4 Respiratory syncytial virus as the cause of diseases classified elsewhere; E11.40 Type 2 diabetes mellitus with diabetic neuropathy, unspecified; I11.0 Hypertensive heart disease with heart failure; I50.9 Heart failure, unspecified; I25.10 Atherosclerotic heart disease of native coronary artery without angina pectoris; E78.5 Hyperlipidemia, unspecified; F32.A Depression, unspecified; F41.9 Anxiety disorder, unspecified; J44.9 Chronic obstructive pulmonary disease, unspecified; I25.2 Old myocardial infarction; Z20.822 Contact with and (suspected) exposure to COVID-19; Z79.4 Long term (current) use of insulin; Z79.84 Long term (current) use of oral hypoglycemic drugs; Z79.899 Other long term (current) drug therapy; Z87.891 Personal history of nicotine dependence; Z90.49 Acquired absence of other specified parts of digestive tract
CPT/HCPCS: 71046; 87636; 99283

== ENCOUNTER → 2024-04-24 | Outpatient (CLI) | payer MEDICARE, OTHER ==
--- NOTE | 2024-04-24 10:19 | XR ---
EXAMINATION TYPE: XR cervical spine comp DATE OF EXAM: 04/24/2024 COMPARISON: NONE HISTORY: Pain TECHNIQUE: Four views are submitted. FINDINGS: The odontoid is intact. There are no compression deformities. The prevertebral soft tissue structur es are within normal limits. Multilevel hypertrophic and degenerative changes with multilevel facet arthropathy. Suspect foraminal encroachment C5-C6. Soft tissue ossifications noted. IMPRESSION: 1. Multilevel mild degenerative disc disease and hypertrophic spurring with facet arthropathy. Suspec t foraminal encroachment C5-C6. Consider follow-up MRI..
--- NOTE | 2024-04-24 10:20 | XR ---
EXAM TYPE: LUMBAR SPINE X RAY SERIES COMPARISON: NONE HISTORY: Pain TECHNIQUE: 4 views are submitted. FINDINGS: Alignment is anatomic. The pedicles are intact. The transverse processes are intact. There is no s pondylolisthesis. Diffuse osteopenia with multilevel [id number] degenerative disc disease. Fac et arthropathy lower lumbar spine. IMPRESSION: 1. Multilevel [id number] degenerative disc disease.
--- NOTE | 2024-04-24 10:22 | XR ---
EXAMINATION TYPE: XR shoulder limited LT DATE OF EXAM: 04/24/2024 COMPARISON: NONE HISTORY: Pain TECHNIQUE: Two views are submitted. FINDINGS: The osseous structures are intact. There is no acute fracture or dislocation. Mild AC joint arthropa thy.. IMPRESSION: 1. Mild AC joint arthropathy..
--- NOTE | 2024-04-24 10:22 | XR ---
EXAMINATION TYPE: XR thoracic spine complete DATE OF EXAM: 04/24/2024 COMPARISON: NONE HISTORY: Pain TECHNIQUE: 3 views submitted FINDINGS: Alignment is anatomic. There is a multilevel moderate degenerative disc disease and hypertrophic spu rring. Mild loss of vertebral body height in a mid thoracic segment appears chronic. Lung urban kervin r. Heart size normal. Surgical clips gallbladder fossa. Generalized demineralization. IMPRESSION: 1. Multilevel moderate degenerative disc disease.
== END | disposition home or self-care (01) ==
LOC: RADXRMAIN 09:04
PROVIDERS: ATTEND Family Medicine
DX: M51.17 Intervertebral disc disorders with radiculopathy, lumbosacral region (principal); M51.15 Intervertebral disc disorders with radiculopathy, thoracolumbar region; M19.012 Primary osteoarthritis, left shoulder
CPT/HCPCS: 72050; 72072; 72100

== ENCOUNTER 2024-10-26 15:04 | Inpatient (IN) | payer MEDICARE, OTHER ==
[2024-10-26] MEDS: ASPIRIN 81 MG PO STA (16:03)
[2024-10-26 16:37] LABS: Basophils % (A) 0 %; Eosinophils # (A) 0.1 k/uL (0-0.7); Eosinophils % (A) 1 %; HCT 33.6 % (34.0-46.0); HGB 10.8 gm/dL (11.4-16.0); Lymphocytes # (A) 2.2 k/uL (1.0-4.8); Lymphocytes % (A) 20 %; MCH 31.2 pg (25.0-35.0); MCHC 32.1 g/dL (31.0-37.0); MCV 97.1 fL (80.0-100.0); Mean Platelet Volume 8.1; Monocytes # (A) 0.4 k/uL (0-1.0); Monocytes % (A) 4 %; Neutrophils # (A) 8.4 k/uL (1.3-7.7); Neutrophils % (A) 75 %; Platelet Count 293 k/uL (150-450); RBC 3.46 m/uL (3.80-5.40); RDW 12.9 % (11.5-15.5); WBC 11.2 k/uL (3.8-10.6)
[2024-10-26 16:38] LABS: ALT 20 U/L (4-34); AST 22 U/L (14-36); African American GFR (CKD) 70 (>60 ml/min/1.73 sqM); Albumin 4.1 g/dL (3.5-5.0); Alkaline Phosphatase 61 U/L (38-126); Anion Gap 11 mmol/L; Blood Urea Nitrogen 15 mg/dL (7-17); Calcium 9.1 mg/dL (8.4-10.2); Carbon Dioxide 19 mmol/L (22-30); Chloride 108 mmol/L (98-107); Glucose 170 mg/dL (74-99); Magnesium 1.1 mg/dL (1.6-2.3); Non-African American GFR(CKD) 61 (>60 ml/min/1.73 sqM); Potassium 5.2 mmol/L (3.5-5.1); Sodium 138 mmol/L (137-145); Total Bilirubin 0.3 mg/dL (0.2-1.3); Total Protein 6.7 g/dL (6.3-8.2)
[2024-10-26 16:46] LABS: NT-Pro-B-Type Natriuretic Pept 3590 pg/mL
[2024-10-26 16:56] LABS: INR 0.9 (<1.2); Prothrombin Time 10.6 sec (10.0-12.5)
[2024-10-26 16:59] LABS: Partial Thromboplastin Time 20.8 sec (22.0-30.0)
[2024-10-26 17:04] LABS: Influenza A Not Detected (Not Detectd); Influenza B Not Detected (Not Detectd); RSV Not Detected (Not Detectd)
[2024-10-26] MEDS: IPRATROPIUM-ALBUTEROL 3 ML NEB INHALATION STA (17:06)
--- NOTE | 2024-10-26 17:14 | XR ---
EXAMINATION TYPE: XR chest 2V DATE OF EXAM: 10/26/2024 4:46 PM COMPARISON: None. CLINICAL INDICATION: Female, 54 years old with history of difficulty breathing, TECHNIQUE: XR chest 2V view(s) obtained. FINDINGS: The heart size is normal. The pulmonary vasculature is normal. There may be a small posterior infiltrate. Correlate for posterior pneumonia or atelectasis. Some st reak atelectasis is likely present. Consider atypical pneumonia. IMPRESSION: 1. Linear opacities and a posterior infiltrate on the lateral projection. Correlate for atelectasis a nd pneumonia. Follow-up can be performed. [facility], Workstation: [id number], 10/26/2024 5:12 PM
[2024-10-26] MEDS: SODIUM CHLORIDE 0.9% 500 ML 500 ML IV STA (17:36)
[2024-10-26] MEDS: MAGNESIUM SULFATE-D5W PMX 1 GM in DEXTROSE/WATER 1 100ML.BAG IVPB ONE (17:44)
[2024-10-26] MEDS ORDERED: ONDANSETRON 4 MG/2 ML VIAL IVP PRN (17:50)
[2024-10-26] MEDS ORDERED: NALOXONE 0.4 MG/ML 1 ML VIAL IV PRN (17:50)
--- NOTE | 2024-10-26 17:52 | ED ---
General Adult HPI - General Chief complaint: Shortness of Breath Stated complaint: ramila Time Seen by Provider: 10/26/24 15:40 Source: patient, EMS, RN notes reviewed, old records reviewed Mode of arrival: EMS - History of Present Illness Initial comments: Patient is a 54-year-old female who presents emergency department complaining of chest pain and shortness of breath. States that she began developing left-sided chest discomfort and shortness of breath earlier today. Has a history of COPD. Also history of CHF but is no longer on Lasix. Denies any history of cardiac stents. States she received a breathing treatment on the way to the hospital which did resolve her chest discomfort and breathing symptoms. Is not usually on oxygen at home. Presents for further evaluation. Patient has been off her Lasix for the last month. She was taken off and on by her PCP or site specialist, she cannot recall. Presents for further evaluation at this time. Currently has no complaints. States that the chest pain she had was a squeezing sensation left chest with no radiation. Did feel nauseous with it. Presents for further evaluation at this time. - Related Data Home Medications Medication Instructions Recorded Confirmed buPROPion HCL [Wellbutrin SR] 150 mg PO BID 09/30/15 10/26/24 Atorvastatin [Lipitor] 80 mg PO HS 06/10/18 10/26/24 Sertraline [Zoloft] 200 mg PO HS 06/10/18 10/26/24 hydrOXYzine HCL [Atarax] 25 mg PO HS 06/10/18 10/26/24 metFORMIN HCL [Glucophage] 1,000 mg PO BID 05/24/23 10/26/24 Gabapentin 600 mg PO Q8H PRN 10/26/24 10/26/24 Metoprolol Succinate (ER) [Toprol 50 mg PO BID 10/26/24 10/26/24 Xl] Spironolactone [Aldactone] 25 mg PO DAILY 10/26/24 10/26/24 lisinopriL [Zestril] 10 mg PO DAILY 10/26/24 10/26/24 methIMAzole [Tapazole] 5 mg PO MOWEFRSA 10/26/24 10/26/24 Allergies Allergy/AdvReac Type Severity Reaction Status Date / Time adhesive Allergy Rash/Hives Verified 10/26/24 17:42 bee pollen Allergy Unknown Verified 10/26/24 17:42 shellfish derived [Shellfish] Allergy Swelling Verified 10/26/24 17:42 venom-honey bee Allergy Anaphylaxis Verified 10/26/24 17:42 amoxicillin [From Augmentin] AdvReac Nausea & Verified 10/26/24 17:42 Vomiting clavulanic acid AdvReac Nausea & Verified 10/26/24 17:42 [From Augmentin] Vomiting erythromycin base AdvReac Nausea & Verified 10/26/24 17:42 Vomiting propoxyphene AdvReac Nausea & Verified 10/26/24 17:42 [From Darvocet-N] Vomiting BANDAIDS Allergy Rash/Hives Uncoded 10/26/24 17:42 Review of Systems ROS Statement: Those systems with pertinent positive or pertinent negative responses have been documented in the HPI. Review of Systems: CONST: Denies fever EYES: Denies blurry vision ENT: Denies nasal congestion C/V: Denies Chest pain RESP: Denies shortness of breath GI: Denies abdominal pain : Denies dysuria SKIN: Denies rash. MSK: Denies joint pain. NEURO: Denies headache ROS Other: All systems not noted in ROS Statement are negative. Past Medical History Past Medical History: Coronary Artery Disease (CAD), Chest Pain / Angina, Heart Failure, COPD, Diabetes Mellitus, Hearing Disorder / Deafness, Hyperlipidemia, Hypertension, Liver Disease, Myocardial Infarction (DC), Osteoarthritis (OA), Thyroid Disorder Additional Past Medical History / Comment(s): Neuropathy bilateral feet/lower legs, balance problems-"trips" has cane, graves disease, polycystic ovaries, rt ear deaf, "one artery in my heart goes in the back of the heart instead of the front", "fast heart rate", fatty liver, diabetes type 2 Last Myocardial Infarction Date:: Unknown History of Any Multi-Drug Resistant Organisms: None Reported Past Surgical History: Adenoidectomy, Breast Surgery, Section, Cholecystectomy, Ear Surgery, Heart Catheterization, Tonsillectomy Additional Past Surgical History / Comment(s): Rt groin arterial clot removal after cardiac cath, titanium bones in R ear. surgery left ear, rt breast lumpectomy Past Anesthesia/Blood Transfusion Reactions: Postoperative Nausea & Vomiting (PONV) Past Psychological History: Anxiety, Depression Smoking Status: Former smoker Past Alcohol Use History: None Reported Past Drug Use History: None Reported - Past Family History Father Family Medical History: CVA/TIA, Myocardial Infarction (DC) Additional Family Medical History / Comment(s): . Mother Family Medical History: Cancer, Myocardial Infarction ([place]) Additional Family Medical History / Comment(s): THYROID CA. General Exam - General Exam Comments Initial Comments: General: Appears in no acute distress. HEAD: Normal with no signs of head trauma. EYES: PERRLA, EOMI, conjunctiva normal, no discharge. ENT: Hearing grossly intact, normal oropharynx. RESPIRATORY: Bilateral wheezing. No hypoxia. No increased work of breathing. C/V: Regular rate and rhythm. S1 and S2 auscultated, no edema, peripheral pulses 2+ and intact throughout ABD: Abd is soft, nontender, nondistended EXT: Normal range of motion, no obvious deformity SKIN: No rashes or lesions observed on exposed skin. NEURO: Alert and orient x 4. Course Vital Signs 10/26/24 10/26/24 10/26/24 15:07 15:14 16:17 Temperature 98.1 F Pulse Rate 90 88 85 Respiratory 16 16 14 Rate Blood Pressure 142/77 142/77 142/77 O2 Sat by Pulse 98 98 97 Oximetry 10/26/24 10/26/24 10/26/24 17:06 17:18 17:46 Temperature Pulse Rate 80 78 84 Respiratory 16 Rate Blood Pressure 129/81 O2 Sat by Pulse 99 Oximetry 10/26/24 10/26/24 10/26/24 18:20 19:13 20:04 Temperature Pulse Rate 82 85 79 Respiratory 16 16 Rate Blood Pressure 128/72 120/82 O2 Sat by Pulse 98 99 Oximetry 10/26/24 10/26/24 20:14 20:41 Temperature 98.8 F Pulse Rate 84 83 Respiratory 18 Rate Blood Pressure 119/71 O2 Sat by Pulse 97 Oximetry Medical Decision Making - Medical Decision Making Was pt. sent in by a medical professional or institution (, PA, ETHNIC ORIGINS TEACHER, urgent care, hospital, or [facility]...) When possible be specific @ -No Did you speak to anyone other than the patient for history (EMS, parent, family, police, friend...)? What history was obtained from this source @ -No Did you review nursing and triage notes (agree or disagree)? Why? @ -I reviewed and agree with nursing and triage notes Were old charts reviewed (outside hosp., previous admission, EMS record, old EKG, old radiological studies, urgent care reports/EKG's, [facility] records)? Report findings @ -Old charts reviewed confirming patient's prior medications. Differential Diagnosis (chest pain, altered mental status, abdominal pain women, abdominal pain men, vaginal bleeding, weakness, fever, dyspnea, syncope, headache, dizziness, GI bleed, back pain, seizure, CVA, palpatations, mental health, musculoskeletal)? @ -Differential Dyspnea: Coronary syndrome, arrhythmia, tamponade, asthma, COPD, pulmonary embolism, pneumonia, pneumothorax, pulmonary effusion, anaphylaxis, diabetic ketoacidosis, flailed chest, pulmonary contusion, diaphragmatic rupture, anemia, neuromuscula r, this is not meant to be an all-inclusive list. EKG interpreted by me (3pts min.). @ -As above X-rays interpreted by me (1pt min.). @ -Chest x-ray reveals possible pneumonia. Possible pulmonary vascular congestion as well. Possible atelectasis. CT interpreted by me (1pt min.). @ -None done U/S interpreted by me (1pt. min.). @ -None done What testing was considered but not performed or refused? (CT, X-rays, U/S, labs)? Why? @ -None What meds were considered but not given or refused? Why? @ -None Did you discuss the management of the patient with other professionals (professionals i.e. , PA, ETHNIC ORIGINS TEACHER, lab, RT, psych nurse, community mental health social worker, truss designer, teacher, consumer loan officer, keycase assembler)? Give summary @ -Discussed with the admitting provider, ETHAN Vera of [facility] who accepted the admission. Was smoking cessation discussed for >3mins.? @ -No Was critical care preformed (if so, how long)? @ -No Were there social determinants of health that impacted care today? How? (Homelessness, low income, unemployed, alcoholism, drug addiction, transportation, low edu. Level, literacy, decrease access to med. care, intermediate, rehab)? @ -No Was there de-escalation of care discussed even if they declined (Discuss DNR or withdrawal of care, Hospice)? DNR status @ -No What co-morbidities impacted this encounter? (DM, HTN, Smoking, COPD, CAD, Cancer, CVA, ARF, Chemo, Hep., AIDS, mental health diagnosis, sleep apnea, morbid obesity)? @ -COPD, CHF Was patient admitted / discharged? Hospital course, mention meds given and route, prescriptions, significant lab abnormalities, going to OR and other p ertinent info. @ -Presents emergency department with dyspnea and chest pain. Currently is symptom-free. Symptoms resolved with a breathing treatment on the way here. Vitals within acceptable limits. Patient will be given IV steroids and additional breathing treatment. She was in agreement this plan. Vitals within acceptable limits. Chest x-ray shows pneumonia versus atelectasis versus pulmonary vascular congestion. Laboratory studies are remarkable for a hypomagnesemia of 1.1 which is replenished. Troponin is undetectable. BNP is elevated to 3500. Viral swabs negative. I discussed with the patient, and patient will be empirically given antibiotics. She will be started on IV Lasix again twice daily with cardiology consult and patient will also be given IV steroids and breathing treatments. Patient was in agreement this plan. I spoke with the admitting provider, ETHAN Vera of [facility] who accepted the admission. Undiagnosed new problem with uncertain prognosis? @ -No Drug Therapy requiring intensive monitoring for toxicity (Heparin, Nitro, Insulin, Cardizem)? @ -No Were any procedures done? @ -No Diagnosis/symptom? @ -COPD, CHF, chest pain, possible pneumonia Acute, or Chronic, or Acute on Chronic? @ -Acute Uncomplicated (without systemic symptoms) or Complicated (systemic symptoms)? @ -Complicated Side effects of treatment? @ -No Exacerbation, Progression, or Severe Exacerbation? @ -No Poses a threat to life or bodily function? How? (Chest pain, USA, DC, pneumonia, PE, COPD, DKA, ARF, appy, cholecystitis, CVA, Diverticulitis, Homicidal, Suicidal, threat to staff... and all critical care pts) @ -Potentially, yes - Lab Data Result diagrams: 10/26/24 16:07 10/26/24 16:07 Lab Results 10/26/24 10/26/24 10/26/24 Range/Units 16:07 16:07 16:07 WBC 11.2 H (3.8-10.6) k/uL RBC 3.46 L (3.80-5.40) m/uL Hgb 10.8 L (11.4-16.0) gm/dL Hct 33.6 L (34.0-46.0) % MCV 97.1 (80.0-100.0) fL MCH 31.2 (25.0-35.0) pg MCHC 32.1 (31.0-37.0) g/dL RDW 12.9 (11.5-15.5) % Plt Count 293 (150-450) k/uL MPV 8.1 Neutrophils % 75 % Lymphocytes % 20 % Monocytes % 4 % Eosinophils % 1 % Basophils % 0 % Neutrophils # 8.4 H (1.3-7.7) k/uL Lymphocytes # 2.2 (1.0-4.8) k/uL Monocytes # 0.4 (0-1.0) k/uL Eosinophils # 0.1 (0-0.7) k/uL Basophils # 0.0 (0-0.2) k/uL PT 10.6 (10.0-12.5) sec INR 0.9 (<1.2) APTT 20.8 L (22.0-30.0) sec Sodium 138 (137-145) mmol/L Potassium 5.2 H (3.5-5.1) mmol/L Chloride 108 H (98-107) mmol/L Carbon Dioxide 19 L (22-30) mmol/L Anion Gap 11 mmol/L BUN 15 (7-17) mg/dL Creatinine 1.03 (0.52-1.04) mg/dL Est GFR (CKD-EPI)AfAm 70 (>60 ml/min/1.73 sqM) Est GFR (CKD-EPI)NonAf 61 (>60 ml/min/1.73 sqM) Glucose 170 H (74-99) mg/dL Plasma Lactic Acid Kiet (0.7-2.0) mmol/L Calcium 9.1 (8.4-10.2) mg/dL Magnesium 1.1 L (1.6-2.3) mg/dL Total Bilirubin 0.3 (0.2-1.3) mg/dL AST 22 (14-36) U/L ALT 20 (4-34) U/L Alkaline Phosphatase 61 (38-126) U/L Troponin I (0.000-0.034) ng/mL NT-Pro-B Natriuret Pep 3590 pg/mL Total Protein 6.7 (6.3-8.2) g/dL Albumin 4.1 (3.5-5.0) g/dL Influenza Type A (PCR) (Not Detectd) Influenza Type B (PCR) (Not Detectd) RSV (PCR) (Not Detectd) SARS-CoV-2 (PCR) (Not Detectd) 10/26/24 10/26/24 10/26/24 Range/Units 16:07 16:07 16:07 WBC (3.8-10.6) k/uL RBC (3.80-5.40) m/uL Hgb (11.4-16.0) gm/dL Hct (34.0-46.0) % MCV (80.0-100.0) fL MCH (25.0-35.0) pg MCHC (31.0-37.0) g/dL RDW (11.5-15.5) % Plt Count (150-450) k/uL MPV Neutrophils % % Lymphocytes % % Monocytes % % Eosinophils % % Basophils % % Neutrophils # (1.3-7.7) k/uL Lymphocytes # (1.0-4.8) k/uL Monocytes # (0-1.0) k/uL Eosinophils # (0-0.7) k/uL Basophils # (0-0.2) k/uL PT (10.0-12.5) sec INR (<1.2) APTT (22.0-30.0) sec Sodium (137-145) mmol/L Potassium (3.5-5.1) mmol/L Chloride (98-107) mmol/L Carbon Dioxide (22-30) mmol/L Anion Gap mmol/L BUN (7-17) mg/dL Creatinine (0.52-1.04) mg/dL Est GFR (CKD-EPI)AfAm (>60 ml/min/1.73 sqM) Est GFR (CKD-EPI)NonAf (>60 ml/min/1.73 sqM) Glucose (74-99) mg/dL Plasma Lactic Acid Kiet 1.9 (0.7-2.0) mmol/L Calcium (8.4-10.2) mg/dL Magnesium (1.6-2.3) mg/dL Total Bilirubin (0.2-1.3) mg/dL AST (14-36) U/L ALT (4-34) U/L Alkaline Phosphatase (38-126) U/L Troponin I <0.012 (0.000-0.034) ng/mL NT-Pro-B Natriuret Pep pg/mL Total Protein (6.3-8.2) g/dL Albumin (3.5-5.0) g/dL Influenza Type A (PCR) Not Detected (Not Detectd) Influenza Type B (PCR) Not Detected (Not Detectd) RSV (PCR) Not Detected (Not Detectd) SARS-CoV-2 (PCR) Not Detected (Not Detectd) - EKG Data -: EKG Interpreted by Me EKG Comments: 12-lead Electrocardiogram Interpretation Note EKG was reviewed and interpreted by myself. 12-lead ECG performed at 1532 is interpreted by me as revealing normal sinus rhythm at a rate of 88 beats per minute. [place] is normal. CT interval is 180 ms, QRS duration is 125 ms, QTc is [address] segment and T wave abnormalities seen in the inferior and lateral precordial leads which are chronic. Chronic left bundle branch block morphology with paired with EKG from May 2023.. R wave progression across the precordium was satisfactory. By my interpretation this EKG is non- diagnostic for acute ischemia. Disposition Clinical Impression: CHF (congestive heart failure), COPD (chronic obstructive pulmonary disease), Chest pain, Pneumonia Disposition: ADMITTED IP TO THIS HOSP Condition: Stable Time of Disposition: 17:30
[2024-10-26] MEDS: LEVOFLOXACIN 750MG-D5W PMX 750 MG in DEXTROSE/WATER 1 150ML.BAG IVPB STA (18:23)
[2024-10-26] MEDS: FUROSEMIDE 10 MG/ML 4 ML VIAL IV STA (18:35)
[2024-10-26] MEDS: IPRATROPIUM-ALBUTEROL 3 ML NEB INHALATION SCH (20:04)
[2024-10-26] MEDS: methylPREDNISolone SOD SUCCI 40 MG/ML 1 ML VIAL IV SCH (20:11)
[2024-10-26] MEDS: GABAPENTIN 300 MG CAP PO PRN (23:36)
[2024-10-26] MEDS: ATORVASTATIN 80 MG TAB PO SCH (23:36)
[2024-10-26] MEDS: hydrOXYzine HCL 25 MG TAB PO SCH (23:37)
[2024-10-26] MEDS: SERTRALINE 100 MG TAB PO SCH (23:37)
[2024-10-26] MEDS: methIMAzole 5 MG TAB PO SCH (23:37)
[2024-10-27 00:32] LABS: WBC 10.2 k/uL (3.8-10.6)
[2024-10-27 00:33] LABS: Basophils % (A) 0 %; Eosinophils % (A) 0 %; HCT 31.4 % (34.0-46.0); HGB 10.3 gm/dL (11.4-16.0); Lymphocytes # (A) 0.8 k/uL (1.0-4.8); Lymphocytes % (A) 8 %; MCH 31.5 pg (25.0-35.0); MCHC 32.8 g/dL (31.0-37.0); MCV 96.1 fL (80.0-100.0); Mean Platelet Volume 7.7; Monocytes # (A) 0.1 k/uL (0-1.0); Monocytes % (A) 1 %; Neutrophils # (A) 9.2 k/uL (1.3-7.7); Neutrophils % (A) 90 %; Platelet Count 253 k/uL (150-450); RBC 3.27 m/uL (3.80-5.40); RDW 12.9 % (11.5-15.5)
[2024-10-27 00:50] LABS: ALT 18 U/L (4-34); AST 21 U/L (14-36); African American GFR (CKD) 70 (>60 ml/min/1.73 sqM); Albumin 4.2 g/dL (3.5-5.0); Albumin/Globulin Ratio 1.7; Alkaline Phosphatase 64 U/L (38-126); Anion Gap 14 mmol/L; Blood Urea Nitrogen 18 mg/dL (7-17); Calcium 9.3 mg/dL (8.4-10.2); Carbon Dioxide 17 mmol/L (22-30); Chloride 103 mmol/L (98-107); Globulin 2.5 g/dL; Glucose 225 mg/dL (74-99); Non-African American GFR(CKD) 61 (>60 ml/min/1.73 sqM); Potassium 4.9 mmol/L (3.5-5.1); Sodium 134 mmol/L (137-145); Total Bilirubin 0.4 mg/dL (0.2-1.3); Total Protein 6.7 g/dL (6.3-8.2)
[2024-10-27] MEDS: HEPARIN SODIUM,PORCINE 5,000 UNIT/ML 1 ML VIAL SQ SCH (02:16)
[2024-10-27] MEDS: IPRATROPIUM-ALBUTEROL 3 ML NEB INHALATION SCH (08:12)
[2024-10-27] MEDS: lisinopriL 10 MG TAB PO SCH (08:33)
[2024-10-27] MEDS: SPIRONOLACTONE 25 MG TAB PO SCH (08:33)
[2024-10-27] MEDS: FUROSEMIDE 10 MG/ML 4 ML VIAL IV SCH (08:33)
[2024-10-27] MEDS: METOPROLOL SUCCINATE (ER) 50 MG TAB.ER.24H PO SCH (08:34)
[2024-10-27] MEDS: buPROPion SR 150 MG TABLET.ER PO SCH (08:34)
--- NOTE | 2024-10-27 09:51 | P.CRDCN ---
History of Present Illness Consult date: 10/27/24 Consult reason: chest pain, congestive heart failure History of present illness: This is a 54-year-old female patient of Dr. 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 We have been asked to evaluate the patient for CHF and chest pain. Patient states that starting on she was having trouble breathing and then it continued to worsen and by Tuesday afternoon it was significantly worse. Patient is noted to be hoarse. Blood pressure 127/82, heart rate 82, pulse ox 97% on room air. Patient has been started on IV Lasix 40 mg every 12 hours. Patient is a smoker cut down to 2 cigarettes/day. -EKG: Sinus rhythm with nonspecific ST changes, left bundle branch block. -Chest x-ray: Linear opacities and a posterior infiltrate at the lateral projection. Correlate for atelectasis and pneumonia. -Laboratory studies: WBC 10.2 down from 11.2, hemoglobin 10.3. Sodium 134, pot assium 4.9, BUN 18 creatinine 1.03. Troponin negative x 3. proBNP 3590. Cepheid viral panel negative. -Home cardiac medications: Atorvastatin 80 mg at bedtime, lisinopril 10 mg daily, metoprolol succinate 50 mg twice daily, spironolactone 25 mg daily. -Cardiac catheterization performed 02/07/2019 revealed left circumflex is originating from the right coronary cusp. Normal coronaries. Echocardiogram performed in the office on 08/28/2024 revealed mild , bicuspid AV, EF 40 to 45%. Lexiscan Cardiolite stress test performed in the office on 04/24/2024 revealed normal study. Review Of Systems: At the time of my exam: CONSTITUTIONAL: Denies fever or chills. HEENT: Denies blurred vision, vision changes, or eye pain. Denies hemoptysis CARDIOVASCULAR: Denies chest pain. Denies orthopnea. Denies PND. Denies palpitations RESPIRATORY: Reports shortness of breath. GASTROINTESTINAL: Denies abdominal pain. Denies nausea or vomiting. HEMATOLOGIC: Denies bleeding disorders. GENITOURINARY: Denies any blood in urine. SKIN: Denies puritis. Denies rash. Physical examination: Gen: This is a 54-year-old female in no acute distress VS: reviewed HEENT: Head is atraumatic, normocephalic. Pupils equal, round. Sclerae is anicteric. NECK: Supple. No JVD. LUNGS: No crackles. No wheezes or rhonchi. No intercostal retractions. HEART: Regular rate and rhythm. Systolic murmur at the left lower sternal border. ABDOMEN: Soft No tenderness. EXTREMITIES: Mild lower extremity edema. No calf tenderness. NEUROLOGICAL: Patient is awake, alert and oriented x3. Assessment: Acute diastolic heart failure Atypical chest pain, acute coronary syndrome ruled out Bicuspid aortic valve, mild AAS Dyslipidemia Hypertension Valvular heart disease Tobacco use and dependence Plan: Resume patient's home cardiac medications Continue patient on IV Lasix 40 mg every 12 hours Monitor NEO, daily weights, electrolytes and renal function Obtain 2-D echocardiogram and Doppler study to assess cardiac structure and function Further recommendations to follow based upon clinical course Thank you kindly for this consultation. Nurse practitioner note has been reviewed, I agree with documented findings and plan of care. Patient was seen and examined. Past Medical History Past Medical History: Coronary Artery Disease (CAD), Chest Pain / Angina, Heart Failure, COPD, Diabetes Mellitus, Hearing Disorder / Deafness, Hyperlipidemia, Hypertension, Liver Disease, Myocardial Infarction ([place]), Osteoarthritis (OA), Thyroid Disorder Additional Past Medical History / Comment(s): Neuropathy bilateral feet/lower legs, balance problems-"trips" has cane, graves disease, polycystic ovaries, rt ear deaf, "one artery in my heart goes in the back of the heart instead of the front", "fast heart rate", fatty liver, diabetes type 2 Last Myocardial Infarction Date:: Unknown History of Any Multi-Drug Resistant Organisms: None Reported Past Surgical History: Adenoidectomy, Breast Surgery, Section, Cholecystectomy, Ear Surgery, Heart Catheterization, Tonsillectomy Additional Past Surgical History / Comment(s): Rt groin arterial clot removal after cardiac cath, titanium bones in R ear. surgery left ear, rt breast lumpectomy Past Anesthesia/Blood Transfusion Reactions: Postoperative Nausea & Vomiting (PONV) Past Psychological History: Anxiety, Depression Smoking Status: Former smoker Past Alcohol Use History: None Reported Past Drug Use History: None Reported - Past Family History Father Family Medical History: CVA/TIA, Myocardial Infarction (GA) Additional Family Medical History / Comment(s): . Mother Family Medical History: Cancer, Myocardial Infarction ([place]) Additional Family Medical History / Comment(s): THYROID CA. Medications and Allergies Home Medications Medication Instructions Recorded Confirmed Type buPROPion HCL [Wellbutrin SR] 150 mg PO BID 09/30/15 10/26/24 History Atorvastatin [Lipitor] 80 mg PO HS 06/10/18 10/26/24 History Sertraline [Zoloft] 200 mg PO HS 06/10/18 10/26/24 History hydrOXYzine HCL [Atarax] 25 mg PO HS 06/10/18 10/26/24 History metFORMIN HCL [Glucophage] 1,000 mg PO BID 05/24/23 10/26/24 History Gabapentin 600 mg PO Q8H PRN 10/26/24 10/26/24 History Metoprolol Succinate (ER) [Toprol 50 mg PO BID 10/26/24 10/26/24 History Xl] Spironolactone [Aldactone] 25 mg PO DAILY 10/26/24 10/26/24 History lisinopriL [Zestril] 10 mg PO DAILY 10/26/24 10/26/24 History methIMAzole [Tapazole] 5 mg PO MOWEFRSA 10/26/24 10/26/24 History Allergies Allergy/AdvReac Type Severity Reaction Status Date / Time adhesive Allergy Rash/Hives Verified 10/26/24 17:42 bee pollen Allergy Unknown Verified 10/26/24 17:42 shellfish derived [Shellfish] Allergy Swelling Verified 10/26/24 17:42 venom-honey bee Allergy Anaphylaxis Verified 10/26/24 17:42 amoxicillin [From Augmentin] AdvReac Nausea & Verified 10/26/24 17:42 Vomiting clavulanic acid AdvReac Nausea & Verified 10/26/24 17:42 [From Augmentin] Vomiting erythromycin base AdvReac Nausea & Verified 10/26/24 17:42 Vomiting propoxyphene AdvReac Nausea & Verified 10/26/24 17:42 [From Darvocet-N] Vomiting BANDAIDS Allergy Rash/Hives Uncoded 10/26/24 17:42 Physical Exam Vitals: Vital Signs Temp Pulse Pulse Resp BP BP Pulse Ox 10/27/24 02:00 98.1 F 82 18 127/82 97 10/26/24 21:36 98.8 F 84 17 130/77 98 10/26/24 20:41 98.8 F 83 18 119/71 97 10/26/24 20:14 84 10/26/24 20:04 79 10/26/24 19:13 85 16 120/82 99 10/26/24 18:20 82 16 128/72 98 10/26/24 17:46 84 16 129/81 99 10/26/24 17:18 78 10/26/24 17:06 80 10/26/24 16:17 85 14 142/77 97 10/26/24 15:14 98.1 F 88 16 142/77 98 10/26/24 15:07 90 16 142/77 98 Intake and Output 10/26/24 10/27/24 10/27/24 22:59 06:59 14:59 Other: # Voids 1 2 Weight 63.503 kg 65.6 kg Results 10/27/24 00:12 10/27/24 00:12 Cardiac Enzymes 10/26/24 10/26/24 10/26/24 Range/Units 16:07 16:07 18:50 AST 22 (14-36) U/L Troponin I <0.012 <0.012 (0.000-0.034) ng/mL 10/26/24 10/27/24 Range/Units 23:45 00:12 AST 21 (14-36) U/L Troponin I <0.012 (0.000-0.034) ng/mL Coagulation 10/26/24 Range/Units 16:07 PT 10.6 (10.0-12.5) sec APTT 20.8 L (22.0-30.0) sec CBC 10/26/24 10/27/24 Range/Units 16:07 00:12 WBC 11.2 H 10.2 (3.8-10.6) k/uL RBC 3.46 L 3.27 L (3.80-5.40) m/uL Hgb 10.8 L 10.3 L (11.4-16.0) gm/dL Hct 33.6 L 31.4 L (34.0-46.0) % Plt Count 293 253 (150-450) k/uL Comprehensive Metabolic Panel 10/26/24 10/27/24 Range/Units 16:07 00:12 Sodium 138 134 L (137-145) mmol/L Potassium 5.2 H 4.9 (3.5-5.1) mmol/L Chloride 108 H 103 (98-107) mmol/L Carbon Dioxide 19 L 17 L (22-30) mmol/L BUN 15 18 H (7-17) mg/dL Creatinine 1.03 1.03 (0.52-1.04) mg/dL Glucose 170 H 225 H (74-99) mg/dL Calcium 9.1 9.3 (8.4-10.2) mg/dL AST 22 21 (14-36) U/L ALT 20 18 (4-34) U/L Alkaline Phosphatase 61 64 (38-126) U/L Total Protein 6.7 6.7 (6.3-8.2) g/dL Albumin 4.1 4.2 (3.5-5.0) g/dL Current Medications Generic Name Dose Route Start Last Admin Trade Name Freq PRN Reason Stop Dose Admin Albuterol/Ipratropium 3 ml 10/27/24 08:00 Ipratropium-Albuterol 3 Ml Neb INHALATION RT-QID [facility] Atorvastatin Calcium 80 mg 10/26/24 22:45 10/26/24 23:36 Atorvastatin 80 Mg Tab PO 80 mg HS CORI Administration Bupropion HCl 150 mg 10/27/24 09:00 Bupropion Sr 150 Mg Tablet.Er PO BID CORI Furosemide 40 mg 10/27/24 09:00 Furosemide 10 Mg/Ml 4 Ml Vial IV Q12HR CORI Gabapentin 600 mg 10/26/24 22:38 10/26/24 23:36 Gabapentin 300 Mg Cap PO 600 mg Q8H PRN Administration restless legs/pain Heparin Sodium (Porcine) 5,000 unit 10/27/24 00:00 10/27/24 02:16 Heparin Sodium,Porcine 5,000 Unit/Ml 1 Ml Vial SQ Not Given Q8HR CORI Hydroxyzine HCl 25 mg 10/26/24 22:45 10/26/24 23:37 Hydroxyzine Hcl 25 Mg Tab PO 25 mg HS CORI Administration Lisinopril 10 mg 10/27/24 09:00 Lisinopril 10 Mg Tab PO DAILY CORI Methimazole 5 mg 10/26/24 22:45 10/26/24 23:37 Methimazole 5 Mg Tab PO 5 mg [id number] CORI Administration Metoprolol Succinate 50 mg 10/27/24 09:00 Metoprolol Succinate (Er) 50 Mg Tab.Er.24h PO BID CORI Naloxone HCl 0.2 mg 10/26/24 17:50 Naloxone 0.4 Mg/Ml 1 Ml Vial IV Q2M PRN Opioid Reversal Ondansetron HCl 4 mg 10/26/24 17:50 Ondansetron 4 Mg/2 Ml Vial IVP Q8HR PRN Nausea And Vomiting Sertraline HCl 200 mg 10/26/24 22:45 10/26/24 23:37 Sertraline 100 Mg Tab PO 200 mg HS CORI Administration Spironolactone 25 mg 10/27/24 09:00 Spironolactone 25 Mg Tab PO DAILY CORI Intake and Output 10/26/24 10/27/24 10/27/24 22:59 06:59 14:59 Other: # Voids 1 2 Weight 63.503 kg 65.6 kg 10/27/24 00:12 10/27/24 00:12
--- NOTE | 2024-10-27 11:05 | P.CNPUL ---
History of Present Illness Consult date: 10/27/24 Requesting physician: Josue Vaughan Reason for consult: dyspnea Chief complaint: Shortness of breath History of present illness: This is a 54-year-old female patient with a known history of hyperlipidemia, diabetes mellitus, hypertension, congestive heart failure, coronary artery disease with previous stent placement, anxiety/depression former smoker. She presented here to the emergency room yesterday with complaints of chest pain and increasing shortness of breath. The pain and shortness of breath started earlier that same day. She states she does have a history of congestive heart failure but had not been on Lasix at home. Filtrate on the lateral projection. Correlate for atelectasis. White count 10.2. Hemoglobin 10.3. Platelets 253. Sodium 134. Potassium 4.9. Bicarb 17. BUN 18. Creatinine 1.03. Glucose 225. Troponins are negative x 3. proBNP 3590. Viral screen is negative. Procalcitonin is negative. She is seen today in consultation on the regular medical floor. She is currently sitting up in bed. Awake and alert in no acute distress. Maintaining good O2 saturations in the 90s on room air. No IV fluids. She has been initiated on Lasix 40 mg IV every 12 hours. Review of Systems REVIEW OF SYSTEMS: CONSTITUTIONAL: Denies any recent significant weight loss or weight gain. EYES: Denies change in vision. EARS, NOSE, MOUTH, THROAT: Denies headaches, denies sore throat. CARDIOVASCULAR: Positive for chest pain, no palpitations or syncopal episodes. RESPIRATORY: Positive for shortness of breath, no cough, congestion or hemop tysis. GASTROINTESTINAL: Denies change in appetite, denies abdominal pain GENITOURINARY: Denies hematuria, denies infections. MUSKULOSKELETAL: Denies pain, denies swelling. INTEGUMENTARY: Denies rash, denies eczema. NEUROLOGICAL: Denies recent memory loss, no recent seizure activity. PSYCHIATRIC: Denies anxiety, denies depression. HEMATOLOGIC/LYMPHATIC: Denies anemia, denies enlarged lymph nodes. Past Medical History Past Medical History: Coronary Artery Disease (CAD), Chest Pain / Angina, Heart Failure, COPD, Diabetes Mellitus, Hearing Disorder / Deafness, Hyperlipidemia, Hypertension, Liver Disease, Myocardial Infarction ([place]), Osteoarthritis (OA), Thyroid Disorder Additional Past Medical History / Comment(s): Neuropathy bilateral feet/lower legs, balance problems-"trips" has cane, graves disease, polycystic ovaries, rt ear deaf, "one artery in my heart goes in the back of the heart instead of the front", "fast heart rate", fatty liver, diabetes type 2 Last Myocardial Infarction Date:: Unknown History of Any Multi-Drug Resistant Organisms: None Reported Past Surgical History: Adenoidectomy, Breast Surgery, Section, Cholecystectomy, Ear Surgery, Heart Catheterization, Tonsillectomy Additional Past Surgical History / Comment(s): Rt groin arterial clot removal after cardiac cath, titanium bones in R ear. surgery left ear, rt breast lumpectomy Past Anesthesia/Blood Transfusion Reactions: Postoperative Nausea & Vomiting (PONV) Past Psychological History: Anxiety, Depression Smoking Status: Former smoker Past Alcohol Use History: None Reported Past Drug Use History: None Reported - Past Family History Father Family Medical History: CVA/TIA, Myocardial Infarction ([place]) Additional Family Medical History / Comment(s): . Mother Family Medical History: Cancer, Myocardial Infarction ([place]) Additional Family Medical History / Comment(s): THYROID [place]. Medications and Allergies Home Medications Medication Instructions Recorded Confirmed Type buPROPion HCL [Wellbutrin SR] 150 mg PO BID 09/30/15 10/26/24 History Atorvastatin [Lipitor] 80 mg PO HS 06/10/18 10/26/24 History Sertraline [Zoloft] 200 mg PO HS 06/10/18 10/26/24 History hydrOXYzine HCL [Atarax] 25 mg PO HS 06/10/18 10/26/24 History metFORMIN HCL [Glucophage] 1,000 mg PO BID 05/24/23 10/26/24 History Gabapentin 600 mg PO Q8H PRN 10/26/24 10/26/24 History Metoprolol Succinate (ER) [Toprol 50 mg PO BID 10/26/24 10/26/24 History Xl] Spironolactone [Aldactone] 25 mg PO DAILY 10/26/24 10/26/24 History lisinopriL [Zestril] 10 mg PO DAILY 10/26/24 10/26/24 History methIMAzole [Tapazole] 5 mg PO MOWEFRSA 10/26/24 10/26/24 History Allergies Allergy/AdvReac Type Severity Reaction Status Date / Time adhesive Allergy Rash/Hives Verified 10/26/24 17:42 bee pollen Allergy Unknown Verified 10/26/24 17:42 shellfish derived [Shellfish] Allergy Swelling Verified 10/26/24 17:42 venom-honey bee Allergy Anaphylaxis Verified 10/26/24 17:42 amoxicillin [From Augmentin] AdvReac Nausea & Verified 10/26/24 17:42 Vomiting clavulanic acid AdvReac Nausea & Verified 10/26/24 17:42 [From Augmentin] Vomiting erythromycin base AdvReac Nausea & Verified 10/26/24 17:42 Vomiting propoxyphene AdvReac Nausea & Verified 10/26/24 17:42 [From Darvocet-N] Vomiting BANDAIDS Allergy Rash/Hives Uncoded 10/26/24 17:42 Physical Exam Vitals: Vital Signs Temp Pulse Pulse Resp BP BP Pulse Ox 10/27/24 08:25 97 10/27/24 08:24 80 10/27/24 08:12 79 10/27/24 07:20 97.9 F 77 17 127/76 99 10/27/24 02:00 98.1 F 82 18 127/82 97 10/26/24 21:36 98.8 F 84 17 130/77 98 10/26/24 20:41 98.8 F 83 18 119/71 97 10/26/24 20:14 84 10/26/24 20:04 79 10/26/24 19:13 85 16 120/82 99 10/26/24 18:20 82 16 128/72 98 10/26/24 17:46 84 16 129/81 99 10/26/24 17:18 78 10/26/24 17:06 80 10/26/24 16:17 85 14 142/77 97 10/26/24 15:14 98.1 F 88 16 142/77 98 10/26/24 15:07 90 16 142/77 98 Intake and Output 10/26/24 10/27/24 10/27/24 22:59 06:59 14:59 Other: # Voids 1 2 Weight 63.503 kg 65.6 kg GENERAL EXAM: Alert, pleasant 54-year-old female, on room air, comfortable in no apparent distress. HEAD: Normocephalic. EYES: Normal reaction of pupils, equal size. NOSE: Clear with pink turbinates. THROAT: No erythema or exudates. NECK: No masses, no JVD. CHEST: No chest wall deformity. LUNGS: Equal air entry with no crackles, wheeze, rhonchi or dullness. CVS: S1 and S2 normal with no audible murmur, regular rhythm. ABDOMEN: No hepatosplenomegaly, normal bowel sounds, no guarding or rigidity. SPINE: No scoliosis or deformity SKIN: No rashes CENTRAL NERVOUS SYSTEM: No focal deficits, tone is normal in all 4 extremities. EXTREMITIES: There is no peripheral edema. No clubbing, no cyanosis. Peripheral pulses are intact. Results - Laboratory Findings CBC and BMP: 10/27/24 00:12 10/27/24 00:12 PT/INR, D-dimer PT 10.6 sec (10.0-12.5) 10/26/24 16:07 INR 0.9 (<1.2) 10/26/24 16:07 Abnormal lab findings: Abnormal Labs 10/26/24 10/26/24 10/26/24 16:07 16:07 16:07 WBC 11.2 H RBC 3.46 L Hgb 10.8 L Hct 33.6 L Neutrophils # 8.4 H Lymphocytes # APTT 20.8 L Sodium Potassium 5.2 H Chloride 108 H Carbon Dioxide 19 L BUN Glucose 170 H Magnesium 1.1 L 10/27/24 10/27/24 00:12 00:12 WBC RBC 3.27 L Hgb 10.3 L Hct 31.4 L Neutrophils # 9.2 H Lymphocytes # 0.8 L APTT Sodium 134 L Potassium Chloride Carbon Dioxide 17 L BUN 18 H Glucose 225 H Magnesium - Diagnostic Findings Chest x-ray: image reviewed Assessment and Plan Assessment: Atypical chest pain, acute coronary syndrome ruled out Dyspnea secondary to an acute exacerbation of systolic congestive heart failure History of congestive heart failure, currently off Lasix at home Coronary disease with previous stent placement Hypertension Hyperlipidemia Diabetes mellitus, type II Anxiety/depression Diabetic neuropathy Plan: The patient was seen and evaluated Chest x-ray, labs and medications reviewed Currently stable and on room air Continue IV diuretics Echocardiogram pending Procalcitonin negative Home once cleared by cardiology I have personally seen and examined the patient, performed the documentation and the assessment and plan as written. Number of minutes spent on the visit: 20 Dictation was produced using [employer] dictation software. Please excuse any gram matical, word or spelling errors.
[2024-10-27] MEDS ORDERED: DEXTROSE 50% SYRINGE 50 ML IVP PRN ×2 (13:57)
--- NOTE | 2024-10-27 13:58 | P.HPIM ---
History of Present Illness H&P Date: 10/27/24 History of present illness: 54-year-old female with past medical history significant for nonischemic cardiomyopathy, sinus tachycardia, history of bicuspid aortic valve, diabetes, hypertension, hyperlipidemia, smoking who presented to ER with a complaint of shortness of breath for the last 2 days, progressively getting worse. Patient denied any fever, chills, productive cough, palpitations, nausea vomiting diarrhea constipation abdominal pain dysuria urgency frequency weakness or numbness of extremities. Vital stable WBCs 11.2, hemoglobin 10.8, platelet 293 on admission. INR 0.9. BMP unremar kable except mildly elevated potassium 5.2 now improved to 4.9. Procalcitonin negative Viral panel negative Chest x-ray negative for pneumonia. Troponin negative X3. Assessment and plan: Acute on chronic diastolic CHF Atypical chest pain Bicuspid aortic valvemild aortic stenosis Hypertension Hyperlipidemia Valvular heart disease Tobacco use: Hyperkalemia: Resolved monitor daily weight, I&O's, IV diuresis Cardiology consulted awaiting echocardiogram Pulmonary consulted Continue home meds Monitor vitals and labs Counseled to quit smoking. DVT prophylaxis Heparin s/c Monitor vital signs and labs Labs and medication were reviewed. Continue same treatment. Further recommendations as per clinical course of the patient PHYSICAL EXAMINATION: GENERAL: The patient is A&O x3, NAD HEENT: EOMI, Sclerae anicteric, Moist Mucous membranes Neck: Supple, Non tender, No JVD PULMONARY: Equal breath souds B/L, No wheezing, +crackles. CARDIOVASCULAR: S1, S2 present. No murmurs, rubs, or gallops. ABDOMEN: Soft, nontender, nondistended, normoactive bowel sounds. No guarding or rebound tenderness. MUSCULOSKELETAL: Trace edema, No cyanosis. No clubbing. Normal ROM. Intact peripheral pulses. NEUROLOGICAL: CN 2-12 grossly intact. No FND REVIEW OF SYSTEMS: CONSTITUTIONAL: No fever, no malaise, no fatigue. HEENT: No recent visual problems or hearing problems. Denied any sore throat. CARDIOVASCULAR: No chest pain, orthopnea, PND, no palpitations, no syncope. PULMONARY: No shortness of breath, no cough, no hemoptysis. GASTROINTESTINAL: No diarrhea, no nausea, no vomiting, no abdominal pain. NEUROLOGICAL: No headaches, no weakness, no numbness. HEMATOLOGICAL: Denies any bleeding or petechiae. GENITOURINARY: Denies any burning micturition, frequency, or urgency. MUSCULOSKELETAL/RHEUMATOLOGICAL: Denies any joint pain, swelling, or any muscle pain. ENDOCRINE: Denies any polyuria or polydipsia. The rest of the 14-point review of systems is negative. Dictation was produced using [employer] software. please excuse any grammatical, word or spelling errors. 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 surgery left ear, rt breast lumpectomy Past Anesthesia/Blood Transfusion Reactions: Postoperative Nausea & Vomiting (PONV) Past Psychological History: Anxiety, Depression Smoking Status: Former smoker Past Alcohol Use History: None Reported Past Drug Use History: None Reported - Past Family History Father Family Medical History: CVA/TIA, Myocardial Infarction ([place]) Additional Family Medical History / Comment(s): . Mother Family Medical History: Cancer, Myocardial Infarction ([place]) Additional Family Medical History / Comment(s): THYROID [place]. Medications and Allergies Home Medications Medication Instructions Recorded Confirmed Type buPROPion HCL [Wellbutrin SR] 150 mg PO BID 09/30/15 10/26/24 History Atorvastatin [Lipitor] 80 mg PO HS 06/10/18 10/26/24 History Sertraline [Zoloft] 200 mg PO HS 06/10/18 10/26/24 History hydrOXYzine HCL [Atarax] 25 mg PO HS 06/10/18 10/26/24 History metFORMIN HCL [Glucophage] 1,000 mg PO BID 05/24/23 10/26/24 History Gabapentin 600 mg PO Q8H PRN 10/26/24 10/26/24 History Metoprolol Succinate (ER) [Toprol 50 mg PO BID 10/26/24 10/26/24 History Xl] Spironolactone [Aldactone] 25 mg PO DAILY 10/26/24 10/26/24 History lisinopriL [Zestril] 10 mg PO DAILY 10/26/24 10/26/24 History methIMAzole [Tapazole] 5 mg PO MOWEFRSA 10/26/24 10/26/24 History Allergies Allergy/AdvReac Type Severity Reaction Status Date / Time adhesive Allergy Rash/Hives Verified 10/26/24 17:42 bee pollen Allergy Unknown Verified 10/26/24 17:42 shellfish derived [Shellfish] Allergy Swelling Verified 10/26/24 17:42 venom-honey bee Allergy Anaphylaxis Verified 10/26/24 17:42 amoxicillin [From Augmentin] AdvReac Nausea & Verified 10/26/24 17:42 Vomiting clavulanic acid AdvReac Nausea & Verified 10/26/24 17:42 [From Augmentin] Vomiting erythromycin base AdvReac Nausea & Verified 10/26/24 17:42 Vomiting propoxyphene AdvReac Nausea & Verified 10/26/24 17:42 [From Darvocet-N] Vomiting BANDAIDS Allergy Rash/Hives Uncoded 10/26/24 17:42 Physical Exam Vitals: Vital Signs Temp Pulse Pulse Resp BP BP Pulse Ox 10/27/24 08:25 97 10/27/24 08:24 80 10/27/24 08:12 79 10/27/24 07:20 97.9 F 77 17 127/76 99 10/27/24 02:00 98.1 F 82 18 127/82 97 10/26/24 21:36 98.8 F 84 17 130/77 98 10/26/24 20:41 98.8 F 83 18 119/71 97 10/26/24 20:14 84 10/26/24 20:04 79 10/26/24 19:13 85 16 120/82 99 10/26/24 18:20 82 16 128/72 98 10/26/24 17:46 84 16 129/81 99 10/26/24 17:18 78 01/24/25 17:06 80 10/26/24 16:17 85 14 142/77 97 10/26/24 15:14 98.1 F 88 16 14277 98 10/26/24 15:07 90 16 142 98 Intake and Output 10/26/24 10/27/24 10/27/24 22:59 06:59 14:59 Other: # Voids 1 2 Weight 63.503 kg 65.6 kg Results CBC & Chem 7: 10/27/24 00:12 10/27/24 00:12 Labs: Abnormal Lab Results - Last 24 Hours (Table) 10/26/24 10/26/24 10/26/24 Range/Units 16:07 16:07 16:07 WBC 11.2 H (3.8-10.6) k/uL RBC 3.46 L (3.80-5.40) m/uL Hgb 10.8 L (11.4-16.0) gm/dL Hct 33.6 L (34.0-46.0) % Neutrophils # 8.4 H (1.3-7.7) k/uL Lymphocytes # (1.0-4.8) k/uL APTT 20.8 L (22.0-30.0) sec Sodium (137-145) mmol/L Potassium 5.2 H (3.5-5.1) mmol/L Chloride 108 H (98-107) mmol/L Carbon Dioxide 19 L (22-30) mmol/L BUN (7-17) mg/dL Glucose 170 H (74-99) mg/dL Magnesium 1.1 L (1.6-2.3) mg/dL 10/27/24 10/27/24 Range/Units 00:12 00:12 WBC (3.8-10.6) k/uL RBC 3.27 L (3.80-5.40) m/uL Hgb 10.3 L (11.4-16.0) gm/dL Hct 31.4 L (34.0-46.0) % Neutrophils # 9.2 H (1.3-7.7) k/uL Lymphocytes # 0.8 L (1.0-4.8) k/uL APTT (22.0-30.0) sec Sodium 134 L (137-145) mmol/L Potassium (3.5-5.1) mmol/L Chloride (98-107) mmol/L Carbon Dioxide 17 L (22-30) mmol/L BUN 18 H (7-17) mg/dL Glucose 225 H (74-99) mg/dL Magnesium (1.6-2.3) mg/dL
[2024-10-27 17:43] LABS: Glucose,Whole Blood 186 mg/dL (70-110)
[2024-10-27] MEDS: INSULIN ASPART (NovoLOG) 100 UNIT/ML VIAL SQ SCH (17:51)
[2024-10-28 05:41] LABS: Glucose,Whole Blood 144 mg/dL (70-110)
--- NOTE | 2024-10-28 08:23 | P.PN ---
Subjective Progress Note Date: 10/28/24 Principal diagnosis: Shortness of breath. This is a 54-year-old female patient with a known history of hyperlipidemia, diabetes mellitus, hypertension, congestive heart failure, coronary artery disease with previous stent placement, anxiety/depression former smoker. She presented here to the emergency room yesterday with complaints of chest pain and increasing shortness of breath. The pain and shortness of breath started earlier that same day. She states she does have a history of congestive heart failure but had not been on Lasix at home. Filtrate on the lateral projection. Correlate for atelectasis. White count 10.2. Hemoglobin 10.3. Platelets 253. Sodium 134. Potassium 4.9. Bicarb 17. BUN 18. Creatinine 1.03. Glucose 225. Troponins are negative x 3. proBNP 3590. Viral screen is negative. Procalcitonin is negative. She is seen today in consultation on the regular medical floor. She is currently sitting up in bed. Awake and alert in no acute distress. Maintaining good O2 saturations in the 90s on room air. No IV fluids. She has been initiated on Lasix 40 mg IV every 12 hours. Progress note dated October 28, 2024. This is a 54-year-old female that was seen in consultation yesterday. Please see the note above. This morning, she is seen in room 634. She is on room air. Saturations are 97%. She is not receiving any IV fluids. She is laying flat in bed, without any respiratory distress. She is awake and alert. Her procalcitonin level was 0.05. Labs today include only a glucose of 144. Objective - Vital Signs Vital signs: Vital Signs Temp 98.0 F 10/28/24 07:00 Pulse 68 10/28/24 07:00 Resp 15 10/28/24 07:00 BP 121/68 10/28/24 07:00 Pulse Ox 97 10/28/24 07:00 FiO2 Intake & Output 10/27/24 10/28/24 10/28/24 18:59 06:59 18:59 Intake Total 444 Balance 444 Weight 65.6 kg 65.1 kg Intake: Oral 444 Other: # Voids 4 3 # Bowel Movements 1 - Exam No acute distress, oriented 3. HEENT examination is grossly unremarkable. Mucous membranes are moist. No oral lesions. Neck supple. Full range of motion. No adenopathy thyromegaly or neck vein distention. Cardiovascular examination reveals regular rhythm rate. S1-S2 normal. No S3 or S4. No discernible murmur noted. Lungs reveal minimal basilar crackles. No wheezes or rhonchi. Abdomen soft bowel sounds are heard. No masses or tenderness. Extremities are intact. No cyanosis clubbing or edema. Skin is without rash or lesion. Neurologic examination is brief but nonfocal. - Labs CBC & Chem 7: 10/27/24 00:12 10/27/24 00:12 Labs: Abnormal Lab Results - Last 24 Hours (Table) 10/27/24 10/28/24 Range/Units 17:42 05:39 POC Glucose (mg/dL) 186 H 144 H (70-110) mg/dL Microbiology - Last 24 Hours (Table) 10/26/24 18:19 Blood Culture - Preliminary Blood Assessment and Plan Assessment: Atypical chest pain, acute coronary syndrome ruled out . Dyspnea secondary to an acute exacerbation of systolic congestive heart failure. History of congestive heart failure. Coronary disease with previous stent placement. Hypertension. Hyperlipidemia. Diabetes mellitus, type II. Anxiety/depression. Diabetic neuropathy. Plan: Plan dated October 28, 2024. The patient is seen today in room 634. She is resting comfortably in bed. She is on room air. Saturations are 97%. Examination reveals minimal basilar crackles. Lung examination is improved. Her procalcitonin level was 0.05. Labs, x-rays, and all medications are reviewed. The patient is stable for dis charge from the pulmonary standpoint. We will let the primary service decide on discharge. Time with Patient: Less than 30
[2024-10-28 09:40] LABS: Basophils # (A) 0.03 X 10*3/uL (0.00-0.10); Basophils % (A) 0.3 %; Eosinophils # (A) 0.07 X 10*3/uL (0.04-0.35); Eosinophils % (A) 0.8 %; HCT 31.3 % (37.2-46.3); HGB 10.2 g/dL (12.0-15.0); Lymphocytes # (A) 2.93 X 10*3/uL (0.90-5.00); Lymphocytes % (A) 33.7 %; MCH 30.9 pg (27.0-32.0); MCHC 32.6 g/dL (32.0-37.0); MCV 94.8 FL (80.0-97.0); Monocytes # (A) 0.69 X 10*3/uL (0.20-1.00); Monocytes % (A) 7.9 %; NRBC Per 100 WBC 0 X 10*3/uL (0.00-0.01); Neutrophils # (A) 4.95 X 10*3/uL (1.80-7.70); Neutrophils % (A) 57.1 %; Platelet Count 250 X 10*3/uL (140-440); RDW 12.5 % (11.5-14.5); WBC 8.69 X 10*3/uL (4.50-10.00)
[2024-10-28 09:48] LABS: BUN/Creat Ratio 16.43 Ratio (12.00-20.00); Calcium 9.4 mg/dL (8.7-10.3); Carbon Dioxide 22.5 mmol/L (21.6-31.8); Chloride 98 mmol/L (96-109); Glucose 163 mg/dL (70-110); Sodium 135 mmol/L (135-145)
--- NOTE | 2024-10-28 10:21 | CA ---
Transthoracic Echo Report Name: Dacia Combs Age: 54 Gender: F : 1970 Exam Date: 10/27/2024 11:55 Exam Location: [facility] Ht (in): 65 Wt (lb): 144 Ordering Physician: Marlys Wisdom Attending/Referring Phys: [id number], [facility] Consultant Felecia Peralta, JER Procedure CPT: Indications: LVF Cardiac Hx: Technical Quality: Fair Contrast 1: Definity Total Dose (mL): 2 Contrast 2: Total Dose (mL): MEASUREMENTS (Male / Female) Normal Values 2D ECHO LV Diastolic Diameter PLAX 5.2 cm 4.2 - 5.9 / 3.9 - 5.3 cm LV Systolic Diameter PLAX 4.6 cm IVS Diastolic Thickness 1.1 cm 0.6 - 1.0 / 0.6 - 0.9 cm LVPW Diastolic Thickness 1.0 cm 0.6 - 1.0 / 0.6 - 0.9 cm LV Relative Wall Thickness 0.4 RV Internal Dim ED PLAX 2.3 cm LA Systolic Diameter LX 4.3 cm 3.0 - 4.0 / 2.7 - 3.8 cm LA Volume 55.5 cm??? 18 - 58 / 22 - 52 cm??? LA Volume Index 31.9 cm???/m??? 16 - 28 cm???/m??? M-MODE Aortic Root Diameter MM 2.8 cm LA Systolic Diameter MM 3.6 cm LA Ao Ratio MM 1.3 AV Cusp Separation MM 1.9 cm DOPPLER MV Area PHT 4.0 cm??? Mitral E Point Velocity 93.8 cm/s Mitral A Point Velocity 88.3 cm/s Mitral E to A Ratio 1.1 MV Deceleration Time 190.7 ms TR Peak Velocity 238.2 cm/s TR Peak Gradient 22.7 mmHg FINDINGS Left Ventricle Left ventricular ejection fraction is estimated at 30 %. Mildly increased septal wall thickness. Mildly increased posterior wall thickness. Severely reduced global left ventricular systolic function. Right Ventricle Normal right ventricular size and function. Right ventricular systolic pressure within normal limits. Right Atrium Normal right atrial size. Left Atrium Moderately increased left atrial diameter. Mildly increased left atrial volume. Mitral Valve Structurally normal mitral valve. Trace mitral regurgitation. No mitral stenosis. Aortic Valve Trileaflet aortic valve. No aortic valve stenosis or regurgitation. Diffuse thickening (sclerosis) of the aortic valve cusps without reduced excursion. Tricuspid Valve Structurally normal tricuspid valve. Trace to mild tricuspid regurgitation. No tricuspid stenosis. Pulmonic Valve Structurally normal pulmonic valve. Trace pulmonic regurgitation. No pulmonic stenosis. Pericardium No pericardial or pleural effusion. Aorta Normal size aortic root and proximal ascending aorta. CONCLUSIONS Severe LV systolic dysfunction with an ejection fraction of 30% with diffuse global hypokinesis Aortic sclerosis without any stenosis Previewed by: Dr. Sp North MD (Electronically Signed) Final Date: 28 October 2024 10:20
--- NOTE | 2024-10-28 11:49 | P.PN ---
Subjective Progress Note Date: 10/28/24 Consult reason: chest pain, congestive heart failure History of present illness: This is a 54-year-old female patient of Dr. 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 We have been asked to evaluate the patient for CHF and chest pain. Patient states that starting on she was having trouble breathing and then it continued to worsen and by Tuesday it was significantly worse. Patient is noted to be hoarse. Blood pressure 127/82, heart rate 82, pulse ox 97% on room air. Patient has been started on IV Lasix 40 mg every 12 hours. Patient is a smoker cut down to 2 cigarettes/day. -EKG: Sinus rhythm with nonspecific ST changes, left bundle branch block. -Chest x-ray: Linear opacities and a posterior infiltrate at the lateral projection. Correlate for atelectasis and pneumonia. -Laboratory studies: WBC 10.2 down from 11.2, hemoglobin 10.3. Sodium 134, potassium 4.9, BUN 18 creatinine 1.03. Troponin negative x 3. proBNP 3590. Cepheid viral panel negative. -Home cardiac medications: Atorvastatin 80 mg at bedtime, lisinopril 10 mg daily, metoprolol succinate 50 mg twice daily, spironolactone 25 mg daily. -Cardiac catheterization performed 02/07/2019 revealed left circumflex is originating from the right coronary cusp. Normal coronaries. Echocardiogram performed in the office on 08/28/2024 revealed mild , bicuspid AV, EF 40 to 45%. Lexiscan Cardiolite stress test performed in the office on 04/24/2024 revealed normal study. 10/28 Patient seen and examined. Patient states that she is feeling better but she continues to have wheezing between her nebulizer treatments. Blood pressure 121/68, heart rate 60s to 80s, pulse ox 97% on room air. Repeat blood work reveals hemoglobin 10.2, sodium 135, potassium 5.0, BUN 23 creatinine 1.4. A1c 5.9 Echocardiogram reveals EF of 30% with diffuse global hypokinesis, aortic sclerosis without stenosis. Physical examination: Gen: This is a 54-year-old female in no acute distress VS: reviewed HEENT: Head is atraumatic, normocephalic. Pupils equal, round. Sclerae is anicteric. NECK: Supple. No JVD. LUNGS: No crackles. No wheezes or rhonchi. No intercostal retractions. HEART: Regular rate and rhythm. Systolic murmur at the left lower sternal border. ABDOMEN: Soft No tenderness. EXTREMITIES: Mild lower extremity edema. No calf tenderness. NEUROLOGICAL: Patient is awake, alert and oriented x3. Assessment: Acute diastolic heart failure Atypical chest pain, acute coronary syndrome ruled out Bicuspid aortic valve, mild Cardiomyopathy with drop in EF to 30%. Dyslipidemia Hypertension Valvular heart disease Remote history of tobacco use and dependence Plan: Continue patient's home cardiac medications Transition IV Lasix to oral 40 mg twice daily Monitor NEO, daily weights, electrolytes and renal function Further recommendations to follow based upon clinical course Nurse practitioner note has been reviewed, I agree with documented findings and plan of care. Patient was seen and examined. Objective - Vital Signs Vital signs: Vital Signs Temp 98.0 F 10/28/24 07:00 Pulse 80 10/28/24 09:14 Resp 15 10/28/24 07:00 BP 121/68 10/28/24 07:00 Pulse Ox 97 10/28/24 07:00 FiO2 Intake & Output 10/27/24 10/28/24 10/28/24 18:59 06:59 18:59 Intake Total 444 Balance 444 Weight 65.6 kg 65.1 kg Intake: Oral 444 Other: # Voids 4 3 # Bowel Movements 1 - Labs CBC & Chem 7: 10/28/24 06:32 10/28/24 06:32 Labs: Abnormal Lab Results - Last 24 Hours (Table) 10/27/24 10/28/24 10/28/24 Range/Units 17:42 05:39 06:32 RBC 3.30 L (4.10-5.20) X 10*6/uL Hgb 10.2 L (12.0-15.0) g/dL Hct 31.3 L (37.2-46.3) % Anion Gap (4.00-12.00) mmol/L Est GFR (CKD-EPI) (>=60) Glucose (70-110) mg/dL POC Glucose (mg/dL) 186 H 144 H (70-110) mg/dL 10/28/24 Range/Units 06:32 RBC (4.10-5.20) X 10*6/uL Hgb (12.0-15.0) g/dL Hct (37.2-46.3) % Anion Gap 14.50 H (4.00-12.00) mmol/L Est GFR (CKD-EPI) 44 L (>=60) Glucose 163 H (70-110) mg/dL POC Glucose (mg/dL) (70-110) mg/dL Microbiology - Last 24 Hours (Table) 10/26/24 18:19 Blood Culture - Preliminary Blood
[2024-10-28 11:51] LABS: Glucose,Whole Blood 232 mg/dL (70-110)
--- NOTE | 2024-10-28 15:19 | P.PN ---
Subjective Progress Note Date: 10/28/24 Interval History: 54-year-old female with past medical history significant for nonischemic cardiomyopathy, sinus tachycardia, history of bicuspid aortic valve, diabetes, hypertension, hyperlipidemia, smoking who presented to ER with a complaint of shortness of breath for the last 2 days, progressively getting worse. Patient denied any fever, chills, productive cough, palpitations, nausea vomiting diarr hea constipation abdominal pain dysuria urgency frequency weakness or numbness of extremities. Vital stable WBCs 11.2, hemoglobin 10.8, platelet 293 on admission. INR 0.9. BMP unremarkable except mildly elevated potassium 5.2 now improved to 4.9. Procalcitonin negative Viral panel negative Chest x-ray negative for pneumonia. Troponin negative X3. 10/28--patient was seen and examined today. Patient feeling better, still complaining of shortness of breath, patient reported improvement with nebulizer treatments. Vital stable. Labs reviewed, creatinine trended up to 1.4 likely secondary to diuresis. Potassium 5.0. Echocardiogram showed EF of 30% with diffuse global hypokinesis. Cardiology following, switched IV Lasix to p.o. Lasix, further recommendations pending. Assessment and plan: Acute on chronic combined systolic and diastolic CHF Atypical chest pain Bicuspid aortic valvemild aortic stenosis MEDARDO: Hypertension Hyperlipidemia Valvular heart disease Tobacco use: Hyperkalemia: Resolved monitor daily weight, I&O's, IV diuresis Cardiology consultedrecommended to continue diuresis, further recommendations pending. Repeat echocardiogram showed EF 30% with diffuse global hypokinesis, aortic sclerosis without stenosis. Pulmonary consulted Continue home meds Monitor renal function. Monitor vitals and labs Counseled to quit smoking--would benefit from inhalers at discharge and outpatient pulmonary follow-up. Discharge pending clinical course and further cardiology recommendation. DVT prophylaxis Heparin s/c Monitor vital signs and labs Labs and medication were reviewed. Continue same treatment. Further recommendations as per clinical course of the patient PHYSICAL EXAMINATION: GENERAL: The patient is A&O x3, NAD HEENT: EOMI, Sclerae anicteric, Moist Mucous membranes Neck: Supple, Non tender, No JVD PULMONARY: Equal breath souds B/L, No wheezing, +crackles. CARDIOVASCULAR: S1, S2 present. No murmurs, rubs, or gallops. ABDOMEN: Soft, nontender, nondistended, normoactive bowel sounds. No guarding or rebound tenderness. MUSCULOSKELETAL: Trace edema, No cyanosis. No clubbing. Normal ROM. Intact kelli pheral pulses. NEUROLOGICAL: CN 2-12 grossly intact. No FND REVIEW OF SYSTEMS: CONSTITUTIONAL: No fever, no malaise, no fatigue. HEENT: No recent visual problems or hearing problems. Denied any sore throat. CARDIOVASCULAR: No chest pain, orthopnea, PND, no palpitations, no syncope. PULMONARY: No shortness of breath, no cough, no hemoptysis. GASTROINTESTINAL: No diarrhea, no nausea, no vomiting, no abdominal pain. NEUROLOGICAL: No headaches, no weakness, no numbness. HEMATOLOGICAL: Denies any bleeding or petechiae. GENITOURINARY: Denies any burning micturition, frequency, or urgency. MUSCULOSKELETAL/RHEUMATOLOGICAL: Denies any joint pain, swelling, or any muscle pain. ENDOCRINE: Denies any polyuria or polydipsia. The rest of the 14-point review of systems is negative. Dictation was produced using [employer] dictation software. please excuse any grammatical, word or spelling errors. Objective - Vital Signs Vital signs: Vital Signs Temp 98.3 F 10/28/24 14:32 Pulse 87 10/28/24 14:32 Resp 16 10/28/24 14:32 BP 110/67 10/28/24 14:32 Pulse Ox 94 L 10/28/24 14:32 FiO2 Intake & Output 10/27/24 10/28/24 10/28/24 18:59 06:59 18:59 Intake Total 444 118 Balance 444 118 Weight 65.6 kg 65.1 kg Intake: Oral 444 118 Other: # Voids 4 3 2 # Bowel Movements 1 - Labs CBC & Chem 7: 10/28/24 06:32 10/28/24 06:32 Labs: Abnormal Lab Results - Last 24 Hours (Table) 10/27/24 10/28/24 10/28/24 Range/Units 17:42 05:39 06:32 RBC 3.30 L (4.10-5.20) X 10*6/uL Hgb 10.2 L (12.0-15.0) g/dL Hct 31.3 L (37.2-46.3) % Anion Gap (4.00-12.00) mmol/L Est GFR (CKD-EPI) (>=60) Glucose (70-110) mg/dL POC Glucose (mg/dL) 186 H 144 H (70-110) mg/dL 10/28/24 10/28/24 Range/Units 06:32 11:50 RBC (4.10-5.20) X 10*6/uL Hgb (12.0-15.0) g/dL Hct (37.2-46.3) % Anion Gap 14.50 H (4.00-12.00) mmol/L Est GFR (CKD-EPI) 44 L (>=60) Glucose 163 H (70-110) mg/dL POC Glucose (mg/dL) 232 H (70-110) mg/dL Microbiology - Last 24 Hours (Table) 10/26/24 18:19 Blood Culture - Preliminary Blood
[2024-10-28] MEDS: FUROSEMIDE 40 MG TAB PO SCH (16:16)
[2024-10-28 17:04] LABS: Glucose,Whole Blood 196 mg/dL (70-110)
[2024-10-28 20:28] LABS: Glucose,Whole Blood 226 mg/dL (70-110)
[2024-10-29 06:08] LABS: Glucose,Whole Blood 192 mg/dL (70-110)
[2024-10-29 08:41] LABS: BUN/Creat Ratio 20.89 Ratio (12.00-20.00); Blood Urea Nitrogen 39.7 mg/dL (9.0-27.0); Calcium 9.1 mg/dL (8.7-10.3); Carbon Dioxide 23.7 mmol/L (21.6-31.8); Chloride 94 mmol/L (96-109); Glucose 182 mg/dL (70-110); Potassium 5.2 mmol/L (3.5-5.5); Sodium 131 mmol/L (135-145)
[2024-10-29 10:03] LABS: Basophils # (A) 0.03 X 10*3/uL (0.00-0.10); Basophils % (A) 0.3 %; Eosinophils # (A) 0.11 X 10*3/uL (0.04-0.35); HCT 30.6 % (37.2-46.3); HGB 9.5 g/dL (12.0-15.0); Lymphocytes # (A) 2.92 X 10*3/uL (0.90-5.00); Lymphocytes % (A) 26.8 %; MCH 29.7 pg (27.0-32.0); MCV 95.6 FL (80.0-97.0); Monocytes # (A) 0.87 X 10*3/uL (0.20-1.00); NRBC Per 100 WBC 0 X 10*3/uL (0.00-0.01); Neutrophils # (A) 6.94 X 10*3/uL (1.80-7.70); Neutrophils % (A) 63.5 %; Platelet Count 274 X 10*3/uL (140-440); RDW 12.5 % (11.5-14.5); WBC 10.91 X 10*3/uL (4.50-10.00)
--- NOTE | 2024-10-29 10:54 | P.PN ---
Subjective This is a 54-year-old female patient of Dr. 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 We have been asked to evaluate the patient for CHF and chest pain. Patient states that starting on she was having trouble breathing and then it continued to worsen and by Tuesday afternoon it was significantly worse. Patient is noted to be hoarse. Blood pressure 127/82, heart rate 82, pulse ox 97% on room air. Patient has been started on IV Lasix 40 mg every 12 hours. Patient is a smoker cut down to 2 cigarettes/day. -EKG: Sinus rhythm with nonspecific ST changes, left bundle branch block. -Chest x-ray: Linear opacities and a posterior infiltrate at the lateral projection. Correlate for atelectasis and pneumonia. -Laboratory studies: WBC 10.2 down from 11.2, hemoglobin 10.3. Sodium 134, potassium 4.9, BUN 18 creatinine 1.03. Troponin negative x 3. proBNP 3590. Cepheid viral panel negative. -Home cardiac medications: Atorvastatin 80 mg at bedtime, lisinopril 10 mg nuha y, metoprolol succinate 50 mg twice daily, spironolactone 25 mg daily. -Cardiac catheterization performed 02/07/2019 revealed left circumflex is originating from the right coronary cusp. Normal coronaries. Echocardiogram performed in the office on 08/28/2024 revealed mild , bicuspid AV, EF 40 to 45%. Lexiscan Cardiolite stress test performed in the office on 04/24/2024 revealed normal study. 10/28 Patient seen and examined. Patient states that she is feeling better but she continues to have wheezing between her nebulizer treatments. Blood pressure 121/68, heart rate 60s to 80s, pulse ox 97% on room air. Repeat blood work reveals hemoglobin 10.2, sodium 135, potassium 5.0, BUN 23 creatinine 1.4. A1c 5.9 Echocardiogram reveals EF of 30% with diffuse global hypokinesis, aortic sclerosis without stenosis. 10/29/2024 Patient seen and examined sitting up in bed in no acute distress. She continues to have mild exertional shortness of breath which she states is mostly chronic. No significant changes. She denies chest pain, dizziness or palpitations. Blood pressure 97/58 heart rate 79 afebrile maintaining oxygen saturation on room air. Laboratory data reviewed, WBC 10.9, hemoglobin 9.5, platelets 274, sodium 131, potassium 5.2, creatinine 1.9. Physical examination: Gen: This is a 54-year-old female in no acute distress HEENT: Head is atraumatic, normocephalic. Pupils equal, round. Sclerae is anicteric. NECK: Supple. No JVD. LUNGS: No crackles. No wheezes or rhonchi. No intercostal retractions. HEART: Regular rate and rhythm. Systolic murmur at the left lower sternal border. ABDOMEN: Soft No tenderness. EXTREMITIES: No lower extremity edema. No calf tenderness. NEUROLOGICAL: Patient is awake, alert and oriented x3. Assessment: Acute systolic heart failure Atypical chest pain, acute coronary syndrome ruled out Cardiomyopathy with drop in EF to 30%. Acute kidney injury, likely related to diuresis Dyslipidemia Hypertension Valvular heart disease Chronic nicotine dependence History of anemia Plan: Decrease lasix to 20 mg PO BID. Outpatient repeat BMP in 3 days. Aggressive tobacco cessation highly recommended. Stable for discharge from a cardiac perspective, follow-up with Dr. Gillespie in 1 to 2 weeks. Nurse practitioner note has been reviewed, I agree with documented findings and plan of care. Patient was seen and examined. Objective - Vital Signs Vital signs: Vital Signs Temp 97.6 F 10/29/24 07:00 Pulse 79 10/29/24 10:20 Resp 17 10/29/24 07:00 BP 97/58 10/29/24 10:20 Pulse Ox 96 10/29/24 10:20 FiO2 Intake & Output 10/28/24 10/29/24 10/29/24 18:59 06:59 18:59 Intake Total 340 118 Balance 340 118 Weight 65.8 kg Intake: Oral 340 118 Other: Voiding Method Toilet Toilet # Voids 2 2 - Labs CBC & Chem 7: 10/29/24 05:31 10/29/24 05:31 Labs: Abnormal Lab Results - Last 24 Hours (Table) 10/28/24 10/28/24 10/28/24 Range/Units 11:50 17:03 20:27 WBC (4.50-10.00) X 10*3/uL RBC (4.10-5.20) X 10*6/uL Hgb (12.0-15.0) g/dL Hct (37.2-46.3) % MCHC (32.0-37.0) g/dL Sodium (135-145) mmol/L Chloride (96-109) mmol/L Anion Gap (4.00-12.00) mmol/L BUN (9.0-27.0) mg/dL Creatinine (0.6-1.5) mg/dL Est GFR (CKD-EPI) (>=60) BUN/Creatinine Ratio (12.00-20.00) Ratio Glucose (70-110) mg/dL POC Glucose (mg/dL) 232 H 196 H 226 H (70-110) mg/dL 10/29/24 10/29/24 10/29/24 Range/Units 05:31 05:31 06:06 WBC 10.91 H (4.50-10.00) X 10*3/uL RBC 3.20 L (4.10-5.20) X 10*6/uL Hgb 9.5 L (12.0-15.0) g/dL Hct 30.6 L (37.2-46.3) % MCHC 31.0 L (32.0-37.0) g/dL Sodium 131 L (135-145) mmol/L Chloride 94 L (96-109) mmol/L Anion Gap 13.30 H (4.00-12.00) mmol/L BUN 39.7 H (9.0-27.0) mg/dL Creatinine 1.9 H (0.6-1.5) mg/dL Est GFR (CKD-EPI) 31 L (>=60) BUN/Creatinine Ratio 20.89 H (12.00-20.00) Ratio Glucose 182 H (70-110) mg/dL POC Glucose (mg/dL) 192 H (70-110) mg/dL Microbiology - Last 24 Hours (Table) 10/26/24 18:19 Blood Culture - Preliminary Blood
[2024-10-29 12:00] LABS: Glucose,Whole Blood 284 mg/dL (70-110)
--- NOTE | 2024-10-29 13:05 | P.PN ---
Subjective Progress Note Date: 10/29/24 This is a 54-year-old female admitted with acute CHF diastolic dysfunction, cardiomyopathy with decreased EF to 30%, chest pain with acute coronary syndrome ruled out and multiple other medical issues. Yesterday IV push Lasix transition to oral. Exertional shortness of breath. Denies chest pain, palpitations.today worsening renal function, bicarb 23.7, BUN 39.7, creatinine 1.9. Sodium dropped to 131, potassium 5.2. Blood pressure soft, 100/59 with a mean arterial pressure 72. Maintaining O2 sats in the 90s on room air. Objective - Vital Signs Vital signs: Vital Signs Temp 97.6 F 10/29/24 07:00 Pulse 79 10/29/24 10:20 Resp 17 10/29/24 07:00 BP 97/58 10/29/24 10:20 Pulse Ox 96 10/29/24 10:20 FiO2 Intake & Output 10/28/24 10/29/24 10/29/24 18:59 06:59 18:59 Intake Total 340 118 Balance 340 118 Weight 65.8 kg Intake: Oral 340 118 Other: Voiding Method Toilet Toilet # Voids 2 2 - Exam PHYSICAL EXAM: VITAL SIGNS: [Reviewed] GENERAL: Alert and oriented x 3, sitting up in bed, no acute distress HEENT: Normocephalic , atraumatic ,conjunctivae normal. Sclerae anicteric.MMM. NECK: Supple, no JVD. CARDIOVASCULAR: S1, S2, regular rate and rhythm. Systolic murmur. RESPIRATION: Unlabored, equal air entry , clear to auscultation with bilateral bases diminished. ABDOMEN: Soft, nondistended, nontender . No guarding. no masses palpable.+BS. LEGS: No edema. no swelling. No clubbing, no cyanosis, no calf tenderness. NERVOUS SYSTEM: Cranial N 2-12 grossly normal. No focal deficits. Strength and sensation grossly intact. Skin: Warm and dry, no rash - Labs CBC & Chem 7: 10/29/24 05:31 10/29/24 05:31 Labs: Abnormal Lab Results - Last 24 Hours (Table) 10/28/24 10/28/24 10/29/24 Range/Units 17:03 20:27 05:31 WBC 10.91 H (4.50-10.00) X 10*3/uL RBC 3.20 L (4.10-5.20) X 10*6/uL Hgb 9.5 L (12.0-15.0) g/dL Hct 30.6 L (37.2-46.3) % MCHC 31.0 L (32.0-37.0) g/dL Sodium (135-145) mmol/L Chloride (96-109) mmol/L Anion Gap (4.00-12.00) mmol/L BUN (9.0-27.0) mg/dL Creatinine (0.6-1.5) mg/dL Est GFR (CKD-EPI) (>=60) BUN/Creatinine Ratio (12.00-20.00) Ratio Glucose (70-110) mg/dL POC Glucose (mg/dL) 196 H 226 H (70-110) mg/dL 10/29/24 10/29/24 10/29/24 Range/Units 05:31 06:06 11:59 WBC (4.50-10.00) X 10*3/uL RBC (4.10-5.20) X 10*6/uL Hgb (12.0-15.0) g/dL Hct (37.2-46.3) % MCHC (32.0-37.0) g/dL Sodium 131 L (135-145) mmol/L Chloride 94 L (96-109) mmol/L Anion Gap 13.30 H (4.00-12.00) mmol/L BUN 39.7 H (9.0-27.0) mg/dL Creatinine 1.9 H (0.6-1.5) mg/dL Est GFR (CKD-EPI) 31 L (>=60) BUN/Creatinine Ratio 20.89 H (12.00-20.00) Ratio Glucose 182 H (70-110) mg/dL POC Glucose (mg/dL) 192 H 284 H (70-110) mg/dL Microbiology - Last 24 Hours (Table) 10/26/24 18:19 Blood Culture - Preliminary Blood Assessment and Plan Assessment: Acute CHF exacerbation, systolic dysfunction Chest pain, atypical, acute coronary syndrome ruled out, cardiology following Cardiomyopathy with decreased EF to 30% Valvular heart disease Acute renal injury, medication induced, diuretics and hypotension. Hyponatremia, mild Nicotine dependence Plan: Continue on current medication regimen ,monitoring and symptomatic treatment. Initially had planned for discharge today, patient was cleared by both pulmonary and cardiology. Worsening renal function, soft blood pressures today-will hold discharge. lisinopril and Aldactone placed on hold, close monitoring of renal function. repeat labs in a.m. smoking cessation reinforced. The impression and plan of care has been dictated as directed. : I performed a history and examination of this patient, discussed the same with the dictator. I agree with the dictator's note ,documented as a scribe. Any additional findings or plans will be noted.
[2024-10-29] MEDS: FUROSEMIDE 20 MG TAB PO SCH (15:37)
--- NOTE | 2024-10-29 16:04 | P.PN ---
Subjective Progress Note Date: 10/29/24 This is a 54-year-old female patient with a known history of hyperlipidemia, diabetes mellitus, hypertension, congestive heart failure, coronary artery disease with previous stent placement, anxiety/depression former smoker. She presented here to the emergency room yesterday with complaints of chest pain and increasing shortness of breath. The pain and shortness of breath started earlier that same day. She states she does have a history of congestive heart failure but had not been on Lasix at home. Filtrate on the lateral projection. Correlate for atelectasis. White count 10.2. Hemoglobin 10.3. Platelets 253. Sodium 134. Potassium 4.9. Bicarb 17. BUN 18. Creatinine 1.03. Glucose 225. Troponins are negative x 3. proBNP 3590. Viral screen is negative. Procalcitonin is negative. She is seen today in consultation on the regular medical floor. She is currently sitting up in bed. Awake and alert in no acute distress. Maintaining good O2 saturations in the 90s on room air. No IV fluids. She has been initiated on Lasix 40 mg IV every 12 hours. Progress note dated October 28, 2024. This is a 54-year-old female that was seen in consultation yesterday. Please see the note above. This morning, she is seen in room 634. She is on room air. Saturations are 97%. She is not receiving any IV fluids. She is laying flat in bed, without any respiratory distress. She is awake and alert. Her procalcitonin level was 0.05. Labs today include only a glucose of 144. On 10/29/2024, the patient continues to have some limited shortness of breath and coughing spells. No chest pain. Note that she is not have coronary artery disease and she has had a previous coronary stent placement and during this current admission, the repeat echocardiogram showed interval drop in her ejection fraction down to 30%. She is known to have hypertension, hyperlipidemia and diabetes mellitus that she smoked around 2 cigarettes a day. She does not have home oxygen. She is currently on room air oxygen. I reviewed the chest x-ray at time of admission showed some mild pulm vascular congestion. She also sustained acute kidney injury and the creatinine is up to 1.9 with a BUN of 39. She is currently on oral Lasix at a dose of 20 mg twice a day. She is also receiving DuoNeb updrafts. She is on Toprol-XL 50 mg p.o. twice a day. Rest of the medications are essentially unchanged. The white cell count of 10.9 with a hemoglobin of 9.5 and a platelet count of 274. Noted the creatinine at time of admission was essentially normal at 1.03. No reported chest pain. She denies utilizing any form of respiratory medications or inhalers on outpatient basis. Objective - Vital Signs Vital signs: Vital Signs Temp 98.1 F 10/29/24 14:26 Pulse 80 10/29/24 15:52 Resp 16 10/29/24 14:26 BP 105/65 10/29/24 14:26 Pulse Ox 95 10/29/24 14:26 FiO2 Intake & Output 10/28/24 10/29/24 10/29/24 18:59 06:59 18:59 Intake Total 340 236 Balance 340 236 Weight 65.8 kg Intake: Oral 340 236 Other: Voiding Method Toilet Toilet # Voids 2 2 2 - Exam No acute distress, oriented 3. HEENT examination is grossly unremarkable. Mucous membranes are moist. No oral lesions. Neck supple. Full range of motion. No adenopathy thyromegaly or neck vein distention. Cardiovascular examination reveals regular rhythm rate. S1-S2 normal. No S3 or S4. No discernible murmur noted. Lungs reveal minimal basilar crackles. No wheezes or rhonchi. Abdomen soft bowel sounds are heard. No masses or tenderness. Extremities are intact. No cyanosis clubbing or edema. Skin is without rash or lesion. Neurologic examination is brief but nonfocal. - Labs CBC & Chem 7: 10/29/24 05:31 10/29/24 05:31 Labs: Abnormal Lab Results - Last 24 Hours (Table) 10/28/24 10/28/24 10/29/24 Range/Units 17:03 20:27 05:31 WBC 10.91 H (4.50-10.00) X 10*3/uL RBC 3.20 L (4.10-5.20) X 10*6/uL Hgb 9.5 L (12.0-15.0) g/dL Hct 30.6 L (37.2-46.3) % MCHC 31.0 L (32.0-37.0) g/dL Sodium (135-145) mmol/L Chloride (96-109) mmol/L Anion Gap (4.00-12.00) mmol/L BUN (9.0-27.0) mg/dL Creatinine (0.6-1.5) mg/dL Est GFR (CKD-EPI) (>=60) BUN/Creatinine Ratio (12.00-20.00) Ratio Glucose (70-110) mg/dL POC Glucose (mg/dL) 196 H 226 H (70-110) mg/dL 10/29/24 10/29/24 10/29/24 Range/Units 05:31 06:06 11:59 WBC (4.50-10.00) X 10*3/uL RBC (4.10-5.20) X 10*6/uL Hgb (12.0-15.0) g/dL Hct (37.2-46.3) % MCHC (32.0-37.0) g/dL Sodium 131 L (135-145) mmol/L Chloride 94 L (96-109) mmol/L Anion Gap 13.30 H (4.00-12.00) mmol/L BUN 39.7 H (9.0-27.0) mg/dL Creatinine 1.9 H (0.6-1.5) mg/dL Est GFR (CKD-EPI) 31 L (>=60) BUN/Creatinine Ratio 20.89 H (12.00-20.00) Ratio Glucose 182 H (70-110) mg/dL POC Glucose (mg/dL) 192 H 284 H (70-110) mg/dL Microbiology - Last 24 Hours (Table) 10/26/24 18:19 Blood Culture - Preliminary Blood Assessment and Plan Plan: Atypical chest pain, acute coronary syndrome ruled out Shortness of breath related to an acute COPD exacerbation along with a component of CHF CHF with impaired LV function and ejection fraction of 30% Coronary disease with previous stent placement. Hypertension. Acute kidney injury Hyperlipidemia. Diabetes mellitus, type II. Anxiety/depression. Diabetic neuropathy Chronic smoker Plan: Continue same treatment Monitor renal function and the creatinine is up to 1.9 Currently on room air oxygen Continue oral diuretics Continue DuoNeb [facility] IV Solu-Medrol 60 mg every 6 hours Smoking cessation Echocardiogram was noted and there is no plans to repeat cardiac catheterization by cardiology Will continue to follow
[2024-10-29 17:03] LABS: Glucose,Whole Blood 211 mg/dL (70-110)
[2024-10-29] MEDS: methylPREDNISolone SOD SUCCI 125 MG/2 ML VIAL IV SCH (17:23)
[2024-10-29] MEDS: ACETAMINOPHEN TAB 325 MG TAB PO PRN (20:18)
[2024-10-30 05:44] LABS: Glucose,Whole Blood 382 mg/dL (70-110)
--- NOTE | 2024-10-30 11:17 | P.PN ---
Subjective Progress Note Date: 10/30/24 This is a 54-year-old female admitted with acute CHF diastolic dysfunction, cardiomyopathy with decreased EF to 30%, chest pain with acute coronary syndrome ruled out and multiple other medical issues. Yesterday IV push Lasix transitioned to oral. Exertional shortness of breath. Denies chest pain, palpit ations.today worsening renal function, bicarb 23.7, BUN 39.7, creatinine 1.9. Sodium dropped to 131, potassium 5.2. Blood pressure soft, 100/59 with a mean arterial pressure 72. Maintaining O2 sats in the 90s on room air. 10/30/2024 Discharge held yesterday related to worsening renal function with soft blood pressures; Lasix transitioned to oral. BMP pending. Maintained on oral Lasix, nebulized bronchodilators. IV steroids initiated as per pulmonary. Maintaining O2 sats in the mid to low 90s on room air. hyperglycemic, Lantus added to med regimen. Objective - Vital Signs Vital signs: Vital Signs Temp 97.8 F 10/30/24 07:00 Pulse 90 10/30/24 08:44 Resp 16 10/30/24 08:44 BP 102/62 10/30/24 07:00 Pulse Ox 94 L 10/30/24 08:37 FiO2 Intake & Output 10/29/24 10/30/24 10/30/24 18:59 06:59 18:59 Intake Total 354 118 Balance 354 118 Weight 66.1 kg Intake: Oral 354 118 Other: Voiding Method Toilet Toilet Toilet # Voids 2 3 - Exam PHYSICAL EXAM: VITAL SIGNS: [Reviewed] GENERAL: Alert and oriented x 3, sitting up in bed, no acute distress HEENT: Normocephalic , atraumatic ,conjunctivae normal. Sclerae anicteric.MMM. NECK: Supple, no JVD. CARDIOVASCULAR: S1, S2, regular rate and rhythm. Systolic murmur. RESPIRATION: Unlabored, equal air entry , bilateral bases diminished with fine basilar crackles. ABDOMEN: Soft, nondistended, nontender . No guarding. no masses palpable.+BS. LEGS: No edema. no swelling. No clubbing, no cyanosis, no calf tenderness. NERVOUS SYSTEM: Cranial N 2-12 grossly normal. No focal deficits. Skin: Warm and dry, no rash - Labs CBC & Chem 7: 10/29/24 05:31 10/29/24 05:31 Labs: Abnormal Lab Results - Last 24 Hours (Table) 10/29/24 10/29/24 10/30/24 Range/Units 11:59 17:01 05:42 POC Glucose (mg/dL) 284 H 211 H 382 H (70-110) mg/dL Microbiology - Last 24 Hours (Table) 10/26/24 18:19 Blood Culture - Preliminary Blood Assessment and Plan Assessment: Acute CHF exacerbation, systolic dysfunction Chest pain, atypical, acute coronary syndrome ruled out, cardiology following Cardiomyopathy with decreased EF to 30%, no repeat cardiac catheterization at this time as per cardiology Acute COPD exacerbation Acute renal injury, medication induced, diuretics and hypotension. Dyspnea secondary to all the above Diabetes mellitus type 2, hemoglobin A1c 5.9, hyperglycemic, steroid-induced Hyponatremia, mild CAD with previous stent placement Nicotine dependence Plan: Continue on current medication regimen ,monitoring and symptomatic treatment.Lantus insulin added to med regimen, close monitoring of Accu-Cheks .smoking cessation reinforced. Discharge planning in progress pending BMP. The impression and plan of care has been dictated as directed. : I performed a history and examination of this patient, discussed the same with the dictator. I agree with the dictator's note ,documented as a scribe. Any additional findings or plans will be noted.
[2024-10-30 12:13] LABS: Glucose,Whole Blood 430 mg/dL (70-110)
[2024-10-30 12:21] LABS: Blood Urea Nitrogen 51.3 mg/dL (9.0-27.0); Carbon Dioxide 21.7 mmol/L (21.6-31.8); Chloride 95 mmol/L (96-109); Glucose 335 mg/dL (70-110); Potassium 5.3 mmol/L (3.5-5.5); Sodium 130 mmol/L (135-145)
[2024-10-30] MEDS: INSULIN ASPART (NovoLOG) 100 UNIT/ML VIAL SQ ONE ×2 (12:54→17:41)
[2024-10-30] MEDS: INSULIN DETEMIR (LEVEMIR) 100 UNIT/ML SYR SQ SCH (12:54)
--- NOTE | 2024-10-30 12:55 | P.PN ---
Subjective HISTORY OF PRESENT ILLNESS: This is a 54-year-old female patient of Dr. 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 We have been asked to evaluate the patient for CHF and chest pain. Patient states that starting on she was having trouble breathing and then it continued to worsen and by Tuesday afternoon it was significantly worse. Patient is noted to be hoarse. Blood pressure 127/82, heart rate 82, pulse ox 97% on room air. Patient has been started on IV Lasix 40 mg every 12 hours. Patient is a smoker cut down to 2 cigarettes/day. -EKG: Sinus rhythm with nonspecific ST changes, left bundle branch block. -Chest x-ray: Linear opacities and a posterior infiltrate at the lateral projection. Correlate for atelectasis and pneumonia. -Laboratory studies: WBC 10.2 down from 11.2, hemoglobin 10.3. Sodium 134, potassium 4.9, BUN 18 creatinine 1.03. Troponin negative x 3. proBNP 3590. Cepheid viral panel negative. -Home cardiac medications: Atorvastatin 80 mg at bedtime, lisinopril 10 mg daily, metoprolol succinate 50 mg twice daily, spironolactone 25 mg daily. -Cardiac catheterization performed 02/07/2019 revealed left circumflex is originating from the right coronary cusp. Normal coronaries. Echocardiogram performed in the office on 08/28/2024 revealed mild , bicuspid AV, EF 40 to 45%. Lexiscan Cardiolite stress test performed in the office on 04/24/2024 revealed normal study. 10/28 Patient seen and examined. Patient states that she is feeling better but she continues to have wheezing between her nebulizer treatments. Blood pressure 121/68, heart rate 60s to 80s, pulse ox 97% on room air. Repeat blood work reveals hemoglobin 10.2, sodium 135, potassium 5.0, BUN 23 creatinine 1.4. A1c 5.9 Echocardiogram reveals EF of 30% with diffuse global hypokinesis, aortic sclerosis without stenosis. 10/29/2024 Patient seen and examined sitting up in bed in no acute distress. She continues to have mild exertional shortness of breath which she states is mostly chronic. No significant changes. She denies chest pain, dizziness or palpitations. B edward pressure 97/58 heart rate 79 afebrile maintaining oxygen saturation on room air. Laboratory data reviewed, WBC 10.9, hemoglobin 9.5, platelets 274, sodium 131, potassium 5.2, creatinine 1.9. 10/30/2024 Patient examined this morning at the bedside. Patient denies chest pain or pressure. Denies SOB. Vital signs are stable. Blood pressure this morning 102/62. Creatinine today 1.9, unchanged from yesterday at 1.9. PHYSICAL EXAM: VITAL SIGNS: Reviewed. GENERAL: Well-developed in no acute distress. NECK: Supple. No JVD or thyromegaly LUNGS: Respirations even and unlabored. Lungs essentially clear to auscultation bilaterally. HEART: Regular rate and rhythm. S1 and S2 heard. EXTREMITIES: Normal range of motion. No clubbing or cyanosis. Peripheral pulses intact. No lower extremity edema ASSESSMENT: Acute systolic heart failure Atypical chest pain, acute coronary syndrome ruled out Cardiomyopathy with drop in EF to 30%, ischemic versus nonischemic Acute kidney injury, likely related to diuresis Dyslipidemia Hypertension Valvular heart disease Chronic nicotine dependence History of anemia PLAN: Continue current cardiac medications Monitor kidney function Patient is stable for discharge from a cardiac standpoint Patient to follow up post discharge with Dr. Gillespie Nurse practitioner note has been reviewed by physician. Signing provider agrees with the documented findings, assessment, and plan of care documented by CERAMIC DESIGNER as a scribe. Objective - Vital Signs Vital signs: Vital Signs Temp 97.8 F 10/30/24 07:00 Pulse 90 10/30/24 08:44 Resp 16 10/30/24 08:44 BP 102/62 10/30/24 07:00 Pulse Ox 94 L 10/30/24 08:37 FiO2 Intake & Output 10/29/24 10/30/24 10/30/24 18:59 06:59 18:59 Intake Total 354 118 Balance 354 118 Weight 66.1 kg Intake: Oral 354 118 Other: Voiding Method Toilet Toilet Toilet # Voids 2 3 - Labs CBC & Chem 7: 10/29/24 05:31 10/30/24 04:55 Labs: Abnormal Lab Results - Last 24 Hours (Table) 10/29/24 10/30/24 10/30/24 Range/Units 17:01 04:55 05:42 Sodium 130 L (135-145) mmol/L Chloride 95 L (96-109) mmol/L Anion Gap 13.30 H (4.00-12.00) mmol/L BUN 51.3 H (9.0-27.0) mg/dL Creatinine 1.9 H (0.6-1.5) mg/dL Est GFR (CKD-EPI) 31 L (>=60) BUN/Creatinine Ratio 27.00 H (12.00-20.00) Ratio Glucose 335 H (70-110) mg/dL POC Glucose (mg/dL) 211 H 382 H (70-110) mg/dL 10/30/24 Range/Units 12:11 Sodium (135-145) mmol/L Chloride (96-109) mmol/L Anion Gap (4.00-12.00) mmol/L BUN (9.0-27.0) mg/dL Creatinine (0.6-1.5) mg/dL Est GFR (CKD-EPI) (>=60) BUN/Creatinine Ratio (12.00-20.00) Ratio Glucose (70-110) mg/dL POC Glucose (mg/dL) 430 H (70-110) mg/dL Microbiology - Last 24 Hours (Table) 10/26/24 18:19 Blood Culture - Preliminary Blood
--- NOTE | 2024-10-30 15:10 | P.PN ---
Subjective Progress Note Date: 10/30/24 This is a 54-year-old female patient with a known history of hyperlipidemia, diabetes mellitus, hypertension, congestive heart failure, coronary artery disease with previous stent placement, anxiety/depression former smoker. She presented here to the emergency room yesterday with complaints of chest pain and increasing shortness of breath. The pain and shortness of breath started earlier that same day. She states she does have a history of congestive heart failure but had not been on Lasix at home. Filtrate on the lateral projection. Correlate for atelectasis. White count 10.2. Hemoglobin 10.3. Platelets 253. Sodium 134. Potassium 4.9. Bicarb 17. BUN 18. Creatinine 1.03. Glucose 225. Troponins are negative x 3. proBNP 3590. Viral screen is negative. Procalcitonin is negative. She is seen today in consultation on the regular medical floor. She is currently sitting up in bed. Awake and alert in no acute distress. Maintaining good O2 saturations in the 90s on room air. No IV fluids. She has been initiated on Lasix 40 mg IV every 12 hours. Progress note dated October 28, 2024. This is a 54-year-old female that was seen in consultation yesterday. Please see the note above. This morning, she is seen in room 634. She is on room air. Saturations are 97%. She is not receiving any IV fluids. She is laying flat in bed, without any respiratory distress. She is awake and alert. Her procalcitonin level was 0.05. Labs today include only a glucose of 144. On 10/29/2024, the patient continues to have some limited shortness of breath and coughing spells. No chest pain. Note that she is not have coronary artery disease and she has had a previous coronary stent placement and during this current admission, the repeat echocardiogram showed interval drop in her ejection fraction down to 30%. She is known to have hypertension, hyperlipidemia and diabetes mellitus that she smoked around 2 cigarettes a day. She does not have home oxygen. She is currently on room air oxygen. I reviewed the chest x-ray at time of admission showed some mild pulm vascular congestion. She also sustained acute kidney injury and the creatinine is up to 1.9 with a BUN of 39. She is currently on oral Lasix at a dose of 20 mg twice a day. She is also receiving DuoNeb updrafts. She is on Toprol-XL 50 mg p.o. twice a day. Rest of the medications are essentially unchanged. The white cell count of 10.9 with a hemoglobin of 9.5 and a platelet count of 274. Noted the creatinine at time of admission was essentially normal at 1.03. No reported chest pain. She denies utilizing any form of respiratory medications or inhalers on outpatient basis. On 10/30/2024, the patient is being seen for a follow-up. Doing well. Slightly improved compared to yesterday. Remains on bronchodilators with DuoNeb updrafts and remains on IV Solu-Medrol 60 mg every 6 hours. No chest pain. No nausea or vomiting. No diarrhea or abdominal pain. The white cell count from yesterday was at 10.9 with a hemoglobin of 9.5. Most recent BUN is at 15 with a creatinine of 1.9. Sodium is 130 and a potassium level is at 5.3. Creatinine is stable compared to yesterday. Objective - Vital Signs Vital signs: Vital Signs Temp 97.8 F 10/30/24 07:00 Pulse 90 10/30/24 08:44 Resp 16 10/30/24 08:44 BP 102/62 10/30/24 07:00 Pulse Ox 94 L 10/30/24 08:37 FiO2 Intake & Output 10/29/24 10/30/24 10/30/24 18:59 06:59 18:59 Intake Total 354 118 Balance 354 118 Weight 66.1 kg Intake: Oral 354 118 Other: Voiding Method Toilet Toilet Toilet # Voids 2 3 - Exam No acute distress, oriented 3. HEENT examination is grossly unremarkable. Mucous membranes are moist. No oral lesions. Neck supple. Full range of motion. No adenopathy thyromegaly or neck vein distention. Cardiovascular examination reveals regular rhythm rate. S1-S2 normal. No S3 or S4. No discernible murmur noted. Lungs reveal minimal basilar crackles. No wheezes or rhonchi. Abdomen soft bowel sounds are heard. No masses or tenderness. Extremities are intact. No cyanosis clubbing or edema. Skin is without rash or lesion. Neurologic examination is brief but nonfocal. - Labs CBC & Chem 7: 10/29/24 05:31 10/30/24 04:55 Labs: Abnormal Lab Results - Last 24 Hours (Table) 10/29/24 10/29/24 10/30/24 Range/Units 11:59 17:01 05:42 POC Glucose (mg/dL) 284 H 211 H 382 H (70-110) mg/dL Microbiology - Last 24 Hours (Table) 10/26/24 18:19 Blood Culture - Preliminary Blood Assessment and Plan Plan: Atypical chest pain, acute coronary syndrome ruled out Shortness of breath related to an acute COPD exacerbation along with a component of CHF, currently on bronchodilators and steroids being treated for an acute CF exacerbation. CHF with impaired LV function and ejection fraction of 30% Coronary disease with previous stent placement. Hypertension. Acute kidney injury Hyperlipidemia. Diabetes mellitus, type II. Anxiety/depression. Diabetic neuropathy Chronic smoker Plan: Continue same treatment Monitor renal function and the creatinine is up to 1.9, remains stable and will monitor the renal function. Currently on room air oxygen Continue oral diuretics Continue [facility] IV Solu-Medrol 60 mg every 6 hours to be continued for another 24 hours Smoking cessation Echocardiogram was noted and there is no plans to repeat cardiac catheterization by cardiology Will continue to follow
[2024-10-30 17:01] LABS: BUN/Creat Ratio 27.44 Ratio (12.00-20.00); Blood Urea Nitrogen 49.4 mg/dL (9.0-27.0); Calcium 9.2 mg/dL (8.7-10.3); Carbon Dioxide 20.2 mmol/L (21.6-31.8); Chloride 93 mmol/L (96-109); Glucose 422 mg/dL (70-110); Potassium 5.2 mmol/L (3.5-5.5); Sodium 128 mmol/L (135-145)
[2024-10-30 17:10] LABS: Glucose,Whole Blood 425 mg/dL (70-110)
[2024-10-31 05:34] LABS: Glucose,Whole Blood 502 mg/dL (70-110)
[2024-10-31] MEDS: INSULIN ASPART (NovoLOG) 100 UNIT/ML VIAL SQ ONE ×2 (05:50→09:10)
[2024-10-31 08:26] LABS: Glucose,Whole Blood 330 mg/dL (70-110)
[2024-10-31 08:49] LABS: BUN/Creat Ratio 28.37 Ratio (12.00-20.00); Blood Urea Nitrogen 53.9 mg/dL (9.0-27.0); Calcium 9.5 mg/dL (8.7-10.3); Chloride 92 mmol/L (96-109); Glucose 471 mg/dL (70-110); Potassium 5.5 mmol/L (3.5-5.5); Sodium 129 mmol/L (135-145)
[2024-10-31] MEDS ORDERED: INSULIN DETEMIR (LEVEMIR) 100 UNIT/ML SYR SQ SCH ×2 (09:00→21:00)
[2024-10-31] MEDS: INSULIN ASPART (NovoLOG) 100 UNIT/ML VIAL SQ SCH ×2 (09:12→13:37)
--- NOTE | 2024-10-31 09:40 | P.NPCON ---
History of Present Illness - Reason for Consult acute renal failure - History of Present Illness Reason for consultation: Acute kidney injury History of present illness: Patient is a 54-year-old female seen in new consultation for acute kidney injury. Patient's creatinine on admission was near 1 and peaked at 1.9 this admission. Creatinine has been 1.8-1.9 for the last 3 days. Patient came to the hospital on October 26, 2024 with shortness of breath. Patient states she was on diuretics outpatient but were discontinued about 6 weeks ago. Patient subsequently started getting more short of breath and came to the hospital. Patient did receive IV diuretics and is now maintained on oral Lasix. She is noted to have cardiomyopathy ejection fraction of 30%. She does have history of diabetes. Denies history of coronary artery disease. Denies edema in the lower extremities. Has been voiding. Denies gross hematuria or dysuria. Denies use of nonsteroidals. Denies family history of renal disease. Hemodynamically stable. Blood glucose has been running high. Vital signs stable. No JVD. Regular rate and rhythm. No audible rhonchi or wheezes. Abdomen soft, nontender. No edema. Past Medical History Past Medical History: Coronary Artery Disease (CAD), Chest Pain / Angina, Heart Failure, COPD, Diabetes Mellitus, Hearing Disorder / Deafness, Hyperlipidemia, Hypertension, Liver Disease, Myocardial Infarction (NE), Osteoarthritis (OA), Thyroid Disorder Additional Past Medical History / Comment(s): Neuropathy bilateral feet/lower legs, balance problems-"trips" has cane, graves disease, polycystic ovaries, rt ear deaf, "one artery in my heart goes in the back of the heart instead of the front", "fast heart rate", fatty liver, diabetes type 2 Last Myocardial Infarction Date:: Unknown History of Any Multi-Drug Resistant Organisms: None Reported Past Surgical History: Adenoidectomy, Breast Surgery, Section, Cholecystectomy, Ear Surgery, Heart Catheterization, Tonsillectomy Additional Past Surgical History / Comment(s): Rt groin arterial clot removal after cardiac cath, titanium bones in R ear. surgery left ear, rt breast lumpectomy Past Anesthesia/Blood Transfusion Reactions: Postoperative Nausea & Vomiting (PONV) Past Psychological History: Anxiety, Depression Smoking Status: Former smoker Past Alcohol Use History: None Reported Past Drug Use History: None Reported - Past Family History Father Family Medical History: CVA/TIA, Myocardial Infarction (NE) Additional Family Medical History / Comment(s): . Mother Family Medical History: Cancer, Myocardial Infarction (NE) Additional Family Medical History / Comment(s): THYROID CA. Medications and Allergies Home Medications Medication Instructions Recorded Confirmed Type buPROPion HCL [Wellbutrin SR] 150 mg PO BID 09/30/15 10/26/24 History Atorvastatin [Lipitor] 80 mg PO HS 06/10/18 10/26/24 History Sertraline [Zoloft] 200 mg PO HS 06/10/18 10/26/24 History hydrOXYzine HCL [Atarax] 25 mg PO HS 06/10/18 10/26/24 History metFORMIN HCL [Glucophage] 1,000 mg PO BID 05/24/23 10/26/24 History Gabapentin 600 mg PO Q8H PRN 10/26/24 10/26/24 History Metoprolol Succinate (ER) [Toprol 50 mg PO BID 10/26/24 10/26/24 History Xl] Spironolactone [Aldactone] 25 mg PO DAILY 10/26/24 10/26/24 History lisinopriL [Zestril] 10 mg PO DAILY 10/26/24 10/26/24 History methIMAzole [Tapazole] 5 mg PO [id number] 10/26/24 10/26/24 History predniSONE 10 mg PO DIRECTED #30 tab 10/30/24 Rx Allergies Allergy/AdvReac Type Severity Reaction Status Date / Time adhesive Allergy Rash/Hives Verified 10/26/24 17:42 bee pollen Allergy Unknown Verified 10/26/24 17:42 shellfish derived [Shellfish] Allergy Swelling Verified 10/26/24 17:42 venom-honey bee Allergy Anaphylaxis Verified 10/26/24 17:42 amoxicillin [From Augmentin] AdvReac Nausea & Verified 10/26/24 17:42 Vomiting clavulanic acid AdvReac Nausea & Verified 10/26/24 17:42 [From Augmentin] Vomiting erythromycin base AdvReac Nausea & Verified 10/26/24 17:42 Vomiting propoxyphene AdvReac Nausea & Verified 10/26/24 17:42 [From Darvocet-N] Vomiting BANDAIDS Allergy Rash/Hives Uncoded 10/26/24 17:42 Physical Exam Vitals: Vital Signs Temp Pulse Pulse Resp BP Pulse Ox 10/31/24 08:22 84 10/31/24 08:12 85 10/31/24 07:00 97.8 F 83 15 136/76 97 10/31/24 01:34 97.9 F 92 17 120/70 97 10/30/24 20:14 90 10/30/24 20:03 97 10/30/24 19:49 99.1 F 87 17 125/64 94 L 10/30/24 16:24 92 16 10/30/24 16:15 90 16 10/30/24 15:00 97.9 F 93 17 113/62 95 Intake and Output 10/30/24 10/31/24 10/31/24 22:59 06:59 14:59 Other: Voiding Method Toilet # Voids 1 3 Weight 66.1 kg Results - Lab Results Most recent lab results Calcium 9.5 mg/dL (8.7-10.3) 10/31/24 04:52 Magnesium 1.1 mg/dL (1.6-2.3) L 10/26/24 16:07 10/29/24 05:31 10/31/24 04:52 Assessment and Plan Plan: Assessment: 1. Acute kidney injury secondary to ATN secondary to cardiorenal syndrome. Baseline creatinine near 1 and stable in the range of 1.8 and 1.9 last few days. 2. Volume overload. Improved with diuresis. 3. Cardiomyopathy ejection fraction of 30%. 4. Diabetes mellitus. Blood sugars have been high. Exacerbated by steroids. 5. Hypotonic hyponatremia secondary to hyperglycemia. Plan: Maintain oral Lasix. Check UA. Check renal ultrasound. Avoid nephrotoxins. Continue to monitor renal function and urine output. Thank you for the consultation. I will continue to follow the patient with you during her hospital stay.
[2024-10-31 09:42] VITALS: RESP 16
[2024-10-31 10:51] LABS: Appearance,Urine Clear (Clear); Bacteria,Urine Rare /hpf; Bilirubin,Urine Negative (Negative); Blood,Urine Negative (Negative); Color,Urine Colorless; Glucose,Urine (UA) 3+ (Negative); Ketones,Urine Negative (Negative); Leukocyte Esterase,Urine Small (Negative); Nitrite,Urine Negative (Negative); Protein,Urine Negative (Negative); RBC,Urine 1 /hpf (0-5); Specific Gravity,Urine 1.008 (1.001-1.035); Squamous Epithelial Cell,Urine 1 /hpf (0-4); Urobilinogen,Urine <2.0 mg/dL (<2.0); WBC,Urine 1 /hpf (0-5)
--- NOTE | 2024-10-31 10:54 | P.PN ---
Subjective HISTORY OF PRESENT ILLNESS: This is a 54-year-old female patient of Dr. 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 We have been asked to evaluate the patient for CHF and chest pain. Patient states that starting on she was having trouble breathing and then it continued to worsen and by Tuesday afternoon it was significantly worse. Patient is noted to be hoarse. Blood pressure 127/82, heart rate 82, pulse ox 97% on room air. Patient has been started on IV Lasix 40 mg every 12 hours. Patient is a smoker cut down to 2 cigarettes/day. -EKG: Sinus rhythm with nonspecific ST changes, left bundle branch block. -Chest x-ray: Linear opacities and a posterior infiltrate at the lateral projection. Correlate for atelectasis and pneumonia. -Laboratory studies: WBC 10.2 down from 11.2, hemoglobin 10.3. Sodium 134, potassium 4.9, BUN 18 creatinine 1.03. Troponin negative x 3. proBNP 3590. Cepheid viral panel negative. -Home cardiac medications: Atorvastatin 80 mg at bedtime, lisinopril 10 mg daily, metoprolol succinate 50 mg twice daily, spironolactone 25 mg daily. -Cardiac catheterization performed 02/07/2019 revealed left circumflex is originating from the right coronary cusp. Normal coronaries. Echocardiogram performed in the office on 08/28/2024 revealed mild , bicuspid AV, EF 40 to 45%. Lexiscan Cardiolite stress test performed in the office on 04/24/2024 revealed normal study. 10/28 Patient seen and examined. Patient states that she is feeling better but she continues to have wheezing between her nebulizer treatments. Blood pressure 121/68, heart rate 60s to 80s, pulse ox 97% on room air. Repeat blood work reveals hemoglobin 10.2, sodium 135, potassium 5.0, BUN 23 creatinine 1.4. A1c 5.9 Echocardiogram reveals EF of 30% with diffuse global hypokinesis, aortic sclerosis without stenosis. 10/29/2024 Patient seen and examined sitting up in bed in no acute distress. She continues to have mild exertional shortness of breath which she states is mostly chronic. No significant changes. She denies chest pain, dizziness or palpitations. B edward pressure 97/58 heart rate 79 afebrile maintaining oxygen saturation on room air. Laboratory data reviewed, WBC 10.9, hemoglobin 9.5, platelets 274, sodium 131, potassium 5.2, creatinine 1.9. 10/30/2024 Patient examined this morning at the bedside. Patient denies chest pain or pressure. Denies SOB. Vital signs are stable. Blood pressure this morning 102/62. Creatinine today 1.9, unchanged from yesterday at 1.9. 10/31/2024 Patient examined this morning at bedside. Patient currently denies chest pain or pressure. She denies shortness of breath. She remains on IV steroids. Blood sugars are elevated in the 45 100s. Creatinine today 1.8. She remains on oral Lasix. PHYSICAL EXAM: VITAL SIGNS: Reviewed. GENERAL: Well-developed in no acute distress. NECK: Supple. No JVD or thyromegaly LUNGS: Respirations even and unlabored. Lungs essentially clear to auscultation bilaterally. HEART: Regular rate and rhythm. S1 and S2 heard. EXTREMITIES: Normal range of motion. No clubbing or cyanosis. Peripheral pulses intact. No lower extremity edema ASSESSMENT: Acute systolic heart failure Atypical chest pain, acute coronary syndrome ruled out Cardiomyopathy with drop in EF to 30%, ischemic versus nonischemic Acute kidney injury, likely related to diuresis Dyslipidemia Hypertension Valvular heart disease Chronic nicotine dependence History of anemia Hyperglycemia secondary to IV steroids PLAN: Continue current cardiac medications Monitor kidney function Patient is stable for discharge from a cardiac standpoint Patient to follow up post discharge with Dr. Gillespie Nurse practitioner note has been reviewed by physician. Signing provider agrees with the documented findings, assessment, and plan of care documented by [employer] as a scribe. Objective - Vital Signs Vital signs: Vital Signs Temp 97.8 F 10/31/24 07:00 Pulse 84 10/31/24 08:22 Resp 16 10/31/24 08:00 BP 136/76 10/31/24 07:00 Pulse Ox 97 10/31/24 07:00 FiO2 Intake & Output 10/30/24 10/31/24 10/31/24 18:59 06:59 18:59 Intake Total 236 Balance 236 Weight 66.1 kg Intake: Oral 236 Other: Voiding Method Toilet Toilet Toilet # Voids 4 3 - Labs CBC & Chem 7: 10/29/24 05:31 10/31/24 04:52 Labs: Abnormal Lab Results - Last 24 Hours (Table) 10/30/24 10/30/24 10/30/24 Range/Units 04:55 11:59 12:11 Sodium 130 L 128 L (135-145) mmol/L Chloride 95 L 93 L (96-109) mmol/L Carbon Dioxide 20.2 L (21.6-31.8) mmol/L Anion Gap 13.30 H 14.80 H (4.00-12.00) mmol/L BUN 51.3 H 49.4 H (9.0-27.0) mg/dL Creatinine 1.9 H 1.8 H (0.6-1.5) mg/dL Est GFR (CKD-EPI) 31 L 33 L (>=60) BUN/Creatinine Ratio 27.00 H 27.44 H (12.00-20.00) Ratio Glucose 335 H 422 H (70-110) mg/dL POC Glucose (mg/dL) 430 H (70-110) mg/dL 10/30/24 10/31/24 10/31/24 Range/Units 17:09 04:52 05:33 Sodium 129 L (135-145) mmol/L Chloride 92 L (96-109) mmol/L Carbon Dioxide 21.0 L (21.6-31.8) mmol/L Anion Gap 16.00 H (4.00-12.00) mmol/L BUN 53.9 H (9.0-27.0) mg/dL Creatinine 1.9 H (0.6-1.5) mg/dL Est GFR (CKD-EPI) 31 L (>=60) BUN/Creatinine Ratio 28.37 H (12.00-20.00) Ratio Glucose 471 H (70-110) mg/dL POC Glucose (mg/dL) 425 H 502 H* (70-110) mg/dL 10/31/24 Range/Units 08:24 Sodium (135-145) mmol/L Chloride (96-109) mmol/L Carbon Dioxide (21.6-31.8) mmol/L Anion Gap (4.00-12.00) mmol/L BUN (9.0-27.0) mg/dL Creatinine (0.6-1.5) mg/dL Est GFR (CKD-EPI) (>=60) BUN/Creatinine Ratio (12.00-20.00) Ratio Glucose (70-110) mg/dL POC Glucose (mg/dL) 330 H (70-110) mg/dL
--- NOTE | 2024-10-31 11:28 | US ---
EXAMINATION TYPE: US kidneys/renal and bladder DATE OF EXAM: 10/31/2024 COMPARISON: CT 2017 CLINICAL INDICATION: Female, 54 years old with history of medardo; MEDARDO TECHNIQUE: Grayscale imaging of the bilateral kidneys and urinary bladder: FINDINGS: EXAM MEASUREMENTS: Right Kidney: 12.7 x 5.6 x 6.0 cm Left Kidney: 11.6 x 5.0 x 6.1 cm Right Kidney: Slightly enlarged. *Complex area seen laterally: 1.8 x 1.7 x 1.9 cm. Left Kidney: No hydronephrosis or masses seen Bladder: Not distended, unable to properly evaluate. Bilateral Jets seen: No No hydronephrosis. No shadowing renal calculi. Cortical medullary differentiation is maintained bilat erally. There is a complex region identified laterally within the right kidney measuring up to 1.9 cm . No left renal masses identified. No perinephric fluid collections. Urinary bladder is underdistende d which limits evaluation. IMPRESSION: 1. No hydronephrosis or nephrolithiasis. 2. Left lateral kidney indeterminate mildly complex region. May represent a renal sinus cyst versus o ther etiologies. Recommend further evaluation with CT abdomen with and without IV contrast (renal mas s protocol). [facility], , 10/31/2024 11:25 AM
[2024-10-31 12:01] LABS: Glucose,Whole Blood 413 mg/dL (70-110)
--- NOTE | 2024-10-31 13:11 | P.PN ---
Subjective Progress Note Date: 10/31/24 This is a 54-year-old female admitted with acute CHF diastolic dysfunction, cardiomyopathy with decreased EF to 30%, chest pain with acute coronary syndrome ruled out and multiple other medical issues. Yesterday IV push Lasix transitioned to oral. Exertional shortness of breath. Denies chest pain, palpit ations.today worsening renal function, bicarb 23.7, BUN 39.7, creatinine 1.9. Sodium dropped to 131, potassium 5.2. Blood pressure soft, 100/59 with a mean arterial pressure 72. Maintaining O2 sats in the 90s on room air. 10/30/2024 Discharge held yesterday related to worsening renal function with soft blood pressures; Lasix transitioned to oral. BMP pending. Maintained on oral Lasix, nebulized bronchodilators. IV steroids initiated as per pulmonary. Maintaining O2 sats in the mid to low 90s on room air. hyperglycemic, Lantus added to med regimen. 10/31/2024 hyperglycemic, steroid-induced, increased up as high as 500s earlier this morning. Received additional NovoLog insulin with a.m. Levemir administered early, currently 330. Continues on nebulized bronchodilators and IV steroids. Maintaining O2 sats in the high 90s on room air. Sodium 129 bicarb 21, BUN 53.9 creatinine 1.9. Evaluated by nephrology with recommendations noted. Denies chest pain, palpitations or shortness of breath. Objective - Vital Signs Vital signs: Vital Signs Temp 97.8 F 10/31/24 07:00 Pulse 84 10/31/24 08:22 Resp 15 10/31/24 07:00 BP 136/76 10/31/24 07:00 Pulse Ox 97 10/31/24 07:00 FiO2 Intake & Output 10/30/24 10/31/24 10/31/24 18:59 06:59 18:59 Intake Total 236 Balance 236 Weight 66.1 kg Intake: Oral 236 Other: Voiding Method Toilet Toilet # Voids 4 3 - Exam PHYSICAL EXAM: VITAL SIGNS: [Reviewed] GENERAL: Alert and oriented x 3, sitting up in bed, no acute distress HEENT: Normocephalic , atraumatic ,conjunctivae normal. Sclerae anicteric.MMM. NECK: Supple, no JVD. CARDIOVASCULAR: S1, S2, regular rate and rhythm. Systolic murmur. RESPIRATION: Unlabored, equal air entry , bilateral bases diminished with fine basilar crackles. ABDOMEN: Soft, nondistended, nontender . No guarding. No rigidity. +BS. LEGS: No edema. no swelling. No clubbing, no cyanosis, no calf tenderness. NERVOUS SYSTEM: Cranial N 2-12 grossly normal. No focal deficits. Skin: Warm and dry, no rash - Labs CBC & Chem 7: 10/29/24 05:31 10/31/24 04:52 Labs: Abnormal Lab Results - Last 24 Hours (Table) 10/30/24 10/30/24 10/30/24 Range/Units 04:55 11:59 12:11 Sodium 130 L 128 L (135-145) mmol/L Chloride 95 L 93 L (96-109) mmol/L Carbon Dioxide 20.2 L (21.6-31.8) mmol/L Anion Gap 13.30 H 14.80 H (4.00-12.00) mmol/L BUN 51.3 H 49.4 H (9.0-27.0) mg/dL Creatinine 1.9 H 1.8 H (0.6-1.5) mg/dL Est GFR (CKD-EPI) 31 L 33 L (>=60) BUN/Creatinine Ratio 27.00 H 27.44 H (12.00-20.00) Ratio Glucose 335 H 422 H (70-110) mg/dL POC Glucose (mg/dL) 430 H (70-110) mg/dL 10/30/24 10/31/24 10/31/24 Range/Units 17:09 05:33 08:24 Sodium (135-145) mmol/L Chloride (96-109) mmol/L Carbon Dioxide (21.6-31.8) mmol/L Anion Gap (4.00-12.00) mmol/L BUN (9.0-27.0) mg/dL Creatinine (0.6-1.5) mg/dL Est GFR (CKD-EPI) (>=60) BUN/Creatinine Ratio (12.00-20.00) Ratio Glucose (70-110) mg/dL POC Glucose (mg/dL) 425 H 502 H* 330 H (70-110) mg/dL Microbiology - Last 24 Hours (Table) 10/26/24 18:19 Blood Culture - Preliminary Blood Assessment and Plan Assessment: Acute CHF exacerbation, systolic dysfunction Chest pain, atypical, acute coronary syndrome ruled out, cardiology following Cardiomyopathy with decreased EF to 30%, type unclear, no repeat cardiac catheterization at this time as per cardiology Acute COPD exacerbation Acute renal injury, medication induced, diuretics and hypotension. ATN secondary to cardiorenal syndrome. Dyspnea secondary to all the above Diabetes mellitus type 2, hemoglobin A1c 5.9, hyperglycemic, steroid-induced Hyponatremia, secondary to the above. CAD with previous stent placement Nicotine dependence Plan: Continue on current medication regimen ,monitoring and symptomatic treatment.oral diuretics. weaning of steroids as per pulmonary.further adjustments in diabetic med regimen including Lantus scheduled twice a day, Premeal insulin with parameters to hold if blood sugar less than 120 in addition to NovoLog sliding scale .continue close monitoring of Accu-Cheks .smoking cessation reinforced. Discharge planning in progress for today pending pulmonary and nephrology's final DC recommendations and clearance. Patient will require nebulizer machine to facilitate DuoNeb 0.5 mg - 3 mg per 3 mL solution 4 times daily scheduled and every 4 hours prn shortness of breath to manage her acute on chronic COPD exacerbation. The impression and plan of care has been dictated as directed. : I performed a history and examination of this patient, discussed the same with the dictator. I agree with the dictator's note ,documented as a scribe. Any additional findings or plans will be noted.
[2024-10-31] MEDS: predniSONE 10 MG TAB PO SCH (13:44)
[2024-10-31 13:57] VITALS: BP 134/68; TEMP 98.1
[2024-10-31 15:00] LABS: Glucose,Whole Blood 434 mg/dL (70-110)
--- NOTE | 2024-10-31 15:06 | P.DS ---
Providers Date of admission: 10/26/24 17:52 Expected date of discharge: 10/31/24 Attending physician: Gorge Tripathi Consults: 10/26/24 17:50 Consult Physician Routine Consulting Provider: Kleber Castellanos Consult Reason/Comments: copd, possible pneumonia Do you want consulting provider notified?: Yes Consult Physician Routine Consulting Provider: [facility] Consult Reason/Comments: chest pain, chf Do you want consulting provider notified?: Yes 10/30/24 12:46 Consult Physician Routine Consulting Provider: Cecille Reilly Consult Reason/Comments: acute renal injury Do you want consulting provider notified?: Yes Primary care physician: Gorge Tripathi [facility] Course: Final Diagnoses: Acute CHF exacerbation, systolic dysfunction Chest pain, atypical, acute coronary syndrome ruled out, cardiology following Cardiomyopathy with decreased EF to 30%, type unclear, no repeat cardiac catheterization at this time as per cardiology Acute COPD exacerbation Acute renal injury, medication induced, diuretics and hypotension. ATN secondary to cardiorenal syndrome. Dyspnea secondary to all the above Diabetes mellitus type 2, hemoglobin A1c 5.9, hyperglycemic, steroid-induced Hyponatremia, secondary to the above. CAD with previous stent placement Nicotine dependence Hospital course:This is a 54-year-old female admitted with acute CHF diastolic dysfunction, cardiomyopathy with decreased EF to 30%, chest pain with acute coronary syndrome ruled out and multiple other medical issues. Yesterday IV push Lasix transitioned to oral. Exertional shortness of breath. Denies chest pain, palpitations.today worsening renal function, bicarb 23.7, BUN 39.7, creatinine 1.9. Sodium dropped to 131, potassium 5.2. Blood pressure soft, 100/59 with a mean arterial pressure 72. Maintaining O2 sats in the 90s on room air. 10/30/2024 Discharge held yesterday related to worsening renal function with soft blood pressures; Lasix transitioned to oral. BMP pending. Maintained on oral Lasix, nebulized bronchodilators. IV steroids initiated as per pulmonary. Maintaining O2 sats in the mid to low 90s on room air. hyperglycemic, Lantus added to med regimen. 10/31/2024 hyperglycemic, steroid-induced, increased up as high as 500s earlier this morning. Received additional NovoLog insulin with a.m. Levemir administered early, currently 330. Continues on nebulized bronchodilators and IV steroids. Maintaining O2 sats in the high 90s on room air. Sodium 129 bicarb 21, BUN 53.9 creatinine 1.9. Evaluated by nephrology with recommendations noted. Denies chest pain, palpitations or shortness of breath. oral diuretics. weaning of steroids as per pulmonary.further adjustments in diabetic med regimen including Lantus scheduled twice a day, Premeal insulin with parameters to hold if blood sugar less than 120 in addition to NovoLog sliding scale .continue close monitoring of Accu-Cheks .smoking cessation reinforced. Discharge planning in progress for today pending pulmonary and nephrology's final DC recommendations and clearance. Patient will require nebulizer machine to facilitate DuoNeb 0.5 mg - 3 mg per 3 mL solution 4 times daily scheduled and every 4 hours prn shortness of breath to manage her acute on chronic COPD exacerbation. Patient has been cleared by cardiology, nephrology and pulmonary for discharge will be discharged home today in a stable condition with guarded prognosis. The impression and plan of care has been dictated as directed. : I performed a history and examination of this patient, discussed the same with the dictator. I agree with the dictator's note ,documented as a scribe. Any additional findings or plans will be noted. Patient Condition at Discharge: Stable Plan - Discharge Summary Discharge Rx Participant: Yes New Discharge Prescriptions: New predniSONE 10 mg PO DIRECTED #18 tab Ipratropium-Albuterol Nebulize [Duoneb 0.5 mg-3 mg/3 ml Soln] 3 ml INHALATION RT-QID #120 each Furosemide [Lasix] 20 mg PO BID@0900,1600 #60 tab Acetaminophen Tab [Tylenol] 650 mg PO Q8HR PRN tab PRN Reason: Fever And/ Or Pain Continue buPROPion HCL [Wellbutrin SR] 150 mg PO BID Sertraline [Zoloft] 200 mg PO HS Atorvastatin [Lipitor] 80 mg PO HS hydrOXYzine HCL [Atarax] 25 mg PO HS Gabapentin 600 mg PO Q8H PRN PRN Reason: restless legs/pain Metoprolol Succinate (ER) [Toprol XL] 50 mg PO BID metFORMIN HCL [Glucophage] 1,000 mg PO BID methIMAzole [Tapazole] 5 mg PO MOWEFRSA Discontinued Spironolactone [Aldactone] 25 mg PO DAILY lisinopriL [Zestril] 10 mg PO DAILY Discharge Medication List buPROPion HCL [Wellbutrin SR] 150 mg PO BID 09/30/15 [History] Atorvastatin [Lipitor] 80 mg PO HS 06/10/18 [History] Sertraline [Zoloft] 200 mg PO HS 06/10/18 [History] hydrOXYzine HCL [Atarax] 25 mg PO HS 06/10/18 [History] metFORMIN HCL [Glucophage] 1,000 mg PO BID 05/24/23 [History] Gabapentin 600 mg PO Q8H PRN 10/26/24 [History] Metoprolol Succinate (ER) [Toprol XL] 50 mg PO BID 10/26/24 [History] methIMAzole [Tapazole] 5 mg PO MOWEFRSA 10/26/24 [History] Acetaminophen Tab [Tylenol] 650 mg PO Q8HR PRN tab 10/31/24 [Rx] Furosemide [Lasix] 20 mg PO BID@0900,1600 #60 tab 10/31/24 [Rx] Ipratropium-Albuterol Nebulize [Duoneb 0.5 mg-3 mg/3 ml Soln] 3 ml INHALATION RT-QID #120 each 10/31/24 [Rx] predniSONE 10 mg PO DIRECTED #18 tab 10/31/24 [Rx] Follow up Appointment(s)/Referral(s): Gorge Tripathi DO [Primary Care Provider] - 3 Days Ambulatory/Diagnostic Orders: Basic Metabolic Panel [LAB.AMB] Time Frame: 3 Days, Location: None Selected Activity/Diet/Wound Care/Special Instructions: RAGHU inhibitor and Aldactone on hold secondary to worsening renal function, reevaluate outpatient in clinic with PCP
[2024-10-31 15:24] VITALS: BMI 24.2
[2024-10-31 15:44] VITALS: PULSE 88
[2024-10-31 17:04] LABS: Glucose,Whole Blood 293 mg/dL (70-110)
== END 2024-10-31 18:08 | disposition home or self-care (01) | DRG 291 ==
LOC: EC 15:04 → 6NMEDSUR 17:51 → OBSVTOIN 17:52 → 6NMEDSUR 20:31
PROVIDERS: ADMIT Family Medicine; ATTEND Family Medicine
DX: I13.0 Hypertensive heart and chronic kidney disease with heart failure and stage 1 through stage 4 chronic kidney disease, or unspecified chronic kidney disease (principal); I50.43 Acute on chronic combined systolic (congestive) and diastolic (congestive) heart failure; N17.0 Acute kidney failure with tubular necrosis; J44.1 Chronic obstructive pulmonary disease with (acute) exacerbation; I95.9 Hypotension, unspecified; E11.22 Type 2 diabetes mellitus with diabetic chronic kidney disease; Q23.81 Bicuspid aortic valve; F32.A Depression, unspecified; I70.0 Atherosclerosis of aorta; N18.9 Chronic kidney disease, unspecified; K76.0 Fatty (change of) liver, not elsewhere classified; E87.1 Hypo-osmolality and hyponatremia; I42.8 Other cardiomyopathies; E11.42 Type 2 diabetes mellitus with diabetic polyneuropathy; E78.5 Hyperlipidemia, unspecified; F41.9 Anxiety disorder, unspecified; E11.65 Type 2 diabetes mellitus with hyperglycemia; T38.0X5A Adverse effect of glucocorticoids and synthetic analogues, initial encounter; X58.XXXA Exposure to other specified factors, initial encounter; E87.5 Hyperkalemia; F17.210 Nicotine dependence, cigarettes, uncomplicated; H91.91 Unspecified hearing loss, right ear; I25.10 Atherosclerotic heart disease of native coronary artery without angina pectoris; I25.2 Old myocardial infarction; I44.7 Left bundle-branch block, unspecified; I25.5 Ischemic cardiomyopathy; I08.1 Rheumatic disorders of both mitral and tricuspid valves; M19.90 Unspecified osteoarthritis, unspecified site; T50.2X5A Adverse effect of carbonic-anhydrase inhibitors, benzothiadiazides and other diuretics, initial encounter; Z71.6 Tobacco abuse counseling; Z79.84 Long term (current) use of oral hypoglycemic drugs; Z79.899 Other long term (current) drug therapy; Z82.49 Family history of ischemic heart disease and other diseases of the circulatory system; Z95.5 Presence of coronary angioplasty implant and graft; Z11.52 Encounter for screening for COVID-19; Z91.030 Bee allergy status; Z91.013 Allergy to seafood; Z91.048 Other nonmedicinal substance allergy status; Z88.1 Allergy status to other antibiotic agents; Z88.8 Allergy status to other drugs, medicaments and biological substances
CPT/HCPCS: 36415; 71046; 76770; 80048; 80053; 81001; 83036; 83605; 83735; 83880; 84145; 84484; 85025; 85610; 85730; 87040; 87636; 93005; 93306; 94640; 94760; 96365; 96366; 96367; 96375; 99285

== ENCOUNTER 2025-01-16 18:53 | Emergency (ER) | payer MEDICARE, OTHER ==
[2025-01-16 19:21] VITALS: RESP 18
--- NOTE | 2025-01-16 20:23 | XR ---
EXAMINATION TYPE: XR wrist complete LT DATE OF EXAM: 01/16/2025 7:58 PM COMPARISON: None CLINICAL INDICATION: Female, 54 years old with history of injury, pain TECHNIQUE: XR wrist complete LT; examined in the Frontal, navicular, lateral, and oblique. FINDINGS: No acute osseous pathology, joint dislocation, or joint effusion. No evidence of any soft tissue swelling is seen. IMPRESSION: No acute osseous pathology. [facility], , 01/16/2025 8:21 PM
--- NOTE | 2025-01-16 20:48 | ED ---
Upper Extremity HPI - General Chief Complaint: Extremity Injury, Upper Stated Complaint: fall, L arm injury Time Seen by Provider: 01/16/25 19:27 Source: patient Mode of arrival: ambulatory Limitations: no limitations - History of Present Illness Initial Comments: 54-year-old female presenting with chief complaint of left wrist pain. Patient reports that yesterday she had a trip and fall from standing and landed on her outstretched hand. She denies any head injury, loss of consciousness, or use of blood thinners. She has had continued pain in the wrist today. Flexion and extension is particularly difficult. She is able to wiggle the fingers without difficulty. No numbness or tingling. She has full range of motion of the elbow. - Related Data Home Medications Medication Instructions Recorded Confirmed buPROPion HCL [Wellbutrin SR] 150 mg PO BID 09/30/15 10/26/24 Atorvastatin [Lipitor] 80 mg PO HS 06/10/18 10/26/24 Sertraline [Zoloft] 200 mg PO HS 06/10/18 10/26/24 hydrOXYzine HCL [Atarax] 25 mg PO HS 06/10/18 10/26/24 metFORMIN HCL [Glucophage] 1,000 mg PO BID 05/24/23 10/26/24 Gabapentin 600 mg PO Q8H PRN 10/26/24 10/26/24 Metoprolol Succinate (ER) [Toprol 50 mg PO BID 10/26/24 10/26/24 XL] methIMAzole [Tapazole] 5 mg PO MOWEFRSA 10/26/24 10/26/24 Previous Rx's Medication Instructions Recorded Acetaminophen Tab [Tylenol] 650 mg PO Q8HR PRN tab 10/31/24 Furosemide [Lasix] 20 mg PO BID@0900,1600 #60 tab 10/31/24 Ipratropium-Albuterol Nebulize 3 ml INHALATION RT-QID #120 each 10/31/24 [Duoneb 0.5 mg-3 mg/3 ml Soln] predniSONE 10 mg PO DIRECTED #18 tab 10/31/24 Allergies Allergy/AdvReac Type Severity Reaction Status Date / Time adhesive Allergy Rash/Hives Verified 01/16/25 19:21 bee pollen Allergy Unknown Verified 01/16/25 19:21 shellfish derived [Shellfish] Allergy Swelling Verified 01/16/25 19:21 venom-honey bee Allergy Anaphylaxis Verified 01/16/25 19:21 amoxicillin [From Augmentin] AdvReac Nausea & Verified 01/16/25 19:21 Vomiting clavulanic acid AdvReac Nausea & Verified 01/16/25 19:21 [From Augmentin] Vomiting erythromycin base AdvReac Nausea & Verified 01/16/25 19:21 Vomiting propoxyphene AdvReac Nausea & Verified 01/16/25 19:21 [From Darvocet-N] Vomiting BANDAIDS Allergy Rash/Hives Uncoded 01/16/25 19:21 Review of Systems ROS Statement: Those systems with pertinent positive or pertinent negative responses have been documented in the HPI. ROS Other: All systems not noted in ROS Statement are negative. 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 surgery left ear, rt breast lumpectomy Past Anesthesia/Blood Transfusion Reactions: Postoperative Nausea & Vomiting (PONV) Past Psychological History: Anxiety, Depression Smoking Status: Current every day smoker Past Alcohol Use History: None Reported Past Drug Use History: None Reported - Past Family History Father Family Medical History: CVA/TIA, Myocardial Infarction (ME) Additional Family Medical History / Comment(s): . Mother Family Medical History: Cancer, Myocardial Infarction (ME) Additional Family Medical History / Comment(s): THYROID CA. General Exam Limitations: no limitations General appearance: alert, in no apparent distress Head exam: Present: atraumatic, normocephalic, normal inspection Eye exam: Present: normal appearance, EOMI Neck exam: Present: normal inspection. Absent: meningismus Respiratory exam: Absent: respiratory distress Cardiovascular Exam: Present: regular rate Left Forearm Wrist exam: Present: tenderness (Patient has significant tenderness surrounding the wrist), swelling. Absent: full ROM Vascular: Absent: vascular compromise Neurological exam: Present: alert, oriented X3 Psychiatric exam: Present: normal affect, normal mood Skin exam: Present: warm, dry, normal color Course Vital Signs 01/16/25 01/16/25 19:17 20:51 Temperature 98.4 F 97.8 F Pulse Rate 72 71 Respiratory 18 18 Rate Blood Pressure 113/71 125/79 O2 Sat by Pulse 95 98 Oximetry Procedures - Orthopedic Splinting/Casting Injury #1 Side: left Upper Extremity Injury Location: wrist Upper Extremity Immobilizer: volar splint Medical Decision Making - Medical Decision Making Was pt. sent in by a medical professional or institution (, PA, SALES ASSISTANT DISPLAYS, urgent care, hospital, or group home...) When possible be specific @ -No Did you speak to anyone other than the patient for history (EMS, parent, family, police, friend...)? What history was obtained from this source @ -No Did you review nursing and triage notes (agree or disagree)? Why? @ -I reviewed and agree with nursing and triage notes Were old charts reviewed (outside hosp., previous admission, EMS record, old EKG, old radiological studies, urgent care reports/EKG's, group home records)? Report findings @ -No old charts were reviewed Differential Diagnosis (chest pain, altered mental status, abdominal pain women, abdominal pain men, vaginal bleeding, weakness, fever, dyspnea, syncope, headache, dizziness, GI bleed, back pain, seizure, CVA, palpatations, mental health, musculoskeletal)? @ -Differential Musculoskeletal Muscular strain, contusion, ligament sprain, fracture, arthritis, septic arthritis, bursitis, cellulitis, muscle spasm, nerve compression, DVT, arterial occlusion, herpes zoster, electrolyte abnormality, tumor.... This is not meant to be in all inclusive list EKG interpreted by me (3pts min.). @ -As above X-rays interpreted by me (1pt min.). @ -X-ray negative for fracture or dislocation CT interpreted by me (1pt min.). @ -None done U/S interpreted by me (1pt. min.). @ -None done What testing was considered but not performed or refused? (CT, X-rays, U/S, labs)? Why? @ -None What meds were considered but not given or refused? Why? @ -None Did you discuss the management of the patient with other professionals (professionals i.e. Dr., PA, SALES ASSISTANT DISPLAYS, lab, RT, psych nurse, social media project manager, clerk specialist, teacher, water resources technical officer, case liner)? Give summary @ -No Was smoking cessation discussed for >3mins.? @ -No Was critical care preformed (if so, how long)? @ -No Were there social determinants of health that impacted care today? How? (Homelessness, low income, unemployed, alcoholism, drug addiction, transportation, low edu. Level, literacy, decrease access to med. care, residential, rehab)? @ -No Was there de-escalation of care discussed even if they declined (Discuss DNR or withdrawal of care, Hospice)? DNR status @ -No What co-morbidities impacted this encounter? (DM, HTN, Smoking, COPD, CAD, Cancer, CVA, ARF, Chemo, Hep., AIDS, mental health diagnosis, sleep apnea, morbid obesity)? @ -None Was patient admitted / discharged? Hospital course, mention meds given and route, prescriptions, significant lab abnormalities, going to OR and other pertinent info. @ -54-year-old female presenting with chief complaint of left wrist pain after trip and fall last night. History and physical examination are conducted. She does have significant tenderness surrounding the wrist. Limited range of motion secondary to pain. Full sensation and good pulses. X-rays are negative for fracture or dislocation. Considering the patient is having significant tenderness she is placed in a volar splint and instructed to follow-up with orthopedics. Follow-up with PCP. Report back to ER with any new or worsening symptoms. Discussed return parameters and answered all questions. Patient conveyed verbal understanding and agreed to the plan. I discussed this case in detail with my attending Dr. Wells Undiagnosed new problem with uncertain prognosis? @ -No Drug Therapy requiring intensive monitoring for toxicity (Heparin, Nitro, Insulin, Cardizem)? @ -No Were any procedures done? @ -Volar splint applied Diagnosis/symptom? @ -Wrist injury Acute, or Chronic, or Acute on Chronic? @ -Acute Uncomplicated (without systemic symptoms) or Complicated (systemic symptoms)? @ -Uncomplicated Side effects of treatment? @ -No Exacerbation, Progression, or Severe Exacerbation? @ -No Poses a threat to life or bodily function? How? (Chest pain, [place], ME, pneumonia, PE, COPD, DKA, ARF, appy, cholecystitis, CVA, Diverticulitis, Homicidal, Suicidal, threat to staff... and all critical care pts) @ -Unlikely Disposition Clinical Impression: Left wrist injury Disposition: HOME SELF-CARE Condition: Good Instructions (If sedation given, give patient instructions): Wrist Injury (ED) Additional Instructions: Follow-up with PCP and orthopedics. Report back to ER with any new or worsening symptoms. Take Motrin and Tylenol as needed for pain control. Rest ice and elevate the wrist. Is patient prescribed a controlled substance at d/c from ED?: No Referrals: Gorge Tripathi DO [Primary Care Provider] - 1-2 days Van Becerril DO [Doctor of Osteopathic Medicine] - 1-2 days Time of Disposition: 20:48
[2025-01-16 20:53] VITALS: BP 125/79; PULSE 71; TEMP 97.8
== END 2025-01-16 20:57 | disposition home or self-care (01) ==
LOC: EC 18:53
DX: S69.92XA Unspecified injury of left wrist, hand and finger(s), initial encounter (principal); F17.200 Nicotine dependence, unspecified, uncomplicated; Z88.1 Allergy status to other antibiotic agents; Z88.0 Allergy status to penicillin; Z91.030 Bee allergy status; Z91.048 Other nonmedicinal substance allergy status; Z91.013 Allergy to seafood; Z88.8 Allergy status to other drugs, medicaments and biological substances; W01.0XXA Fall on same level from slipping, tripping and stumbling without subsequent striking against object, initial encounter
CPT/HCPCS: 29125; 99283

== ENCOUNTER → 2025-04-16 | Outpatient (CLI) | payer MEDICARE, OTHER ==
[2025-04-16 19:21] LABS: Anion Gap 16.20 mmol/L (4.00-12.00); BUN/Creat Ratio 17.67 Ratio (12.00-20.00); Blood Urea Nitrogen 31.8 mg/dL (9.0-27.0); Calcium 9.5 mg/dL (8.7-10.3); Carbon Dioxide 20.8 mmol/L (21.6-31.8); Chloride 100 mmol/L (96-109); Glucose 217 mg/dL (70-110); Potassium 4.7 mmol/L (3.5-5.5); Sodium 137 mmol/L (135-145)
== END | disposition home or self-care (01) ==
LOC: LABWHC1 13:13
PROVIDERS: ATTEND Internal Medicine Interventional Cardiology
DX: N18.9 Chronic kidney disease, unspecified (principal)
CPT/HCPCS: 36415; 80048